=== PATIENT | female | born 1955 | race Two or more races ===

== ENCOUNTER 2025-01-01 18:56 | Inpatient (IN) | payer MEDICARE ==
[~2025-01-01] VITALS: Ht 160 cm; Wt 63.8 kg
[~2025-01-01 18:56] MED LIST: LEVO50TA7 PO
--- NOTE | 2025-01-01 19:07 | ED.PDOC ---
SOB-HPI HPI Comments 69 year old female presents to the ED via EMS with a chief complaint of shortness of breath onset 1 day. Patient states she has been experiencing shortness of breath for the past day, today began experiencing generalized weakness, fatigue, cough. Upon EMS arrival, O2 sat was in the 60s, placed on 10L O2 improved to 97%. Per EMS, family on scene stated patient has been intubated before due to respiratory issues, unknown specific diagnosis. Patient used breathing treatment at home with no improvement of symptoms. Denies chest pain, fever, chills, abdominal pain, nausea, vomiting, hematemesis, headache, dizziness. No other associated symptoms, modifiers, recent injuries or sick contacts present at this time. Time Seen by MD: 19:00 Primary Care Provider: UNKNOWN Reviewed notes: Medications, Allergies Information Source: Patient, Emergency Med Personnel Mode of Arrival: EMS Severity: Moderate Timing: Days Duration: Since onset Context: At Rest PE Risk Factors: None History of: None Prehospital treatment: Breathing Tx, Oxygen Modifying Factors: Nothing Associated Signs and Symptoms: Cough If cough with SOB: Non-Productive Past Medical History PAST MEDICAL HISTORY: COPD, HTN Surgical History: Denies all surgeries RX SPECIALIST History: No Pertinent RX SPECIALIST History Family History Family History: Unobtainable Social History Smoker: Non-Smoker Alcohol: Denies ETOH Use Drugs: Denies Drug Use Lives In: Home Constitutional: reports: fatigue, weakness; denies: chills, diaphoresis, fever, malaise, sweats, others EENTM: denies: blurred vision, double vision, ear bleeding, ear discharge, ear drainage, ear pain, ear ringing, eye pain, eye redness, hearing loss, mouth pain, mouth swelling, nasal discharge, nose bleeding, nose congestion, nose pain, photophobia, tearing, throat pain, throat swelling, voice changes, others Respiratory: reports: cough, shortness of breath; denies: hemoptysis, orthopnea, SOB at rest, SOB with excertion, stridor, wheezing, others Cardiovascular: denies: chest pain, dizzy spells, diaphoresis, Dyspnea on exertion, edema, irregular heart beat, left arm pain, lightheadedness, palpitations, PND, syncope, others Gastrointestinal: denies: abdomen distended, abdominal pain, blood streaked bowels, constipated, diarrhea, dysphagia, difficulty swallowing, hematemesis, melena, nausea, poor appetite, poor fluid intake, rectal bleeding, rectal pain, vomiting, others Genitourinary: denies: abnormal vagina bleeding, burning, dyspareunia, dysuria, flank pain, frequency, hematuria, incontinence, pain, , vagina discharge, urgency, others Neurological: denies: dizziness, fainting, headache, left sided numbness, left sided weakness, numbness, paresthesia, pre-existing deficit, right sided numbness, right sided weakness, seizure, speech problems, tingling, tremors, weakness, others Musculoskeletal: denies: back pain, gout, joint pain, joint swelling, muscle pain, muscle stiffness, neck pain, others Integumetry: denies: bruises, change in color, change in hair/nails, dryness, laceration, lesions, lumps, rash, wounds, others Allergic/Immunocompromised: denies: Difficulty Healing, Frequent Infections, Hives, Itching, others Hematologic/Lymphatic: denies: anemia, blood clots, easy bleeding, easy bruising, swollen glands, others Endocrine: denies: excessive hunger, excessive sweating, excessive thirst, excessive urination, flushing, intolerance to cold, intolerance to heat, unexplained weight gain, unexplained weight loss, others Psychiatric: denies: anxiety, bipolar disorder, depression, hopeless, panic disorder, schizophrenia, sleepless, suicidal, others All Other Systems: Reviewed and Negative Physical Exam General Appearance: Normal HEENT: Normal ENT Inspection, Pharynx Normal, TMs Normal Neck: Full Range of Motion, Non-Tender, Normal, Normal Inspection Respiratory: Chest Non-Tender Cardiovascular: No Edema, No JVD, No Murmur, No Gallop, Normal Peripheral Pulses, Regular Rate/Rhythm Breast Exam: Deferred Gastrointestinal: No Organomegaly, Non Tender, No Pulsatile Mass, Normal Bowel Sounds, Soft Genitalia: Deferred Pelvic: Deferred Rectal: Deferred Extremities: No calf tenderness, Normal capillary refill, Normal inspection, Normal range of motion, Non-tender, No pedal edema Musculoskeletal : Apperance: Normal Neurologic: Alert, beauty director II-XII nml as Tested, No Motor Deficits, Normal Affect, Normal Mood, No Sensory Deficits Cerebellar Function: Normal Reflexes: Normal Skin: Dry, Normal Color, Warm Lymphatic: No Adenopathy Was a procedure done? Was a procedure done?: No Differential Dx Differential Diagnosis: Asthma, Bronchitis, CHF, COPD, Hyponatremia, Pneumonia, Pneumothorax, Pulmonary Embolism, Respiratory Distress, URI, Other X-Ray, Labs, Meds, VS Vital Signs Date Time Temp Pulse Resp B/P (MAP) Pulse Ox O2 Delivery O2 Flow Rate FiO2 01/01/25 20:00 102 01/01/25 19:05 98.3 112 22 110/48 97 98.3 Lab Test 01/01/25 20:20 01/01/25 19:23 01/01/25 19:20 Range/Units Troponin I High Sensitivity 13 15 </=34 ng/L White Blood Count 15.4 H 4.4-10.8 10^3/uL Red Blood Count 4.09 4.0-5.20 10^6/uL Hemoglobin 13.8 12.2-16.2 g/dL Hematocrit 41.2 36.0-46.0 % Mean Corpuscular Volume 100.7 H 80.0-100.0 fL Mean Corpuscular Hemoglobin 33.6 H 28.0-32.0 pg Mean Corpuscular Hemoglobin Concent 33.4 32.0-36.0 g/dL Red Cell Distribution Width 14.0 11.8-14.3 % Platelet Count 268 140-450 10^3/uL Mean Platelet Volume 9.2 6.9-10.8 fL Neutrophils (%) (Auto) 75.4 37.0-80.0 % Lymphocytes (%) (Auto) 19.3 10.0-50.0 % Monocytes (%) (Auto) 4.2 0.0-12.0 % Eosinophils (%) (Auto) 0.8 0.0-7.0 % Basophils (%) (Auto) 0.3 0.0-2.0 % Neutrophils # (Auto) 11.6 H 1.6-8.6 10 ^3/uL Lymphocytes # (Auto) 3.0 0.4-5.4 10 ^3/uL Monocytes # (Auto) 0.6 0-1.3 10 ^3/uL Eosinophils # (Auto) 0.1 0-0.8 10 ^3/uL Basophils # (Auto) 0 0-0.2 10 ^3/uL Nucleated Red Blood Cells 0.1 % Sodium Level 136 136-145 mmol/L Potassium Level 4.3 3.5-5.1 mmol/L Chloride Level 105 98-107 mmol/L Carbon Dioxide Level 22 20-31 mmol/L Anion Gap 9 5-15 Blood Urea Nitrogen 14 9-23 mg/dL Creatinine 0.80 0.550-1.02 mg/dL Glomerular Filtration Rate Calc 80 >90 mL/min BUN/Creatinine Ratio 17.5 10.0-20.0 Serum Glucose 129 H 74-106 mg/dL Lactic Acid Level 1.8 0.4-2.0 mmol/L Calcium Level 9.7 8.7-10.4 mg/dL Magnesium Level 2.0 1.6-2.6 mg/dL Total Bilirubin 1.5 H 0.2-1.0 mg/dL Aspartate Amino Transferase (AST) 42 H 13-40 U/L Alanine Aminotransferase (ALT) 45 H 7-40 U/L Alkaline Phosphatase 97 46-116 U/L B-Type Natriuretic Peptide 30.14 0-100 pg/mL Total Protein 7.2 5.7-8.2 g/dL Albumin 4.2 3.2-4.8 g/dL Blood Gas Specimen Type Venous Blood Gas Sample Site Vbg - n/a Blood Gas Patient Temperature 37.0 Arterial Blood Date Drawn [id number] Temo Test N/a Venous Blood pH 7.371 7.320-7.430 Venous Blood pCO2 at Patient Temp 38.0 38.0-54.0 mmHg Venous Blood pO2 at Patient Temp < 36.5 23.0-48.0 mmHg Venous Blood HCO3 21.5 L 22.0-29.0 mmol/L Venous Blood Base Excess -3.3 L -2.0-3.0 mmol/L Blood Gas Liter Flow 15.00 Blood Gas Modality Mask - nrb FiO2 % 100.0 Current Medications Medications (Trade) Dose Ordered Sig/Serenity Route Start Time Stop Time Status Last Admin Albuterol (Ventolin Medneb) 5 mg ONCE ONCE N 01/01/25 19:15 01/01/25 19:16 DC 01/01/25 19:54 Ipratropium Hiram (Atrovent Medneb) 0.5 mg ONCE ONCE HHN 01/01/25 19:15 01/01/25 19:16 DC 01/01/25 19:54 Prednisone 40 mg ONCE ONCE PO 01/01/25 19:15 01/01/25 19:16 DC 01/01/25 20:01 Ceftriaxone Sodium 50 ml @ 100 mls/hr ONCE ONCE IV 01/01/25 20:15 01/01/25 20:44 DC 01/01/25 20:31 Time of 1ST Reevaluation: 19:30 Reevaluation 1ST: Unchanged Patient Education/Counseling: Diagnosis, Treatment, Prognosis Family Education/Counseling: No Family Present Additional Information The following tests were ordered, and results were reviewed by me: TROP-x3, CBC, CMP, BNP, XY CHEST, MAGNESIUM, EKG, BLOOD CULTURE, LA W/ REFLEX, VBG Additional Information was gathered from interviewing the following independent historians: EMS I reviewed and agreed with the following test results read by other providers:XY CHEST I discussed treatment and results with medical personnel and: patient Comprehensive systems review obtained and negative except for what is stated in the HPI. SEPSIS Sepsis Screen Physician Orders Chest Portable (01/01/25 19:03) Pulse Oximetry (01/01/25 19:03) Oxygen (01/01/25 19:03) Blood Culture (01/01/25 19:03) Troponin-I Hs (01/01/25 22:03) Venous Blood Gas (01/01/25 19:03) Oxygen By High-Flow (01/01/25 19:54) Azithromycin 500mg/ 250ml (Zithromax 50 (01/01/25 20:15) Vital Signs Date Time Temp Pulse Resp B/P (MAP) Pulse Ox O2 Delivery O2 Flow Rate FiO2 01/01/25 20:00 102 01/01/25 19:05 98.3 112 22 110/48 97 98.3 Laboratory Tests Test 01/01/25 19:23 Lactic Acid Level 1.8 mmol/L (0.4-2.0) White Blood Count 15.4 10^3/uL (4.4-10.8) H Medications Medications Dose Ordered Sig/Serenity Route Start Time Stop Time Status Last Admin Dose Admin Albuterol 5 mg ONCE ONCE N 01/01/25 19:15 01/01/25 19:16 DC 01/01/25 19:54 Ceftriaxone Sodium 50 ml @ 100 mls/hr ONCE ONCE IV 01/01/25 20:15 01/01/25 20:44 DC 01/01/25 20:31 Ipratropium Hiram 0.5 mg ONCE ONCE HHN 01/01/25 19:15 01/01/25 19:16 DC 01/01/25 19:54 Prednisone 40 mg ONCE ONCE PO 01/01/25 19:15 01/01/25 19:16 DC 01/01/25 20:01 Departure 1 Departure Time of Disposition: 21:06 Impression: Primary Impression: Acute hypoxic respiratory failure Additional Impressions: Pneumonia COPD exacerbation Disposition: ADMITTED INPATIENT Admit to: Med Surg Condition: Guarded Comments Acute Respiratory Distress with Pneumonia and COPD Exacerbation Chief Complaint: Shortness of breath for 1 day History of Present Illness: Patient is a 69-year-old female with a history of COPD who presents to the ED with complaints of shortness of breath for the last one day. She also reports generalized weakness, fatigue, and malaise. Her condition has progressively wor sened, requiring her to seek emergency care. On arrival, patient was found to be hypoxic with oxygen saturation in the sixties on room air, requiring supplemental oxygen. Review of Systems: Respiratory: Positive for shortness of breath and increased work of breathing. Constitutional: Positive for generalized weakness, fatigue, and malaise. All other systems: Deferred due to patient's acute respiratory distress. Past Medical History: Chronic Obstructive Pulmonary Disease (COPD) Vital Signs: Respiratory Rate: Increased Oxygen Saturation: 60s% on room air, 80s% on nasal cannula, >90% on high flow oxygen Physical Exam: General: Patient in moderate respiratory distress. Respiratory: Increased respiratory rate. Diminished breath sounds in bilateral bases. No accessory muscle use noted. Remainder of exam deferred due to patient's acute respiratory condition. Lab Results: CBC: WBC elevated at 15.4 Chemistry Panel: - Total bilirubin: Slightly elevated at 1.5 - AST: Slightly elevated at 42 - ALT: Slightly elevated at 45 - Remainder of chemistry panel unremarkable Cardiac Enzymes: - Troponin: Normal at 15 - BNP: Normal at 30 Imaging and Other Relevant Results: Chest X-ray: Extensive bilateral airspace disease that is grayish, perihilar, and in bilateral lower lobe regions, consistent with ARDS or diffuse pneumonia. Medical Decision Making: Summary Statement: 69-year-old female with history of COPD presenting with acute respiratory distress, hypoxia, and radiographic evidence of bilateral pneumonia. Problem List: 1. Acute hypoxic respiratory failure 2. Pneumonia, bilateral 3. COPD exacerbation 4. Mild transaminitis Differential Diagnosis: Pneumonia (bacterial vs. viral), COPD exacerbation, pulmonary edema, ARDS, pulmonary embolism, heart failure. ED Course: Patient received breathing treatment and prednisone for COPD exacerbation. IV Rocephin and azithromycin were administered for presumed bacterial pneumonia. Patient required escalation to high-flow oxygen therapy to maintain oxygen saturation above 90%. Decision made to admit for management of respiratory failure with hypoxia. Assessment and Plan: 1. Acute Hypoxic Respiratory Failure: - Due to pneumonia and COPD exacerbation - Continue high-flow oxygen therapy to maintain O2 saturation >90% - Admit to inpatient service, consider ICU if respiratory status deteriorates - Monitor ABGs and oxygen requirements 2. Bilateral Pneumonia: - Continue IV antibiotics: Ceftriaxone and Azithromycin - Obtain sputum cultures if possible - Consider respiratory viral panel 3. COPD Exacerbation: - Continue bronchodilator therapy - Systemic corticosteroids (Prednisone) - Reassess need for BiPAP if condition worsens 4. Mild Transaminitis: - Monitor liver function tests - Consider hepatic ultrasound if elevation persists Disposition: Admit to hospital for management of respiratory failure, pneumonia, and COPD exacerbation. Additional Notes: Note created based on ED encounter for patient with acute respiratory distress requiring admission. Billing Information: ICD-10: J96.01 - Acute respiratory failure with hypoxia ICD-10: J18.9 - Pneumonia, unspecified organism ICD-10: J44.1 - Chronic obstructive pulmonary disease with acute exacerbation ICD-10: R74.0 - Nonspecific elevation of levels of transaminase and lactic acid dehydrogenase [LDH] Critical Care Note Critical Care Time?: Yes (45 min-critical care time only) Critical care comment: Total critical care time: Approximately 36 minutes Due to a high probability of clinically significant, life threatening deterioration, the patient required my highest level of preparedness to intervene emergently and I personally spent this critical care time directly and personally managing the patient. This critical care time included obtaining a hi story; examining the patient; pulse oximetry; ordering and review of studies; arranging urgent treatment with development of a management plan; evaluation of patient's response to treatment; frequent reassessment; and, discussions with other providers. This critical care time was performed to assess and manage the high probability of imminent, life-threatening deterioration that could result in multi-organ failure. It was exclusive of separately billable procedures and treating other patients. Stability Stability form required: No Heart Score Heart Score: Heart Score Response (Comments) Value History Moderate Suspicious 1 EKG Repolarization Disturb 1 Age >65 2 Risk Factors 1 or 2 risk factors 1 Troponin Normal limit 0 Total 5 I personally scribed for SEDRICK COFFMAN MD ([email or web address]) on 01/01/25 at 19:07. Electronically submitted by Debbie Gonzalez ([email or web address]). I personally scribed for SEDRICK COFFMAN MD ([email or web address]) on 01/01/25 at 19:08. Electronically submitted by Debbie Gonzalez ([email or web address]). SEDRICK COFFMAN MD Jan 01, 2025 19:07
--- NOTE | 2025-01-01 19:08 | ECG ---
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
[2025-01-01 19:35] VITALS: PULSE 102; RESP 34; O2SAT 97
--- NOTE | 2025-01-01 19:45 | DVH ---
CHEST RADIOGRAPH REASON FOR EXAM: Shortness of breath COMPARISON: None TECHNIQUE: One view of the chest is provided FINDINGS: The cardiomediastinal silhouette is within normal limits for size. There is extensive airsp lianne disease bilaterally, greatest in the perihilar regions. There are low inspiratory volumes. There is no large pleural effusion. There is no pneumothorax. No acute osseous abnormality is identified. IMPRESSION: Extensive bilateral airspace disease, greatest in the perihilar regions. This may be secondary to sev ere pulmonary edema. ARDS and diffuse pneumonia are also considerations.
[2025-01-01 19:52] LABS: Hematocrit 41.2 % (36.0-46.0); Hemoglobin 13.8 g/dL (12.2-16.2); Mean Corpuscular Hemoglobin 33.6 pg (28.0-32.0); Mean Corpuscular Volume 100.7 fL (80.0-100.0); Nucleated Red Blood Cells % 0.1 %
[2025-01-01] MEDS: ALBUTEROL SULF 2.5 MG/0.5ML(0.5%) NEB SOLN HHN ONE (19:54)
[2025-01-01] MEDS: IPRATROPIUM BROM 0.5 MG/2.5ML INH SOL HHN ONE (19:54)
[2025-01-01] MEDS: predniSONE 20 MG TAB PO ONE (20:01)
[2025-01-01 20:08] LABS: Albumin 4.2 g/dL (3.2-4.8); Alkaline Phosphatase 97 U/L (46-116); Anion Gap 9 (5-15); BUN/Creatinine Ratio 17.5 (10.0-20.0); Blood Urea Nitrogen 14 mg/dL (9-23); Calcium 9.7 mg/dL (8.7-10.4); Carbon Dioxide 22 mmol/L (20-31); Chloride 105 mmol/L (98-107); Magnesium 2.0 mg/dL (1.6-2.6); Potassium 4.3 mmol/L (3.5-5.1); Sodium 136 mmol/L (136-145); Total Protein 7.2 g/dL (5.7-8.2)
[2025-01-01] MEDS: cefTRIAXone 1GM/50ML D5W 50 ML IV ONE (20:31)
[2025-01-01 20:50] LABS: Alanine Aminotransferase 45 U/L (7-40); Bilirubin, Total 1.5 mg/dL (0.2-1.0); Glucose 129 mg/dL (74-106)
[2025-01-01] MEDS: AZITHROMYCIN 500MG/ 250ML 250 ML IV ONE (21:20)
[2025-01-01] MEDS: ACETAMINOPHEN 325 MG TAB PO ONE ×2 (21:51→21:52)
[2025-01-01] MEDS ORDERED: IPRATROPIUM BROM 0.5 MG/2.5ML INH SOL NEB SCH (23:15)
[2025-01-01] MEDS ORDERED: ALBUTEROL SULF 2.5 MG/0.5ML(0.5%) NEB SOLN NEB SCH (23:15)
[2025-01-01 23:29] LABS: Urine Protein, UAD TRACE (Negative)
[2025-01-01] MEDS: SODIUM CHLORIDE 0.9% 1,550 ML IV ONE (23:30)
[2025-01-01 23:53] LABS: Amphetamine Screen, Urine Neg (NEGATIVE); Barbiturate Scree,Urine Neg (NEGATIVE); Benzodiazephine Screen, Urine Neg (NEGATIVE); Cannabinoid Screen, Urine Neg (NEGATIVE); Cocaine Screen, Urine Neg (NEGATIVE); Opiate Scree,Urine Neg (NEGATIVE); Phencyclidine Screen, Urine Neg (NEGATIVE)
--- NOTE | 2025-01-01 23:58 | DVHHPRES ---
History of Present Illness Resident Creating Document: CHANDU MARRERO RESIDENT History of Present Illness Theresa Singh is a 69 year old female with past medical history of Hypothyroidism, COPD, RA and CVA (2019). The patient presented to the ED via EMS with a chief complaint of 1 day of fever, chills, fatigue, shortness of breath, and dry cough. Patient uses albuterol at home without any improvement. Today, the shortness of breath exacerbates making her feeling lightheaded that prompted her to call the EMS. Upon EMS arrival, O2 sat was in the 60s, placed on 10L O2 improved to 97%. Per EMS, family on scene stated patient has been intubated before due to respiratory issues, unknown specific diagnosis. Denies chest pain, abdominal pain, nausea, vomiting, hematemesis, headache, dizziness or other associated symptoms. Patient denies recent travels or sick contacts. Pulmonary: COPD, Other (COVID and Several episodes of pneumonia and respiratory failure, she was admitted for respiratory failure last year. ) Rheumatologic: Rheumatoid arthritis Endocrine: Hypothyroidism Past Surgical History: Appendectomy, Hysterectomy, Hernia Repair Family History: Other (Heart diseases ) Smoke: Quit (Patient smoke less than 1 pack during teens years.) ALCOHOL: none Drugs: None Review of Systems Constitutional: Yes: Fever, Chills, Malaise; No: Sweats, Weakness, Other Eyes: No: Pain, Vision change, Conjunctivae inflammation, Eyelid inflammation, Other, Redness ENT: No: Ear pain, Ear discharge, Nose pain, Nose discharge, Nose congestion, Mouth pain, Mouth swelling, Throat pain, Throat swelling, Other Respiratory: Cough, Dry, Shortness of breath, SOB with excertion; No: Wheezing, Hemoptysis, Pleuritic Pain, Sputum, Wheezing, Other Cardiovascular: Lt Headedness; No: Chest Pain, Palpitations, Orthopnea, Par oxysmal Noc. Dyspnea, Edema, Other Gastrointestinal: No: Nausea, Vomiting, Abdominal Pain, Diarrhea, Constipation, Melena, Hematochezia, Other Genitourinary: No Dysuria, No Frequency, No Incontinence, No Hematuria, No Retention, No Other Musculoskeletal: No: other, neck pain, shoulder pain, arm pain, back pain, hand pain, leg pain, foot pain Skin: No: Rash, Lesions, Jaundice, Bruising, Other Neurological: No: Weakness, Numbness, Incoordination, Change in speech, Confusion, Seizures, Other Allergies: Coded Allergies: NO KNOWN ALLERGIES (Unverified , 08/20/18) Medications Current Medications Medications Dose Ordered Sig/Serenity Route Start Time Stop Time Status Last Admin Dose Admin Albuterol 5 mg Q4HR NEB 01/01/25 23:15 UNV Ipratropium [place] 0.5 mg Q4HR NEB 01/01/25 23:15 UNV Exam Vital Signs Vital Signs Date Time Temp Pulse Resp B/P (MAP) Pulse Ox O2 Delivery O2 Flow Rate FiO2 01/01/25 22:30 99.9 100 25 110/45 (66) 95 99.9 01/01/25 19:35 Non-Rebreather 15 N/A General Appearance: Alert, Oriented X3, Cooperative, mild distress HEENT: Atraumatic, PERRLA, Mucous membr. moist/pink Respiratory: Other (Increased respiratory rate, Diminished breath sounds in bi lateral bases, bilateral crackles in mid and lower lung lobes) Cardiovascular: Regular rate, Normal S1, Normal S2, No murmurs Abdominal: Normal bowel sounds, Soft, No tenderness, No hepatospenomegaly, No masses Extremities: No clubbing, No cyanosis, No edema, Normal pulses, No tenderness/swelling Skin: No rashes, No breakdown, No significant lesion Neuro: Normal gait, Normal speech, Strength at 5/5 X4 ext, Normal tone, Sensation intact, Cranial nerves 3-12 NL Psych/Mental Status: Mental status NL, Mood NL Labs/Xrays Labs Test 01/01/25 20:20 01/01/25 19:23 01/01/25 19:20 Range/Units Troponin I High Sensitivity 13 </=34 ng/L White Blood Count 15.4 H 4.4-10.8 10^3/uL Red Blood Count 4.09 4.0-5.20 10^6/uL Hemoglobin 13.8 12.2-16.2 g/dL Hematocrit 41.2 36.0-46.0 % Mean Corpuscular Volume 100.7 H 80.0-100.0 fL Mean Corpuscular Hemoglobin 33.6 H 28.0-32.0 pg Mean Corpuscular Hemoglobin Concent 33.4 32.0-36.0 g/dL Red Cell Distribution Width 14.0 11.8-14.3 % Platelet Count 268 140-450 10^3/uL Mean Platelet Volume 9.2 6.9-10.8 fL Neutrophils (%) (Auto) 75.4 37.0-80.0 % Lymphocytes (%) (Auto) 19.3 10.0-50.0 % Monocytes (%) (Auto) 4.2 0.0-12.0 % Eosinophils (%) (Auto) 0.8 0.0-7.0 % Basophils (%) (Auto) 0.3 0.0-2.0 % Neutrophils # (Auto) 11.6 H 1.6-8.6 10 ^3/uL Lymphocytes # (Auto) 3.0 0.4-5.4 10 ^3/uL Monocytes # (Auto) 0.6 0-1.3 10 ^3/uL Eosinophils # (Auto) 0.1 0-0.8 10 ^3/uL Basophils # (Auto) 0 0-0.2 10 ^3/uL Nucleated Red Blood Cells 0.1 % Sodium Level 136 136-145 mmol/L Potassium Level 4.3 3.5-5.1 mmol/L Chloride Level 105 98-107 mmol/L Carbon Dioxide Level 22 20-31 mmol/L Anion Gap 9 5-15 Blood Urea Nitrogen 14 9-23 mg/dL Creatinine 0.80 0.550-1.02 mg/dL Glomerular Filtration Rate Calc 80 >90 mL/min BUN/Creatinine Ratio 17.5 10.0-20.0 Serum Glucose 129 H 74-106 mg/dL Lactic Acid Level 1.8 0.4-2.0 mmol/L Calcium Level 9.7 8.7-10.4 mg/dL Magnesium Level 2.0 1.6-2.6 mg/dL Total Bilirubin 1.5 H 0.2-1.0 mg/dL Aspartate Amino Transferase (AST) 42 H 13-40 U/L Alanine Aminotransferase (ALT) 45 H 7-40 U/L Alkaline Phosphatase 97 46-116 U/L B-Type Natriuretic Peptide 30.14 0-100 pg/mL Total Protein 7.2 5.7-8.2 g/dL Albumin 4.2 3.2-4.8 g/dL Blood Gas Specimen Type Venous Blood Gas Sample Site Vbg - n/a Blood Gas Patient Temperature 37.0 Arterial Blood Date Drawn [id number] Temo Test N/a Venous Blood pH 7.371 7.320-7.430 Venous Blood pCO2 at Patient Temp 38.0 38.0-54.0 mmHg Venous Blood pO2 at Patient Temp < 36.5 23.0-48.0 mmHg Venous Blood HCO3 21.5 L 22.0-29.0 mmol/L Venous Blood Base Excess -3.3 L -2.0-3.0 mmol/L Blood Gas Liter Flow 15.00 Blood Gas Modality Mask - nrb FiO2 % 100.0 SEPSIS Sepsis Screen Date sepsis recognized/suspect: Jan 01, 2025 Time Sepsis recognized/suspect: 1944 Recent Procedure: No On Antibiotic Therapy: No Respiratory Rate >20: Yes Heart Rate >90: Yes Temp<36 C (96.8 F) or >38.3 C: No SBP <90 or MAP <65 mmHG: No New Acute Mental Status Change: No Is the patient on CPAP, BIPAP,: No Physician Orders Chest Portable (01/01/25 19:03) Pulse Oximetry (01/01/25 19:03) Oxygen (01/01/25 19:03) Blood Culture (01/01/25 19:03) Venous Blood Gas (01/01/25 19:03) Oxygen By High-Flow (01/01/25 19:54) Admit (01/01/25 22:33) Code Status (01/01/25 22:33) Vital Signs .PER UNIT PROTOCOL (01/01/25 22:33) Review Orders With Adm.Md (01/01/25 22:33) Maintain Bed Rest (01/01/25 22:33) Regular Diet (01/02/25 Breakfast) Notify Md Of Changes From Base (01/01/25 22:33) Advance Directive (01/01/25 22:33) Allergies (01/01/25 22:33) Drug Screen (01/01/25 22:33) Urinalysis (01/01/25 22:33) Respiratory Culture W/ Gs (01/01/25 22:33) Complete Blood Count (01/02/25 04:00) Comprehensive Metabolic Panel (01/02/25 04:00) Covid19 Antigen Joanna (01/01/25 ) Rapid Influenza A&B (01/01/25 22:59) Albuterol Medneb (Ventolin Medneb) (01/01/25 23:15) Ipratropium Medneb (Atrovent Medneb) (01/01/25 23:15) Sodium Chloride 0.9% (01/01/25 23:15) Traffic Agent (01/01/25 23:09) Vital Signs Date Time Temp Pulse Resp B/P (MAP) Pulse Ox O2 Delivery O2 Flow Rate FiO2 01/01/25 22:30 99.9 100 25 110/45 (66) 95 99.9 01/01/25 21:51 102.2 01/01/25 21:00 102.2 102.2 01/01/25 20:00 102 01/01/25 19:35 102 34 97 Non-Rebreather 15 N/A 01/01/25 19:30 102 34 109/56 (73) 97 01/01/25 19:05 98.3 112 22 110/48 97 98.3 Laboratory Tests Test 01/01/25 19:23 Lactic Acid Level 1.8 mmol/L (0.4-2.0) White Blood Count 15.4 10^3/uL (4.4-10.8) H Medications Medications Dose Ordered Sig/Serenity Route Start Time Stop Time Status Last Admin Dose Admin Acetaminophen 1,000 mg ONCE ONCE PO 01/01/25 21:45 01/01/25 21:46 DC 01/01/25 21:51 1,000 MG Albuterol 5 mg ONCE ONCE N 01/01/25 19:15 01/01/25 19:16 DC 01/01/25 19:54 5 MG Azithromycin 250 ml @ 125 mls/hr ONCE ONCE IV 01/01/25 20:15 01/01/25 22:14 DC 01/01/25 21:20 125 MLS/HR Ceftriaxone Sodium 50 ml @ 100 mls/hr ONCE ONCE IV 01/01/25 20:15 01/01/25 20:44 DC 01/01/25 20:31 100 MLS/HR Ipratropium [place] 0.5 mg ONCE ONCE HHN 01/01/25 19:15 01/01/25 19:16 DC 01/01/25 19:54 0.5 MG Prednisone 40 mg ONCE ONCE PO 01/01/25 19:15 01/01/25 19:16 DC 01/01/25 20:01 40 MG Assessment/Plan Assessment/Plan #Acute Hypoxic Respiratory Failure Likely due to COPD exacerbation #ARDS Continue high-flow oxygen therapy to maintain O2 saturation >90% Consider ICU if respiratory status deteriorates Reassess need for BiPAP if condition worsens. ABG #Acute on Chronic COPD exacerbation likely due to pneumonia gram +/- #Sepsis likely due to Pneumonia gram +/- Leukocytosis, Fever, Tachycardic, tachypneic. IV antibiotics: Ceftriaxone and Azithromycin Sputum cultures Blood cultures Albuterol NB Ipatropium NB Systemic corticosteroids #Mild Transaminitis Monitor liver function tests. Abdomen US #Hypothyroidism Levotiroxine #Rheumatoid Arthritis Tylenol Regular diet DVT prophylaxis PUD prophylaxis Protonic Goals of care discussed with the patient > 35 min. Discussed plan of care with Dr. Mendez Code status: Full code PCP: in [facility], patient does not recall the name. Plan discussed with: Patient and son patients agrees with the plan. Plan discussed with: Patient, Son My Orders Orders - CHANDU MARRERO RESIDENT Procedure Category Date Status Time Admit ADMIT 01/01/25 Transmitted 22:33 Code Status CODE 01/01/25 Verified 22:33 Vital Signs LAKHWINDER 01/01/25 In Process 22:[address] [facility] 01/01/25 In Process Adm. 22:33 Maintain Bed Rest LAKHWINDER 01/01/25 In Process 22:33 Regular Diet DIET 01/02/25 Transmitted Breakfast Notify Md Of Changes LAKHWINDER 01/01/25 In Process From Base 22:33 Advance Directive LAKHWINDER 01/01/25 In Process 22:33 Allergies LAKHWINDER 01/01/25 In Process 22:33 Drug Screen LAB 01/01/25 Logged 22:33 Urinalysis LAB 01/01/25 Logged 22:33 Respiratory Culture SASKIA 01/01/25 Logged W/ Gs 22:33 Complete Blood Count LAB 01/02/25 Verified 04:00 Comprehensive LAB 01/02/25 Verified Metabolic Panel 04:00 Covid19 Antigen Joanna LAB 01/01/25 Logged Rapid Influenza A&B LAB 01/01/25 Logged 22:59 Albuterol Medneb PHA 01/01/25 Logged (Ventolin Medneb) 23:15 Ipratropium Medneb PHA 01/01/25 Logged (Atrovent Medneb) 23:15 Sodium Chloride 0.9% PHA 01/01/25 Logged 23:15 Traffic Agent ORDERS 01/01/25 Verified 23:09 Common Visit Codes: 09291-[id number] INP/OBS CARE (HIGH) Secondary Visit Codes: 79330-[id number] CARE PLAN 30 MINUTES CHANDU MARRERO RESIDENT Jan 01, 2025 23:58
[2025-01-02] VITALS (7 sets, daily range): BP systolic 108; BP diastolic 56; PULSE 82–104; RESP 18–28; TEMP 99.9; O2SAT 94–98
[2025-01-02 00:23] LABS: Base Excess -6.7 mmol/L (-2.0-3.0)
[2025-01-02 00:35] LABS: COVID19 ANTIGEN SOFIA FIA NEGATIVE (NEGATIVE)
[2025-01-02] MEDS: IOHEXOL 350 MG/ML 100ML IJ ONE (00:37)
--- NOTE | 2025-01-02 04:19 | DVH ---
CTA Chest with intravenous contrast INDICATION: R/O PE, PNA COMPARISON: XY CHEST PORTABLE on DOS: 01/01/25 TECHNIQUE: Multidetector spiral CTA of the chest was performed of the chest with intravenous contrast . PULMONARY ANGIOGRAPHY PROTOCOL was utilized using a bolus-tracking technique centered on the main p ulmonary artery. Axial, coronal and sagittal multiplanar and MIP reformats were performed. Radiation Dose : 1. Chest: CTDI volume is 17.76 mGy. Dose-length product is 348.24 mGy*cm The dose indicators for CT are the volume Computed Tomography (CT) Dose Index (CTDIvol) and the Dose Length Product (DLP), and are measured in units of mGy and mGy-cm, respectively. These indicators are not patient dose, but values generated from the CT scanner acquisition factors. The report includes radiation exposure data for exposures received during this examination. Findings: Pulmonary artery: No pulmonary embolism. The main pulmonary artery measures 2.5 cm and the ascending thoracic aorta measures 3.1 cm. Lower neck: Normal thyroid. Lungs: Extensive multifocal consolidative parenchymal infiltrate within all lung zones bilaterally, w orse within the posterior lower lobes. No evidence of pleural effusion or pneumothorax. Heart/Vascular Structures: Normal heart size. No pericardial effusion. Lymph Nodes: No adenopathy Musculoskeletal: No acute osseous abnormality. Soft tissues: Normal. Upper abdomen: Limited portions of the upper abdomen are unremarkable. IMPRESSION: 1. No pulmonary embolism. 2. Extensive multifocal consolidative bilateral pulmonary infiltrate, most notably within the bilater al posterior lower lobes.
[2025-01-02 07:32] LABS: Hematocrit 38.7 % (36.0-46.0); Hemoglobin 13.2 g/dL (12.2-16.2); Mean Corpuscular Hemoglobin 34.0 pg (28.0-32.0); Mean Corpuscular Volume 100.0 fL (80.0-100.0); Nucleated Red Blood Cells % 0.1 %
[2025-01-02 07:38] LABS: Alanine Aminotransferase 35 U/L (7-40); Albumin 3.8 g/dL (3.2-4.8); Alkaline Phosphatase 87 U/L (46-116); Anion Gap 9 (5-15); BUN/Creatinine Ratio 16.7 (10.0-20.0); Blood Urea Nitrogen 11 mg/dL (9-23); Calcium 9.4 mg/dL (8.7-10.4); Carbon Dioxide 21 mmol/L (20-31); Potassium 4.1 mmol/L (3.5-5.1); Sodium 141 mmol/L (136-145); Total Protein 6.6 g/dL (5.7-8.2)
[2025-01-02 07:39] LABS: Bilirubin, Total 1.0 mg/dL (0.2-1.0); Chloride 111 mmol/L (98-107); Glucose 190 mg/dL (74-106)
[2025-01-02] MEDS: ENOXAPARIN SOD 40 MG/0.4 ML SYRINGE SC ONE (08:00)
[2025-01-02] MEDS ORDERED: cefTRIAXone 1GM/50ML D5W 50 ML IV SCH (09:00)
[2025-01-02] MEDS: CEFEPIME 2GM/50ML NS 50 ML IV SCH (10:00)
[2025-01-02] MEDS: PANTOPRAZOLE 40 MG/10 ML VIAL INJ IV SCH (10:04)
[2025-01-02] MEDS: AZITHROMYCIN 500MG/ 250ML 250 ML IV SCH (10:05)
[2025-01-02] MEDS: HYDROCORTISONE SOD SUCC 100 MG/2ML INJ VIAL IV SCH (10:50)
[2025-01-02] MEDS ORDERED: VANCOMYCIN PER PHARMACY 0 MG IV SCH (11:45)
[2025-01-02 12:38] LABS: INR 0.97 (0.9-1.15); Partial Thromboplastin Time 28.2 SEC (24.5-34.5); Prothrombin Time 10.3 sec (9.3-11.8)
[2025-01-02] MEDS: SODIUM CHLORIDE 0.9% 250 ML IV ONE (13:05)
[2025-01-02] MEDS: SODIUM CHLORIDE 0.9% 1,000 ML IV SCH (15:25)
[2025-01-02] MEDS: VANCOMYCIN 1.25GM/250ML 250 ML IV ONE (17:36)
--- NOTE | 2025-01-02 19:36 | DVHPNRES ---
Progress Note Date Seen: Jan 02, 2025 Resident Creating Document: MEME ANG RESIDENT Medical Necessity Reason Pt with a Central, PICC or Fol: No Subjective Review of Systems Patient is a 69-year-old female with prior medical history of COPD, intracranial aneurysm, hypothyroidism, rheumatoid arthritis, and recurrent pneumonias requiring intubation, who presented to the ED with chief complaint of fatigue and shortness of breath. Patient states symptoms initiated 1 week prior to presentation. She refers fatigue associated with progressively worsened shortness of breath, dry cough, and febrile sensation. She states she used her oxygen at home with little, which prompted her family to call EMS. On evaluation in the field, she was saturating 60% and was placed on 10 L O2. On evaluation in the ED, she was found to be tachycardic, tachypneic, and requiring 15 L O2 via face mask. Initial labs significant for 15.4, with chemical panel within normal range, lactic acid 1.8, troponins negative, BNP 30.14, ABG showing 7.405, pCO2 27.1, pO2 103.3, and HCO3 16.6. Chest Xray shows extensive bilateral airspace disease, greatest in perihilar regions. Sepsis protocol was initiated, cultures were taken, and patient was admitted and started on IV antibiotics. Surgical: Aneurysm repair, Hernia repair, appendectomy Social: Denies drug and alcohol use, refers she smoked 1-2 cigarettes daily for 30 years with cessation in 2019 Patient seen at bedside. She is alert and oriented in person, place, and time. She states that feels well, and shortness of breath has improved with use of simple face mask, at the time 10 L O2. She currently denies chest pain, cough, nausea, vomiting and other symptoms. Over night, patient febrile spike of 102.2 F, she has remained tachypneic, and blood pressure remain on the lower limit of normality. CT angio was ordered, ruling out PE, and showed extensive multifocal consolidative bilateral pulmonary infiltrate. Cefepime was added for broader coverage. Patient is currently JACLYN status. Review of Systems: Constitutional: Refers febrile sensation and chills, denies weight loss . HEENT: Denies changes in vision and hearing. Respiratory: Denies shortness of breath and cough Cardiovascular: Denies chest discomfort or palpitations GI: Denies abdominal distention, abdominal pain, diarrhea : Denies dysuria and urinary frequency. Musculoskeletal: Denies any symptom Skin: Refers bruising on arms, denies rash and pruritus. Neurological: denies dizziness headache vision or hearing problems Objective vital signs Vital Sign Date Time Temp Pulse Resp B/P (MAP) Pulse Ox O2 Delivery O2 Flow Rate FiO2 01/02/25 17:00 98.2 77 25 104/47 (66) 94 98.2 01/02/25 07:56 Simple Mask* 10 99 Total Intake and Output 01/01/25 01/01/25 01/02/25 15:00 23:00 07:00 Intake Total 50 ml 1800 ml Balance 50 ml 1800 ml medications Current Medications Medications Dose Ordered Sig/Serenity Route Start Time Stop Time Status Last Admin Dose Admin Azithromycin 250 ml @ 125 mls/hr DAILY IV 01/02/25 10:00 01/02/25 10:05 125 MLS/HR Albuterol 5 mg Q4HPRN PRN NEB 01/02/25 00:15 Ipratropium [place] 0.5 mg Q4HPRN PRN NEB 01/02/25 00:15 Pantoprazole Sodium 40 mg DAILY IV 01/02/25 10:00 01/02/25 10:04 40 MG Enoxaparin Sodium 40 mg DAILY SC 01/03/25 10:00 Cefepime HCl 50 ml @ 12.5 mls/hr Q12HR IV 01/02/25 10:00 01/02/25 10:00 12.5 MLS/HR Vancomycin HCl 0 ml @ 0 mls/hr UD IV 01/02/25 11:45 Sodium Chloride 1,000 ml @ 75 mls/hr [id number] IV 01/02/25 11:45 01/02/25 15:25 75 MLS/HR Examination General: The patient alert and oriented in person place and time. Patient following commands HEENT: Normocephalic, atraumatic, left pupil is larger than the right however she states this is since her aneurysm, EOM intact, pink moist mucous membrane Respiratory/pulmonary: Bilateral chest expansion, no pain on palpation, vesicular murmurs present in almost all lung jackson, associated crackles in bilateral lower lung jackson. Cardiovascular: Normal RRR, normal S1 and S2 Abdomen: Abdomen nondistended, normal bowel sounds, soft, no pain to palpation in any of the abdominal quadrants, no palpable masses. Extremities: No deformities, no peripheral edema present at the lower extremities, normal pulses Skin: One circular non-blanching flat lesion on left arm Neurological: Intact cranial nerves with no focal neurologic deficits, left pupil larger than the right this is sequelae from previous aneurysm laboratory and microbiology Laboratory Tests 01/02/25 07:01 Test 01/02/25 07:01 Range/Units Serum Glucose 190 H 74-106 mg/dL Problem List/Assessment/Plan Problem List/Assessment/Plan Assessment and Plan: Sepsis secondary to Pneumonia (gram positive/gram negative) -Cefepime 2 g IV BID -Azithromycin 500 mg IV daily -Vancomycin IV per pharmacy protocol -Ceftriaxone discontinued -IV fluids -Chest Xray: Extensive bilateral airspace disease, greatest in the perihilar regions. This may be secondary to severe pulmonary edema. ARDS and diffuse pneumonia are also considerations. -CT angio: No pulmonary embolism. Extensive multifocal consolidative bilateral pulmonary infiltrate, most notably within the bilateral posterior lower lobes. -Pending cultures Acute on chronic hypoxic respiratory failure secondary to above -10 L O2 high flow NC -Ipratropium 0.5 mg NEB q 4 PRN -Albuterol 5 mg NEB q4 hr PRN Acute on Chronic COPD exacerbation, secondary to above Possible chronic HFrEF -Previous echo in 2019 EF 40-45% -Pending echo PE ruled out History of Hypothyroidism History of Rheumatoid arthritis DVT prophylaxis: Lovenox 40 mg SC daily Case discussed with Dr. Ulloa. Goals of care discussed with the patient for over 30 minutes. Agrees to intubation should it be required. FULL CODE. Plan discussed with: Patient, Son Date of Service: Jan 02, 2025 Billing Provider: MEL ULLOA MD Common Visit Codes: [id number] CARE 30-74 MIN Secondary Visit Codes: [id number] CARE PLAN 30 MINUTES MEME ANG RESIDENT Jan 02, 2025 19:36 MEL ULLOA MD Jan 04, 2025 20:55
[2025-01-03] VITALS (26 sets, daily range): BP systolic 66–188; BP diastolic 25–97; PULSE 76–129; RESP 16–30; TEMP 99.5–100.6; O2SAT 92–100
[2025-01-03 04:27] LABS: Hematocrit 41.9 % (36.0-46.0); Hemoglobin 14.1 g/dL (12.2-16.2); Mean Corpuscular Hemoglobin 33.9 pg (28.0-32.0); Mean Corpuscular Volume 100.6 fL (80.0-100.0); Nucleated Red Blood Cells % 0.1 %
[2025-01-03 04:37] LABS: Potassium 3.6 mmol/L (3.5-5.1); Sodium 140 mmol/L (136-145)
[2025-01-03 04:38] LABS: Anion Gap 11 (5-15); Calcium 9.8 mg/dL (8.7-10.4)
[2025-01-03 04:39] LABS: Carbon Dioxide 20 mmol/L (20-31); Chloride 109 mmol/L (98-107)
[2025-01-03 04:43] LABS: BUN/Creatinine Ratio 23.1 (10.0-20.0); Blood Urea Nitrogen 15 mg/dL (9-23)
[2025-01-03 04:51] LABS: Glucose 122 mg/dL (74-106)
[2025-01-03] MEDS: VANCOMYCIN 1GM/200ML PM 200 ML IV SCH (09:49)
[2025-01-03] MEDS: ENOXAPARIN SOD 40 MG/0.4 ML SYRINGE SC SCH (10:10)
[2025-01-03] MEDS: IPRATROPIUM BROM 0.5 MG/2.5ML INH SOL NEB PRN (12:29)
[2025-01-03] MEDS: ALBUTEROL SULF 2.5 MG/0.5ML(0.5%) NEB SOLN NEB PRN (12:30)
[2025-01-03] MEDS: MIDAZOLAM DRIP 50 mg/50mL 50 ML IV ONE (13:02)
[2025-01-03] MEDS: ETOMIDATE (2MG/ML) 20ML VIAL IV ONE (13:03)
[2025-01-03] MEDS: ROCURONIUM 10MG/ML 10ML VIAL IV ONE ×3 (13:04→16:11)
[2025-01-03] MEDS: MIDAZOLAM DRIP 50 mg/50mL 50 ML IV SCH (13:30)
[2025-01-03] MEDS: fentaNYL Drip 2500mCg/250mlNS 250 ML IV SCH (14:25)
[2025-01-03] MEDS: NOREPINEPHRINE 8 MG/250ML KIT 250 ML IV SCH (14:32)
--- NOTE | 2025-01-03 14:37 | DVHPNRES ---
Progress Note Date Seen: Jan 03, 2025 Resident Creating Document: BHAVESH JON RESIDENT Medical Necessity Reason Pt with a Central, PICC or Fol: No Subjective Review of Systems Patient is a 69-year-old female who is a poor historian, with prior medical history of asthma, COPD?, intracranial aneurysm s/p repair(coiling?), hypothyroidism, rheumatoid arthritis, lupus? and recurrent pneumonias requiring intubation x 3 in the past, who presented to the ED with chief complaint of fatigue and shortness of breath. Patient states symptoms initiated 1 week prior to presentation. She refers fatigue associated with progressively worsened shortness of breath, dry cough, and febrile sensation. She states she used her oxygen at home with little relief however pt is unclear about whether it is home oxygen or a nebulizer, inability to achieve relief despite that prompted her family to call EMS. On evaluation in the field, she was saturating 60% and was placed on 10 L O2. Per pt she is on no medication neither sees a primary care doctor as she prefers holistic alternatives routinely. Per pt, she attends a clinic in [facility] where she receives infusions? On evaluation in the ED, she was found to be tachycardic, tachypneic, and requiring 15 L O2 via face mask. Initial labs significant for 15.4, with chemical panel within normal range, lactic acid 1.8, troponins negative, BNP 30.14, ABG showing 7.405, pCO2 27.1, pO2 103.3, and HCO3 16.6. Chest Xray shows extensive bilateral airspace disease, greatest in perihilar regions. Sepsis protocol was initiated, cultures were taken, and patient was admitted and started on IV antibiotics. Surgical: Aneurysm repair, Hernia repair, appendectomy Social: Denies drug and alcohol use, refers she smoked 1-2 cigarettes daily for 30 years with cessation in 2019 Patient seen at bedside. She is alert and oriented in person, place, and time. She states that feels well, and shortness of breath has improved with use of simple face mask, at the time 10 L O2. She currently denies chest pain, cough, nausea, vomiting and other symptoms. Over night, patient febrile spike of 102.2 F, she has remained tachypneic, and blood pressure remain on the lower limit of normality. CT angio was ordered, ruling out PE, and showed extensive multifocal consolidative bilateral pulmonary infiltrate. Cefepime was added for broader coverage. Patient is currently JACLYN status. 01/03/2025: Overnight pt was able to be brought down to 6L O2 however, in the morning after minimal exertion, patient continued to have respiratory distress with desaturation on minimal movement. On re-evaluation an hour later, patient was noted to have continued tachypnea and use of accessory muscles, patient was AAO x4 and agreed to intubation verbally as well as a full code status aware of risks and benefits. Patient's son was informed, he wanted to wait on intubation until he arrived from [place] in order for the patient to sign on some financial documents, however, ultimately intubation became medically necessary and waiting further would have proven detrimental to patient's health and well- being. Patient was subsequently intubated, a central line was placed, patient was upgraded to ICU status, patient's son was called and informed, detailed meeting was held with patient's son Mr. Alonso lasting 45 minutes where details of patient's with the plan of care was explained in great detail, all questions were answered concerns were addressed, imaging details outlined showing widespread multifocal pneumonia was also shared with patient's son, he demonstrated understanding and was agreeable with the plan of care. plan of care was also discussed with patients daughter in law, Ms. Carvajal for >40mins. Pt underwent bronchoscopy with bloody drainage. IV steroids were started and antibiotic coverage was broadened to include meropenem. vasopressors were initiated to support hemodynamics. Objective vital signs Vital Sign Date Time Temp Pulse Resp B/P (MAP) Pulse Ox O2 Delivery O2 Flow Rate FiO2 01/03/25 14:32 88/45 01/03/25 13:31 129 16 96 100 01/03/25 12:31 Oxymizer 8 01/03/25 08:23 98.5 98.5 Total Intake and Output 01/02/25 01/02/25 01/03/25 15:00 23:00 07:00 Intake Total 1337.5 ml 475 ml 175.0 ml Balance 1337.5 ml 475 ml 175.0 ml medications Current Medications Medications Dose Ordered Sig/Serenity Route Start Time Stop Time Status Last Admin Dose Admin Azithromycin 250 ml @ 125 mls/hr DAILY IV 01/02/25 10:00 01/03/25 10:51 125 MLS/HR Albuterol 5 mg Q4HPRN PRN NEB 01/02/25 00:15 01/03/25 12:30 5 MG Ipratropium [place] 0.5 mg Q4HPRN PRN NEB 01/02/25 00:15 01/03/25 12:29 0.5 MG Pantoprazole Sodium 40 mg DAILY IV 01/02/25 10:00 01/03/25 10:09 40 MG Enoxaparin Sodium 40 mg DAILY SC 01/03/25 10:00 01/03/25 10:10 40 MG Cefepime HCl 50 ml @ 12.5 mls/hr Q12HR IV 01/02/25 10:00 01/02/25 22:23 12.5 MLS/HR Vancomycin HCl 0 ml @ 0 mls/hr UD IV 01/02/25 11:45 Sodium Chloride 1,000 ml @ 75 mls/hr [id number] IV 01/02/25 11:45 01/02/25 15:25 75 MLS/HR Vancomycin HCl 200 ml @ 200 mls/hr Q18H IV 01/03/25 09:00 01/03/25 09:49 200 MLS/HR Norepinephrine Bitartrate 250 ml @ 3.75 mls/hr Q24H IV 01/03/25 13:00 01/03/25 14:32 3.75 MLS/HR Midazolam HCl 50 ml @ 1 mls/hr Q24H IV 01/03/25 13:00 01/03/25 13:30 1 MLS/HR Fentanyl Citrate 250 ml @ 2.5 mls/hr Q24H IV 01/03/25 13:00 Examination General Appearance: Intubated, sedated and mechanically ventilated Head Exam: Normal inspection Neck Exam: left pupil is larger than the right however she states this is since her aneurysm repair? Pulmonary/Respiratory: Coarse bilateral breath sounds, decreased on left more than right Cardiovascular/Chest: Regular rate and rhythm. No murmurs. No JVD. Peripheral Pulses: 2+ Radial (R). 2+ Radial (L). 2+ Pedal (R). 2+ Pedal (L) Abdominal Exam: Normal bowel sounds. Soft. normal abdomen, no visible veins, Nontender. No hepatospenomegaly. No masses Ankle Exam: Negative ankle edema Lower extremities: Negative lower extremity edema Skin Exam: Normal inspection. Normal color. Warm. Dry laboratory and microbiology Laboratory Tests 01/03/25 04:03 Test 01/03/25 04:03 Range/Units Serum Glucose 122 H 74-106 mg/dL Microbiology Date/Time Source Procedure Growth Status 01/01/25 19:23 Blood Blood Culture - Preliminary NO GROWTH AFTER 24 HOURS OF INCUBATION. Resulted Labs and/or images reviewed: Labs reviewed by me, Image(s) reviewed by me Problem List/Assessment/Plan Problem List/Assessment/Plan Neurology # Sedated - Versed - fentanyl Cardiovascular # septic shock # possible heart failure with mildly reduced ejection fraction 40-45% on echo in 2019 - on norepinephrine - on vasopressin - IV hydrocortisone 100 mg q.8hrs - pending echocardiogram Respiratory # Ventilator -intubated 01/03/2025 - bronchoscopy 01/03/2025 # Acute hypoxic respiratory failure # possible alveolar hemorrhage # COPD exacerbation # ruled out pulmonary embolism # multifocal community-acquired pneumonia, Gram-positive versus Gram-negative # possible pulmonary edema, severe - IV vancomycin, IV meropenem - pulmonology on board - IV methylprednisolone 125 mg once - IV hydrocortisone 50 mg q.6 hours - ipratropium albuterol med nebs - CT angiography: No pulmonary embolism. Extensive multifocal consolidative bilateral pulmonary infiltrate, most notably within the bilateral posterior lower lobes. - CXR from 01/03/2025: Interstitial and alveolar type opacities of bilateral lungs, relatively unchanged from prior imaging which may represent multifocal pneumonia/ARDS/severe pulmonary edema GI # transaminitis, now improving - monitor # Peptic ulcer prophylaxis -Pantoprazole 40 mg IV daily # Ruth catheter placed on 01/02/2025 Infectious disease # community-acquired pneumonia, Gram-positive versus Gram-negative # sepsis due to above # septic shock due to above - IV vancomycin per pharmacy - IV meropenem - norepinephrine drip - vasopressin drip - IV methylprednisolone 125 mg once - IV hydrocortisone 50 mg q.6 hours Hem/onc # macrocytosis without anemia -monitor Endocrine # history of type 2 diabetes # history of rheumatoid arthritis, not on any treatment # ?Lupus - ordered A1c - monitor DVT prophylaxis - holding due to possible alveolar hemorrhage evident on bronchoscopy Lines - right CVC placed on 01/03/2025 - L 22g placed on 01/03/25 - ruth 01/03/[facility] Versed Fentanyl Critical care time 83 minutes excluding procedure. Code status discussed greater than 20 minutes: Full CODE STATUS. Plan discussed with Dr. Ulloa Plan discussed with: Patient, Son, Other (RN) My Orders My Orders Orders - BHAVESH JON RESIDENT Procedure Category Date Status Time Vancomycin 1gm/200ml PHA 01/03/25 In Process Pm 09:00 Vancomycin,Trough LAB 01/04/25 Verified 20:00 Vancomycin Per LAKHWINDER 01/04/25 In Process Pharmacy Protoc 21:00 Creatinine LAB 01/04/25 Verified 05:00 Creatinine LAB 01/05/25 Verified 05:00 Norepinephrine 8 PHA 01/03/25 In Process Mg/250ml Kit 13:00 Midazolam Drip 50 PHA 01/03/25 In Process Mg/50ml (Versed Drip 5 13:00 Fentanyl Drip PHA 01/03/25 In Process 2500mcg/250mlns 13:00 Rass Sedation Scale LAKHWINDER 01/03/25 In Process 12:48 Abg W/ Co-Ox RT 01/03/25 Logged 14:30 Ventilator Orders RT 01/03/25 Transmitted 13:10 Respiratory Culture SASKIA 01/03/25 Logged W/ Gs 13:10 Ngt/Ogt ED NURSING 01/03/25 Transmitted Insert/Manage Urinary LAKHWINDER 01/03/25 In Process Catheter 13:12 Central Line Insertion BD 01/03/25 Transmitted 13:12 Transfer Orders XFER 01/03/25 Transmitted 13:12 Electrocardigram EKG 01/03/25 Logged 13:42 *Consult CONS 01/03/25 Transmitted / 14:35 Date of Service: Jan 03, 2025 Billing Provider: MEL ULLOA MD Common Visit Codes: 41445-[id number] CARE 30-74 MIN BHAVESH JON RESIDENT Jan 03, 2025 14:37 MEL ULLOA MD Jan 04, 2025 20:55
[2025-01-03 14:46] LABS: Base Excess -6.3 mmol/L (-2.0-3.0)
[2025-01-03] MEDS: PHENYLEPHRINE IV 250 ML IV SCH ×2 (15:30→19:30)
[2025-01-03] MEDS: FUROSEMIDE 20 MG/2 ML VIAL IV ONE (15:30)
--- NOTE | 2025-01-03 15:31 | DVH ---
CHEST RADIOGRAPH Indication: CENTRAL LINE PLACEMENT Technique: Single frontal view of the chest was obtained Comparison: XY CHEST PORTABLE on DOS: 01/01/25 FINDINGS: Lines and Tubes: Endotracheal tube and right IJ approach central venous catheter in satisfactory posi tion. Lungs: Interstitial and alveolar type opacities of bilateral lungs ; relatively unchanged from prior imaging. Pleura: No effusion. No pneumothorax. Cardiomediastinal contours: Unremarkable Bones: No acute osseous abnormality. IMPRESSION: Endotracheal tube and right IJ approach central venous catheters are in satisfactory position Interstitial and alveolar type opacities of bilateral lungs, relatively unchanged from prior imaging which may represent multifocal pneumonia/ ARDS /severe pulmonary edema.
[2025-01-03] MEDS: methylPREDNISolone SOD SUCC 125 MG/2 ML VL IV ONE (15:45)
[2025-01-03] MEDS: VASOPRESSIN 20 UNITS in SODIUM CHL 0.9% 99 ML IV SCH (15:54)
--- NOTE | 2025-01-03 15:54 | DVH ---
CHEST RADIOGRAPH Indication: s/p central line Technique: Single frontal view of the chest was obtained COMPARISON: CT CT ANGIO CHEST CONTRAST on DOS: 01/02/25, XY CHEST PORTABLE on DOS: 01/01/25 FINDINGS: Lines and Tubes: Endotracheal tube and right central venous catheter in satisfactory position. Lungs: Severe multifocal airspace disease. Pleura: No effusion. No pneumothorax. Cardiomediastinal contours: Unremarkable Bones: Unremarkable IMPRESSION: Lines and tubes in satisfactory position. No significant interval change.
--- NOTE | 2025-01-03 15:57 | DVHNC2 ---
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) Indication: Hypotension, CVP monitoring, Volume resuscitation Room prepared for procedure: Yes Inside Sales Coordinator performed hand hygien: Yes Maximal sterile barrier precau: Mask/Eye shield, Sterile gown, Cap, Sterlie gloves, Large sterlie drape Skin Preparation: Chlorhexidine gluconate, Providine iodine Skin preparation completely dr: Yes Insertion site: Right, Internal jugular Central line catheter type: [id number] dialysis Number of lumens: 3 Central line exchanged over a: No Antiseptic ointment applied to: Yes Post Assessment: Chest X-Ray, No Pneumothorax Notes A time out was performed. My hands were washed immediately prior to the procedure. I wore a surgical cap, mask with protective eyewear, full gown and sterile gloves throughout the procedure. The patient was placed in Trendelenburg position. RIGHT chest region was prepped using chlorhexidine scrub and draped in sterile fashion using a full drape and sterile probe cover and s terile gel employed. The medial and lateral heads of the sternocleidomastoid muscle were identified as was the carotid pulse. The Internal Jugular vein was identified using the ultrasound. Anesthesia was achieved over the vein using 1% lidocaine. Using real-time out of plane guidance, the introducer needle was inserted into the Internal Jugular vein under direct ultrasound visualization. Venous blood was withdrawn. The syringe was removed and a guidewire was advanced into the introducer needle. The guidewire was visualized in the Internal Jugular Vein by ultrasound. A small incision was made at the skin surface with a scalpel and the introducer needle was exchanged for a dilator over the guidewire. After appropriate dilation was obtained, the dilator was exchanged over the wire for a _ central venous catheter. The wire was removed and the catheter was sutured in place at 2 places. A sterile sorbaview shield was placed over the catheter at the insertion site. The patient tolerated the procedure without any hemodynamic compromise. At time of procedure completion, all ports aspirated and flushed properly. Post-procedure chest x-ray excluded pneumothorax. Estimated blood loss is less than 5 ml. Date of Service: Jan 03, 2025 Billing Provider: MACHELLE BORREGO MD Common Visit Codes: PROCEDURE ONLY NIURKA REY RESIDENT Jan 03, 2025 15:57
[2025-01-03] MEDS ORDERED: MEROPENEM 1GM IVPB 50 ML IV ONE (16:30)
[2025-01-03 16:55] LABS: Base Excess -10.3 mmol/L (-2.0-3.0)
[2025-01-03] MEDS: HYDROCORTISONE SOD SUCC 100 MG/2ML INJ VIAL IV SCH ×2 (16:58→22:15)
[2025-01-03] MEDS: EPINEPHrine HCL 250 ML IV SCH (17:03)
[2025-01-03] MEDS: MEROPENEM 1GM IVPB 50 ML IV ONE (17:29)
--- NOTE | 2025-01-03 17:51 | DVHNC2 ---
Procedure - Endotracheal intubation procedure note INDICATION: Acute hypoxic respiratory failure PROCEDURE OVERCASTER: Dr. Tellez, pgy2 ATTENDING PHYSICIAN: Dr. Cha CONSENT: The procedure was emergent, the patient was unable to provide consent, and a designee was not immediately available. PROCEDURE SUMMARY: A time out was performed. My hands were washed immediately prior to the procedure. I wore a surgical cap, mask with protective eyewear, gown and gloves throughout the procedure. The patient was placed on a director of cardiac cath lab including continuous pulse oximetry. Rapid Sequence Intubation was conducted. The patient received 20mg of etomidate for induction and 50mg of rocuronium for adequate paralysis. Cricoid pressure was maintained from time induction agent was given to time of cuff balloon inflation. Using laryngoscope and an endotracheal tube with stylet, the patient was intubated on the first attempt. The stylet was removed and cuff balloon was inflated. Appropriate endotracheal tube position was confirmed by direct visualization of vocal cord passage, fogging of the tube, CO2 colormetric indicator and symmetric breath sounds. The tube was secured at at the lips. Post intubation chest x-ray showed lines and tubes in satisfactory position, no significant interval change. BHAVESH TELLEZ RESIDENT Jan 03, 2025 17:51
--- NOTE | 2025-01-03 17:59 | DVH ---
CHEST RADIOGRAPH Indication: s/p bronchoscopy Technique: Single frontal view of the chest was obtained Comparison: XY CHEST XRAY 1 VIEW on DOS: 01/03/25, XY CHEST PORTABLE on DOS: 01/03/25, CT CT ANGIO CHEST CONTRAST on DOS: 01/02/25 FINDINGS: Lines and Tubes: Interval placement of an enteric tube in satisfactory position.. Endotracheal tube and right IJ approach central venous catheters are in satisfactory position. Lungs: Redemonstration of interstitial and alveolar type opacities of bilateral lungs; slightly impro kenneth from prior imaging. Pleura: No effusion. No pneumothorax. Cardiomediastinal contours: Unremarkable Bones: No acute osseous abnormality. IMPRESSION: Lines and tubes are in satisfactory position. Interstitial and alveolar type opacities of bilateral lungs; slightly improved from prior imaging.
[2025-01-03] MEDS: ACETAMINOPHEN 650 MG RECT SUPP PR ONE (18:00)
[2025-01-03 18:46] LABS: Base Excess -9.1 mmol/L (-2.0-3.0)
--- NOTE | 2025-01-03 19:13 | DVHNC2 ---
Procedure - Bronchoscopy procedure note: Bronchoscopy with bronchoalveolar lavage Indications: Possible mucous plugging. Medicines: See BULK CLERK notes. Complications: None Procedure: Patient medications and allergies reviewed. The risks and benefits of the procedure and the sedation options and risk were discussed with the patient's son via phone. All questions were answered and informed consent was obtained. Patient identification and proposed procedure were verified prior to the procedure by the physician, and a nurse, and the respiratory therapist in ICU room. The heart rate, respiratory rate, oxygen saturations, blood pressure, adequacy of pulmonary ventilation, and response to care were monitored throughout the procedure. The physical status of the patient was reassessed after the procedure. After obtaining informed consent, the bronchoscope was introduced through the endotracheal tube and advanced into the trachea bronchial tree of both lungs. The procedure was accomplished without difficulty. The patient tolerated the procedure well. Findings: The trachea is in normal caliber. The charito is sharp. The tracheobronchial tree of the right lung was examined to at least the first subsegmental level. The bronchial mucosa and anatomy in the right lung are normal. There are no endobronchial lesions. There was copious blood tinged secretions from right main stem bronchus onward throughout R4-R10. Right middle lobe (RML) and right lower lobe (RLL) Bronchoalveolar lavage (BAL) obtained. BAL revealed hemorrhagic fluid - suspect alveolar hemorrhage. RML and RLL BAL sent for gram stain and culture, viral culture, and fungal culture. The left upper lobe, lingula, and left lower lobe were examined to at least the first subsegmental level. Bronchial mucosa and anatomy in the left upper lobe a nd lingula are normal. There were no endobronchial lesions. There was copious blood tinged secretions from left main stem bronchus onward throughout L5-L10. There was no active bleeding at the completion of the procedure. Estimated blood loss: Less than 5 mL. Impression: RML/RLL BAL performed Alveolar hemorrhage 2/2 interstitial pneumonia Recommendation: Follow-up RML/RLL BAL results. Procedure codes: 81954, bronchoscopy, rigid and flexible, including fluoroscopic guidance, one performed; with bronchial endobronchial broncho-alveolar lavage, single or multiple sites ABE CURRY MD Jan 03, 2025 19:13
[2025-01-03] MEDS: SODIUM BICARB 8.4% 50Meq/50ml SYR Vial IV ONE (19:15)
--- NOTE | 2025-01-03 19:15 | DVHINCON2 ---
Date of service: Jan 03, [address] James Reason for Consultation Acute hypoxic respiratory failure 2/2 pneumonia and ARDS requiring mechanical ventilator. History of Present Illness A 69-year-old woman with past medical history including COPD, hypothyroidism, CVA and rheumatoid arthritis who presented to the ED on 01/01/25 via EMS with a chief complaint of 1 day of fever, chills, fatigue, shortness of breath, and dry cough. Patient used albuterol at home without any improvement. Shortness of breath exacerbated on day of presentation, making her lightheaded and that prompted her to call EMS. Upon EMS arrival, O2 sat was in the 60s, placed on 10L O2 and improved to 97%. Per EMS, family on scene stated patient has been intubated prior due to respiratory issues, unknown specific diagnosis. Pt denied chest pain, abdominal pain, nausea, vomiting, or other associated symptoms. She was admitted for further care, and pulmonary consultation is requested for evaluation and management of acute hypoxic respiratory failure 2/2 pneumonia and ARDS, requiring mechanical ventilator. Review of Systems: 14-point review of systems negative unless otherwise noted above. Past Medical History: COPD, COVID and Several episodes of pneumonia and respiratory failure (she was admitted for respiratory failure in 2023). Rheumatoid arthritis, Hypothyroidism Past Surgical History: Appendectomy, Hysterectomy, Hernia Repair Medications: Reviewed. Allergies: No known drug allergies. Family History: Mother and father w/ cardiovascular disease. Social History: Former smoker. Quit (Patient smoked less than 1 pack during teens years.) No alcohol or illicit drug use. Family History: Cardiovascular disease G8 MOTHER G8 FATHER Allergies: Coded Allergies: NO KNOWN ALLERGIES (Unverified , 08/20/18) Home Meds Reported Medications Levothyroxine Sodium (Levothyroxine Sodium) 50 Mcg Tab, 50 MCG PO QAM for 30 Days, MCG 08/26/18 Current Medications Current Medications Medications (Trade) Dose Ordered Sig/Serenity Route PRN Reason Start Time Stop Time Status Last Admin Enoxaparin Sodium (Lovenox) 40 mg DAILY SC 01/03/25 10:00 01/03/25 10:10 Vancomycin HCl 200 ml @ 200 mls/hr Q18H IV 01/03/25 09:00 01/03/25 09:49 Norepinephrine Bitartrate 250 ml @ 3.75 mls/hr Q24H IV 01/03/25 13:00 8/1/25 19:01 Midazolam HCl 50 ml @ 1 mls/hr Q24H IV 01/03/25 13:00 01/03/25 18:59 Fentanyl Citrate 250 ml @ 2.5 mls/hr Q24H IV 01/03/25 13:00 01/03/25 14:25 Phenylephrine HCl 250 ml @ 30 mls/hr Q8H20M IV 01/03/25 15:30 Vasopressin 20 units/Sodium Chloride 100 ml @ 9 mls/hr Q11H7M IV 01/03/25 15:45 01/03/25 15:54 Meropenem 50 ml @ 17 mls/hr Q8H IV 01/04/25 01:00 Hydrocortisone Sodium Succinate (Solu-CORTEF INJECTION) 50 mg Q6HR IV 01/03/25 18:00 01/03/25 19:09 DC 01/03/25 16:58 Epinephrine HCl 250 ml @ 7.5 mls/hr Q24H IV 01/03/25 16:30 01/03/25 17:51 Hydrocortisone Sodium Succinate (Solu-CORTEF INJECTION) 100 mg Q8HR IV 01/03/25 22:00 UNV Vital Signs Vital Signs Date Time Temp Pulse Resp B/P (MAP) Pulse Ox O2 Delivery O2 Flow Rate FiO2 01/03/25 19:01 94/50 01/03/25 18:16 106 26 100 80 01/03/25 18:00 100.8 01/03/25 12:31 Oxymizer 8 Physical Exam Gen.: Patient lying in bed in medical ICU. Sedated, intubated on mechanical ventilator. Head: Normocephalic, atraumatic. Eyes: PERRLA. Ears: Normal external anatomy. Throat: Endotracheal tube and orogastric tube in place. Neck: Supple, trachea midline. Chest: Transmitted breath sounds bilaterally. Decreased air entry bilaterally. No wheezing. Bibasilar crackles. Cardiovascular: Positive S1, positive S2. Regular rate and rhythm. Abdomen: Positive bowel sounds in all 4 quadrants. Soft, nontender, nondistended. : Monzon in place. Normal external genitalia. Rectal: Deferred. Skin: Warm, dry. Intact. Extremities: 2+ radial pulses bilaterally. No lower extremity edema. Neuro: Sedated. Labs/Diagnostic Data Labs Test 01/03/25 18:13 01/03/25 14:34 01/03/25 04:03 01/02/25 12:02 Range/Units Blood Gas Specimen Type Arterial Blood Gas Sample Site Right radial Blood Gas Patient Temperature 37.0 Arterial Blood Date Drawn [id number] Arterial Blood pH 7.212 *L 7.350-7.450 Arterial Blood Partial Pressure CO2 47.4 H 32.0-45.0 mmHg Arterial Blood Partial Pressure O2 174.9 H 83.0-108.0 mmHg Arterial Blood HCO3 18.6 L 21.0-28.0 mmol/L Arterial Blood Oxygen Saturation 98.8 H 94.0-98.0 % Arterial Blood Base Excess -9.1 L -2.0-3.0 mmol/L Arterial Blood Oxyhemoglobin 97.7 94.0-98.0 % Arterial Blood Carboxyhemoglobin 0.6 0.5-1.5 % Arterial Blood Methemoglobin 0.5 0.0-1.5 % Temo Test Modified Blood Gas Total Hemoglobin 13.50 12.0-16.0 g/dL Blood Gas Set Respiration Rate 26.0 Blood Gas Modality Vent - ac FiO2 % 100.0 Blood Gas Tidal Volume 350.0 Blood Gas PEEP or CPAP 14.0 Blood Gas Critical Value Read Back Yes Blood Gas Notified Whom Dr. irina james Blood Gas Notified Time [id number] Blood Gas Notified By Riki castillo [facility] Blood Gas Spontaneous Rate 30 White Blood Count 13.3 H 4.4-10.8 10^3/uL Red Blood Count 4.16 4.0-5.20 10^6/uL Hemoglobin 14.1 12.2-16.2 g/dL Hematocrit 41.9 36.0-46.0 % Mean Corpuscular Volume 100.6 H 80.0-100.0 fL Mean Corpuscular Hemoglobin 33.9 H 28.0-32.0 pg Mean Corpuscular Hemoglobin Concent 33.7 32.0-36.0 g/dL Red Cell Distribution Width 14.1 11.8-14.3 % Platelet Count 302 140-450 10^3/uL Mean Platelet Volume 9.0 6.9-10.8 fL Neutrophils (%) (Auto) 78.7 37.0-80.0 % Lymphocytes (%) (Auto) 17.0 10.0-50.0 % Monocytes (%) (Auto) 2.7 0.0-12.0 % Eosinophils (%) (Auto) 1.3 0.0-7.0 % Basophils (%) (Auto) 0.3 0.0-2.0 % Neutrophils # (Auto) 10.5 H 1.6-8.6 10 ^3/uL Lymphocytes # (Auto) 2.3 0.4-5.4 10 ^3/uL Monocytes # (Auto) 0.4 0-1.3 10 ^3/uL Eosinophils # (Auto) 0.2 0-0.8 10 ^3/uL Basophils # (Auto) 0 0-0.2 10 ^3/uL Nucleated Red Blood Cells 0.1 % Sodium Level 140 136-145 mmol/L Potassium Level 3.6 3.5-5.1 mmol/L Chloride Level 109 H 98-107 mmol/L Carbon Dioxide Level 20 20-31 mmol/L Anion Gap 11 5-15 Blood Urea Nitrogen 15 9-23 mg/dL Creatinine 0.65 0.550-1.02 mg/dL Glomerular Filtration Rate Calc 95 >90 mL/min BUN/Creatinine Ratio 23.1 H 10.0-20.0 Serum Glucose 122 H 74-106 mg/dL Hemoglobin A1c 6.0 H <5.7 % A1C Calcium Level 9.8 8.7-10.4 mg/dL Prothrombin Time 10.3 9.3-11.8 sec Prothrombin Time INR 0.97 0.9-1.15 Activated Partial Thromboplast Time 28.2 24.5-34.5 SEC Test 01/02/25 07:01 01/02/25 00:17 01/01/25 23:50 01/01/25 23:07 Range/Units Total Bilirubin 1.0 0.2-1.0 mg/dL Aspartate Amino Transferase (AST) 33 13-40 U/L Alanine Aminotransferase (ALT) 35 7-40 U/L Alkaline Phosphatase 87 46-116 U/L Total Protein 6.6 5.7-8.2 g/dL Albumin 3.8 3.2-4.8 g/dL Thyroid Stimulating Hormone (TSH) 1.85 0.55-4.78 uIU/mL Blood Gas Liter Flow 15.00 Influenza Type A Antigen Negative Negative Influenza Type B Antigen Negative Negative SARS-CoV-2 Antigen (Rapid) Negative NEGATIVE Urine Color Light-orange Yellow Urine Clarity Clear Clear Urine pH 5.5 5.0-9.0 Urine Specific [place] 1.020 1.001-1.035 Urine Protein Trace H Negative Urine Ketones 1+ H Negative Urine Blood 1+ H Negative /uL Urine Nitrite Negative Negative Urine Bilirubin Negative Negative Urine Urobilinogen Normal Negative mg/dL Urine Leukocyte Esterase Negative Negative /uL Urine RBC 4 0 - 4 /hpf Urine Microscopic WBC 1 0-5 /HPF Urine Squamous Epithelial Cells Few <5 /hpf Urine Bacteria None seen None Seen /hpf Urine Glucose Normal Normal mg/dL Urine Opiates Screen Neg NEGATIVE Urine Fentanyl Screen Neg NEGATIVE Urine Barbiturates Screen Neg NEGATIVE Urine Phencyclidine Screen Neg NEGATIVE Urine Amphetamines Screen Neg NEGATIVE Urine Benzodiazepines Screen Neg NEGATIVE Urine Cocaine Screen Neg NEGATIVE Urine Cannabinoids Screen Neg NEGATIVE Test 01/01/25 20:20 01/01/25 19:23 01/01/25 19:20 Range/Units Troponin I High Sensitivity 13 </=34 ng/L Lactic Acid Level 1.8 0.4-2.0 mmol/L Magnesium Level 2.0 1.6-2.6 mg/dL B-Type Natriuretic Peptide 30.14 0-100 pg/mL Venous Blood pH 7.371 7.320-7.430 Venous Blood pCO2 at Patient Temp 38.0 38.0-54.0 mmHg Venous Blood pO2 at Patient Temp < 36.5 23.0-48.0 mmHg Venous Blood HCO3 21.5 L 22.0-29.0 mmol/L Venous Blood Base Excess -3.3 L -2.0-3.0 mmol/L Microbiology Date/Time Source Procedure Growth Status 01/01/25 19:23 Blood Blood Culture - Preliminary NO GROWTH AFTER 24 HOURS OF INCUBATION. Resulted Assessment Impression: Acute hypoxic respiratory failure 2/2 pneumonia and ARDS On mechanical ventilator Pneumonia, likely gram negative and/or gram positive Atelectasis Alveolar hemorrhage Rheumatoid arthritis Acute respiratory distress syndrome Hx of nicotine dependence Plan: s/p intubation on mechanical ventilator. CXR done today (1757 hours) image and report reviewed. Devices in place. In terstitial and alveolar type opacities of bilateral lungs; slightly improved from prior imaging. Patient underwent STAT bronchoscopy with bronchoalveolar lavage today. Informed consent was obtained from patient's son via phone; risks and benefits explained in detail and he agreed for the procedure. BAL revealed hemorrhagic fluid, suspect alveolar hemorrhage - both RML and RLL similar See separate procedure note for full details. Patient was placed on lung protective strategy. On AC mode; RR 20, VT 350, PEEP 14, FiO2 of 100% Titrate FIO2 to keep O2 saturation above 90%. VAP bundle. Daily ABG and CXR while intubated Sedate for ventilator synchrony Allow permissive hypercarbia Goal pH of 7.15 to 7.25 Goal PaO2 greater than or equal to 55 mmHg and/or O2 sat greater than or equal to 88% Once FiO2 reaches 45% or lower, taper PEEP in increments of 2 cmH2O. ABG reviewed, shows acidemia d/t respiratory acidosis. AG of 11. Increased respiratory rate to 26 BPM. Repeat ABG revealed pH of 7.20 and PaO2 of >55 mmHg. Taper FiO2 in increments of 10% Continue antibiotics. Follow up BAL sent for respiratory gram stain and cultures, fungal and viral cultures. On pressors for hemodynamic support Levophed at 30 mcg/min Titrate to keep mean arterial pressure greater than 65 mmHg. CVP at 14 cmH2O Start Tariq-Synephrine and vasopressin 0.03 units/min. Stress dose steroids with hydrocortisone 100 mg q.8 hours. Start IV Solu-Medrol 125 mg q.6 hours Monitor renal function Monitor electrolytes. Supplement as necessary. Monitor ins and outs. Goal K greater than or equal to 4.0 Goal mag greater than or equal to 2.0 GI prophylaxis. DVT prophylaxis. Prognosis: Poor given patient's multiple co-morbidities. Condition: Critical Rest of plan per hospitalist and other consultants. A total of 35 minutes of critical care time was spent reviewing the patient record, examining the patient, making a diagnostic and therapeutic plan, discussing this plan with the medical personnel, following up on diagnostic studies and following the patient for clinical stability excluding any and all procedures. At least 50% of this time was spent in direct, [id number] co ntact. Thank you, Dr. James, for allowing me to participate in this patient's care. Further recommendations will depend on the patient's clinical course. Please do not hesitate to contact me if you have any questions or concerns. This medical document was created using an electronic medical record system with [employer] dictation system. Although these documentations are being carefully reviewed, there may still be some phonetic and typographical changes. The errors are purely typographical, due to imperfection on the software program, and do not reflect any compromise in the patient's medical care. Plan discussed with: Other (RN/Dr. James) ABE CURRY MD Jan 03, 2025 19:15
[2025-01-03 19:48] LABS: Base Excess -11.0 mmol/L (-2.0-3.0)
[2025-01-03 20:17] LABS: Nucleated Red Blood Cells % 0.3 %
[2025-01-03 20:20] LABS: Hematocrit 39.7 % (36.0-46.0); Hemoglobin 13.0 g/dL (12.2-16.2); Mean Corpuscular Hemoglobin 34.0 pg (28.0-32.0); Mean Corpuscular Volume 103.6 fL (80.0-100.0)
[2025-01-03 20:35] LABS: Albumin 3.6 g/dL (3.2-4.8); Alkaline Phosphatase 93 U/L (46-116); Anion Gap 11 (5-15); BUN/Creatinine Ratio 13.2 (10.0-20.0); Bilirubin, Total 0.9 mg/dL (0.2-1.0); Blood Urea Nitrogen 15 mg/dL (9-23); Chloride 107 mmol/L (98-107); Potassium 4.4 mmol/L (3.5-5.1); Sodium 137 mmol/L (136-145); Total Protein 6.4 g/dL (5.7-8.2)
[2025-01-03 20:51] LABS: Alanine Aminotransferase 55 U/L (7-40); Calcium 8.4 mg/dL (8.7-10.4); Carbon Dioxide 19 mmol/L (20-31); Glucose 272 mg/dL (74-106)
--- NOTE | 2025-01-03 21:32 | DVH ---
Procedure: CT HEAD WITHOUT CONTRAST Study Date and Requested Time: 01/03/2025 08:52 PM History: Stroke Comparison: None Dose: CTDI: 53.73 mGy DLP: 1059.02 mGycm Technique: Multiplanar images obtained through the brain without intravenous contrast. Findings: Mild frontal lobe predominant brain atrophy. Mild chronic small vessel ischemic changes. Streak artifact from coil material over the left cavernous region limits evaluation of the adjacent s tructures.otherwise, no hemorrhages, masses, mass effect, midline shift, herniation or cytotoxic tayler ma following a large vascular territory. No intra-axial or extra-axial fluid collections. No evidence of hydrocephalus. The basal cisterns are patent. Limited evaluation of the pituitary gland due to streak artifact from left cavernous sinus region coi l material. The cerebellar tonsils are in normal position. The cerebellum is unremarkable. The orbits and globes are unremarkable. The paranasal sinuses and mastoids are clear. There are no wo rrisome calvarial lesions. Heterogeneous appearance of the bilateral lateral parotid glands. Impression: Streak artifact from left cavernous sinus region coil material limits evaluation of the adjacent stru ctures. Otherwise, No evidence of acute intracranial abnormality.
[2025-01-03 21:43] LABS: Base Excess -11.4 mmol/L (-2.0-3.0)
[2025-01-03] MEDS: SODIUM CHLORIDE 0.9% 1,000 ML IV SCH (21:55)
[2025-01-03 23:48] LABS: Base Excess -13.7 mmol/L (-2.0-3.0)
[2025-01-04] VITALS (109 sets, daily range): BP systolic 104–145; BP diastolic 40–80; PULSE 80–103; RESP 26–28; TEMP 98.2–99.9; O2SAT 30–100
[2025-01-04] MEDS: SODIUM BICARB 8.4% 50Meq/50ml SYR Vial IV ONE ×3 (00:23→06:31)
[2025-01-04] MEDS: MEROPENEM 1GM IVPB 50 ML IV SCH (00:52)
[2025-01-04 04:26] LABS: Base Excess -8.0 mmol/L (-2.0-3.0)
[2025-01-04 04:41] LABS: Hematocrit 36.6 % (36.0-46.0); Hemoglobin 12.0 g/dL (12.2-16.2); Mean Corpuscular Hemoglobin 33.6 pg (28.0-32.0); Mean Corpuscular Volume 102.4 fL (80.0-100.0); Nucleated Red Blood Cells % 0.4 %
[2025-01-04 04:56] LABS: Alkaline Phosphatase 80 U/L (46-116); Anion Gap 17 (5-15); BUN/Creatinine Ratio 12.6 (10.0-20.0); Blood Urea Nitrogen 18 mg/dL (9-23); Chloride 103 mmol/L (98-107); Magnesium 2.1 mg/dL (1.6-2.6); Potassium 4.3 mmol/L (3.5-5.1); Sodium 140 mmol/L (136-145)
[2025-01-04 04:57] LABS: Bilirubin, Total 1.6 mg/dL (0.2-1.0)
[2025-01-04 05:00] LABS: Alanine Aminotransferase 73 U/L (7-40); Calcium 7.8 mg/dL (8.7-10.4); Carbon Dioxide 20 mmol/L (20-31); Total Protein 5.5 g/dL (5.7-8.2)
[2025-01-04 05:01] LABS: Albumin 3.1 g/dL (3.2-4.8); Glucose 491 mg/dL (74-106)
[2025-01-04] MEDS ORDERED: DEXTROSE (50%) 50ML SYRG IV PRN ×2 (05:15→08:30)
--- NOTE | 2025-01-04 05:47 | DVH ---
CHEST RADIOGRAPH Indication: INTUBATED Technique: Single frontal view of the chest was obtained Comparison: XY CHEST PORTABLE on DOS: 01/03/25, XY CHEST XRAY 1 VIEW on DOS: 01/03/25, XY CHEST PORTABLE on DOS: 01/03/25, CT CT ANGIO CHEST CONTRAST on DOS: 01/02/25, XY CHEST PORTABLE on DOS: 01/01/25 FINDINGS: Lines and Tubes: Unchanged endotracheal tube, enteric tube, and right IJ catheter. Lungs: Persistent diffuse interstitial opacities. Superimposed left apical airspace disease has incre ased, and right apical airspace disease has increased. Pleura: No effusion or pneumothorax. Cardiomediastinal contours: Unchanged. Bones: Unchanged. IMPRESSION: 1. Shifting airspace disease on a background of interstitial opacities from the previous day. Stable support devices.
[2025-01-04] MEDS: ACCU-CHEK COMFORT CURVE STRIP VI SCH ×2 (05:50→12:00)
[2025-01-04] MEDS: InsuLIN REG 1unit/0.01ml Soln (100units/ml) SC SCH ×2 (05:53→13:49)
[2025-01-04 07:46] LABS: Base Excess -1.3 mmol/L (-2.0-3.0)
--- NOTE | 2025-01-04 13:11 | DVHSR ---
APPROVED REPORT EXAM: Two-dimensional and M-mode echocardiogram with Doppler and color Doppler. Blood Pressure: 91/48 mmHg INDICATION r/o chf RISK FACTORS Height: 5'3, Weight: 141 DIMENSIONS LVDd3.7 (3.8-5.7cm)LA (2D)4.0 (1.9-4.0cm)Aortic Root2.8 (2.0-3.7cm) LVDs2.3 (2.5-4.0cm)LA (MM) (1.9-4.0cm)Aortic Cusp Exc1.7 (1.5-2.0cm) EF (%) 60.0 (55-70%)Rt. Atrium3.5 (1.9-4.0cm)Asc. Aorta3.1 cm IVSd0.8 (0.7-1.1cm)RV (D)2.8 (1.8-2.4cm) PWd0.8 (0.7-1.1cm) Mitral Valve MitralMitral Stenosis E wave0.83m/sMV Mean GR.2mmHg A wave1.00m/sMV Peak GR.4mmHg E/A ratio0.82D MVAcm2 DECEL [id number] 1/2 Tim[place] Aortic Valve Aortic ValveAortic Stenosis V10.97m/Oksana Mean GR.3mmHg V21.29m/Oksana Peak GR.7mmHg LVOT Diameter2.0 (1.8-2.4cm)Doppler AVA2.36cm2 Pulmonic Valve V20.73m/s Tricuspid Valve TR Velocity2.23m/s [id number] Other Information Technically limited study due to body habitus. Conclusion LV EF IS 65% AND IS NORMAL MILD LVH AND MILD LV DIASTOLIC DYSFUNCTION NORMAL VALVES NORMAL RV FUNCTION AND SIZE NORMAL RVSP AND IS 20 MM OF HG NO EFFUSION
[2025-01-04] MEDS: FUROSEMIDE 20 MG/2 ML VIAL IV ONE (15:25)
--- NOTE | 2025-01-04 16:42 | DVHPNRES ---
Progress Note Date Seen: Jan 04, 2025 Resident Creating Document: BHAVESH JON RESIDENT Medical Necessity Reason Pt with a Central, PICC or Fol: No Subjective Review of Systems Patient is a 69-year-old female who is a poor historian, with prior medical history of asthma, COPD?, intracranial aneurysm s/p repair(coiling?), hypothyroidism, rheumatoid arthritis, lupus? and recurrent pneumonias requiring intubation x 3 in the past, who presented to the ED with chief complaint of fatigue and shortness of breath. Patient states symptoms initiated 1 week prior to presentation. She refers fatigue associated with progressively worsened shortness of breath, dry cough, and febrile sensation. She states she used her oxygen at home with little relief however pt is unclear about whether it is home oxygen or a nebulizer, inability to achieve relief despite that prompted her family to call EMS. On evaluation in the field, she was saturating 60% and was placed on 10 L O2. Per pt she is on no medication neither sees a primary care doctor as she prefers holistic alternatives routinely. Per pt, she attends a clinic in [facility] where she receives infusions? On evaluation in the ED, she was found to be tachycardic, tachypneic, and requiring 15 L O2 via face mask. Initial labs significant for 15.4, with chemical panel within normal range, lactic acid 1.8, troponins negative, BNP 30.14, ABG showing 7.405, pCO2 27.1, pO2 103.3, and HCO3 16.6. Chest Xray shows extensive bilateral airspace disease, greatest in perihilar regions. Sepsis protocol was initiated, cultures were taken, and patient was admitted and started on IV antibiotics. Surgical: Aneurysm repair, Hernia repair, appendectomy Social: Denies drug and alcohol use, refers she smoked 1-2 cigarettes daily for 30 years with cessation in 2019 Patient seen at bedside. She is alert and oriented in person, place, and time. She states that feels well, and shortness of breath has improved with use of simple face mask, at the time 10 L O2. She currently denies chest pain, cough, nausea, vomiting and other symptoms. Over night, patient febrile spike of 102.2 F, she has remained tachypneic, and blood pressure remain on the lower limit of normality. CT angio was ordered, ruling out PE, and showed extensive multifocal consolidative bilateral pulmonary infiltrate. Cefepime was added for broader coverage. Patient is currently JACLYN status. 01/03/2025: Overnight pt was able to be brought down to 6L O2 however, in the morning after minimal exertion, patient continued to have respiratory distress with desaturation on minimal movement. On re-evaluation an hour later, patient was noted to have continued tachypnea and use of accessory muscles, patient was AAO x4 and agreed to intubation verbally as well as a full code status aware of risks and benefits. Patient's son was informed, he wanted to wait on intubation until he arrived from [place] in order for the patient to sign on some financial documents, however, ultimately intubation became medically necessary and waiting further would have proven detrimental to patient's health and well- being. Patient was subsequently intubated, a central line was placed, patient was upgraded to ICU status, patient's son was called and informed, detailed meeting was held with patient's son Mr. Alonso lasting 45 minutes where details of patient's with the plan of care was explained in great detail, all questions were answered concerns were addressed, imaging details outlined showing widespread multifocal pneumonia was also shared with patient's son, he demonstrated understanding and was agreeable with the plan of care. plan of care was also discussed with patients daughter in law, Ms. Carvajal for >40mins. Pt underwent bronchoscopy with bloody drainage. IV steroids were started and antibiotic coverage was broadened to include meropenem. vasopressors were initiated to support hemodynamics. 01/04/2025: Patient seen and examined at bedside, overnight patient required 4 pressors and increasing ventilator settings, however, this morning blood pressure is stable, patient currently only on Levophed 26 mcg, decrease respiratory rate to 26 and PEEP to 10 with a tidal volume of 400 and FiO2 30%. Added IV Lasix 20 mg 1 time only. Echocardiogram shows possible heart failure with diastolic dysfunction. Detailed discussion held with patient and patient's at bedside were all questions were answered and concerns were addressed. Objective vital signs Vital Sign Date Time Temp Pulse Resp B/P (MAP) Pulse Ox O2 Delivery O2 Flow Rate FiO2 01/04/25 15:25 125/57 01/04/25 15:21 94 26 97 30 01/04/25 14:00 Mechanical Ventilator+ 01/04/25 11:30 99.9 211.8 01/04/25 08:00 30 Total Intake and Output 01/03/25 01/03/25 01/04/25 15:00 23:00 07:00 Intake Total 975 ml 800.75 ml 944.00 ml Output Total 950 ml Balance 975 ml 800.75 ml -6.00 ml medications Current Medications Medications Dose Ordered Sig/Serenity Route Start Time Stop Time Status Last Admin Dose Admin Ipratropium [place] 0.5 mg Q4HPRN PRN NEB 01/02/25 00:15 01/03/25 12:29 0.5 MG Pantoprazole Sodium 40 mg DAILY IV 01/02/25 10:00 01/04/25 09:45 40 MG Vancomycin HCl 0 ml @ 0 mls/hr UD IV 01/02/25 11:45 Vancomycin HCl 200 ml @ 200 mls/hr Q18H IV 01/03/25 09:00 01/04/25 03:18 200 MLS/HR Norepinephrine Bitartrate 250 ml @ 3.75 mls/hr Q24H IV 01/03/25 13:00 01/04/25 13:39 37.5 MLS/HR Midazolam HCl 50 ml @ 1 mls/hr Q24H IV 01/03/25 13:00 01/04/25 08:02 4 MLS/HR Fentanyl Citrate 250 ml @ 2.5 mls/hr Q24H IV 01/03/25 13:00 01/04/25 02:30 12.5 MLS/HR Vasopressin 20 units/Sodium Chloride 100 ml @ 9 mls/hr Q11H7M IV 01/03/25 15:45 01/03/25 23:19 9 MLS/HR Meropenem 50 ml @ 17 mls/hr Q8H IV 01/04/25 01:00 01/04/25 09:44 17 MLS/HR Epinephrine HCl 250 ml @ 7.5 mls/hr Q24H IV 01/03/25 16:30 01/03/25 17:51 7.5 MLS/HR Phenylephrine HCl 250 ml @ 30 mls/hr Q8H20M IV 01/03/25 19:30 Diagnostic Test (Pha) 1 strip IQ4HR 01/04/25 12:00 01/04/25 12:00 1 STRIP Insulin Human Regular IQ4HR SC 01/04/25 12:00 01/04/25 13:49 15 UNITS Dextrose 50 ml UD PRN IV 01/04/25 08:30 Hydrocortisone Sodium Succinate 50 mg Q8HR IV 01/04/25 22:00 Docusate Sodium 100 mg BID GT 01/04/25 22:00 UNV Polyethylene Glycol 17 gm DAILY PO 01/05/25 10:00 UNV Examination General Appearance: Intubated, sedated and mechanically ventilated Head Exam: Normal inspection Neck Exam: left pupil is larger than the right however she states this is since her aneurysm repair? Pulmonary/Respiratory: Coarse bilateral breath sounds, decreased on left more than right Cardiovascular/Chest: Regular rate and rhythm. No murmurs. No JVD. Peripheral Pulses: 2+ Radial (R). 2+ Radial (L). 2+ Pedal (R). 2+ Pedal (L) Abdominal Exam: Normal bowel sounds. Soft. normal abdomen, no visible veins, Nontender. No hepatospenomegaly. No masses Ankle Exam: Negative ankle edema Lower extremities: Negative lower extremity edema Skin Exam: Normal inspection. Normal color. Warm. Dry laboratory and microbiology Laboratory Tests 01/04/25 03:47 Test 01/04/25 03:47 Range/Units Serum Glucose 491 *H 74-106 mg/dL Microbiology Date/Time Source Procedure Growth Status 01/03/25 21:50 Nose MRSA Screen - Final Complete 01/03/25 16:32 Bronchial Washings Gram Stain - Final Resulted 01/03/25 16:32 Bronchial Washings Respiratory Culture - Preliminary Resulted 01/01/25 19:23 Blood Blood Culture - Preliminary NO GROWTH AFTER 48 HOURS OF INCUBATION. Resulted Labs and/or images reviewed: Labs reviewed by me, Image(s) reviewed by me Problem List/Assessment/Plan Problem List/Assessment/Plan Neurology # Sedated - Versed - fentanyl Cardiovascular # septic shock # possible heart failure with mildly reduced ejection fraction 40-45% on echo in 2019 - on norepinephrine - on vasopressin - IV hydrocortisone 100 mg q.8hrs - pending echocardiogram Respiratory # Ventilator -intubated 01/03/2025 - bronchoscopy 01/03/2025 # Acute hypoxic respiratory failure # possible alveolar hemorrhage # COPD exacerbation # ruled out pulmonary embolism # multifocal community-acquired pneumonia, Gram-positive versus Gram-negative # possible pulmonary edema, severe - IV vancomycin, IV meropenem - pulmonology on board - IV methylprednisolone 125 mg once - IV hydrocortisone 50 mg q.6 hours - ipratropium albuterol med nebs - CT angiography: No pulmonary embolism. Extensive multifocal consolidative bilateral pulmonary infiltrate, most notably within the bilateral posterior lower lobes. - CXR from 01/03/2025: Interstitial and alveolar type opacities of bilateral lungs, relatively unchanged from prior imaging which may represent multifocal pneumonia/ARDS/severe pulmonary edema - IV Lasix 20 mg once GI # transaminitis, now improving # constipation likely slow transit - Colace 100 mg b.i.d., MiraLax daily - monitor # Peptic ulcer prophylaxis -Pantoprazole 40 mg IV daily # Ruth catheter placed on 01/02/2025 Infectious disease # community-acquired pneumonia, Gram-positive versus Gram-negative # sepsis due to above # septic shock due to above - IV vancomycin per pharmacy - IV meropenem - norepinephrine drip - vasopressin drip - IV methylprednisolone 125 mg once - IV hydrocortisone 50 mg q.6 hours Hem/onc # macrocytosis without anemia -monitor Endocrine # history of type 2 diabetes # history of rheumatoid arthritis, not on any treatment # ?Lupus - ordered A1c - monitor DVT prophylaxis - holding due to possible alveolar hemorrhage evident on bronchoscopy Lines - right CVC placed on 01/03/2025 - L 22g placed on 01/03/25 - ruth 01/03/25 Drips during [facility] ventilation Versed Fentanyl Critical care time 83 minutes excluding procedure. Code status discussed greater than 20 minutes: Full CODE STATUS. Plan discussed with Dr. Ulloa Plan discussed with: Son, Other (RN) My Orders My Orders Orders - BHAVESH JON RESIDENT Procedure Category Date Status Time Chest Portable XY 01/03/25 Resulted 17:28 Abg W/ Co-Ox RT 01/03/25 Logged 19:20 Phenylephrine Iv PHA 01/03/25 In Process (Phenylephrine/Ns) 19:30 Ventilator Orders RT 01/03/25 Transmitted 19:48 Ventilator Orders RT 01/03/25 Transmitted 19:40 Abg W/ Co-Ox RT 01/03/25 Logged 20:45 Abg W/ Co-Ox RT 01/03/25 Logged 21:00 Glucose Blood PHA 01/04/25 In Process (Accu-Chek Comfort 12:00 Insulin R (Human) PHA 01/04/25 In Process (Insulin R) 12:00 Dextrose 50% Syringe PHA 01/04/25 In Process 08:30 Complete Blood Count LAB 01/05/25 Verified 04:00 Docusate Sodium PHA 01/04/25 Logged Liquid (Colace Liquid) 22:00 Polyethylene Glycol PHA 01/05/25 Logged 17g Powder (Miralax 10:00 Dietary Evaluation Review Comments: 1) Initiate MVI @ 1 tb qd 2) Initiate Pro-Stat @ 30 mL qd. Flush 30 mL free H2O AC/PC 3) If patient remains NPO > 7 days, consider EN/TPN to meet at least 75% of estimated daily needs 4) If GI is preferred, consider Glucerna 1.2 @ 50 mL/hr goal rate as tolerated. Flush 150 mL free H2O Q6. TF regimen (including Pro-Stat) will provide 1540 kcals, 87g Pro, and 1626 mL free H2O (including TF flushes) per 24 hrs. Goal rate will meet ~ 91% estimated energy needs and ~ 80% estimated protein needs. 5) Advance to 60g CCHO diet when medically feasible, pending ST approval 6) Follow-up with pulmonology 7) Continue to monitor I&O, labs, and skin integrity Expected Outcomes/Goals: 1) patient to receive nutrition support within 7 days of NPO status 2) labs and wound to improve 3) diet to advance 4) f/u in 2-3 days Date of Service: Jan 04, 2025 Billing Provider: MEL ULLOA MD Common Visit Codes: 87800-[id number] CARE 30-74 MIN BHAVESH JON RESIDENT Jan 04, 2025 16:42 MEL ULLOA MD Jan 04, 2025 20:56
[2025-01-04 20:34] LABS: Base Excess 7.3 mmol/L (-2.0-3.0)
[2025-01-04] MEDS: DOCUSATE ORAL LIQUID 100 MG/10 ML UD GT SCH (21:36)
[2025-01-04] MEDS: HYDROCORTISONE SOD SUCC 100 MG/2ML INJ VIAL IV SCH (21:36)
--- NOTE | 2025-01-04 23:16 | DVHPN2 ---
Progress Note - Dictate Date Seen: Jan 04, 2025 Medical Necessity Reason Pt with a Central, PICC or Fol: No Subjective Patient seen and examined at bedside. Sedated, intubated on mechanical ventilator. Overnight events reviewed. vital signs Vital Sign Date Time Temp Pulse Resp B/P (MAP) Pulse Ox O2 Delivery O2 Flow Rate FiO2 01/04/25 22:00 30 01/04/25 22:00 87 01/04/25 22:00 26 95 Mechanical Ventilator+ 01/04/25 22:00 118/66 (83) 01/04/25 16:30 98.6 98.6 01/04/25 08:00 30 Total Intake and Output 01/03/25 01/03/25 01/04/25 15:00 23:00 07:00 Intake Total 975 ml 800.75 ml 944.00 ml Output Total 950 ml Balance 975 ml 800.75 ml -6.00 ml medications Current Medications Medications Dose Ordered Sig/Serenity Route Start Time Stop Time Status Last Admin Dose Admin Ipratropium [place] 0.5 mg Q4HPRN PRN NEB 01/02/25 00:15 01/03/25 12:29 0.5 MG Pantoprazole Sodium 40 mg DAILY IV 01/02/25 10:00 01/04/25 09:45 40 MG Vancomycin HCl 0 ml @ 0 mls/hr UD IV 01/02/25 11:45 Norepinephrine Bitartrate 250 ml @ 3.75 mls/hr Q24H IV 01/03/25 13:00 01/04/25 21:44 33.75 MLS/HR Midazolam HCl 50 ml @ 1 mls/hr Q24H IV 01/03/25 13:00 01/04/25 18:48 4 MLS/HR Fentanyl Citrate 250 ml @ 2.5 mls/hr Q24H IV 01/03/25 13:00 01/04/25 02:30 12.5 MLS/HR Vasopressin 20 units/Sodium Chloride 100 ml @ 9 mls/hr Q11H7M IV 01/03/25 15:45 01/03/25 23:19 9 MLS/HR Meropenem 50 ml @ 17 mls/hr Q8H IV 01/04/25 01:00 01/04/25 17:00 17 MLS/HR Epinephrine HCl 250 ml @ 7.5 mls/hr Q24H IV 01/03/25 16:30 01/03/25 17:51 7.5 MLS/HR Phenylephrine HCl 250 ml @ 30 mls/hr Q8H20M IV 01/03/25 19:30 Diagnostic Test (Pha) 1 strip IQ4HR 01/04/25 12:00 01/04/25 20:34 1 STRIP Insulin Human Regular IQ4HR SC 01/04/25 12:00 01/04/25 20:39 6 UNITS Dextrose 50 ml UD PRN IV 01/04/25 08:30 Hydrocortisone Sodium Succinate 50 mg Q8HR IV 01/04/25 22:00 01/04/25 21:36 50 MG Docusate Sodium 100 mg BID GT 01/04/25 22:00 01/04/25 21:36 100 MG Polyethylene Glycol 17 gm DAILY PO 01/05/25 10:00 Enteral Nutritional Formula 1,000 ml 30ML/HR GT 01/04/25 19:15 objective Gen.: Patient lying in bed in medical ICU. Sedated, intubated on mechanical ventilator. Head: Normocephalic, atraumatic. Eyes: PERRLA. Ears: Normal external anatomy. Throat: Endotracheal tube and orogastric tube in place. Neck: Supple, trachea midline. Chest: Transmitted breath sounds bilaterally. Decreased air entry bilaterally. No wheezing. Bibasilar crackles. Cardiovascular: Positive S1, positive S2. Regular rate and rhythm. Abdomen: Positive bowel sounds in all 4 quadrants. Soft, nontender, nondistended. : [place] in place. Normal external genitalia. Rectal: Deferred. Skin: Warm, dry. Intact. Extremities: 2+ radial pulses bilaterally. No lower extremity edema. Neuro: Sedated. laboratory and microbiology Laboratory Tests 01/04/25 03:47 Test 01/04/25 03:47 Range/Units Serum Glucose 491 *H 74-106 mg/dL Assessment/Plan Impression: Acute hypoxic respiratory failure 2/2 pneumonia and ARDS On mechanical ventilator Pneumonia, likely gram negative and/or gram positive Atelectasis Alveolar hemorrhage Rheumatoid arthritis Acute respiratory distress syndrome Hx of nicotine dependence Events: Remains on vent support Sedated on Versed, Fentanyl ABG reviewed, compensated. PEEP was reduced to 10 cmH2O and FiO2 30% Continue to taper down PEEP to goal of 8 cm H2O. Decrease RR to 26 Vent settings; On AC mode; RR 28-->26, VT 350-->400, PEEP 14-->10, FiO2 of 100-->30% Pt with hyperglycemia 2/2 steroids. Taper hydrocortisone to 50 mg q.8 hours. On pressors for hemodynamic support Levophed at 20 mcg/min Titrate to keep mean arterial pressure greater than 65 mmHg. Continue antibiotics Labs and imaging reviewed. Rest of plan as noted below. Plan: s/p intubation on mechanical ventilator. Patient underwent STAT bronchoscopy with bronchoalveolar lavage on 01/03/25. Informed consent was obtained from patient's son via phone; risks and benefits explained in detail and he agreed for the procedure. BAL revealed hemorrhagic fluid, suspect alveolar hemorrhage - both RML and RLL similar See separate procedure note for full details. Patient was placed on lung protective strategy. On AC mode; RR 26, VT 400, PEEP 10, FiO2 of 30% Titrate FIO2 to keep O2 saturation above 90%. VAP bundle. Daily ABG and CXR while intubated Sedate for ventilator synchrony Allow permissive hypercarbia Goal pH of 7.15 to 7.25 Goal PaO2 greater than or equal to 55 mmHg and/or O2 sat greater than or equal to 88% Once FiO2 reaches 45% or lower, taper PEEP in increments of 2 cmH2O. ABG (01/03/25) shows acidemia d/t respiratory acidosis. AG of 11. Increased respiratory rate to 26 BPM. Repeat ABG revealed pH of 7.20 and PaO2 of >55 mmHg. Taper FiO2 in increments of 10% Continue antibiotics. Stress dose steroids with hydrocortisone 50 mg q.8 hours Follow up BAL sent for respiratory gram stain and cultures, fungal and viral cultures. On pressors for hemodynamic support Titrate to keep mean arterial pressure greater than 65 mmHg. Monitor renal function Monitor electrolytes. Supplement as necessary. Monitor ins and outs. Goal K greater than or equal to 4.0 Goal mag greater than or equal to 2.0 GI prophylaxis. DVT prophylaxis. Prognosis: Poor given patient's multiple co-morbidities. Condition: Critical Rest of plan per hospitalist and other consultants. A total of 35 minutes of critical care time was spent reviewing the patient record, examining the patient, making a diagnostic and therapeutic plan, discussing this plan with the medical personnel, following up on diagnostic studies and following the patient for clinical stability excluding any and all procedures. At least 50% of this time was spent in direct, [id number] contact. Thank you, Dr. Tellez, for allowing me to participate in this patient's care. Further recommendations will depend on the patient's clinical course. Please do not hesitate to contact me if you have any questions or concerns. This medical document was created using an electronic medical record system with [employer] dictation system. Although these documentations are being carefully reviewed, there may still be some phonetic and typographical changes. The errors are purely typographical, due to imperfection on the software program, and do not reflect any compromise in the patient's medical care. Dietary Evaluation Review Comments: 1) Initiate MVI @ 1 tb qd 2) Initiate Pro-Stat @ 30 mL qd. Flush 30 mL free H2O AC/PC 3) If patient remains NPO > 7 days, consider EN/TPN to meet at least 75% of estimated daily needs 4) If GI is preferred, consider Glucerna 1.2 @ 50 mL/hr goal rate as tolerated. Flush 150 mL free H2O Q6. TF regimen (including Pro-Stat) will provide 1540 kcals, 87g Pro, and 1626 mL free H2O (including TF flushes) per 24 hrs. Goal rate will meet ~ 91% estimated energy needs and ~ 80% estimated protein needs. 5) Advance to 60g CCHO diet when medically feasible, pending ST approval 6) Follow-up with pulmonology 7) Continue to monitor I&O, labs, and skin integrity Expected Outcomes/Goals: 1) patient to receive nutrition support within 7 days of NPO status 2) labs and wound to improve 3) diet to advance 4) f/u in 2-3 days Plan discussed with: Other (TANG Connelly) Critical Care Time(min): 35 ABE CURRY MD Jan 04, 2025 23:16
[2025-01-05] VITALS (103 sets, daily range): BP systolic 94–134; BP diastolic 47–86; PULSE 57–125; RESP 16–27; TEMP 97.7–100.4; O2SAT 92–100
[2025-01-05 04:13] LABS: Hematocrit 33.9 % (36.0-46.0); Hemoglobin 11.8 g/dL (12.2-16.2); Mean Corpuscular Hemoglobin 33.8 pg (28.0-32.0); Mean Corpuscular Volume 97.3 fL (80.0-100.0); Nucleated Red Blood Cells % 0.2 %
[2025-01-05 04:28] LABS: Albumin 3.3 g/dL (3.2-4.8); Alkaline Phosphatase 83 U/L (46-116); Anion Gap 9 (5-15); BUN/Creatinine Ratio 23.9 (10.0-20.0); Blood Urea Nitrogen 21 mg/dL (9-23); Total Protein 5.9 g/dL (5.7-8.2)
[2025-01-05 04:54] LABS: Alanine Aminotransferase 89 U/L (7-40); Bilirubin, Total 1.3 mg/dL (0.2-1.0); Calcium 8.5 mg/dL (8.7-10.4); Carbon Dioxide 32 mmol/L (20-31); Chloride 108 mmol/L (98-107); Glucose 140 mg/dL (74-106); Potassium 3.4 mmol/L (3.5-5.1); Sodium 149 mmol/L (136-145)
--- NOTE | 2025-01-05 05:52 | DVH ---
CHEST RADIOGRAPH Indication: Multifocal consolidative pneumonia Technique: 1 view Comparison: XY CHEST PORTABLE on DOS: 01/04/25, XY CHEST PORTABLE on DOS: 01/03/25, XY CHEST XRAY 1 VIEW on DOS: 01/03/25, XY CHEST PORTABLE on DOS: 01/03/25, CT CT ANGIO CHEST CONTRAST on DOS: 01/02/25 FINDINGS: Lines and Tubes: Unchanged endotracheal tube, enteric tube, and right IJ catheter. Lungs: Persistent diffuse bilateral interstitial opacities. Less conspicuous right apical and left-si ded airspace disease. Pleura: Unremarkable. Cardiomediastinal contours: Unchanged. Bones: Unchanged. IMPRESSION: 1. Less conspicuous airspace opacities. Persistent diffuse interstitial opacities. Stable support d rita.
[2025-01-05 06:26] LABS: Base Excess 3.5 mmol/L (-2.0-3.0)
[2025-01-05] MEDS: POTASSIUM CHL 20MEQ/100ML 100 ML IV ONE ×2 (06:58→18:43)
[2025-01-05] MEDS: POLYETHYLENE GLYCOL 17 GM PWDR PO SCH (10:01)
[2025-01-05] MEDS: VANCOMYCIN 750MG KIT 100 ML IV SCH (10:03)
[2025-01-05] MEDS: MEROPENEM 1GM IVPB 50 ML IV SCH (11:26)
[2025-01-05 12:06] LABS: Base Excess 6.1 mmol/L (-2.0-3.0)
[2025-01-05] MEDS: FUROSEMIDE 40 MG/4 ML VIAL IV ONE (15:07)
--- NOTE | 2025-01-05 16:15 | DVHPNRES ---
Progress Note Date Seen: Jan 05, 2025 Resident Creating Document: DONA MAYORGA RESIDENT Medical Necessity Reason Pt with a Central, PICC or Fol: No Subjective Review of Systems Patient was seen and examined at bedside in ICU. Family was present at bedside Patient is on ventilator: Vent setting respiratory rate 20, tidal volume 400, FiO2 30%, peep of eight, on continuous feeding via NG tube No new night event reported Urine output of 831 mL a shift Vasopressor trending down, Levophed around eight to 12 ABG improved after respiratory rate change from 26 to 20 Objective vital signs Vital Sign Date Time Temp Pulse Resp B/P (MAP) Pulse Ox O2 Delivery O2 Flow Rate FiO2 01/05/25 15:15 98.8 61 20 122/67 (85) 95 209.8 01/05/25 14:32 30 01/05/25 14:00 Mechanical Ventilator+ 01/04/25 08:00 30 Total Intake and Output 01/04/25 01/04/25 01/05/25 15:00 23:00 07:00 Intake Total 688.00 ml 458.50 ml 322.50 ml Output Total 600 ml Balance 688.00 ml 458.50 ml -277.50 ml medications Current Medications Medications Dose Ordered Sig/Serenity Route Start Time Stop Time Status Last Admin Dose Admin Ipratropium [place] 0.5 mg Q4HPRN PRN NEB 01/02/25 00:15 01/03/25 12:29 0.5 MG Pantoprazole Sodium 40 mg DAILY IV 01/02/25 10:00 01/05/25 10:01 40 MG Vancomycin HCl 0 ml @ 0 mls/hr UD IV 01/02/25 11:45 Norepinephrine Bitartrate 250 ml @ 3.75 mls/hr Q24H IV 01/03/25 13:00 01/05/25 12:32 15 MLS/HR Midazolam HCl 50 ml @ 1 mls/hr Q24H IV 01/03/25 13:00 01/05/25 15:02 5 MLS/HR Fentanyl Citrate 250 ml @ 2.5 mls/hr Q24H IV 01/03/25 13:00 01/05/25 05:28 10 MLS/HR Vasopressin 20 units/Sodium Chloride 100 ml @ 9 mls/hr Q11H7M IV 01/03/25 15:45 01/03/25 23:19 9 MLS/HR Epinephrine HCl 250 ml @ 7.5 mls/hr Q24H IV 01/03/25 16:30 01/03/25 17:51 7.5 MLS/HR Phenylephrine HCl 250 ml @ 30 mls/hr Q8H20M IV 01/03/25 19:30 Diagnostic Test (Pha) 1 strip IQ4HR 01/04/25 12:00 01/05/25 12:24 1 STRIP Insulin Human Regular IQ4HR SC 01/04/25 12:00 01/05/25 12:28 3 UNITS Dextrose 50 ml UD PRN IV 01/04/25 08:30 Hydrocortisone Sodium Succinate 50 mg Q8HR IV 01/04/25 22:00 01/05/25 15:07 50 MG Docusate Sodium 100 mg BID GT 01/04/25 22:00 01/05/25 10:01 100 MG Polyethylene Glycol 17 gm DAILY PO 01/05/25 10:00 01/05/25 10:01 17 GM Enteral Nutritional Formula 1,000 ml 30ML/HR GT 01/04/25 19:15 Vancomycin HCl 100 ml @ 100 mls/hr Q16H IV 01/05/25 10:00 01/05/25 10:03 100 MLS/HR Meropenem 50 ml @ 17 mls/hr Q8H IV 01/05/25 11:00 01/05/25 11:26 17 MLS/HR Acetaminophen 650 mg Q6HP PRN PO 01/05/25 10:15 Examination General Appearance: Intubated and sedated Head Exam: Normal inspection, unequal bilateral pupil Neck Exam: Normal inspection. Non-tender. Normal alignment Pulmonary/Respiratory: Chest non-tender. Mild crackles over bilateral lung zones. Cardiovascular/Chest: Regular rate and rhythm. No murmurs. No JVD. Peripheral Pulses: 2+ Radial (R). 2+ Radial (L). 2+ Pedal (R). 2+ Pedal (L) Abdominal Exam: Normal bowel sounds. Soft. Nontender. No hepatospenomegaly. No masses Ankle Exam: Negative ankle edema Lower extremities: 1+ bilateral upper extremity and lower extremity edema Neuro/Mental Status: Sedated laboratory and microbiology Laboratory Tests 01/05/25 03:00 Test 01/05/25 03:00 Range/Units Serum Glucose 140 H 74-106 mg/dL Microbiology Date/Time Source Procedure Growth Status 01/03/25 21:50 Nose MRSA Screen - Final Complete 01/03/25 16:32 Bronchial Washings Gram Stain - Final Resulted 01/03/25 16:32 Bronchial Washings Respiratory Culture - Preliminary Resulted 01/01/25 19:23 Blood Blood Culture - Preliminary NO GROWTH AFTER 72 HOURS OF INCUBATION. Resulted Problem List/Assessment/Plan Problem List/Assessment/Plan Neurology # Sedated - Versed - fentanyl Cardiovascular # septic shock due to pneumonia Gram-positive versus negative # possible heart failure with mildly reduced ejection fraction 40-45% on echo in 2019 - on norepinephrine - IV hydrocortisone 50 mg q.8hrs - pending echocardiogram Respiratory # Ventilator -intubated 01/03/2025 - bronchoscopy 01/03/2025 # Acute hypoxic respiratory failure # possible alveolar hemorrhage # COPD exacerbation # ruled out pulmonary embolism # multifocal community-acquired pneumonia, Gram-positive versus Gram-negative # possible pulmonary edema, severe - IV vancomycin, IV meropenem - pulmonology on board - IV methylprednisolone 125 mg once - IV hydrocortisone 50 mg q.6 hours - ipratropium albuterol med nebs - CT angiography: No pulmonary embolism. Extensive multifocal consolidative bilateral pulmonary infiltrate, most notably within the bilateral posterior lower lobes. - CXR from 01/03/2025: Interstitial and alveolar type opacities of bilateral lungs, relatively unchanged from prior imaging which may represent multifocal pneumonia/ARDS/severe pulmonary edema - IV Lasix 40 mg once on 01/05/2025 GI # transaminitis, now improving # constipation likely slow transit - Colace 100 mg b.i.d., MiraLax daily -repeat BMP # Peptic ulcer prophylaxis -Pantoprazole 40 mg IV daily # Ruth catheter placed on 01/02/2025 Infectious disease # community-acquired pneumonia, Gram-positive versus Gram-negative # sepsis due to above # septic shock due to above - IV vancomycin per pharmacy - IV meropenem - norepinephrine drip - vasopressin drip - IV methylprednisolone 125 mg once - IV hydrocortisone 50 mg q.6 hours -bronchoscopy on 01/03/2025 Hem/onc # macrocytosis without anemia -monitor Endocrine # history of type 2 diabetes # history of rheumatoid arthritis, not on any treatment # ?Lupus -A1c 6% on 01/03/2025 - monitor DVT prophylaxis - holding due to possible alveolar hemorrhage evident on bronchoscopy Lines - right CVC placed on 01/03/2025 - L 22g placed on 01/03/25 - ruth 01/03/25 Drips during mech ventilation Versed Fentanyl Critical care time 76 minutes excluding procedure. Code status discussed greater than 20 minutes: Full CODE STATUS. Plan discussed with Dr. Ulloa Plan discussed with: Other (RN and family) My Orders My Orders Orders - DONA MAYORGA Procedure Category Date Status Time Acetaminophen Tablet PHA 01/05/25 In Process (Tylenol Tablet) 10:15 Ventilator Orders RT 01/05/25 Transmitted 10:14 Abg W/ Co-Ox RT 01/05/25 Logged 12:15 Basic Metabolic Panel LAB 01/06/25 Verified 04:00 Complete Blood Count LAB 01/06/25 Verified 04:00 Chest Xray 1 View XY 01/06/25 Logged 04:00 Abg W/ Co-Ox RT 01/06/25 Logged 04:00 Dietary Evaluation Review Comments: 1) Initiate MVI @ 1 tb qd 2) Initiate Pro-Stat @ 30 mL qd. Flush 30 mL free H2O AC/PC 3) If patient remains NPO > 7 days, consider EN/TPN to meet at least 75% of estimated daily needs 4) If GI is preferred, consider Glucerna 1.2 @ 50 mL/hr goal rate as tolerated. Flush 150 mL free H2O Q6. TF regimen (including Pro-Stat) will provide 1540 kcals, 87g Pro, and 1626 mL free H2O (including TF flushes) per 24 hrs. Goal rate will meet ~ 91% estimated energy needs and ~ 80% estimated protein needs. 5) Advance to 60g CCHO diet when medically feasible, pending ST approval 6) Follow-up with pulmonology 7) Continue to monitor I&O, labs, and skin integrity Expected Outcomes/Goals: 1) patient to receive nutrition support within 7 days of NPO status 2) labs and wound to improve 3) diet to advance 4) f/u in 2-3 days Date of Service: Jan 05, 2025 Billing Provider: MEL ULLOA MD Common Visit Codes: 81532-[id number] CARE 30-74 MIN DONA MAYORGA Jan 05, 2025 16:15 MEL ULLOA MD Jan 05, 2025 21:34
[2025-01-05 16:59] LABS: Anion Gap 9 (5-15)
[2025-01-05 17:04] LABS: BUN/Creatinine Ratio 27.6 (10.0-20.0); Blood Urea Nitrogen 24 mg/dL (9-23); Calcium 8.7 mg/dL (8.7-10.4); Carbon Dioxide 33 mmol/L (20-31); Chloride 108 mmol/L (98-107); Glucose 155 mg/dL (74-106); Potassium 3.4 mmol/L (3.5-5.1); Sodium 150 mmol/L (136-145)
[2025-01-05] MEDS: POTASSIUM CHL 20MEQ/100ML 100 ML IV SCH (18:50)
[2025-01-05] MEDS: ALBUTEROL SULF 2.5 MG/0.5ML(0.5%) NEB SOLN NEB ONE (20:25)
--- NOTE | 2025-01-05 23:38 | DVHPN2 ---
Progress Note - Dictate Date Seen: Jan 05, 2025 Medical Necessity Reason Pt with a Central, PICC or Fol: No Subjective Patient seen and examined at bedside. Sedated, intubated on mechanical ventilator. Overnight events reviewed. vital signs Vital Sign Date Time Temp Pulse Resp B/P (MAP) Pulse Ox O2 Delivery O2 Flow Rate FiO2 01/05/25 22:15 97.7 99 21 123/55 (77) 96 207.9 01/05/25 22:01 50 01/05/25 22:00 Mechanical Ventilator+ 01/04/25 08:00 30 Total Intake and Output 01/04/25 01/04/25 01/05/25 15:00 23:00 07:00 Intake Total 688.00 ml 458.50 ml 322.50 ml Output Total 600 ml Balance 688.00 ml 458.50 ml -277.50 ml medications Current Medications Medications Dose Ordered Sig/Serenity Route Start Time Stop Time Status Last Admin Dose Admin Ipratropium [place] 0.5 mg Q4HPRN PRN NEB 01/02/25 00:15 01/05/25 18:18 0.5 MG Pantoprazole Sodium 40 mg DAILY IV 01/02/25 10:00 01/05/25 10:01 40 MG Vancomycin HCl 0 ml @ 0 mls/hr UD IV 01/02/25 11:45 Norepinephrine Bitartrate 250 ml @ 3.75 mls/hr Q24H IV 01/03/25 13:00 01/05/25 12:32 15 MLS/HR Midazolam HCl 50 ml @ 1 mls/hr Q24H IV 01/03/25 13:00 01/05/25 21:18 3 MLS/HR Fentanyl Citrate 250 ml @ 2.5 mls/hr Q24H IV 01/03/25 13:00 01/05/25 05:28 10 MLS/HR Vasopressin 20 units/Sodium Chloride 100 ml @ 9 mls/hr Q11H7M IV 01/03/25 15:45 01/03/25 23:19 9 MLS/HR Epinephrine HCl 250 ml @ 7.5 mls/hr Q24H IV 01/03/25 16:30 01/03/25 17:51 7.5 MLS/HR Phenylephrine HCl 250 ml @ 30 mls/hr Q8H20M IV 01/03/25 19:30 Diagnostic Test (Pha) 1 strip IQ4HR 01/04/25 12:00 01/05/25 20:06 1 STRIP Insulin Human Regular IQ4HR SC 01/04/25 12:00 01/05/25 20:09 2 UNITS Dextrose 50 ml UD PRN IV 01/04/25 08:30 Hydrocortisone Sodium Succinate 50 mg Q8HR IV 01/04/25 22:00 01/05/25 21:19 50 MG Docusate Sodium 100 mg BID GT 01/04/25 22:00 01/05/25 21:19 100 MG Polyethylene Glycol 17 gm DAILY PO 01/05/25 10:00 01/05/25 10:01 17 GM Enteral Nutritional Formula 1,000 ml 30ML/HR GT 01/04/25 19:15 Vancomycin HCl 100 ml @ 100 mls/hr Q16H IV 01/05/25 10:00 01/05/25 10:03 100 MLS/HR Meropenem 50 ml @ 17 mls/hr Q8H IV 01/05/25 11:00 01/05/25 18:31 17 MLS/HR Acetaminophen 650 mg Q6HP PRN PO 01/05/25 10:15 objective Gen.: Patient lying in bed in medical ICU. Sedated, intubated on mechanical ventilator. Head: Normocephalic, atraumatic. Eyes: PERRLA. Ears: Normal external anatomy. Throat: Endotracheal tube and orogastric tube in place. Neck: Supple, trachea midline. Chest: Transmitted breath sounds bilaterally. Decreased air entry bilaterally. No wheezing. Bibasilar crackles. Cardiovascular: Positive S1, positive S2. Regular rate and rhythm. Abdomen: Positive bowel sounds in all 4 quadrants. Soft, nontender, nondistended. : Monzon in place. Normal external genitalia. Rectal: Deferred. Skin: Warm, dry. Intact. Extremities: 2+ radial pulses bilaterally. No lower extremity edema. Neuro: Sedated. laboratory and microbiology Laboratory Tests 01/05/25 16:29 01/05/25 03:00 Test 01/05/25 16:29 Range/Units Serum Glucose 155 H 74-106 mg/dL Assessment/Plan Impression: Acute hypoxic respiratory failure 2/2 pneumonia and ARDS On mechanical ventilator Pneumonia, likely gram negative and/or gram positive Atelectasis Alveolar hemorrhage Rheumatoid arthritis Acute respiratory distress syndrome Hx of nicotine dependence Events: Remains on vent support Sedated on Versed ABG reviewed, notable for alkalemia Vent settings adjusted; On AC mode; RR 26-->20, VT 400, PEEP 10-->8, FiO2 of 30% Continue to taper down PEEP to goal of 5 cm H2O and RR to 18. Pt with hyperglycemia 2/2 steroids. Continue hydrocortisone at 50 mg q.8 hours. On pressors for hemodynamic support Levophed at 20 --> 6 mcg/min Titrate to keep mean arterial pressure greater than 65 mmHg. Improved pressor requirements Continue antibiotics Taper stress dose steroids as tolerated Continue tube feeds for nutrition Monitor renal function Monitor electrolytes. Supplement as necessary. Recheck K, mag. Lasix 40 mg IVP given. Labs and imaging reviewed. Rest of plan as noted below. Plan: s/p intubation on mechanical ventilator. Patient underwent STAT bronchoscopy with bronchoalveolar lavage on 01/03/25. Informed consent was obtained from patient's son via phone; risks and benefits explained in detail and he agreed for the procedure. BAL revealed hemorrhagic fluid, suspect alveolar hemorrhage - both RML and RLL similar See separate procedure note for full details. Patient was placed on lung protective strategy. On AC mode; RR 20, VT 400, PEEP 8, FiO2 of 30% Continue to taper down PEEP to goal of 5 cm H2O and RR to 18. Titrate FIO2 to keep O2 saturation above 90%. VAP bundle. Daily ABG and CXR while intubated Sedate for ventilator synchrony Allow permissive hypercarbia Goal pH of 7.15 to 7.25 Goal PaO2 greater than or equal to 55 mmHg and/or O2 sat greater than or equal to 88% Once FiO2 reaches 45% or lower, taper PEEP in increments of 2 cmH2O. ABG (01/03/25) shows acidemia d/t respiratory acidosis. AG of 11. Increased respiratory rate to 26 BPM. Repeat ABG revealed pH of 7.20 and PaO2 of >55 mmHg. Taper FiO2 in increments of 10% Continue antibiotics. Stress dose steroids with hydrocortisone 50 mg q.8 hours BAL sent for respiratory gram stain and cultures, fungal and viral cultures; no growth. On pressors for hemodynamic support Titrate to keep mean arterial pressure greater than 65 mmHg. Monitor renal function Monitor electrolytes. Supplement as necessary. Monitor ins and outs. Goal K greater than or equal to 4.0 Goal mag greater than or equal to 2.0 GI prophylaxis. DVT prophylaxis. Prognosis: Poor given patient's multiple co-morbidities. Condition: Critical Rest of plan per hospitalist and other consultants. A total of 35 minutes of critical care time was spent reviewing the patient record, examining the patient, making a diagnostic and therapeutic plan, discussing this plan with the medical personnel, following up on diagnostic studies and following the patient for clinical stability excluding any and all procedures. At least 50% of this time was spent in direct, [id number] contact. Thank you, Dr. Tellez, for allowing me to participate in this patient's care. Further recommendations will depend on the patient's clinical course. Please do not hesitate to contact me if you have any questions or concerns. This medical document was created using an electronic medical record system with imoji dictation system. Although these documentations are being carefully reviewed, there may still be some phonetic and typographical changes. The errors are purely typographical, due to imperfection on the software program, and do not reflect any compromise in the patient's medical care. Dietary Evaluation Review Comments: 1) Initiate MVI @ 1 tb qd 2) Initiate Pro-Stat @ 30 mL qd. Flush 30 mL free H2O AC/PC 3) If patient remains NPO > 7 days, consider EN/TPN to meet at least 75% of estimated daily needs 4) If GI is preferred, consider Glucerna 1.2 @ 50 mL/hr goal rate as tolerated. Flush 150 mL free H2O Q6. TF regimen (including Pro-Stat) will provide 1540 kcals, 87g Pro, and 1626 mL free H2O (including TF flushes) per 24 hrs. Goal rate will meet ~ 91% estimated energy needs and ~ 80% estimated protein needs. 5) Advance to 60g CCHO diet when medically feasible, pending ST approval 6) Follow-up with pulmonology 7) Continue to monitor I&O, labs, and skin integrity Expected Outcomes/Goals: 1) patient to receive nutrition support within 7 days of NPO status 2) labs and wound to improve 3) diet to advance 4) f/u in 2-3 days Plan discussed with: Other (TANG Tristan) Critical Care Time(min): 35 ABE CURRY MD Jan 05, 2025 23:38
[2025-01-06] VITALS (105 sets, daily range): BP systolic 82–143; BP diastolic 39–90; PULSE 76–108; RESP 14–23; TEMP 97.7–99; O2SAT 91–100
[2025-01-06 04:08] LABS: Hematocrit 32.9 % (36.0-46.0); Hemoglobin 11.0 g/dL (12.2-16.2); Mean Corpuscular Hemoglobin 33.0 pg (28.0-32.0); Mean Corpuscular Volume 98.9 fL (80.0-100.0); Nucleated Red Blood Cells % 0.1 %
[2025-01-06 04:19] LABS: Anion Gap 10 (5-15); Carbon Dioxide 30 mmol/L (20-31); Potassium 3.6 mmol/L (3.5-5.1)
[2025-01-06 04:20] LABS: Calcium 8.8 mg/dL (8.7-10.4)
[2025-01-06 04:22] LABS: Chloride 109 mmol/L (98-107); Sodium 149 mmol/L (136-145)
[2025-01-06 04:25] LABS: BUN/Creatinine Ratio 34.5 (10.0-20.0)
[2025-01-06 04:30] LABS: Blood Urea Nitrogen 29 mg/dL (9-23); Glucose 211 mg/dL (74-106)
--- NOTE | 2025-01-06 04:50 | DVH ---
CHEST RADIOGRAPH Indication: on vent Technique: 1 view Comparison: XY CHEST PORTABLE on DOS: 01/05/25, XY CHEST PORTABLE on DOS: 01/04/25, XY CHEST PORTABLE on DOS: 01/03/25, XY CHEST XRAY 1 VIEW on DOS: 01/03/25, XY CHEST PORTABLE on DOS: 01/03/25 FINDINGS: Lines and Tubes: Unchanged endotracheal tube, enteric tube, and right IJ catheter. Lungs: Interval worsening of perihilar interstitial opacities. Development of left basilar consolidat ion. Pleura: Suspected small left pleural effusion. Cardiomediastinal contours: Unchanged. Bones: Unchanged. IMPRESSION: 1. Worsening of bilateral interstitial opacities. Suspected development of small left pleural effusio n and basilar atelectasis. Stable support devices.
[2025-01-06] MEDS: LEVALBUTEROL HCL 1.25 MG/3 ML NEB NEB SCH (05:30)
[2025-01-06] MEDS: IPRATROPIUM BROM 0.5 MG/2.5ML INH SOL NEB SCH (05:30)
[2025-01-06 06:22] LABS: Base Excess 5.7 mmol/L (-2.0-3.0)
--- NOTE | 2025-01-06 08:33 | ECG ---
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
[2025-01-06] MEDS: FUROSEMIDE 40 MG/4 ML VIAL IV ONE (11:45)
[2025-01-06] MEDS: ACCU-CHEK COMFORT CURVE STRIP VI SCH (12:08)
[2025-01-06] MEDS: InsuLIN REG 1unit/0.01ml Soln (100units/ml) SC SCH (12:09)
--- NOTE | 2025-01-06 13:22 | DVH ---
Date: 01/06/2025 12:15 PM Examination: XY KUB ABDOMEN SINGLE VIEW History: ABDOMINAL DISTENTION Comparison: None TECHNIQUE: Frontal views of the abdomen was obtained. FINDINGS: Bowel gas pattern is unremarkable. The lung bases are unremarkable. No acute osseous abnormality identified. IMPRESSION: Nonobstructive bowel gas pattern. Large stool burden. Monzon catheter overlying the bladder.
[2025-01-06] MEDS: LACTULOSE 20Gm/30ML SOLN PO SCH (14:23)
--- NOTE | 2025-01-06 14:29 | DVHPNRES ---
Progress Note Date Seen: Jan 06, 2025 Resident Creating Document: BHAVESH JON RESIDENT Medical Necessity Reason Pt with a Central, PICC or Fol: No Subjective Review of Systems Patient is a 69-year-old female who is a poor historian, with prior medical history of asthma, COPD?, intracranial aneurysm s/p repair(coiling?), hypothyroidism, rheumatoid arthritis, lupus? and recurrent pneumonias requiring intubation x 3 in the past, who presented to the ED with chief complaint of fatigue and shortness of breath. Patient states symptoms initiated 1 week prior to presentation. She refers fatigue associated with progressively worsened shortness of breath, dry cough, and febrile sensation. She states she used her oxygen at home with little relief however pt is unclear about whether it is home oxygen or a nebulizer, inability to achieve relief despite that prompted her family to call EMS. On evaluation in the field, she was saturating 60% and was placed on 10 L O2. Per pt she is on no medication neither sees a primary care doctor as she prefers holistic alternatives routinely. Per pt, she attends a [facility] where she receives infusions? On evaluation in the ED, she was found to be tachycardic, tachypneic, and requiring 15 L O2 via face mask. Initial labs significant for 15.4, with chemical panel within normal range, lactic acid 1.8, troponins negative, BNP 30.14, ABG showing 7.405, pCO2 27.1, pO2 103.3, and HCO3 16.6. Chest Xray shows extensive bilateral airspace disease, greatest in perihilar regions. Sepsis protocol was initiated, cultures were taken, and patient was admitted and started on IV antibiotics. Surgical: Aneurysm repair, Hernia repair, appendectomy Social: Denies drug and alcohol use, refers she smoked 1-2 cigarettes daily for 30 years with cessation in 2019 Patient seen at bedside. She is alert and oriented in person, place, and time. She states that feels well, and shortness of breath has improved with use of simple face mask, at the time 10 L O2. She currently denies chest pain, cough, nausea, vomiting and other symptoms. Over night, patient febrile spike of 102.2 F, she has remained tachypneic, and blood pressure remain on the lower limit of normality. CT angio was ordered, ruling out PE, and showed extensive multifocal consolidative bilateral pulmonary infiltrate. Cefepime was added for broader coverage. Patient is currently JACLYN status. 01/03/2025: Overnight pt was able to be brought down to 6L O2 however, in the morning after minimal exertion, patient continued to have respiratory distress with desaturation on minimal movement. On re-evaluation an hour later, patient was noted to have continued tachypnea and use of accessory muscles, patient was AAO x4 and agreed to intubation verbally as well as a full code status aware of risks and benefits. Patient's son was informed, he wanted to wait on intubation until he arrived from [place] in order for the patient to sign on some financial documents, however, ultimately intubation became medically necessary and waiting further would have proven detrimental to patient's health and well- being. Patient was subsequently intubated, a central line was placed, patient was upgraded to ICU status, patient's son was called and informed, detailed meeting was held with patient's son Mr. Alonso lasting 45 minutes where details of patient's with the plan of care was explained in great detail, all questions were answered concerns were addressed, imaging details outlined showing widespread multifocal pneumonia was also shared with patient's son, he demonstrated understanding and was agreeable with the plan of care. plan of care was also discussed with patients daughter in law, Ms. Carvajal for >40mins. Pt underwent bronchoscopy with bloody drainage. IV steroids were started and antibiotic coverage was broadened to include meropenem. vasopressors were initiated to support hemodynamics. 01/04/2025: Patient seen and examined at bedside, overnight patient required 4 pressors and increasing ventilator settings, however, this morning blood pressure is stable, patient currently only on Levophed 26 mcg, decrease respiratory rate to 26 and PEEP to 10 with a tidal volume of 400 and FiO2 30%. Added IV Lasix 20 mg 1 time only. Echocardiogram shows possible heart failure with diastolic dysfunction. Detailed discussion held with patient and patient's at bedside were all questions were answered and concerns were addressed. 01/06/2025: Patient seen and examined at bedside, off of pressors as of 2:00 p.m.. Continues to be on FiO2 40% with a PEEP of 8. IV Lasix 40 mg once. KUB shows nonspecific bowel gas pattern with moderate stool, started lactulose 30 mL b.i.d.. Objective vital signs Vital Sign Date Time Temp Pulse Resp B/P (MAP) Pulse Ox O2 Delivery O2 Flow Rate FiO2 01/06/25 14:00 18 94 Mechanical Ventilator+ 50 50 01/06/25 14:00 98.8 105 94/39 (57) 209.8 01/04/25 08:00 30 Total Intake and Output 01/05/25 01/05/25 01/06/25 15:00 23:00 07:00 Intake Total 601.00 ml 350.75 ml 407.50 ml Output Total 1275 ml 500 ml Balance 601.00 ml -924.25 ml -92.50 ml medications Current Medications Medications Dose Ordered Sig/Serenity Route Start Time Stop Time Status Last Admin Dose Admin Ipratropium [place] 0.5 mg Q4HPRN PRN NEB 01/02/25 00:15 01/05/25 18:18 0.5 MG Pantoprazole Sodium 40 mg DAILY IV 01/02/25 10:00 01/06/25 10:10 40 MG Vancomycin HCl 0 ml @ 0 mls/hr UD IV 01/02/25 11:45 Norepinephrine Bitartrate 250 ml @ 3.75 mls/hr Q24H IV 01/03/25 13:00 01/06/25 05:24 3.75 MLS/HR Midazolam HCl 50 ml @ 1 mls/hr Q24H IV 01/03/25 13:00 01/06/25 06:37 3 MLS/HR Fentanyl Citrate 250 ml @ 2.5 mls/hr Q24H IV 01/03/25 13:00 01/05/25 23:49 10 MLS/HR Vasopressin 20 units/Sodium Chloride 100 ml @ 9 mls/hr Q11H7M IV 01/03/25 15:45 01/03/25 23:19 9 MLS/HR Epinephrine HCl 250 ml @ 7.5 mls/hr Q24H IV 01/03/25 16:30 01/03/25 17:51 7.5 MLS/HR Phenylephrine HCl 250 ml @ 30 mls/hr Q8H20M IV 01/03/25 19:30 Dextrose 50 ml UD PRN IV 01/04/25 08:30 Hydrocortisone Sodium Succinate 50 mg Q8HR IV 01/04/25 22:00 01/06/25 14:24 50 MG Enteral Nutritional Formula 1,000 ml 30ML/HR GT 8/2/25 19:15 Vancomycin HCl 100 ml @ 100 mls/hr Q16H IV 01/05/25 10:00 01/06/25 01:34 100 MLS/HR Meropenem 50 ml @ 17 mls/hr Q8H IV 01/05/25 11:00 01/06/25 11:45 17 MLS/HR Acetaminophen 650 mg Q6HP PRN PO 01/05/25 10:15 Levalbuterol HCl 0.625 mg Q4HR NEB 01/06/25 06:00 01/06/25 12:46 0.625 MG Ipratropium [place] 0.5 mg Q4HR NEB 01/06/25 06:00 01/06/25 12:46 0.5 MG Diagnostic Test (Pha) 1 strip Q6HR 01/06/25 12:00 01/06/25 12:08 1 STRIP Insulin Human Regular Q6HR SC 01/06/25 12:00 01/06/25 12:09 2 UNITS Lactulose 30 ml BID PO 01/06/25 14:00 01/06/25 14:23 30 ML Examination General Appearance: Intubated, sedated and mechanically ventilated Head Exam: Normal inspection Neck Exam: left pupil is larger than the right however prior to being intubated pt had stated this is since her basline since aneurysm repair? Pulmonary/Respiratory: Coarse bilateral breath sounds, decreased on left more than right Cardiovascular/Chest: Tachycardic. Regular rhythm. No murmurs. No JVD. Peripheral Pulses: 2+ Radial (R). 2+ Radial (L). 2+ Pedal (R). 2+ Pedal (L) Abdominal Exam: Normal bowel sounds. Soft. normal abdomen, no visible veins, Nontender. No hepatospenomegaly. No masses Ankle Exam: Negative ankle edema Lower extremities: Negative lower extremity edema Skin Exam: Normal inspection. Normal color. Warm. Dry laboratory and microbiology Laboratory Tests 01/06/25 03:15 Test 01/06/25 03:15 Range/Units Serum Glucose 211 H 74-106 mg/dL Microbiology Date/Time Source Procedure Growth Status 01/03/25 21:50 Nose MRSA Screen - Final Complete 01/03/25 16:32 Bronchial Washings Gram Stain - Final Resulted 01/03/25 16:32 Bronchial Washings Respiratory Culture - Preliminary Resulted 7/30/25 19:23 Blood Blood Culture - Preliminary NO GROWTH AFTER 72 HOURS OF INCUBATION. 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 - Versed - fentanyl - head CT: Streak artifact from left cavernous sinus region call material limits evaluation of the adjacent structures. Otherwise no evidence of acute intracranial abnormality. - neurology on board Cardiovascular # septic shock # possible heart failure with mildly reduced ejection fraction 40-45% on echo in 2019 - on norepinephrine - on vasopressin - decreased IV hydrocortisone 100 mg q.8hrs - echocardiogram: LV EF IS 65% AND IS NORMAL. MILD LVH AND MILD LV DIASTOLIC DYSFUNCTION. NORMAL VALVES. NORMAL RV FUNCTION AND SIZE. NORMAL RVSP AND IS 20 MM OF HG. NO EFFUSION Respiratory # Ventilator -intubated 01/03/2025 - bronchoscopy 01/03/2025 # Acute hypoxic respiratory failure # possible alveolar hemorrhage # COPD exacerbation # ruled out pulmonary embolism # multifocal community-acquired pneumonia, Gram-positive versus Gram-negative # possible pulmonary edema, severe - IV vancomycin, IV meropenem - pulmonology on board - IV methylprednisolone 125 mg once - IV hydrocortisone 50 mg q.6 hours - ipratropium albuterol med nebs - CT angiography: No pulmonary embolism. Extensive multifocal consolidative bilateral pulmonary infiltrate, most notably within the bilateral posterior lower lobes. - CXR from 01/03/2025: Interstitial and alveolar type opacities of bilateral lungs, relatively unchanged from prior imaging which may represent multifocal pneumonia/ARDS/severe pulmonary edema - CXR from 01/06/2025: Worsening of bilateral interstitial opacities. Suspected development of small left pleural effusion and basilar atelectasis. - IV Lasix 40mg daily - added budesonide med nebs 0.5 mg b.i.d. GI # transaminitis, now improving # constipation likely slow transit - Colace 100 mg b.i.d., MiraLax daily - KUB: Nonobstructive bowel gas pattern. Large stool burden. Ruth catheter overlying the bladder. - started lactulose 30 mg p.o. b.i.d. # Peptic ulcer prophylaxis -Pantoprazole 40 mg IV daily # Ruth catheter placed on 01/02/2025 Infectious disease # community-acquired pneumonia, Gram-positive versus Gram-negative # sepsis due to above # septic shock due to above - IV vancomycin per pharmacy - IV meropenem - norepinephrine drip - vasopressin drip - IV methylprednisolone 125 mg once - IV hydrocortisone 50 mg q.8 hours - awaiting respiratory cultures from bronchoscopy Hem/onc # macrocytosis without anemia -monitor Endocrine # history of type 2 diabetes # history of rheumatoid arthritis, not on any treatment # ?Lupus - ordered A1c 6% - monitor DVT prophylaxis - holding due to possible alveolar hemorrhage evident on bronchoscopy Lines - right CVC placed on 01/03/2025 - L 22g placed on 01/03/25 - ruth 01/03/[facility] Fent[facility] Critical care time 83 minutes excluding procedure. Plan discussed with patient's son, at bedside in great detail, all questions were answered and concerns were addressed. Code status discussed greater than 20 minutes: Full CODE STATUS. Plan discussed with Dr. Ulloa Plan discussed with: Son My Orders My Orders Orders - BHAVESH JON RESIDENT Procedure Category Date Status Time Kub Abdomen Single XY 01/06/25 Resulted View 07:15 Electrocardigram EKG 01/06/25 Logged 09:20 Creatinine LAB 01/07/25 Verified 04:00 Dietary Evaluation Review Comments: 1) Initiate MVI @ 1 tb qd 2) Initiate Pro-Stat @ 30 mL qd. Flush 30 mL free H2O AC/PC 3) If patient remains NPO > 7 days, consider EN/TPN to meet at least 75% of estimated daily needs 4) If GI is preferred, consider Glucerna 1.2 @ 50 mL/hr goal rate as tolerated. Flush 150 mL free H2O Q6. TF regimen (including Pro-Stat) will provide 1540 kcals, 87g Pro, and 1626 mL free H2O (including TF flushes) per 24 hrs. Goal rate will meet ~ 91% estimated energy needs and ~ 80% estimated protein needs. 5) Advance to 60g CCHO diet when medically feasible, pending ST approval 6) Follow-up with pulmonology 7) Continue to monitor I&O, labs, and skin integrity Expected Outcomes/Goals: 1) patient to receive nutrition support within 7 days of NPO status 2) labs and wound to improve 3) diet to advance 4) f/u in 2-3 days Date of Service: Jan 06, 2025 Billing Provider: MEL ULLOA MD Common Visit Codes: [id number] INP/OBS CARE(MOD) JONBHAVESH RESIDENT Jan 06, 2025 14:28 MEL ULLOA MD Jan 12, 2025 11:50
[2025-01-06] MEDS ORDERED: BUDESONIDE (INHALATION) 0.5 MG/2 ML NEB NEB SCH (14:45)
--- NOTE | 2025-01-06 20:08 | DVHINCON2 ---
Date of service: Jan 06, [address] Antoine Reason for Consultation Unequal pupils History of Present Illness Ms. Carmona is 69 years old right-handed female with a history of gastric ulcer, versus brain aneurysm status post coiling, the patient came to the hospital on 01/01/2025 with acute shortness of breath x 1 day. At that time, the patient is intubated, but is responsive to light touch,. The history is obtained from her son, chart review and her nurse I saw on 08/28/18 for history of cerebral aneurysm In 2017, the patient had a burst of the brain aneurysm, she was treated in the [facility], where she got coiling, and afterwards, according to her son, the patient has unequal pupil with the left-sided bigger, and associated left eyelid droop, and the patient received Botox injection to the left She has home oxygen, one day prior to the hospitalization, she has progressive shortness breath, and her pulse ox dropped to 50s at home. In the home, respiratory failure, hypoxia, severe pneumoniae confirmed, the patient was intubated [phone] Urinalysis, 01/01/2025: Hormone UDS, 01/01/2025: Negative WBC/HB/PLT/activity, 01/06/2025: 1743/11/331/98.9 Na, 01/03/2025: 137, 01/05/2025: 149, 150, 01/06/2025: 149 TBI/AST/ALT/AP, 01/05/2025: 1.3/51/8 9/83 Chest x-ray, 01/01/2025: Extensive bilateral airspace disease, greatest in the perihilar regions. This may be secondary to severe pulmonary edema. ARDS and diffuse pneumonia are also considerations Chest three, 01/03/2025: Endotracheal tube and right central venous catheter in satisfactory position. Chest x-ray, 01/06/2025: Worsening of bilateral interstitial opacities. Suspected development of small left pleural effusion and basilar atelectasis. Stable support devices (Unchanged endotracheal tube, enteric tube, and right IJ catheter) CT head, 08/19/18: Slightly limited examination due to patient motion. Status post aneurysm embolization along the left side of the sella turcica. Artifact from the embolization material limits evaluation of the in-plane brain parenchyma. No acute intracranial pathology is identified, however if there is concern for a subtle intracranial abnormality, a repeat CT scan should be obtained when the patient can lie still. CTA chest, 01/01/2025: 1. No pulmonary embolism. 2. Extensive multifocal consolidative bilateral pulmonary infiltrate, most notably within the bilateral posterior lower lobes Past Medical History Brain aneurysm, gastric ulcer, COPD, asthma Past Surgical History Hernia repair, and vasectomy and other surgeries Family History: Cardiovascular disease G8 MOTHER G8 FATHER Family History Cardiovascular disease Social History She was a tobacco smoker, but no history of alcohol or recreational substance abuse Allergies: Coded Allergies: NO KNOWN ALLERGIES (Unverified , 08/20/18) Home Meds Reported Medications Levothyroxine Sodium (Levothyroxine Sodium) 50 Mcg Tab, 50 MCG PO QAM for 30 Days, MCG 08/26/18 Current Medications Current Medications Medications (Trade) Dose Ordered Sig/Serenity Route PRN Reason Start Time Stop Time Status Last Admin Levalbuterol HCl (Xopenex Medneb) 0.625 mg Q4HR NEB 01/06/25 06:00 01/06/25 18:46 Ipratropium [place] (Atrovent Medneb) 0.5 mg Q4HR NEB 01/06/25 06:00 01/06/25 18:46 Diagnostic Test (Pha) (Accu-Chek Comfort Curve T) 1 strip Q6HR 01/06/25 12:00 01/06/25 18:48 Insulin Human Regular (InsuLIN R) Q6HR SC 01/06/25 12:00 01/06/25 17:45 Lactulose 30 ml BID PO 01/06/25 14:00 01/06/25 14:23 Budesonide (Pulmicort) 0.5 mg BID NEB 01/06/25 14:45 01/06/25 14:58 DC Budesonide (Pulmicort) 0.5 mg BID NEB 01/06/25 22:00 Methylprednisolone Sodium Succinate (Solu Medrol) 40 mg BID IV 01/06/25 22:00 UNV Review of Systems As above, the other systems are negative Vital Signs Vital Signs Date Time Temp Pulse Resp B/P (MAP) Pulse Ox O2 Delivery O2 Flow Rate FiO2 01/06/25 19:45 99.0 94 19 96/51 (66) 93 210.2 01/06/25 18:00 50 01/06/25 18:00 Mechanical Ventilator+ 01/04/25 08:00 30 Physical Exam The patient is well-nourished and well-developed with no distress. The patient is intubated HEENT: Normocephalic, neck supple, no carotid bruits Lungs: Clear to auscultation Cardiovascular: Regular rate and region, S1, S2, no murmurs Abdomen: Soft, nontender, normal bowel sounds MENTAL STATUS: HPI CRANIAL NERVES: Pupils are round and sluggishly reactive, right: 2 mm, left: 4 mm.There are conjugated eye movement. No signs of facial weakness. There are gagging or coughing reflexes. No obese ptosis, abnormal vascular dilatation or skin secretion SENSATION: Responds to touch stimuli MOTOR: Normal tone in the upper and lower extremity. Normal muscle bulk. No fasciculations. No spontaneous movement. REFLEXES: Deep tendon reflexes are symmetrical. No pathological reflexes. CEREBELLAR/COORDINATION: Deferred GAIT/STATION: deferred. Labs/Diagnostic Data Labs Test 01/06/25 17:41 01/06/25 06:12 01/06/25 03:15 01/05/25 16:29 Range/Units POC Glucose 160 H 70-106 mg/dl Blood Gas Specimen Type Arterial Blood Gas Sample Site Right radial Blood Gas Patient Temperature 37.0 Arterial Blood Date Drawn [id number] Arterial Blood pH 7.490 H 7.350-7.450 Arterial Blood Partial Pressure CO2 39.5 32.0-45.0 mmHg Arterial Blood Partial Pressure O2 66.7 L 83.0-108.0 mmHg Arterial Blood HCO3 29.4 H 21.0-28.0 mmol/L Arterial Blood Oxygen Saturation 92.0 L 94.0-98.0 % Arterial Blood Base Excess 5.7 H -2.0-3.0 mmol/L Arterial Blood Oxyhemoglobin 91.4 L 94.0-98.0 % Arterial Blood Carboxyhemoglobin 0.6 0.5-1.5 % Arterial Blood Methemoglobin 0.1 0.0-1.5 % Temo Test Modified Blood Gas Total Hemoglobin 13.10 12.0-16.0 g/dL Blood Gas Set Respiration Rate 18.0 Blood Gas Modality Vent - ac FiO2 % 30.0 Blood Gas Tidal Volume 400.0 Blood Gas PEEP or CPAP 8.0 White Blood Count 17.3 H 4.4-10.8 10^3/uL Red Blood Count 3.33 L 4.0-5.20 10^6/uL Hemoglobin 11.0 L 12.2-16.2 g/dL Hematocrit 32.9 L 36.0-46.0 % Mean Corpuscular Volume 98.9 80.0-100.0 fL Mean Corpuscular Hemoglobin 33.0 H 28.0-32.0 pg Mean Corpuscular Hemoglobin Concent 33.4 32.0-36.0 g/dL Red Cell Distribution Width 14.0 11.8-14.3 % Platelet Count 331 140-450 10^3/uL Mean Platelet Volume 9.1 6.9-10.8 fL Neutrophils (%) (Auto) 87.2 H 37.0-80.0 % Lymphocytes (%) (Auto) 7.3 L 10.0-50.0 % Monocytes (%) (Auto) 5.4 0.0-12.0 % Eosinophils (%) (Auto) 0.0 0.0-7.0 % Basophils (%) (Auto) 0.1 0.0-2.0 % Neutrophils # (Auto) 15.1 H 1.6-8.6 10 ^3/uL Lymphocytes # (Auto) 1.3 0.4-5.4 10 ^3/uL Monocytes # (Auto) 0.9 0-1.3 10 ^3/uL Eosinophils # (Auto) 0 0-0.8 10 ^3/uL Basophils # (Auto) 0 0-0.2 10 ^3/uL Nucleated Red Blood Cells 0.1 % Sodium Level 149 H 136-145 mmol/L Potassium Level 3.6 3.5-5.1 mmol/L Chloride Level 109 H 98-107 mmol/L Carbon Dioxide Level 30 20-31 mmol/L Anion Gap 10 5-15 Blood Urea Nitrogen 29 H 9-23 mg/dL Creatinine 0.84 0.550-1.02 mg/dL Glomerular Filtration Rate Calc 75 >90 mL/min BUN/Creatinine Ratio 34.5 H 10.0-20.0 Serum Glucose 211 H 74-106 mg/dL Calcium Level 8.8 8.7-10.4 mg/dL Magnesium Level 2.2 1.6-2.6 mg/dL Test 01/05/25 03:00 01/04/25 20:17 01/04/25 19:58 01/04/25 03:47 Range/Units Total Bilirubin 1.3 H 0.2-1.0 mg/dL Aspartate Amino Transferase (AST) 51 H 13-40 U/L Alanine Aminotransferase (ALT) 89 H 7-40 U/L Alkaline Phosphatase 83 46-116 U/L Total Protein 5.9 5.7-8.2 g/dL Albumin 3.3 3.2-4.8 g/dL Blood Gas Spontaneous Rate 26 Vancomycin Level Trough 13.6 H 5-10 ug/mL Phosphorus Level 5.4 H 2.4-5.1 mg/dL Test 01/03/25 23:24 01/03/25 21:15 01/03/25 04:03 01/02/25 12:02 Range/Units Blood Gas Critical Value Read Back Yes Blood Gas Notified Whom Dr. jaida masters Blood Gas Notified Time [id number] Blood Gas Notified By Riki castillo rcp Specimen Drawn By Riki castillo rcp Hemoglobin A1c 6.0 H <5.7 % A1C Prothrombin Time 10.3 9.3-11.8 sec Prothrombin Time INR 0.97 0.9-1.15 Activated Partial Thromboplast Time 28.2 24.5-34.5 SEC Test 01/02/25 07:01 01/02/25 00:17 01/01/25 23:50 01/01/25 23:07 Range/Units Thyroid Stimulating Hormone (TSH) 1.85 0.55-4.78 uIU/mL Blood Gas Liter Flow 15.00 Influenza Type A Antigen Negative Negative Influenza Type B Antigen Negative Negative SARS-CoV-2 Antigen (Rapid) Negative NEGATIVE Urine Color Light-orange Yellow Urine Clarity Clear Clear Urine pH 5.5 5.0-9.0 Urine Specific [place] 1.020 1.001-1.035 Urine Protein Trace H Negative Urine Ketones 1+ H Negative Urine Blood 1+ H Negative /uL Urine Nitrite Negative Negative Urine Bilirubin Negative Negative Urine Urobilinogen Normal Negative mg/dL Urine Leukocyte Esterase Negative Negative /uL Urine RBC 4 0 - 4 /hpf Urine Microscopic WBC 1 0-5 /HPF Urine Squamous Epithelial Cells Few <5 /hpf Urine Bacteria None seen None Seen /hpf Urine Glucose Normal Normal mg/dL Urine Opiates Screen Neg NEGATIVE Urine Fentanyl Screen Neg NEGATIVE Urine Barbiturates Screen Neg NEGATIVE Urine Phencyclidine Screen Neg NEGATIVE Urine Amphetamines Screen Neg NEGATIVE Urine Benzodiazepines Screen Neg NEGATIVE Urine Cocaine Screen Neg NEGATIVE Urine Cannabinoids Screen Neg NEGATIVE Test 01/01/25 20:20 01/01/25 19:23 01/01/25 19:20 Range/Units Troponin I High Sensitivity 13 </=34 ng/L Lactic Acid Level 1.8 0.4-2.0 mmol/L B-Type Natriuretic Peptide 30.14 0-100 pg/mL Venous Blood pH 7.371 7.320-7.430 Venous Blood pCO2 at Patient Temp 38.0 38.0-54.0 mmHg Venous Blood pO2 at Patient Temp < 36.5 23.0-48.0 mmHg Venous Blood HCO3 21.5 L 22.0-29.0 mmol/L Venous Blood Base Excess -3.3 L -2.0-3.0 mmol/L Microbiology Date/Time Source Procedure Growth Status 01/03/25 21:50 Nose MRSA Screen - Final Complete 01/03/25 16:32 Bronchial Washings Gram Stain - Final Resulted 01/03/25 16:32 Bronchial Washings Respiratory Culture - Preliminary Resulted 01/01/25 19:23 Blood Blood Culture - Final NO GROWTH AFTER 5 DAYS OF INCUBATION. Complete Assessment Anisocoria, with left-sided bigger, likely related to the left ICA aneurysm and coiling Coma/altered mental status Metabolic encephalopathy Hypoxic encephalopathy Toxic encephalopathy Acute on chronic respiratory failure Pneumonia Sepsis Hyponatremia Left ICA Brain aneurysm/SAH status post correlating Plan/Recommendation Monitoring Supportive treatment ICU care Follow-up lab test Stabilize vitals Respiratory support/vent management Oxygen Antibiotics More recommendation per clinical course Prognosis: Guarded Critical care time spent is 45 minutes This medical document was created using an electronic medical record system with [employer] dictation system. Although this document has been carefully reviewed, there may still be some phonetic and typographical errors. These areas are purely typographical due to imperfections of the software programs, and do not reflect any compromise in the patient's medical care. Plan discussed with: Leno Jimmy RYAN HINKLE MD Jan 06, 2025 20:08
[2025-01-06] MEDS: BUDESONIDE (INHALATION) 0.5 MG/2 ML NEB NEB SCH (22:00)
[2025-01-06] MEDS: methylPREDNISolone SOD SUCC 40 MG/ML VL IV SCH (22:32)
--- NOTE | 2025-01-06 23:18 | DVHPN2 ---
Progress Note - Dictate Date Seen: Jan 06, 2025 Medical Necessity Reason Pt with a Central, PICC or Fol: Yes The following are medically ne: Ruth Catheter Reason for ruth catheter: Strict I&O Subjective Patient seen and examined at bedside. Sedated, intubated on mechanical ventilator. Overnight events reviewed. vital signs Vital Sign Date Time Temp Pulse Resp B/P (MAP) Pulse Ox O2 Delivery O2 Flow Rate FiO2 01/06/25 22:44 80 20 105/53 (70) 93 50 01/06/25 22:00 98.8 209.8 01/06/25 22:00 Mechanical Ventilator+ 01/04/25 08:00 30 Total Intake and Output 01/05/25 01/05/25 01/06/25 15:00 23:00 07:00 Intake Total 601.00 ml 350.75 ml 407.50 ml Output Total 1275 ml 500 ml Balance 601.00 ml -924.25 ml -92.50 ml medications Current Medications Medications Dose Ordered Sig/Serenity Route Start Time Stop Time Status Last Admin Dose Admin Pantoprazole Sodium 40 mg DAILY IV 01/02/25 10:00 01/06/25 10:10 40 MG Vancomycin HCl 0 ml @ 0 mls/hr UD IV 01/02/25 11:45 Norepinephrine Bitartrate 250 ml @ 3.75 mls/hr Q24H IV 01/03/25 13:00 01/06/25 05:24 3.75 MLS/HR Midazolam HCl 50 ml @ 1 mls/hr Q24H IV 01/03/25 13:00 01/06/25 21:41 3 MLS/HR Fentanyl Citrate 250 ml @ 2.5 mls/hr Q24H IV 01/03/25 13:00 01/05/25 23:49 10 MLS/HR Vasopressin 20 units/Sodium Chloride 100 ml @ 9 mls/hr Q11H7M IV 01/03/25 15:45 01/03/25 23:19 9 MLS/HR Epinephrine HCl 250 ml @ 7.5 mls/hr Q24H IV 01/03/25 16:30 01/03/25 17:51 7.5 MLS/HR Phenylephrine HCl 250 ml @ 30 mls/hr Q8H20M IV 01/03/25 19:30 Dextrose 50 ml UD PRN IV 01/04/25 08:30 Enteral Nutritional Formula 1,000 ml 30ML/HR GT 01/04/25 19:15 Vancomycin HCl 100 ml @ 100 mls/hr Q16H IV 01/05/25 10:00 01/06/25 17:27 100 MLS/HR Meropenem 50 ml @ 17 mls/hr Q8H IV 01/05/25 11:00 01/06/25 18:48 17 MLS/HR Acetaminophen 650 mg Q6HP PRN PO 01/05/25 10:15 Levalbuterol HCl 0.625 mg Q4HR NEB 01/06/25 06:00 01/06/25 23:05 0.625 MG Ipratropium [place] 0.5 mg Q4HR NEB 01/06/25 06:00 01/06/25 23:06 0.5 MG Diagnostic Test (Pha) 1 strip Q6HR 01/06/25 12:00 01/06/25 18:48 1 STRIP Insulin Human Regular Q6HR SC 01/06/25 12:00 01/06/25 17:45 2 UNITS Lactulose 30 ml BID PO 01/06/25 14:00 01/06/25 21:41 30 ML Budesonide 0.5 mg BID NEB 01/06/25 22:00 01/06/25 22:00 0.5 MG Methylprednisolone Sodium Succinate 40 mg BID IV 01/06/25 22:00 01/06/25 22:32 40 MG objective Gen.: Patient lying in bed in medical ICU. Sedated, intubated on mechanical ventilator. Head: Normocephalic, atraumatic. Eyes: PERRLA. Ears: Normal external anatomy. Throat: Endotracheal tube and orogastric tube in place. Neck: Supple, trachea midline. Chest: Transmitted breath sounds bilaterally. Decreased air entry bilaterally. No wheezing. Bibasilar crackles. Cardiovascular: Positive S1, positive S2. Regular rate and rhythm. Abdomen: Positive bowel sounds in all 4 quadrants. Soft, nontender, nondistended. : Ruth in place. Normal external genitalia. Rectal: Deferred. Skin: Warm, dry. Intact. Extremities: 2+ radial pulses bilaterally. No lower extremity edema. Neuro: Sedated. Withdraws to tactile and verbal stimuli. laboratory and microbiology Laboratory Tests 01/06/25 03:15 Test 01/06/25 03:15 Range/Units Serum Glucose 211 H 74-106 mg/dL Assessment/Plan Impression: Acute hypoxic respiratory failure 2/2 pneumonia and ARDS On mechanical ventilator Pneumonia, likely gram negative and/or gram positive Atelectasis Alveolar hemorrhage Rheumatoid arthritis Acute respiratory distress syndrome Hx of nicotine dependence Events: Remains on vent support Sedated on Versed/Fentanyl - patient withdraws to tactile and verbal stimuli. ABG reviewed, notable for alkalemia On AC mode; RR 18, VT 400, PEEP 8, FiO2 of 50% Recommend to taper down FiO2 to 45% Patient was noted to have bronchospasm last night - started Pulmicort neb q.12 hours Continue bronchodilators Pt with hyperglycemia 2/2 steroids. Continue hydrocortisone at 50 mg q.8 hours - transition to Solu-Medrol. Currently off Levophed, hemodynamically stable. Continue antibiotics Taper stress dose steroids as tolerated Continue tube feeds for nutrition Labs and imaging reviewed. Rest of plan as noted below. Plan: s/p intubation on mechanical ventilator. Patient underwent STAT bronchoscopy with bronchoalveolar lavage on 01/03/25. Informed consent was obtained from patient's son via phone; risks and benefits explained in detail and he agreed for the procedure. BAL revealed hemorrhagic fluid, suspect alveolar hemorrhage - both RML and RLL similar See separate procedure note for full details. Patient was placed on lung protective strategy. On AC mode; RR 18, VT 400, PEEP 8, FiO2 of 50% Recommend to taper down FiO2 to 45% Titrate FIO2 to keep O2 saturation above 90%. VAP bundle. Daily ABG and CXR while intubated Sedate for ventilator synchrony Allow permissive hypercarbia Goal pH of 7.15 to 7.25 Goal PaO2 greater than or equal to 55 mmHg and/or O2 sat greater than or equal to 88% Once FiO2 reaches 45% or lower, taper PEEP in increments of 2 cmH2O. ABG (01/03/25) shows acidemia d/t respiratory acidosis. AG of 11. Increased respiratory rate to 26 BPM. Repeat ABG revealed pH of 7.20 and PaO2 of >55 mmHg. Taper FiO2 in increments of 10% Continue antibiotics. Stress dose steroids with hydrocortisone 50 mg q.8 hours BAL sent for respiratory gram stain and cultures, fungal and viral cultures; no growth. On pressors for hemodynamic support Titrate to keep mean arterial pressure greater than 65 mmHg. Monitor renal function Monitor electrolytes. Supplement as necessary. Monitor ins and outs. Goal K greater than or equal to 4.0 Goal mag greater than or equal to 2.0 GI prophylaxis. DVT prophylaxis. Prognosis: Poor given patient's multiple co-morbidities. Condition: Critical Rest of plan per hospitalist and other consultants. A total of 35 minutes of critical care time was spent reviewing the patient record, examining the patient, making a diagnostic and therapeutic plan, discussing this plan with the medical personnel, following up on diagnostic studies and following the patient for clinical stability excluding any and all procedures. At least 50% of this time was spent in direct, [id number] contact. Thank you, Dr. Tellez, for allowing me to participate in this patient's care. Further recommendations will depend on the patient's clinical course. Please do not hesitate to contact me if you have any questions or concerns. This medical document was created using an electronic medical record system with [employer] dictation system. Although these documentations are being carefully reviewed, there may still be some phonetic and typographical changes. The errors are purely typographical, due to imperfection on the software program, and do not reflect any compromise in the patient's medical care. Dietary Evaluation Review Comments: 1) Initiate MVI @ 1 tb qd 2) Initiate Pro-Stat @ 30 mL qd. Flush 30 mL free H2O AC/PC 3) If patient remains NPO > 7 days, consider EN/TPN to meet at least 75% of estimated daily needs 4) If GI is preferred, consider Glucerna 1.2 @ 50 mL/hr goal rate as tolerated. Flush 150 mL free H2O Q6. TF regimen (including Pro-Stat) will provide 1540 kcals, 87g Pro, and 1626 mL free H2O (including TF flushes) per 24 hrs. Goal rate will meet ~ 91% estimated energy needs and ~ 80% estimated protein needs. 5) Advance to 60g CCHO diet when medically feasible, pending ST approval 6) Follow-up with pulmonology 7) Continue to monitor I&O, labs, and skin integrity Expected Outcomes/Goals: 1) patient to receive nutrition support within 7 days of NPO status 2) labs and wound to improve 3) diet to advance 4) f/u in 2-3 days Plan discussed with: Other (RN) Critical Care Time(min): 35 ABE CURRY MD Jan 06, 2025 23:18
[2025-01-07] VITALS (106 sets, daily range): BP systolic 87–148; BP diastolic 39–77; PULSE 63–120; RESP 8–38; TEMP 97.5–98.8; O2SAT 90–97
[2025-01-07] MEDS: Glucerna 1.2 Cal 1Liter BOTTLE GT SCH (00:09)
[2025-01-07 03:55] LABS: Hematocrit 31.2 % (36.0-46.0); Hemoglobin 10.6 g/dL (12.2-16.2); Mean Corpuscular Hemoglobin 33.8 pg (28.0-32.0); Mean Corpuscular Volume 99.3 fL (80.0-100.0); Nucleated Red Blood Cells % 0.1 %
--- NOTE | 2025-01-07 05:16 | DVH ---
INDICATION: pna TECHNIQUE: 1 view COMPARISON: XY CHEST XRAY 1 VIEW on DOS: 01/06/25, XY CHEST PORTABLE on DOS: 01/05/25, XY CHEST PORTABLE on DOS: 01/04/25, XY CHEST PORTABLE on DOS: 01/03/25, XY CHEST XRAY 1 VIEW on DOS: 01/03/25, XY CHEST XRAY 1 VIEW on DOS: 01/06/25 FINDINGS: Lines and Tubes: Unchanged endotracheal tube, enteric tube, and right IJ catheter. Lungs: Interval worsening of perihilar interstitial opacities. Development of left basilar consolidat ion. Pleura: Suspected small left pleural effusion. Cardiomediastinal contours: Unchanged. Bones: Unchanged. IMPRESSION: Worsening of bilateral interstitial opacities. Suspected development of small left pleural effusion a nd basilar atelectasis. Stable support devices.
[2025-01-07 05:53] LABS: Albumin 3.3 g/dL (3.2-4.8); Alkaline Phosphatase 82 U/L (46-116); Anion Gap 10 (5-15); Calcium 8.8 mg/dL (8.7-10.4); Total Protein 5.9 g/dL (5.7-8.2)
[2025-01-07 05:54] LABS: BUN/Creatinine Ratio 36.8 (10.0-20.0); Bilirubin, Total 0.6 mg/dL (0.2-1.0)
[2025-01-07 05:57] LABS: Alanine Aminotransferase 61 U/L (7-40); Blood Urea Nitrogen 32 mg/dL (9-23); Carbon Dioxide 32 mmol/L (20-31); Chloride 109 mmol/L (98-107); Glucose 173 mg/dL (74-106); Potassium 3.4 mmol/L (3.5-5.1); Sodium 151 mmol/L (136-145)
[2025-01-07] MEDS: POTASSIUM CHL 20MEQ/100ML 100 ML IV SCH (06:21)
[2025-01-07 07:25] LABS: Base Excess 5.3 mmol/L (-2.0-3.0)
--- NOTE | 2025-01-07 08:11 | ECG ---
[facility] Test Date: 2025-01-06 Test Time: 16:38:27 Pat Name: OSMAR NÚÑEZ Department: ICU Room: 0245T Gender: F Bulb Sorter: af : 1955 Requested By: BHAVESH JON Order Number: [id number] Reading MD: Swapnil Shukla Measurements Intervals [place] Rate: 88 P: 30 NC: 129 QRS: -13 QRSD: 89 T: 177 QT: 404 QTc: 489 Interpretive Statements Sinus rhythm Repol abnrm suggests ischemia, anterolateral Baseline wander in lead(s) V3 Electronically Signed On 01-13-2025 18:31:11 PDT by Swapnil Shukla Please click the below link to view image of tracing.
--- NOTE | 2025-01-07 09:10 | DVHPN2 ---
Progress Note - Dictate Date Seen: Jan 07, 2025 Medical Necessity Reason Pt with a Central, PICC or Fol: Yes The following are medically ne: Ruth Catheter Reason for ruth catheter: Strict I&O Subjective Ms. Anton Engel is 69 years old right-handed female with a history of gastric ulcer, versus brain aneurysm status post coiling, the patient came to the hospital on 01/01/2025 with acute shortness of breath x 1 day. I saw on 08/28/18 for history of cerebral aneurysm I have seen and examined the patient, I have talked to her nurse, she is intubated, but is responsive to light touch, questionably to verbal stimuli. She moves the arms No change in the pupils Fentanyl 150 cg/hour, Versed 5 mg/hour, FiO2: 45% Urinalysis, 01/01/2025: Hormone UDS, 01/01/2025: Negative WBC/HB/PLT/activity, 01/06/2025: 1743/11/331/98.9 Na, 01/03/2025: 137, 01/05/2025: 149, 150, 01/06/2025: 149 TBI/AST/ALT/AP, 01/05/2025: 1.3/51/8 9/83 Chest x-ray, 01/01/2025: Extensive bilateral airspace disease, greatest in the perihilar regions. This may be secondary to severe pulmonary edema. ARDS and diffuse pneumonia are also considerations Chest three, 01/03/2025: Endotracheal tube and right central venous catheter in satisfactory position. Chest x-ray, 01/06/2025: Worsening of bilateral interstitial opacities. Suspected development of small left pleural effusion and basilar atelectasis. Stable support devices (Unchanged endotracheal tube, enteric tube, and right IJ catheter) CT head, 08/19/18: Slightly limited examination due to patient motion. Status post aneurysm embolization along the left side of the sella turcica. Artifact from the embolization material limits evaluation of the in-plane brain parenchyma. No acute intracranial pathology is identified, however if there is concern for a subtle intracranial abnormality, a repeat CT scan should be obtained when the patient can lie still. CTA chest, 01/01/2025: 1. No pulmonary embolism. 2. Extensive multifocal consolidative bilateral pulmonary infiltrate, most notably within the bilateral posterior lower lobes vital signs Vital Sign Date Time Temp Pulse Resp B/P (MAP) Pulse Ox O2 Delivery O2 Flow Rate FiO2 01/07/25 09:02 79 20 107/48 (67) 91 45 01/07/25 06:45 98.1 208.6 01/07/25 06:00 Mechanical Ventilator+ Total Intake and Output 01/06/25 01/06/25 01/07/25 15:00 23:00 07:00 Intake Total 171.25 ml 394.50 ml 522.5 ml Output Total 1300 ml 400 ml Balance 171.25 ml -905.50 ml 122.5 ml medications Current Medications Medications Dose Ordered Sig/Serenity Route Start Time Stop Time Status Last Admin Dose Admin Pantoprazole Sodium 40 mg DAILY IV 01/02/25 10:00 01/06/25 10:10 40 MG Vancomycin HCl 0 ml @ 0 mls/hr UD IV 01/02/25 11:45 Norepinephrine Bitartrate 250 ml @ 3.75 mls/hr Q24H IV 01/03/25 13:00 01/06/25 05:24 3.75 MLS/HR Midazolam HCl 50 ml @ 1 mls/hr Q24H IV 01/03/25 13:00 01/07/25 08:20 5 MLS/HR Fentanyl Citrate 250 ml @ 2.5 mls/hr Q24H IV 01/03/25 13:00 01/05/25 23:49 10 MLS/HR Dextrose 50 ml UD PRN IV 01/04/25 08:30 Enteral Nutritional Formula 1,000 ml 30ML/HR GT 01/04/25 19:15 01/07/25 00:09 1,000 ML Vancomycin HCl 100 ml @ 100 mls/hr Q16H IV 01/05/25 10:00 01/06/25 17:27 100 MLS/HR Meropenem 50 ml @ 17 mls/hr Q8H IV 01/05/25 11:00 01/07/25 03:03 17 MLS/HR Acetaminophen 650 mg Q6HP PRN PO 01/05/25 10:15 Levalbuterol HCl 0.625 mg Q4HR NEB 01/06/25 06:00 01/07/25 09:02 0.625 MG Ipratropium [place] 0.5 mg Q4HR NEB 01/06/25 06:00 01/07/25 09:02 0.5 MG Diagnostic Test (Pha) 1 strip Q6HR 01/06/25 12:00 01/07/25 05:29 1 STRIP Insulin Human Regular Q6HR SC 01/06/25 12:00 01/07/25 05:33 3 UNITS Lactulose 30 ml BID PO 01/06/25 14:00 01/06/25 21:41 30 ML Budesonide 0.5 mg BID NEB 01/06/25 22:00 01/07/25 06:18 0.5 MG Methylprednisolone Sodium Succinate 40 mg BID IV 01/06/25 22:00 01/06/25 22:32 40 MG Potassium Chloride 100 ml @ 50 mls/hr Q2H IV 01/07/25 06:15 01/07/25 10:14 01/07/25 08:19 50 MLS/HR Purified Water 250 ml Q8HR GT 01/07/25 10:00 objective The patient is well-nourished and well-developed with no distress. The patient is intubated MENTAL STATUS: Subjective CRANIAL NERVES: Pupils are round and sluggishly reactive, right: 2 mm, left: 4 mm.There are conjugated eye movement. No signs of facial weakness. There are gagging or coughing reflexes. No obese ptosis, abnormal vascular dilatation or skin secretion SENSATION: Responds to touch stimuli MOTOR: Normal tone in the upper and lower extremity. Normal muscle bulk. No fasciculations. No spontaneous movement. REFLEXES: Deep tendon reflexes are symmetrical. No pathological reflexes. CEREBELLAR/COORDINATION: Deferred GAIT/STATION: deferred. laboratory and microbiology Laboratory Tests 01/07/25 03:06 Test 01/07/25 03:06 Range/Units Serum Glucose 173 H 74-106 mg/dL Problem List Anisocoria, with left-sided bigger, ? 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 Although this document has been carefully reviewed, there may still be some phonetic and typographical errors. These areas are purely typographical due to imperfections of the software programs, and do not reflect any compromise in the patient's medical care Prognosis Guarded Dietary Evaluation Review Comments: 1) Initiate MVI @ 1 tb qd 2) Initiate Pro-Stat @ 30 mL qd. Flush 30 mL free H2O AC/PC 3) If patient remains NPO > 7 days, consider EN/TPN to meet at least 75% of estimated daily needs 4) If GI is preferred, consider Glucerna 1.2 @ 50 mL/hr goal rate as tolerated. Flush 150 mL free H2O Q6. TF regimen (including Pro-Stat) will provide 1540 kcals, 87g Pro, and 1626 mL free H2O (including TF flushes) per 24 hrs. Goal rate will meet ~ 91% estimated energy needs and ~ 80% estimated protein needs. 5) Advance to 60g CCHO diet when medically feasible, pending ST approval 6) Follow-up with pulmonology 7) Continue to monitor I&O, labs, and skin integrity Expected Outcomes/Goals: 1) patient to receive nutrition support within 7 days of NPO status 2) labs and wound to improve 3) diet to advance 4) f/u in 2-3 days Plan discussed with: Other Critical Care Time(min): 30 RYAN HINKLE MD Jan 07, 2025 09:10
[2025-01-07] MEDS: FREE WATER GT SCH (09:50)
--- NOTE | 2025-01-07 13:32 | DVHPNRES ---
Progress Note Date Seen: Jan 07, 2025 Resident Creating Document: BHAVESH JON RESIDENT Medical Necessity Reason Pt with a Central, PICC or Fol: Yes The following are medically ne: Ruth Catheter Reason for ruth catheter: Strict I&O Subjective Review of Systems Patient is a 69-year-old female who is a poor historian, with prior medical history of asthma, COPD?, intracranial aneurysm s/p repair(coiling?), hypothyroidism, rheumatoid arthritis, lupus? and recurrent pneumonias requiring intubation x 3 in the past, who presented to the ED with chief complaint of fatigue and shortness of breath. Patient states symptoms initiated 1 week prior to presentation. She refers fatigue associated with progressively worsened shortness of breath, dry cough, and febrile sensation. She states she used her oxygen at home with little relief however pt is unclear about whether it is home oxygen or a nebulizer, inability to achieve relief despite that prompted her family to call EMS. On evaluation in the field, she was saturating 60% and was placed on 10 L O2. Per pt she is on no medication neither sees a primary care doctor as she prefers holistic alternatives routinely. Per pt, she attends a clinic in [facility] where she receives infusions? On evaluation in the ED, she was found to be tachycardic, tachypneic, and requiring 15 L O2 via face mask. Initial labs significant for 15.4, with chemical panel within normal range, lactic acid 1.8, troponins negative, BNP 30.14, ABG showing 7.405, pCO2 27.1, pO2 103.3, and HCO3 16.6. Chest Xray shows extensive bilateral airspace disease, greatest in perihilar regions. Sepsis protocol was initiated, cultures were taken, and patient was admitted and started on IV antibiotics. Surgical: Aneurysm repair, Hernia repair, appendectomy Social: Denies drug and alcohol use, refers she smoked 1-2 cigarettes daily for 30 years with cessation in 2019 Patient seen at bedside. She is alert and oriented in person, place, and time. She states that feels well, and shortness of breath has improved with use of simple face mask, at the time 10 L O2. She currently denies chest pain, cough, nausea, vomiting and other symptoms. Over night, patient febrile spike of 102.2 F, she has remained tachypneic, and blood pressure remain on the lower limit of normality. CT angio was ordered, ruling out PE, and showed extensive multifocal consolidative bilateral pulmonary infiltrate. Cefepime was added for broader coverage. Patient is currently JACLYN status. 01/03/2025: Overnight pt was able to be brought down to 6L O2 however, in the morning after minimal exertion, patient continued to have respiratory distress with desaturation on minimal movement. On re-evaluation an hour later, patient was noted to have continued tachypnea and use of accessory muscles, patient was AAO x4 and agreed to intubation verbally as well as a full code status aware of risks and benefits. Patient's son was informed, he wanted to wait on intubation until he arrived from [place] in order for the patient to sign on some financial documents, however, ultimately intubation became medically necessary and waiting further would have proven detrimental to patient's health and well- being. Patient was subsequently intubated, a central line was placed, patient was upgraded to ICU status, patient's son was called and informed, detailed meeting was held with patient's son Mr. Alonso lasting 45 minutes where details of patient's with the plan of care was explained in great detail, all questions were answered concerns were addressed, imaging details outlined showing widespread multifocal pneumonia was also shared with patient's son, he demonstrated understanding and was agreeable with the plan of care. plan of care was also discussed with patients daughter in law, Ms. Carvajal for >40mins. Pt underwent bronchoscopy with bloody drainage. IV steroids were started and antibiotic coverage was broadened to include meropenem. vasopressors were initiated to support hemodynamics. 01/04/2025: Patient seen and examined at bedside, overnight patient required 4 pressors and increasing ventilator settings, however, this morning blood pressure is stable, patient currently only on Levophed 26 mcg, decrease respiratory rate to 26 and PEEP to 10 with a tidal volume of 400 and FiO2 30%. Added IV Lasix 20 mg 1 time only. Echocardiogram shows possible heart failure with diastolic dysfunction. Detailed discussion held with patient and patient's at bedside were all questions were answered and concerns were addressed. 01/06/2025: Patient seen and examined at bedside, off of pressors as of 2:00 p.m.. Continues to be on FiO2 40% with a PEEP of 8. IV Lasix 40 mg once. KUB shows nonspecific bowel gas pattern with moderate stool, started lactulose 30 mL b.i.d.. 01/07/2025: Patient seen and examined at bedside, decreased respiratory rate to 16, decreased FiO2 40%. Started patient on free water 250 mL Q 8 hours due to up trending hypernatremia. Added IV Lasix 40 mg b.i.d.. Nonspecific T-wave changes in the EKG noted. Chest x-ray with worsening bilateral infiltrates. Objective vital signs Vital Sign Date Time Temp Pulse Resp B/P (MAP) Pulse Ox O2 Delivery O2 Flow Rate FiO2 01/07/25 13:00 86 19 112/53 (72) 93 45 01/07/25 11:54 Mechanical Ventilator+ 01/07/25 11:00 97.7 207.9 Total Intake and Output 01/06/25 01/06/25 01/07/25 15:00 23:00 07:00 Intake Total 171.25 ml 394.50 ml 542.5 ml Output Total 1300 ml 400 ml Balance 171.25 ml -905.50 ml 142.5 ml medications Current Medications Medications Dose Ordered Sig/Serenity Route Start Time Stop Time Status Last Admin Dose Admin Pantoprazole Sodium 40 mg DAILY IV 01/02/25 10:00 01/07/25 09:49 40 MG Vancomycin HCl 0 ml @ 0 mls/hr UD IV 01/02/25 11:45 Norepinephrine Bitartrate 250 ml @ 3.75 mls/hr Q24H IV 01/03/25 13:00 01/06/25 05:24 3.75 MLS/HR Midazolam HCl 50 ml @ 1 mls/hr Q24H IV 01/03/25 13:00 01/07/25 08:20 5 MLS/HR Fentanyl Citrate 250 ml @ 2.5 mls/hr Q24H IV 01/03/25 13:00 01/05/25 23:49 10 MLS/HR Dextrose 50 ml UD PRN IV 01/04/25 08:30 Enteral Nutritional Formula 1,000 ml 30ML/HR GT 01/04/25 19:15 01/07/25 00:09 1,000 ML Vancomycin HCl 100 ml @ 100 mls/hr Q16H IV 01/05/25 10:00 01/07/25 11:17 100 MLS/HR Meropenem 50 ml @ 17 mls/hr Q8H IV 01/05/25 11:00 01/07/25 11:15 17 MLS/HR Acetaminophen 650 mg Q6HP PRN PO 01/05/25 10:15 Levalbuterol HCl 0.625 mg Q4HR NEB 01/06/25 06:00 01/07/25 13:00 0.625 MG Ipratropium [place] 0.5 mg Q4HR NEB 01/06/25 06:00 01/07/25 13:00 0.5 MG Diagnostic Test (Pha) 1 strip Q6HR 01/06/25 12:00 01/07/25 11:30 1 STRIP Insulin Human Regular Q6HR SC 01/06/25 12:00 01/07/25 11:27 2 UNITS Lactulose 30 ml BID PO 01/06/25 14:00 01/07/25 09:49 30 ML Budesonide 0.5 mg BID NEB 01/06/25 22:00 01/07/25 06:18 0.5 MG Methylprednisolone Sodium Succinate 40 mg BID IV 01/06/25 22:00 01/07/25 09:49 40 MG Purified Water 250 ml Q8HR GT 01/07/25 10:00 01/07/25 09:50 250 ML Furosemide 40 mg BIDD IV 01/07/25 18:00 UNV Examination General Appearance: Intubated, sedated and mechanically ventilated Head Exam: Normal inspection Neck Exam: left pupil is larger than the right however prior to being intubated pt had stated this is since her basline since aneurysm repair? Pulmonary/Respiratory: Coarse bilateral breath sounds, decreased on left more than right Cardiovascular/Chest: Tachycardic. Regular rhythm. No murmurs. No JVD. Peripheral Pulses: 2+ Radial (R). 2+ Radial (L). 2+ Pedal (R). 2+ Pedal (L) Abdominal Exam: Distended but soft abdomen with decreased bowel sounds., no visible veins, Nontender. No hepatospenomegaly. No masses Ankle Exam: Negative ankle edema Lower extremities: Negative lower extremity edema Skin Exam: Normal inspection. Normal color. Warm. Dry laboratory and microbiology Laboratory Tests 01/07/25 03:06 Test 01/07/25 03:06 Range/Units Serum Glucose 173 H 74-106 mg/dL Microbiology Date/Time Source Procedure Growth Status 01/03/25 21:50 Nose MRSA Screen - Final Complete 01/03/25 16:32 Bronchial Washings Gram Stain - Final Complete 01/03/25 16:32 Bronchial Washings Respiratory Culture - Final Complete 01/01/25 19:23 Blood Blood Culture - Final NO GROWTH AFTER 5 DAYS OF INCUBATION. 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 # history of ICA aneurysm/SAH? # acute metabolic versus toxic versus hypoxic encephalopathy - Versed - fentanyl - head CT: Streak artifact from left cavernous sinus region call material limits evaluation of the adjacent structures. Otherwise no evidence of acute intracranial abnormality. - neurology on board Cardiovascular # septic shock # heart failure with preserved ejection fraction - on norepinephrine - on vasopressin - decreased IV hydrocortisone 100 mg q.8hrs - echocardiogram: LV EF IS 65% AND IS NORMAL. MILD LVH AND MILD LV DIASTOLIC DYSFUNCTION. NORMAL VALVES. NORMAL RV FUNCTION AND SIZE. NORMAL RVSP AND IS 20 MM OF HG. NO EFFUSION Respiratory # Ventilator; respiratory rate 16, FiO2 40%, peep 8, tidal volume 400 -intubated 01/03/2025 - bronchoscopy 01/03/2025 # Acute hypoxic respiratory failure # possible alveolar hemorrhage # COPD exacerbation # ruled out pulmonary embolism # multifocal community-acquired pneumonia, Gram-positive versus Gram-negative # possible pulmonary edema, severe - IV vancomycin, IV meropenem - pulmonology on board - IV methylprednisolone 125 mg once - IV hydrocortisone 50 mg q.6 hours - ipratropium albuterol med nebs - CT angiography: No pulmonary embolism. Extensive multifocal consolidative bilateral pulmonary infiltrate, most notably within the bilateral posterior lower lobes. - CXR from 01/03/2025: Interstitial and alveolar type opacities of bilateral lungs, relatively unchanged from prior imaging which may represent multifocal pneumonia/ARDS/severe pulmonary edema - CXR from 01/06/2025: Worsening of bilateral interstitial opacities. Suspected development of small left pleural effusion and basilar atelectasis. - increased IV Lasix to 40mg bid - added budesonide med nebs 0.5 mg b.i.d. GI # transaminitis, now improving # constipation likely slow transit - Colace 100 mg b.i.d., MiraLax daily - KUB: Nonobstructive bowel gas pattern. Large stool burden. Ruth catheter overlying the bladder. - started lactulose 30 mg p.o. b.i.d. # Peptic ulcer prophylaxis -Pantoprazole 40 mg IV daily # Ruth catheter placed on 01/02/2025 Infectious disease # community-acquired pneumonia, Gram-positive versus Gram-negative # sepsis due to above # septic shock due to above - IV vancomycin per pharmacy - IV meropenem - norepinephrine drip - vasopressin drip - IV methylprednisolone 125 mg once - IV hydrocortisone 50 mg q.8 hours - awaiting respiratory cultures from bronchoscopy Hem/onc # macrocytosis without anemia -monitor Endocrine # history of type 2 diabetes # history of rheumatoid arthritis, not on any treatment # ?Lupus - ordered A1c 6% - monitor DVT prophylaxis - holding due to possible alveolar hemorrhage evident on bronchoscopy Lines - right CVC placed on 01/03/2025 - L 22g placed on 01/03/25 - ruth [facility]03[facility] Fent[facility] Critical care time 83 minutes excluding procedure. Plan discussed with patient's son, at bedside in great detail, all questions were answered and concerns were addressed. Code status discussed greater than 20 minutes: Full CODE STATUS. Plan discussed with Dr. Ulloa Plan discussed with: Son, Other (RN) My Orders My Orders Orders - BHAVESH JON RESIDENT Procedure Category Date Status Time Budesonide PHA 01/06/25 In Process (Inhalation) 22:00 Chest Portable XY 01/07/25 Resulted 04:00 Methylprednisolone PHA 01/06/25 In Process Sod Succ (Solu Medrol 22:00 Abg W/ Co-Ox RT 01/07/25 Logged 05:33 Vancomycin,Trough LAB 01/09/25 Verified 09:00 Vancomycin Per LAKHWINDER 01/07/25 In Process Pharmacy Protoc 10:00 Creatinine LAB 01/08/25 Verified 04:00 Furosemide Injection PHA 01/07/25 Logged (Lasix Injection) 18:00 Ventilator Orders RT 01/07/25 Transmitted 13:26 Abg W/ Co-Ox RT 01/07/25 Logged 14:30 Dietary Evaluation Review Comments: 1) Initiate MVI @ 1 tb qd 2) Initiate Pro-Stat @ 30 mL qd. Flush 30 mL free H2O AC/PC 3) If patient remains NPO > 7 days, consider EN/TPN to meet at least 75% of estimated daily needs 4) If GI is preferred, consider Glucerna 1.2 @ 50 mL/hr goal rate as tolerated. Flush 150 mL free H2O Q6. TF regimen (including Pro-Stat) will provide 1540 kcals, 87g Pro, and 1626 mL free H2O (including TF flushes) per 24 hrs. Goal rate will meet ~ 91% estimated energy needs and ~ 80% estimated protein needs. 5) Advance to 60g CCHO diet when medically feasible, pending ST approval 6) Follow-up with pulmonology 7) Continue to monitor I&O, labs, and skin integrity Expected Outcomes/Goals: 1) patient to receive nutrition support within 7 days of NPO status 2) labs and wound to improve 3) diet to advance 4) f/u in 2-3 days Date of Service: Jan 07, 2025 Billing Provider: MEL ULLOA MD Common Visit Codes: [id number] INP/OBS CARE(MOD) BHAVESH JON RESIDENT Jan 07, 2025 13:32 MEL ULLOA MD Jan 12, 2025 11:51
[2025-01-07 16:52] LABS: Base Excess 4.3 mmol/L (-2.0-3.0)
[2025-01-07] MEDS: POTASSIUM CHL 20MEQ/100ML 100 ML IV ONE (17:38)
[2025-01-07] MEDS: FUROSEMIDE 40 MG/4 ML VIAL IV SCH (17:39)
[2025-01-07] MEDS ORDERED: FUROSEMIDE 40 MG/4 ML VIAL IV SCH (18:00)
--- NOTE | 2025-01-07 23:53 | DVHPN2 ---
Progress Note - Dictate Date Seen: Jan 07, 2025 Medical Necessity Reason Pt with a Central, PICC or Fol: Yes The following are medically ne: Ruth Catheter Reason for ruth catheter: Strict I&O Subjective Patient seen and examined at bedside. Intubated on mechanical ventilator. Overnight events reviewed. vital signs Vital Sign Date Time Temp Pulse Resp B/P (MAP) Pulse Ox O2 Delivery O2 Flow Rate FiO2 01/07/25 22:45 97.5 71 14 126/66 (86) 94 207.5 01/07/25 22:26 40 01/07/25 22:00 Mechanical Ventilator+ Total Intake and Output 01/06/25 01/06/25 01/07/25 15:00 23:00 07:00 Intake Total 171.25 ml 394.50 ml 542.5 ml Output Total 1300 ml 400 ml Balance 171.25 ml -905.50 ml 142.5 ml medications Current Medications Medications Dose Ordered Sig/Serenity Route Start Time Stop Time Status Last Admin Dose Admin Pantoprazole Sodium 40 mg DAILY IV 01/02/25 10:00 01/07/25 09:49 40 MG Vancomycin HCl 0 ml @ 0 mls/hr UD IV 01/02/25 11:45 Norepinephrine Bitartrate 250 ml @ 3.75 mls/hr Q24H IV 01/03/25 13:00 01/06/25 05:24 3.75 MLS/HR Midazolam HCl 50 ml @ 1 mls/hr Q24H IV 01/03/25 13:00 01/07/25 17:44 5 MLS/HR Fentanyl Citrate 250 ml @ 2.5 mls/hr Q24H IV 01/03/25 13:00 01/07/25 14:08 15 MLS/HR Dextrose 50 ml UD PRN IV 01/04/25 08:30 Enteral Nutritional Formula 1,000 ml 30ML/HR GT 01/04/25 19:15 01/07/25 00:09 1,000 ML Vancomycin HCl 100 ml @ 100 mls/hr Q16H IV 01/05/25 10:00 01/07/25 11:17 100 MLS/HR Meropenem 50 ml @ 17 mls/hr Q8H IV 01/05/25 11:00 01/07/25 18:36 17 MLS/HR Acetaminophen 650 mg Q6HP PRN PO 01/05/25 10:15 Levalbuterol HCl 0.625 mg Q4HR NEB 01/06/25 06:00 01/07/25 22:25 0.625 MG Ipratropium [place] 0.5 mg Q4HR NEB 01/06/25 06:00 01/07/25 22:25 0.5 MG Diagnostic Test (Pha) 1 strip Q6HR 01/06/25 12:00 01/07/25 23:20 1 STRIP Insulin Human Regular Q6HR SC 01/06/25 12:00 01/07/25 23:21 2 UNITS Lactulose 30 ml BID PO 01/06/25 14:00 01/07/25 21:48 30 ML Budesonide 0.5 mg BID NEB 01/06/25 22:00 01/07/25 18:59 0.5 MG Methylprednisolone Sodium Succinate 40 mg BID IV 01/06/25 22:00 01/07/25 21:48 40 MG Purified Water 250 ml Q8HR GT 01/07/25 10:00 01/07/25 21:48 250 ML Furosemide 40 mg BIDD IV 01/07/25 18:00 01/07/25 17:39 40 MG objective Gen.: Patient lying in bed in medical ICU. Intubated on mechanical ventilator. Head: Normocephalic, atraumatic. Eyes: PERRLA. Ears: Normal external anatomy. Throat: Endotracheal tube and orogastric tube in place. Neck: Supple, trachea midline. Chest: Transmitted breath sounds bilaterally. Decreased air entry bilaterally. No wheezing. Bibasilar crackles. Cardiovascular: Positive S1, positive S2. Regular rate and rhythm. Abdomen: Positive bowel sounds in all 4 quadrants. Soft, nontender, nondistended. : Ruth in place. Normal external genitalia. Rectal: Deferred. Skin: Warm, dry. Intact. Extremities: 2+ radial pulses bilaterally. No lower extremity edema. Neuro: Off sedation. Withdraws to tactile and verbal stimuli. laboratory and microbiology Laboratory Tests 01/07/25 03:06 Test 01/07/25 03:06 Range/Units Serum Glucose 173 H 74-106 mg/dL Assessment/Plan Impression: Acute hypoxic respiratory failure 2/2 pneumonia and ARDS On mechanical ventilator Pneumonia, likely gram negative and/or gram positive Atelectasis Alveolar hemorrhage Rheumatoid arthritis Acute respiratory distress syndrome Hx of nicotine dependence Events: Remains on vent support Currently off sedation - patient withdraws to tactile and verbal stimuli. ABG reviewed, compensated. CXR with interval worsening pulmonary vascular congestion. Lasix given for diuresis On AC mode; RR 16, VT 400, PEEP 8, FiO2 of 40% RR was reduced to 16; FiO2 tapered to 40% Improved FiO2 requirements Remains off Levophed, hemodynamically stable. Continue Pulmicort neb q.12 hours Continue bronchodilators Pt with hyperglycemia 2/2 steroids. Currently on IV steroids with Solu-Medrol. Monitor sugars Continue antibiotics Follow up cultures Taper stress dose steroids as tolerated Continue tube feeds for nutrition Constipation - on lactulose Monitor renal function Monitor electrolytes. Supplement as necessary. Free water d/t hypernatremia at 151 Potassium supplementation Labs and imaging reviewed. Rest of plan as noted below. Plan: s/p intubation on mechanical ventilator. Patient underwent STAT bronchoscopy with bronchoalveolar lavage on 01/03/25. Informed consent was obtained from patient's son via phone; risks and benefits explained in detail and he agreed for the procedure. BAL revealed hemorrhagic fluid, suspect alveolar hemorrhage - both RML and RLL similar See separate procedure note for full details. Patient was placed on lung protective strategy. On AC mode; RR 16, VT 400, PEEP 8, FiO2 of 40% Titrate FIO2 to keep O2 saturation above 90%. VAP bundle. Daily ABG and CXR while intubated Sedate for ventilator synchrony Allow permissive hypercarbia Goal pH of 7.15 to 7.25 Goal PaO2 greater than or equal to 55 mmHg and/or O2 sat greater than or equal to 88% Once FiO2 reaches 45% or lower, taper PEEP in increments of 2 cmH2O. ABG (01/03/25) shows acidemia d/t respiratory acidosis. AG of 11. Increased respiratory rate to 26 BPM. Repeat ABG revealed pH of 7.20 and PaO2 of >55 mmHg. Taper FiO2 in increments of 10% Continue antibiotics. Continue steroids BAL sent for respiratory gram stain and cultures, fungal and viral cultures; no growth. On pressors for hemodynamic support Titrate to keep mean arterial pressure greater than 65 mmHg. Monitor renal function Monitor electrolytes. Supplement as necessary. Monitor ins and outs. Goal K greater than or equal to 4.0 Goal mag greater than or equal to 2.0 GI prophylaxis. DVT prophylaxis. Prognosis: Poor given patient's multiple co-morbidities. Condition: Critical Rest of plan per hospitalist and other consultants. A total of 35 minutes of critical care time was spent reviewing the patient record, examining the patient, making a diagnostic and therapeutic plan, discussing this plan with the medical personnel, following up on diagnostic studies and following the patient for clinical stability excluding any and all procedures. At least 50% of this time was spent in direct, [id number] contact. Thank you, Dr. Tellez, for allowing me to participate in this patient's care. Further recommendations will depend on the patient's clinical course. Please do not hesitate to contact me if you have any questions or concerns. This medical document was created using an electronic medical record system with [employer] dictation system. Although these documentations are being carefully reviewed, there may still be some phonetic and typographical changes. The errors are purely typographical, due to imperfection on the software program, and do not reflect any compromise in the patient's medical care. Dietary Evaluation Review Comments: 1) Initiate MVI @ 1 tb qd 2) Initiate Pro-Stat @ 30 mL qd. Flush 30 mL free H2O AC/PC 3) If patient remains NPO > 7 days, consider EN/TPN to meet at least 75% of estimated daily needs 4) If GI is preferred, consider Glucerna 1.2 @ 50 mL/hr goal rate as tolerated. Flush 150 mL free H2O Q6. TF regimen (including Pro-Stat) will provide 1540 kcals, 87g Pro, and 1626 mL free H2O (including TF flushes) per 24 hrs. Goal rate will meet ~ 91% estimated energy needs and ~ 80% estimated protein needs. 5) Advance to 60g CCHO diet when medically feasible, pending ST approval 6) Follow-up with pulmonology 7) Continue to monitor I&O, labs, and skin integrity Expected Outcomes/Goals: 1) patient to receive nutrition support within 7 days of NPO status 2) labs and wound to improve 3) diet to advance 4) f/u in 2-3 days Plan discussed with: Other (TANG Lima) Critical Care Time(min): 35 ABE CURRY MD Jan 07, 2025 23:53
[2025-01-08] VITALS (109 sets, daily range): BP systolic 87–150; BP diastolic 33–75; PULSE 71–109; RESP 13–26; TEMP 97.7–98.8; O2SAT 91–99
--- NOTE | 2025-01-08 03:26 | DVH ---
CHEST RADIOGRAPH Indication: worsening pna Technique: 1 view Comparison: XY CHEST PORTABLE on DOS: 01/07/25, XY CHEST XRAY 1 VIEW on DOS: 01/06/25, XY CHEST PORTABLE on DOS: 01/05/25, XY CHEST PORTABLE on DOS: 01/04/25, XY CHEST PORTABLE on DOS: 01/03/25 FINDINGS: Lines and Tubes: Unchanged. Lungs: Persistent dense bilateral interstitial opacities and retrocardiac consolidation. Pleura: Probable small left pleural effusion. Cardiomediastinal contours: Unchanged. Other: Unchanged. IMPRESSION: 1. No significant change from the previous study. Stable support devices.
[2025-01-08 03:38] LABS: Hematocrit 33.8 % (36.0-46.0); Hemoglobin 11.1 g/dL (12.2-16.2); Mean Corpuscular Hemoglobin 32.8 pg (28.0-32.0); Mean Corpuscular Volume 100.0 fL (80.0-100.0); Nucleated Red Blood Cells % 0.0 %
[2025-01-08 04:05] LABS: Chloride 107 mmol/L (98-107); Potassium 4.3 mmol/L (3.5-5.1)
[2025-01-08 04:06] LABS: Anion Gap 7 (5-15); Calcium 9.1 mg/dL (8.7-10.4); Carbon Dioxide 34 mmol/L (20-31); Sodium 148 mmol/L (136-145)
[2025-01-08 04:11] LABS: BUN/Creatinine Ratio 42.2 (10.0-20.0); Glucose 199 mg/dL (74-106)
[2025-01-08 04:13] LABS: Blood Urea Nitrogen 35 mg/dL (9-23); Magnesium 2.7 mg/dL (1.6-2.6)
[2025-01-08 08:59] LABS: Base Excess 10.7 mmol/L (-2.0-3.0)
--- NOTE | 2025-01-08 11:23 | DVHPN2 ---
Progress Note - Dictate Date Seen: Jan 08, 2025 Medical Necessity Reason Pt with a Central, PICC or Fol: Yes The following are medically ne: Ruth Catheter Reason for ruth catheter: Strict I&O Subjective Ms. Anton Engel is 69 years old right-handed female with a history of gastric ulcer, versus brain aneurysm status post coiling, the patient came to the hospital on 01/01/2025 with acute shortness of breath x 1 day. I saw on 08/28/18 for history of cerebral aneurysm I have seen and examined the patient, I have talked to her nurse, she is intubated, responsive to light touch, nonresponsive to verbal stimuli. She moves the arms No change in the pupils Fentanyl 150 cg/hour, Versed 5 mg/hour, FiO2: 40% Urinalysis, 01/01/2025: Hormone UDS, 01/01/2025: Negative WBC/HB/PLT/activity, 01/06/2025: 1743/11/331/98.9 Na, 01/03/2025: 137, 01/05/2025: 149, 150, 01/06/2025: 149, 01/07/25: 151, 01/08/2025: 148 TBI/AST/ALT/AP, 01/05/2025: 1.3/51/8 9/83 Chest x-ray, 01/01/2025: Extensive bilateral airspace disease, greatest in the perihilar regions. This may be secondary to severe pulmonary edema. ARDS and diffuse pneumonia are also considerations Chest three, 01/03/2025: Endotracheal tube and right central venous catheter in satisfactory position. Chest x-ray, 01/06/2025: Worsening of bilateral interstitial opacities. Suspected development of small left pleural effusion and basilar atelectasis. Stable support devices (Unchanged endotracheal tube, enteric tube, and right IJ catheter) CT head, 08/19/18: Slightly limited examination due to patient motion. Status post aneurysm embolization along the left side of the sella turcica. Artifact from the embolization material limits evaluation of the in-plane brain parenchyma. No acute intracranial pathology is identified, however if there is concern for a subtle intracranial abnormality, a repeat CT scan should be obtained when the patient can lie still. CTA chest, 01/01/2025: 1. No pulmonary embolism. 2. Extensive multifocal consolidative bilateral pulmonary infiltrate, most notably within the bilateral posterior lower lobes vital signs Vital Sign Date Time Temp Pulse Resp B/P (MAP) Pulse Ox O2 Delivery O2 Flow Rate FiO2 01/08/25 10:30 97.9 82 17 118/53 (74) 95 208.2 01/08/25 10:00 Mechanical Ventilator+ 40 40 Total Intake and Output 01/07/25 01/07/25 01/08/25 15:00 23:00 07:00 Intake Total 356.0 ml 820 ml 1232 ml Output Total 600 ml 1300 ml Balance 356.0 ml 220 ml -68 ml medications Current Medications Medications Dose Ordered Sig/Serenity Route Start Time Stop Time Status Last Admin Dose Admin Pantoprazole Sodium 40 mg DAILY IV 01/02/25 10:00 01/08/25 10:19 40 MG Vancomycin HCl 0 ml @ 0 mls/hr UD IV 01/02/25 11:45 Norepinephrine Bitartrate 250 ml @ 3.75 mls/hr Q24H IV 01/03/25 13:00 01/06/25 05:24 3.75 MLS/HR Midazolam HCl 50 ml @ 1 mls/hr Q24H IV 01/03/25 13:00 01/08/25 03:28 5 MLS/HR Fentanyl Citrate 250 ml @ 2.5 mls/hr Q24H IV 01/03/25 13:00 01/08/25 03:29 15 MLS/HR Dextrose 50 ml UD PRN IV 01/04/25 08:30 Enteral Nutritional Formula 1,000 ml 30ML/HR GT 01/04/25 19:15 01/08/25 04:35 1,000 ML Vancomycin HCl 100 ml @ 100 mls/hr Q16H IV 01/05/25 10:00 01/08/25 01:17 100 MLS/HR Meropenem 50 ml @ 17 mls/hr Q8H IV 01/05/25 11:00 01/08/25 10:19 17 MLS/HR Acetaminophen 650 mg Q6HP PRN PO 01/05/25 10:15 Levalbuterol HCl 0.625 mg Q4HR NEB 01/06/25 06:00 01/08/25 09:38 0.625 MG Ipratropium [place] 0.5 mg Q4HR NEB 01/06/25 06:00 01/08/25 09:38 0.5 MG Diagnostic Test (Pha) 1 strip Q6HR 01/06/25 12:00 01/08/25 05:22 1 STRIP Insulin Human Regular Q6HR SC 01/06/25 12:00 01/08/25 05:25 3 UNITS Lactulose 30 ml BID PO 01/06/25 14:00 01/08/25 10:19 30 ML Budesonide 0.5 mg BID NEB 01/06/25 22:00 01/08/25 06:54 0.5 MG Methylprednisolone Sodium Succinate 40 mg BID IV 01/06/25 22:00 01/08/25 10:19 40 MG Purified Water 250 ml Q8HR GT 01/07/25 10:00 01/08/25 05:22 250 ML Furosemide 40 mg BIDD IV 01/07/25 18:00 01/08/25 05:22 40 MG objective The patient is well-nourished and well-developed with no distress. The patient is intubated MENTAL STATUS: Subjective CRANIAL NERVES: Pupils are round and sluggishly reactive, right: 2 mm, left: 4 mm.There are conjugated eye movement. No signs of facial weakness. There are gagging or coughing reflexes. No obese ptosis, abnormal vascular dilatation or skin secretion SENSATION: Responds to touch stimuli MOTOR: Normal tone in the upper and lower extremity. Normal muscle bulk. No fasciculations. No spontaneous movement. REFLEXES: Deep tendon reflexes are symmetrical. No pathological reflexes. CEREBELLAR/COORDINATION: Deferred GAIT/STATION: deferred. laboratory and microbiology Laboratory Tests 01/08/25 02:25 Test 01/08/25 02:25 Range/Units Serum Glucose 199 H 74-106 mg/dL Problem List Anisocoria, with left-sided bigger, ? 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 Although this document has been carefully reviewed, there may still be some phonetic and typographical errors. These areas are purely typographical due to imperfections of the software programs, and do not reflect any compromise in the patient's medical care Prognosis guarded Dietary Evaluation Review Comments: 1) Initiate MVI @ 1 tb qd 2) Initiate Pro-Stat @ 30 mL qd. Flush 30 mL free H2O AC/PC 3) If patient remains NPO > 7 days, consider EN/TPN to meet at least 75% of estimated daily needs 4) If GI is preferred, consider Glucerna 1.2 @ 50 mL/hr goal rate as tolerated. Flush 150 mL free H2O Q6. TF regimen (including Pro-Stat) will provide 1540 kcals, 87g Pro, and 1626 mL free H2O (including TF flushes) per 24 hrs. Goal rate will meet ~ 91% estimated energy needs and ~ 80% estimated protein needs. 5) Advance to 60g CCHO diet when medically feasible, pending ST approval 6) Follow-up with pulmonology 7) Continue to monitor I&O, labs, and skin integrity Expected Outcomes/Goals: 1) patient to receive nutrition support within 7 days of NPO status 2) labs and wound to improve 3) diet to advance 4) f/u in 2-3 days Plan discussed with: Other Critical Care Time(min): 30 RYAN HINKLE MD Jan 08, 2025 11:23
--- NOTE | 2025-01-08 14:17 | DVHPNRES ---
Progress Note Date Seen: Jan 08, 2025 Resident Creating Document: BHAVESH JON RESIDENT Medical Necessity Reason Pt with a Central, PICC or Fol: Yes The following are medically ne: Ruth Catheter Reason for ruth catheter: Strict I&O Subjective Review of Systems Patient is a 69-year-old female who is a poor historian, with prior medical history of asthma, COPD?, intracranial aneurysm s/p repair(coiling?), hypothyroidism, rheumatoid arthritis, lupus? and recurrent pneumonias requiring intubation x 3 in the past, who presented to the ED with chief complaint of fatigue and shortness of breath. Patient states symptoms initiated 1 week prior to presentation. She refers fatigue associated with progressively worsened shortness of breath, dry cough, and febrile sensation. She states she used her oxygen at home with little relief however pt is unclear about whether it is home oxygen or a nebulizer, inability to achieve relief despite that prompted her family to call EMS. On evaluation in the field, she was saturating 60% and was placed on 10 L O2. Per pt she is on no medication neither sees a primary care doctor as she prefers holistic alternatives routinely. Per pt, she attends a clinic in [facility] where she receives infusions? On evaluation in the ED, she was found to be tachycardic, tachypneic, and requiring 15 L O2 via face mask. Initial labs significant for 15.4, with chemical panel within normal range, lactic acid 1.8, troponins negative, BNP 30.14, ABG showing 7.405, pCO2 27.1, pO2 103.3, and HCO3 16.6. Chest Xray shows extensive bilateral airspace disease, greatest in perihilar regions. Sepsis protocol was initiated, cultures were taken, and patient was admitted and started on IV antibiotics. Surgical: Aneurysm repair, Hernia repair, appendectomy Social: Denies drug and alcohol use, refers she smoked 1-2 cigarettes daily for 30 years with cessation in 2019 Patient seen at bedside. She is alert and oriented in person, place, and time. She states that feels well, and shortness of breath has improved with use of simple face mask, at the time 10 L O2. She currently denies chest pain, cough, nausea, vomiting and other symptoms. Over night, patient febrile spike of 102.2 F, she has remained tachypneic, and blood pressure remain on the lower limit of normality. CT angio was ordered, ruling out PE, and showed extensive multifocal consolidative bilateral pulmonary infiltrate. Cefepime was added for broader coverage. Patient is currently JACLYN status. 01/03/2025: Overnight pt was able to be brought down to 6L O2 however, in the morning after minimal exertion, patient continued to have respiratory distress with desaturation on minimal movement. On re-evaluation an hour later, patient was noted to have continued tachypnea and use of accessory muscles, patient was AAO x4 and agreed to intubation verbally as well as a full code status aware of risks and benefits. Patient's son was informed, he wanted to wait on intubation until he arrived from [place] in order for the patient to sign on some financial documents, however, ultimately intubation became medically necessary and waiting further would have proven detrimental to patient's health and well- being. Patient was subsequently intubated, a central line was placed, patient was upgraded to ICU status, patient's son was called and informed, detailed meeting was held with patient's son Mr. Alonso lasting 45 minutes where details of patient's with the plan of care was explained in great detail, all questions were answered concerns were addressed, imaging details outlined showing widespread multifocal pneumonia was also shared with patient's son, he demonstrated understanding and was agreeable with the plan of care. plan of care was also discussed with patients daughter in law, Ms. Carvajal for >40mins. Pt underwent bronchoscopy with bloody drainage. IV steroids were started and antibiotic coverage was broadened to include meropenem. vasopressors were initiated to support hemodynamics. 01/04/2025: Patient seen and examined at bedside, overnight patient required 4 pressors and increasing ventilator settings, however, this morning blood pressure is stable, patient currently only on Levophed 26 mcg, decrease respiratory rate to 26 and PEEP to 10 with a tidal volume of 400 and FiO2 30%. Added IV Lasix 20 mg 1 time only. Echocardiogram shows possible heart failure with diastolic dysfunction. Detailed discussion held with patient and patient's at bedside were all questions were answered and concerns were addressed. 01/06/2025: Patient seen and examined at bedside, off of pressors as of 2:00 p.m.. Continues to be on FiO2 40% with a PEEP of 8. IV Lasix 40 mg once. KUB shows nonspecific bowel gas pattern with moderate stool, started lactulose 30 mL b.i.d.. 01/07/2025: Patient seen and examined at bedside, decreased respiratory rate to 16, decreased FiO2 40%. Started patient on free water 250 mL Q 8 hours due to up trending hypernatremia. Added IV Lasix 40 mg b.i.d.. Nonspecific T-wave changes in the EKG noted. Chest x-ray with worsening bilateral infiltrates. 01/08/25: Patient had 2 bowel movements today. Decreased tidal volume to 360. Detailed discussion held with [id number] at bedside for more than 30 minutes, all questions answered concerns addressed. Family now agreeable to dvt ppx however still had some slight blood tinged respiratory secretions yesterday, will start dvt ppx tomorrow if no further blood tinged secretions noted. Objective vital signs Vital Sign Date Time Temp Pulse Resp B/P (MAP) Pulse Ox O2 Delivery O2 Flow Rate FiO2 01/08/25 13:44 106/44 01/08/25 12:00 15 95 Mechanical Ventilator+ 40 40 01/08/25 12:00 86 01/08/25 10:30 97.9 208.2 Total Intake and Output 01/07/25 01/07/25 01/08/25 15:00 23:00 07:00 Intake Total 356.0 ml 820 ml 1232 ml Output Total 600 ml 1300 ml Balance 356.0 ml 220 ml -68 ml medications Current Medications Medications Dose Ordered Sig/Serenity Route Start Time Stop Time Status Last Admin Dose Admin Pantoprazole Sodium 40 mg DAILY IV 01/02/25 10:00 01/08/25 10:19 40 MG Vancomycin HCl 0 ml @ 0 mls/hr UD IV 01/02/25 11:45 Norepinephrine Bitartrate 250 ml @ 3.75 mls/hr Q24H IV 01/03/25 13:00 01/06/25 05:24 3.75 MLS/HR Midazolam HCl 50 ml @ 1 mls/hr Q24H IV 01/03/25 13:00 01/08/25 13:44 5 MLS/HR Fentanyl Citrate 250 ml @ 2.5 mls/hr Q24H IV 01/03/25 13:00 01/08/25 03:29 15 MLS/HR Dextrose 50 ml UD PRN IV 01/04/25 08:30 Enteral Nutritional Formula 1,000 ml 30ML/HR GT 01/04/25 19:15 01/08/25 04:35 1,000 ML Vancomycin HCl 100 ml @ 100 mls/hr Q16H IV 01/05/25 10:00 01/08/25 01:17 100 MLS/HR Meropenem 50 ml @ 17 mls/hr Q8H IV 01/05/25 11:00 01/08/25 10:19 17 MLS/HR Acetaminophen 650 mg Q6HP PRN PO 01/05/25 10:15 Levalbuterol HCl 0.625 mg Q4HR NEB 01/06/25 06:00 01/08/25 14:16 0.625 MG Ipratropium [place] 0.5 mg Q4HR NEB 01/06/25 06:00 01/08/25 14:16 0.5 MG Diagnostic Test (Pha) 1 strip Q6HR 01/06/25 12:00 01/08/25 11:37 1 STRIP Insulin Human Regular Q6HR SC 01/06/25 12:00 01/08/25 05:25 3 UNITS Lactulose 30 ml BID PO 01/06/25 14:00 01/08/25 10:19 30 ML Budesonide 0.5 mg BID NEB 01/06/25 22:00 01/08/25 06:54 0.5 MG Methylprednisolone Sodium Succinate 40 mg BID IV 01/06/25 22:00 01/08/25 10:19 40 MG Purified Water 250 ml Q8HR GT 01/07/25 10:00 01/08/25 05:22 250 ML Furosemide 40 mg BIDD IV 01/07/25 18:00 01/08/25 05:22 40 MG Examination General Appearance: Intubated, sedated and mechanically ventilated Head Exam: Normal inspection Neck Exam: left pupil is larger than the right however prior to being intubated pt had stated this is since her basline since aneurysm repair? Pulmonary/Respiratory: Coarse bilateral breath sounds, decreased on left more than right Cardiovascular/Chest: Tachycardic. Regular rhythm. No murmurs. No JVD. Peripheral Pulses: 2+ Radial (R). 2+ Radial (L). 2+ Pedal (R). 2+ Pedal (L) Abdominal Exam: Distended but soft abdomen with decreased bowel sounds., no visible veins, Nontender. No hepatospenomegaly. No masses Ankle Exam: Negative ankle edema Lower extremities: Negative lower extremity edema Skin Exam: Normal inspection. Normal color. Warm. Dry laboratory and microbiology Laboratory Tests 01/08/25 02:25 Test 01/08/25 02:25 Range/Units Serum Glucose 199 H 74-106 mg/dL Microbiology Date/Time Source Procedure Growth Status 01/03/25 21:50 Nose MRSA Screen - Final Complete 01/03/25 16:32 Bronchial Washings Gram Stain - Final Complete 01/03/25 16:32 Bronchial Washings Respiratory Culture - Final Complete 01/01/25 19:23 Blood Blood Culture - Final NO GROWTH AFTER 5 DAYS OF INCUBATION. 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 # history of ICA aneurysm/SAH? # acute metabolic versus toxic versus hypoxic encephalopathy - Versed - fentanyl - head CT: Streak artifact from left cavernous sinus region call material limits evaluation of the adjacent structures. Otherwise no evidence of acute intracranial abnormality. - neurology on board Cardiovascular # septic shock # heart failure with preserved ejection fraction - on norepinephrine - on vasopressin - decreased IV hydrocortisone 100 mg q.8hrs - echocardiogram: LV EF IS 65% AND IS NORMAL. MILD LVH AND MILD LV DIASTOLIC DYSFUNCTION. NORMAL VALVES. NORMAL RV FUNCTION AND SIZE. NORMAL RVSP AND IS 20 MM OF HG. NO EFFUSION Respiratory # Ventilator; respiratory rate 16, FiO2 40%, peep 8, tidal volume 360 -intubated 01/03/2025 - bronchoscopy 01/03/2025 # Acute hypoxic respiratory failure # possible alveolar hemorrhage # COPD exacerbation # ruled out pulmonary embolism # multifocal community-acquired pneumonia, Gram-positive versus Gram-negative # possible pulmonary edema, severe - IV vancomycin, IV meropenem - pulmonology on board - IV methylprednisolone 125 mg once - IV hydrocortisone 50 mg q.6 hours - ipratropium albuterol med nebs - CT angiography: No pulmonary embolism. Extensive multifocal consolidative bilateral pulmonary infiltrate, most notably within the bilateral posterior lower lobes. - CXR from 01/03/2025: Interstitial and alveolar type opacities of bilateral lungs, relatively unchanged from prior imaging which may represent multifocal pneumonia/ARDS/severe pulmonary edema - CXR from 01/06/2025: Worsening of bilateral interstitial opacities. Suspected development of small left pleural effusion and basilar atelectasis. - increased IV Lasix to 40mg bid - added budesonide med nebs 0.5 mg b.i.d. GI # transaminitis, now improving # constipation likely slow transit - Colace 100 mg b.i.d., MiraLax daily - KUB: Nonobstructive bowel gas pattern. Large stool burden. Ruth catheter overlying the bladder. - started lactulose 30 mg p.o. b.i.d. # Peptic ulcer prophylaxis -Pantoprazole 40 mg IV daily # Ruth catheter placed on 01/02/2025 Infectious disease # community-acquired pneumonia, Gram-positive versus Gram-negative # sepsis due to above # septic shock due to above - IV vancomycin per pharmacy - IV meropenem - norepinephrine drip - vasopressin drip - IV methylprednisolone 125 mg once - IV hydrocortisone 50 mg q.8 hours - awaiting respiratory cultures from bronchoscopy Hem/onc # macrocytosis without anemia -monitor Endocrine # history of type 2 diabetes # history of rheumatoid arthritis, not on any treatment # ?Lupus - ordered A1c 6% - monitor DVT prophylaxis - holding due to possible alveolar hemorrhage evident on bronchoscopy Lines - right CVC placed on 01/03/2025 - L 22g placed on 01/03/25 - ruth 01/03/25 Drips during mech ventilation Versed Fentanyl Critical care time 83 minutes excluding procedure. Plan discussed with patient's son, at bedside in great detail, all questions were answered and concerns were addressed. Code status discussed greater than 20 minutes: Full CODE STATUS. Plan discussed with Dr. Ulloa Plan discussed with: Son, Other ([id number]) My Orders My Orders Orders - BHAVESH JON RESIDENT Procedure Category Date Status Time Furosemide Injection PHA 01/07/25 In Process (Lasix Injection) 18:00 Respiratory Misc. RT 01/08/25 Transmitted Order 11:56 Dietary Evaluation Review Comments: 1) Initiate MVI @ 1 tb qd 2) Initiate Pro-Stat @ 30 mL qd. Flush 30 mL free H2O AC/PC 3) If patient remains NPO > 7 days, consider EN/TPN to meet at least 75% of estimated daily needs 4) If GI is preferred, consider Glucerna 1.2 @ 50 mL/hr goal rate as tolerated. Flush 150 mL free H2O Q6. TF regimen (including Pro-Stat) will provide 1540 kcals, 87g Pro, and 1626 mL free H2O (including TF flushes) per 24 hrs. Goal rate will meet ~ 91% estimated energy needs and ~ 80% estimated protein needs. 5) Advance to 60g CCHO diet when medically feasible, pending ST approval 6) Follow-up with pulmonology 7) Continue to monitor I&O, labs, and skin integrity Expected Outcomes/Goals: 1) patient to receive nutrition support within 7 days of NPO status 2) labs and wound to improve 3) diet to advance 4) f/u in 2-3 days Date of Service: Jan 08, 2025 Billing Provider: MEL ULLOA MD Common Visit Codes: 26390-[id number] INP/OBS CARE(MOD) BHAVESH JON RESIDENT Jan 08, 2025 14:17 MEL ULLOA MD Jan 12, 2025 11:51
[2025-01-08 19:04] LABS: Base Excess 5.2 mmol/L (-2.0-3.0)
--- NOTE | 2025-01-08 23:19 | DVHPN2 ---
Progress Note - Dictate Date Seen: Jan 08, 2025 Medical Necessity Reason Pt with a Central, PICC or Fol: Yes The following are medically ne: Ruth Catheter Reason for ruth catheter: Strict I&O Subjective Patient seen and examined at bedside. Sedated, intubated on mechanical ventilator. Overnight events reviewed. vital signs Vital Sign Date Time Temp Pulse Resp B/P (MAP) Pulse Ox O2 Delivery O2 Flow Rate FiO2 01/08/25 22:09 80 19 101/44 (63) 96 40 01/08/25 20:00 Mechanical Ventilator+ 01/08/25 19:45 98.2 208.8 Total Intake and Output 01/07/25 01/07/25 01/08/25 15:00 23:00 07:00 Intake Total 356.0 ml 820 ml 1252 ml Output Total 600 ml 1300 ml Balance 356.0 ml 220 ml -48 ml medications Current Medications Medications Dose Ordered Sig/Serenity Route Start Time Stop Time Status Last Admin Dose Admin Pantoprazole Sodium 40 mg DAILY IV 01/02/25 10:00 01/08/25 10:19 40 MG Vancomycin HCl 0 ml @ 0 mls/hr UD IV 01/02/25 11:45 Norepinephrine Bitartrate 250 ml @ 3.75 mls/hr Q24H IV 01/03/25 13:00 01/06/25 05:24 3.75 MLS/HR Midazolam HCl 50 ml @ 1 mls/hr Q24H IV 01/03/25 13:00 01/08/25 13:44 5 MLS/HR Fentanyl Citrate 250 ml @ 2.5 mls/hr Q24H IV 01/03/25 13:00 01/08/25 21:49 15 MLS/HR Dextrose 50 ml UD PRN IV 01/04/25 08:30 Enteral Nutritional Formula 1,000 ml 30ML/HR GT 01/04/25 19:15 01/08/25 04:35 1,000 ML Vancomycin HCl 100 ml @ 100 mls/hr Q16H IV 01/05/25 10:00 01/08/25 17:11 100 MLS/HR Meropenem 50 ml @ 17 mls/hr Q8H IV 01/05/25 11:00 01/08/25 18:44 17 MLS/HR Acetaminophen 650 mg Q6HP PRN PO 01/05/25 10:15 Levalbuterol HCl 0.625 mg Q4HR NEB 01/06/25 06:00 01/08/25 22:09 0.625 MG Ipratropium [place] 0.5 mg Q4HR NEB 01/06/25 06:00 01/08/25 22:09 0.5 MG Diagnostic Test (Pha) 1 strip Q6HR 01/06/25 12:00 01/08/25 22:29 1 STRIP Insulin Human Regular Q6HR SC 01/06/25 12:00 01/08/25 17:26 6 UNITS Lactulose 30 ml BID PO 01/06/25 14:00 01/08/25 22:29 30 ML Budesonide 0.5 mg BID NEB 01/06/25 22:00 01/08/25 22:09 0.5 MG Methylprednisolone Sodium Succinate 40 mg BID IV 01/06/25 22:00 01/08/25 22:28 40 MG Purified Water 250 ml Q8HR GT 01/07/25 10:00 01/08/25 22:30 250 ML Furosemide 40 mg BIDD IV 01/07/25 18:00 01/08/25 17:12 40 MG objective Gen.: Patient lying in bed in medical ICU. Sedated, intubated on mechanical ventilator. Head: Normocephalic, atraumatic. Eyes: PERRLA. Ears: Normal external anatomy. Throat: Endotracheal tube and orogastric tube in place. Neck: Supple, trachea midline. Chest: Transmitted breath sounds bilaterally. Decreased air entry bilaterally. No wheezing. Bibasilar crackles. Cardiovascular: Positive S1, positive S2. Regular rate and rhythm. Abdomen: Positive bowel sounds in all 4 quadrants. Soft, nontender, nondistended. : Ruth in place. Normal external genitalia. Rectal: Deferred. Skin: Warm, dry. Intact. Extremities: 2+ radial pulses bilaterally. No lower extremity edema. Neuro: Sedated. Withdraws to tactile and verbal stimuli. laboratory and microbiology Laboratory Tests 01/08/25 02:25 Test 01/08/25 02:25 Range/Units Serum Glucose 199 H 74-106 mg/dL Assessment/Plan Impression: Acute hypoxic respiratory failure 2/2 pneumonia and ARDS On mechanical ventilator Pneumonia, likely gram negative and/or gram positive Atelectasis Alveolar hemorrhage Rheumatoid arthritis Acute respiratory distress syndrome Hx of nicotine dependence Events: Remains on vent support Currently off sedation - patient withdraws to tactile and verbal stimuli. CXR with no significant change; Persistent dense bilateral interstitial opacities and retrocardiac consolidation. Probable small left pleural effusion.. ABG reviewed, notable for alkalemia. Tidal volume was reduced from 400 to 380 On AC mode; RR 16, VT 400-->380, PEEP 8, FiO2 of 40% Sedated on Versed, Fentanyl. Remains off pressors, hemodynamically stable. Continue Pulmicort neb q.12 hours Continue bronchodilators Taper sedation as tolerated CPAP in the AM. Pt with hyperglycemia 2/2 steroids. Currently on IV steroids with Solu-Medrol. Monitor sugars Continue antibiotics Follow up cultures Taper stress dose steroids as tolerated Continue tube feeds for nutrition Constipation - on lactulose Diurese with Lasix as tolerated Monitor renal function Monitor electrolytes. Supplement as necessary. Free water d/t hypernatremia at 151 Labs and imaging reviewed. Rest of plan as noted below. Plan: s/p intubation on mechanical ventilator. Patient underwent STAT bronchoscopy with bronchoalveolar lavage on 01/03/25. Informed consent was obtained from patient's son via phone; risks and benefits explained in detail and he agreed for the procedure. BAL revealed hemorrhagic fluid, suspect alveolar hemorrhage - both RML and RLL similar See separate procedure note for full details. Patient was placed on lung protective strategy. On AC mode; RR 16, VT 380, PEEP 8, FiO2 of 40% Titrate FIO2 to keep O2 saturation above 90%. VAP bundle. Daily ABG and CXR while intubated Sedate for ventilator synchrony Allow permissive hypercarbia Goal pH of 7.15 to 7.25 Goal PaO2 greater than or equal to 55 mmHg and/or O2 sat greater than or equal to 88% Once FiO2 reaches 45% or lower, taper PEEP in increments of 2 cmH2O. ABG (01/03/25) shows acidemia d/t respiratory acidosis. AG of 11. Increased respiratory rate to 26 BPM. Repeat ABG revealed pH of 7.20 and PaO2 of >55 mmHg. Taper FiO2 in increments of 10% Continue antibiotics. Continue steroids BAL sent for respiratory gram stain and cultures, fungal and viral cultures; no growth. Pressors as necessary for hemodynamic support Titrate to keep mean arterial pressure greater than 65 mmHg. Monitor renal function Monitor electrolytes. Supplement as necessary. Monitor ins and outs. Goal K greater than or equal to 4.0 Goal mag greater than or equal to 2.0 GI prophylaxis. DVT prophylaxis. Prognosis: Poor given patient's multiple co-morbidities. Condition: Critical Rest of plan per hospitalist and other consultants. A total of 35 minutes of critical care time was spent reviewing the patient record, examining the patient, making a diagnostic and therapeutic plan, discussing this plan with the medical personnel, following up on diagnostic studies and following the patient for clinical stability excluding any and all procedures. At least 50% of this time was spent in direct, vydl-th-saws contact. Thank you, Dr. Tellez, for allowing me to participate in this patient's care. Further recommendations will depend on the patient's clinical course. Please do not hesitate to contact me if you have any questions or concerns. This medical document was created using an electronic medical record system with [employer] system. Although these documentations are being carefully reviewed, there may still be some phonetic and typographical changes. The errors are purely typographical, due to imperfection on the software program, and do not reflect any compromise in the patient's medical care. Dietary Evaluation Review Comments: 1) Initiate MVI @ 1 tb qd 2) Initiate Pro-Stat @ 30 mL qd. Flush 30 mL free H2O AC/PC 3) If patient remains NPO > 7 days, consider EN/TPN to meet at least 75% of estimated daily needs 4) If GI is preferred, consider Glucerna 1.2 @ 50 mL/hr goal rate as tolerated. Flush 150 mL free H2O Q6. TF regimen (including Pro-Stat) will provide 1540 kcals, 87g Pro, and 1626 mL free H2O (including TF flushes) per 24 hrs. Goal rate will meet ~ 91% estimated energy needs and ~ 80% estimated protein needs. 5) Advance to 60g CCHO diet when medically feasible, pending ST approval 6) Follow-up with pulmonology 7) Continue to monitor I&O, labs, and skin integrity Expected Outcomes/Goals: 1) patient to receive nutrition support within 7 days of NPO status 2) labs and wound to improve 3) diet to advance 4) f/u in 2-3 days Plan discussed with: Other (TANG Lima/Dr. Tellez) Critical Care Time(min): 35 ABE CURRY MD Jan 08, 2025 23:19
[2025-01-09] VITALS (108 sets, daily range): BP systolic 76–154; BP diastolic 37–86; PULSE 65–96; RESP 14–23; TEMP 97.7–98.8; O2SAT 88–100
[2025-01-09 03:04] LABS: Hematocrit 33.4 % (36.0-46.0); Hemoglobin 11.1 g/dL (12.2-16.2); Mean Corpuscular Hemoglobin 33.3 pg (28.0-32.0); Mean Corpuscular Volume 100.0 fL (80.0-100.0); Nucleated Red Blood Cells % 0.0 %
[2025-01-09 03:18] LABS: Albumin 3.7 g/dL (3.2-4.8); Alkaline Phosphatase 92 U/L (46-116); Anion Gap 7 (5-15); BUN/Creatinine Ratio 42.7 (10.0-20.0); Calcium 9.2 mg/dL (8.7-10.4); Chloride 102 mmol/L (98-107); Potassium 4.2 mmol/L (3.5-5.1); Total Protein 6.3 g/dL (5.7-8.2)
[2025-01-09 03:19] LABS: Bilirubin, Total 0.5 mg/dL (0.2-1.0)
[2025-01-09 03:27] LABS: Alanine Aminotransferase 90 U/L (7-40); Blood Urea Nitrogen 35 mg/dL (9-23); Carbon Dioxide 36 mmol/L (20-31); Glucose 194 mg/dL (74-106); Sodium 145 mmol/L (136-145)
--- NOTE | 2025-01-09 05:48 | DVH ---
CHEST RADIOGRAPH Indication: pna Technique: Single frontal view of the chest was obtained COMPARISON: XY CHEST PORTABLE on DOS: 01/08/25, XY CHEST PORTABLE on DOS: 01/07/25, XY CHEST XRAY 1 VIEW on DOS: 01/06/25, XY CHEST PORTABLE on DOS: 01/05/25, XY CHEST PORTABLE on DOS: 01/04/25 FINDINGS: Lines and Tubes: Endotracheal tube, enteric catheter and right central venous catheter in satisfactor y position Lungs: Congestion Pleura: No effusion. No pneumothorax. Cardiomediastinal contours: Unremarkable Bones: Unremarkable IMPRESSION: Lines and tubes in satisfactory position. No significant interval change.
[2025-01-09 07:51] LABS: Base Excess 8.8 mmol/L (-2.0-3.0)
--- NOTE | 2025-01-09 11:06 | DVHPN2 ---
Progress Note - Dictate Date Seen: Jan 09, 2025 Medical Necessity Reason Pt with a Central, PICC or Fol: Yes The following are medically ne: Ruth Catheter Reason for ruth catheter: Strict I&O Subjective Ms. Anton Engel is 69 years old right-handed female with a history of gastric ulcer, versus brain aneurysm status post coiling, the patient came to the hospital on 01/01/2025 with acute shortness of breath x 1 day. I saw on 08/28/18 for history of cerebral aneurysm I have seen and examined the patient, I have talked to her nurse, she is intubated, responsive to light touch, nonresponsive to verbal stimuli. She moves the arms RN: She was responsive to verbal stimuli No change in the pupils Fentanyl 150 cg/hour, Versed 5 mg/hour Urinalysis, 01/01/2025: Hormone UDS, 01/01/2025: Negative WBC/HB/PLT/activity, 01/06/2025: 1743/11/331/98.9 Na, 01/03/2025: 137, 01/05/2025: 149, 150, 01/06/2025: 149, 01/07/25: 151, 01/08/2025: 148 TBI/AST/ALT/AP, 01/05/2025: 1.3/51/8 9/83 Chest x-ray, 01/01/2025: Extensive bilateral airspace disease, greatest in the perihilar regions. This may be secondary to severe pulmonary edema. ARDS and diffuse pneumonia are also considerations Chest three, 01/03/2025: Endotracheal tube and right central venous catheter in satisfactory position. Chest x-ray, 01/06/2025: Worsening of bilateral interstitial opacities. Suspected development of small left pleural effusion and basilar atelectasis. Stable support devices (Unchanged endotracheal tube, enteric tube, and right IJ catheter) CT head, 08/19/18: Slightly limited examination due to patient motion. Status post aneurysm embolization along the left side of the sella turcica. Artifact from the embolization material limits evaluation of the in-plane brain parenchyma. No acute intracranial pathology is identified, however if there is concern for a subtle intracranial abnormality, a repeat CT scan should be obtained when the patient can lie still. CTA chest, 01/01/2025: 1. No pulmonary embolism. 2. Extensive multifocal consolidative bilateral pulmonary infiltrate, most notably within the bilateral posterior lower lobes vital signs Vital Sign Date Time Temp Pulse Resp B/P (MAP) Pulse Ox O2 Delivery O2 Flow Rate FiO2 01/09/25 10:20 85 16 102/48 (66) 96 40 01/09/25 08:00 Mechanical Ventilator+ 01/09/25 06:45 98.4 209.1 Total Intake and Output 01/08/25 01/08/25 01/09/25 15:00 23:00 07:00 Intake Total 211 ml 2030.75 ml 1182.00 ml Output Total 2900 ml 1300 ml Balance 211 ml -869.25 ml -118.00 ml medications Current Medications Medications Dose Ordered Sig/Serenity Route Start Time Stop Time Status Last Admin Dose Admin Pantoprazole Sodium 40 mg DAILY IV 01/02/25 10:00 01/09/25 09:00 40 MG Vancomycin HCl 0 ml @ 0 mls/hr UD IV 01/02/25 11:45 Norepinephrine Bitartrate 250 ml @ 3.75 mls/hr Q24H IV 01/03/25 13:00 01/06/25 05:24 3.75 MLS/HR Midazolam HCl 50 ml @ 1 mls/hr Q24H IV 01/03/25 13:00 01/09/25 09:01 5 MLS/HR Fentanyl Citrate 250 ml @ 2.5 mls/hr Q24H IV 01/03/25 13:00 01/08/25 21:49 15 MLS/HR Dextrose 50 ml UD PRN IV 01/04/25 08:30 Enteral Nutritional Formula 1,000 ml 30ML/HR GT 01/04/25 19:15 01/08/25 04:35 1,000 ML Vancomycin HCl 100 ml @ 100 mls/hr Q16H IV 01/05/25 10:00 01/09/25 09:02 100 MLS/HR Meropenem 50 ml @ 17 mls/hr Q8H IV 01/05/25 11:00 01/09/25 03:10 17 MLS/HR Acetaminophen 650 mg Q6HP PRN PO 01/05/25 10:15 Levalbuterol HCl 0.625 mg Q4HR NEB 01/06/25 06:00 01/09/25 10:22 0.625 MG Ipratropium [place] 0.5 mg Q4HR NEB 01/06/25 06:00 01/09/25 10:22 0.5 MG Diagnostic Test (Pha) 1 strip Q6HR 01/06/25 12:00 01/09/25 04:59 1 STRIP Insulin Human Regular Q6HR SC 01/06/25 12:00 01/09/25 05:01 6 UNITS Lactulose 30 ml BID PO 01/06/25 14:00 01/09/25 09:01 30 ML Budesonide 0.5 mg BID NEB 01/06/25 22:00 01/09/25 06:46 0.5 MG Methylprednisolone Sodium Succinate 40 mg BID IV 01/06/25 22:00 01/09/25 09:00 40 MG Purified Water 250 ml Q8HR GT 01/07/25 10:00 01/09/25 04:58 250 ML Furosemide 40 mg BIDD IV 01/07/25 18:00 01/09/25 04:59 40 MG objective The patient is well-nourished and well-developed with no distress. The patient is intubated MENTAL STATUS: Subjective CRANIAL NERVES: Pupils are round and sluggishly reactive, right: 2 mm, left: 4 mm.There are conjugated eye movement. No signs of facial weakness. There are gagging or coughing reflexes. No obese ptosis, abnormal vascular dilatation or skin secretion SENSATION: Responds to touch stimuli MOTOR: Normal tone in the upper and lower extremity. Normal muscle bulk. No fasciculations. No spontaneous movement. REFLEXES: Deep tendon reflexes are symmetrical. No pathological reflexes. CEREBELLAR/COORDINATION: Deferred GAIT/STATION: deferred. laboratory and microbiology Laboratory Tests 01/09/25 02:24 Test 01/09/25 02:24 Range/Units Serum Glucose 194 H 74-106 mg/dL Problem List Anisocoria, with left-sided bigger, ? 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 Although this document has been carefully reviewed, there may still be some phonetic and typographical errors. These areas are purely typographical due to imperfections of the software programs, and do not reflect any compromise in the patient's medical care Prognosis guarded Dietary Evaluation Review Comments: 1) Initiate MVI @ 1 tb qd 2) Initiate Pro-Stat @ 30 mL qd. Flush 30 mL free H2O AC/PC 3) If patient remains NPO > 7 days, consider EN/TPN to meet at least 75% of estimated daily needs 4) If GI is preferred, consider Glucerna 1.2 @ 50 mL/hr goal rate as tolerated. Flush 150 mL free H2O Q6. TF regimen (including Pro-Stat) will provide 1540 kcals, 87g Pro, and 1626 mL free H2O (including TF flushes) per 24 hrs. Goal rate will meet ~ 91% estimated energy needs and ~ 80% estimated protein needs. 5) Advance to 60g CCHO diet when medically feasible, pending ST approval 6) Follow-up with pulmonology 7) Continue to monitor I&O, labs, and skin integrity Expected Outcomes/Goals: 1) patient to receive nutrition support within 7 days of NPO status 2) labs and wound to improve 3) diet to advance 4) f/u in 2-3 days Plan discussed with: Other RYAN HINKLE MD Jan 09, 2025 11:06
--- NOTE | 2025-01-09 17:01 | DVHPNRES ---
Progress Note Date Seen: Jan 09, 2025 Resident Creating Document: BHAVESH JON RESIDENT Medical Necessity Reason Pt with a Central, PICC or Fol: Yes The following are medically ne: Ruth Catheter Reason for ruth catheter: Strict I&O Subjective Review of Systems Patient is a 69-year-old female who is a poor historian, with prior medical history of asthma, COPD?, intracranial aneurysm s/p repair(coiling?), hypothyroidism, rheumatoid arthritis, lupus? and recurrent pneumonias requiring intubation x 3 in the past, who presented to the ED with chief complaint of fatigue and shortness of breath. Patient states symptoms initiated 1 week prior to presentation. She refers fatigue associated with progressively worsened shortness of breath, dry cough, and febrile sensation. She states she used her oxygen at home with little relief however pt is unclear about whether it is home oxygen or a nebulizer, inability to achieve relief despite that prompted her family to call EMS. On evaluation in the field, she was saturating 60% and was placed on 10 L O2. Per pt she is on no medication neither sees a primary care doctor as she prefers holistic alternatives routinely. Per pt, she attends a [facility] where she receives infusions? On evaluation in the ED, she was found to be tachycardic, tachypneic, and requiring 15 L O2 via face mask. Initial labs significant for 15.4, with chemical panel within normal range, lactic acid 1.8, troponins negative, BNP 30.14, ABG showing 7.405, pCO2 27.1, pO2 103.3, and HCO3 16.6. Chest Xray shows extensive bilateral airspace disease, greatest in perihilar regions. Sepsis protocol was initiated, cultures were taken, and patient was admitted and started on IV antibiotics. Surgical: Aneurysm repair, Hernia repair, appendectomy Social: Denies drug and alcohol use, refers she smoked 1-2 cigarettes daily for 30 years with cessation in 2019 Patient seen at bedside. She is alert and oriented in person, place, and time. She states that feels well, and shortness of breath has improved with use of simple face mask, at the time 10 L O2. She currently denies chest pain, cough, nausea, vomiting and other symptoms. Over night, patient febrile spike of 102.2 F, she has remained tachypneic, and blood pressure remain on the lower limit of normality. CT angio was ordered, ruling out PE, and showed extensive multifocal consolidative bilateral pulmonary infiltrate. Cefepime was added for broader coverage. Patient is currently JACLYN status. 01/03/2025: Overnight pt was able to be brought down to 6L O2 however, in the morning after minimal exertion, patient continued to have respiratory distress with desaturation on minimal movement. On re-evaluation an hour later, patient was noted to have continued tachypnea and use of accessory muscles, patient was AAO x4 and agreed to intubation verbally as well as a full code status aware of risks and benefits. Patient's son was informed, he wanted to wait on intubation until he arrived from [place] in order for the patient to sign on some financial documents, however, ultimately intubation became medically necessary and waiting further would have proven detrimental to patient's health and well- being. Patient was subsequently intubated, a central line was placed, patient was upgraded to ICU status, patient's son was called and informed, detailed meeting was held with patient's son Mr. Alonso lasting 45 minutes where details of patient's with the plan of care was explained in great detail, all questions were answered concerns were addressed, imaging details outlined showing widespread multifocal pneumonia was also shared with patient's son, he demonstrated understanding and was agreeable with the plan of care. plan of care was also discussed with patients daughter in law, Ms. Carvajal for >40mins. Pt underwent bronchoscopy with bloody drainage. IV steroids were started and antibiotic coverage was broadened to include meropenem. vasopressors were initiated to support hemodynamics. 01/04/2025: Patient seen and examined at bedside, overnight patient required 4 pressors and increasing ventilator settings, however, this morning blood pressure is stable, patient currently only on Levophed 26 mcg, decrease respiratory rate to 26 and PEEP to 10 with a tidal volume of 400 and FiO2 30%. Added IV Lasix 20 mg 1 time only. Echocardiogram shows possible heart failure with diastolic dysfunction. Detailed discussion held with patient and patient's at bedside were all questions were answered and concerns were addressed. 01/06/2025: Patient seen and examined at bedside, off of pressors as of 2:00 p.m.. Continues to be on FiO2 40% with a PEEP of 8. IV Lasix 40 mg once. KUB shows nonspecific bowel gas pattern with moderate stool, started lactulose 30 mL b.i.d.. 01/07/2025: Patient seen and examined at bedside, decreased respiratory rate to 16, decreased FiO2 40%. Started patient on free water 250 mL Q 8 hours due to up trending hypernatremia. Added IV Lasix 40 mg b.i.d.. Nonspecific T-wave changes in the EKG noted. Chest x-ray with worsening bilateral infiltrates. 01/08/25: Patient had 2 bowel movements today. Decreased tidal volume to 360. Detailed discussion held with [id number] at bedside for more than 30 minutes, all questions answered concerns addressed. Family now agreeable to dvt ppx however still had some slight blood tinged respiratory secretions yesterday, will start dvt ppx tomorrow if no further blood tinged secretions noted. 01/09/25: Pt seen and examined at bedside, FiO2 at 30%, another BM today. cxr no interval change. Objective vital signs Vital Sign Date Time Temp Pulse Resp B/P (MAP) Pulse Ox O2 Delivery O2 Flow Rate FiO2 01/09/25 16:15 98.4 83 16 98/47 (64) 95 209.1 01/09/25 16:00 Mechanical Ventilator+ 30 30 Total Intake and Output 01/08/25 01/08/25 01/09/25 15:00 23:00 07:00 Intake Total 211 ml 2030.75 ml 1202.00 ml Output Total 2900 ml 1300 ml Balance 211 ml -869.25 ml -98.00 ml medications Current Medications Medications Dose Ordered Sig/Serenity Route Start Time Stop Time Status Last Admin Dose Admin Pantoprazole Sodium 40 mg DAILY IV 01/02/25 10:00 01/09/25 09:00 40 MG Vancomycin HCl 0 ml @ 0 mls/hr UD IV 01/02/25 11:45 Norepinephrine Bitartrate 250 ml @ 3.75 mls/hr Q24H IV 01/03/25 13:00 01/06/25 05:24 3.75 MLS/HR Midazolam HCl 50 ml @ 1 mls/hr Q24H IV 01/03/25 13:00 01/09/25 09:01 5 MLS/HR Fentanyl Citrate 250 ml @ 2.5 mls/hr Q24H IV 01/03/25 13:00 01/09/25 14:41 15 MLS/HR Dextrose 50 ml UD PRN IV 01/04/25 08:30 Enteral Nutritional Formula 1,000 ml 30ML/HR GT 01/04/25 19:15 01/08/25 04:35 1,000 ML Vancomycin HCl 100 ml @ 100 mls/hr Q16H IV 01/05/25 10:00 01/09/25 09:02 100 MLS/HR Meropenem 50 ml @ 17 mls/hr Q8H IV 01/05/25 11:00 01/09/25 12:34 17 MLS/HR Acetaminophen 650 mg Q6HP PRN PO 01/05/25 10:15 Levalbuterol HCl 0.625 mg Q4HR NEB 01/06/25 06:00 01/09/25 15:04 0.625 MG Ipratropium [place] 0.5 mg Q4HR NEB 01/06/25 06:00 01/09/25 15:04 0.5 MG Diagnostic Test (Pha) 1 strip Q6HR 01/06/25 12:00 01/09/25 12:23 1 STRIP Insulin Human Regular Q6HR SC 01/06/25 12:00 01/09/25 12:24 3 UNITS Lactulose 30 ml BID PO 01/06/25 14:00 01/09/25 09:01 30 ML Budesonide 0.5 mg BID NEB 01/06/25 22:00 01/09/25 06:46 0.5 MG Methylprednisolone Sodium Succinate 40 mg BID IV 01/06/25 22:00 01/09/25 09:00 40 MG Furosemide 40 mg BIDD IV 01/07/25 18:00 01/09/25 04:59 40 MG Examination General Appearance: Intubated, sedated and mechanically ventilated Head Exam: Normal inspection Neck Exam: left pupil is larger than the right however prior to being intubated pt had stated this is since her basline since aneurysm repair? Pulmonary/Respiratory: Coarse bilateral breath sounds, decreased on left more than right Cardiovascular/Chest: Tachycardic. Regular rhythm. No murmurs. No JVD. Peripheral Pulses: 2+ Radial (R). 2+ Radial (L). 2+ Pedal (R). 2+ Pedal (L) Abdominal Exam: Distended but soft abdomen with decreased bowel sounds., no visible veins, Nontender. No hepatospenomegaly. No masses Ankle Exam: Negative ankle edema Lower extremities: Negative lower extremity edema Skin Exam: Normal inspection. Normal color. Warm. Dry laboratory and microbiology Laboratory Tests 01/09/25 02:24 Test 01/09/25 02:24 Range/Units Serum Glucose 194 H 74-106 mg/dL Microbiology Date/Time Source Procedure Growth Status 01/03/25 21:50 Nose MRSA Screen - Final Complete 01/03/25 16:32 Bronchial Washings Gram Stain - Final Complete 01/03/25 16:32 Bronchial Washings Respiratory Culture - Final Complete 01/01/25 19:23 Blood Blood Culture - Final NO GROWTH AFTER 5 DAYS OF INCUBATION. 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 # history of ICA aneurysm/SAH? # acute metabolic versus toxic versus hypoxic encephalopathy - Versed - fentanyl - head CT: Streak artifact from left cavernous sinus region call material limits evaluation of the adjacent structures. Otherwise no evidence of acute intracranial abnormality. - neurology on board Cardiovascular # septic shock # heart failure with preserved ejection fraction - on norepinephrine - on vasopressin - decreased IV hydrocortisone 100 mg q.8hrs - echocardiogram: LV EF IS 65% AND IS NORMAL. MILD LVH AND MILD LV DIASTOLIC DYSFUNCTION. NORMAL VALVES. NORMAL RV FUNCTION AND SIZE. NORMAL RVSP AND IS 20 MM OF HG. NO EFFUSION Respiratory # Ventilator; respiratory rate 16, FiO2 40%, peep 8, tidal volume 360 -intubated 01/03/2025 - bronchoscopy 01/03/2025 # Acute hypoxic respiratory failure # possible alveolar hemorrhage # COPD exacerbation # ruled out pulmonary embolism # multifocal community-acquired pneumonia, Gram-positive versus Gram-negative # possible pulmonary edema, severe - IV vancomycin, IV meropenem - pulmonology on board - IV methylprednisolone 125 mg once - IV hydrocortisone 50 mg q.6 hours - ipratropium albuterol med nebs - CT angiography: No pulmonary embolism. Extensive multifocal consolidative bilateral pulmonary infiltrate, most notably within the bilateral posterior lower lobes. - CXR from 01/03/2025: Interstitial and alveolar type opacities of bilateral lungs, relatively unchanged from prior imaging which may represent multifocal pneumonia/ARDS/severe pulmonary edema - CXR from 01/06/2025: Worsening of bilateral interstitial opacities. Suspected development of small left pleural effusion and basilar atelectasis. - increased IV Lasix to 40mg bid - added budesonide med nebs 0.5 mg b.i.d. GI # transaminitis, now improving # constipation likely slow transit - Colace 100 mg b.i.d., MiraLax daily - KUB: Nonobstructive bowel gas pattern. Large stool burden. Ruth catheter overlying the bladder. - started lactulose 30 mg p.o. b.i.d. # Peptic ulcer prophylaxis -Pantoprazole 40 mg IV daily # Ruth catheter placed on 01/02/2025 Infectious disease # community-acquired pneumonia, Gram-positive versus Gram-negative # sepsis due to above # septic shock due to above - IV vancomycin per pharmacy - IV meropenem - norepinephrine drip - vasopressin drip - IV methylprednisolone 125 mg once - IV hydrocortisone 50 mg q.8 hours - awaiting respiratory cultures from bronchoscopy Hem/onc # macrocytosis without anemia -monitor Endocrine # history of type 2 diabetes # history of rheumatoid arthritis, not on any treatment # ?Lupus - ordered A1c 6% - monitor DVT prophylaxis - holding due to possible alveolar hemorrhage evident on bronchoscopy Lines - right CVC placed on 01/03/2025 - L 22g placed on 01/03/25 - ruth [facility]03/[facility]ed Fentanyl Critical care time 83 minutes excluding procedure. Plan discussed with patient's son, at bedside in great detail, all questions were answered and concerns were addressed. Code status discussed greater than 20 minutes: Full CODE STATUS. Plan discussed with Dr. Ulloa Plan discussed with: Son, Other (RN) My Orders My Orders Orders - BHAVESH JON RESIDENT Procedure Category Date Status Time Abg W/ Co-Ox RT 01/08/25 Logged 17:45 Ventilator Orders RT 01/08/25 Transmitted 16:55 Chest Portable XY 01/09/25 Resulted 04:00 Abg W/ Co-Ox RT 01/09/25 Logged 07:00 Complete Blood Count LAB 01/10/25 Verified 04:00 Creatinine LAB 01/10/25 Verified 04:00 Vancomycin,Trough LAB 01/10/25 Verified 01:00 Dietary Evaluation Review Comments: 1) Initiate MVI @ 1 tb qd 2) Initiate Pro-Stat @ 30 mL qd. Flush 30 mL free H2O AC/PC 3) If patient remains NPO > 7 days, consider EN/TPN to meet at least 75% of estimated daily needs 4) If GI is preferred, consider Glucerna 1.2 @ 50 mL/hr goal rate as tolerated. Flush 150 mL free H2O Q6. TF regimen (including Pro-Stat) will provide 1540 kcals, 87g Pro, and 1626 mL free H2O (including TF flushes) per 24 hrs. Goal rate will meet ~ 91% estimated energy needs and ~ 80% estimated protein needs. 5) Advance to 60g CCHO diet when medically feasible, pending ST approval 6) Follow-up with pulmonology 7) Continue to monitor I&O, labs, and skin integrity Expected Outcomes/Goals: 1) patient to receive nutrition support within 7 days of NPO status 2) labs and wound to improve 3) diet to advance 4) f/u in 2-3 days Date of Service: Jan 09, 2025 Billing Provider: MEL ULLOA MD Common Visit Codes: [id number] INP/OBS CARE(MOD) BHAVESH JON RESIDENT Jan 09, 2025 17:01 MEL ULLOA MD Jan 12, 2025 11:52
[2025-01-09] MEDS: DEXMEDETOMIDINE HCL IN D5W 100 ML IV SCH (20:45)
--- NOTE | 2025-01-09 22:52 | DVHPN2 ---
Progress Note - Dictate Date Seen: Jan 09, 2025 Medical Necessity Reason Pt with a Central, PICC or Fol: Yes The following are medically ne: Ruth Catheter Reason for ruth catheter: Strict I&O Subjective Patient seen and examined at bedside. Sedated, intubated on mechanical ventilator. Overnight events reviewed. vital signs Vital Sign Date Time Temp Pulse Resp B/P (MAP) Pulse Ox O2 Delivery O2 Flow Rate FiO2 01/09/25 22:30 98.1 72 16 127/57 (80) 98 208.6 01/09/25 22:03 40 01/09/25 21:37 Mechanical Ventilator+ Total Intake and Output 01/08/25 01/08/25 01/09/25 15:00 23:00 07:00 Intake Total 211 ml 2030.75 ml 1202.00 ml Output Total 2900 ml 1300 ml Balance 211 ml -869.25 ml -98.00 ml medications Current Medications Medications Dose Ordered Sig/Serenity Route Start Time Stop Time Status Last Admin Dose Admin Pantoprazole Sodium 40 mg DAILY IV 01/02/25 10:00 01/09/25 09:00 40 MG Vancomycin HCl 0 ml @ 0 mls/hr UD IV 01/02/25 11:45 Norepinephrine Bitartrate 250 ml @ 3.75 mls/hr Q24H IV 01/03/25 13:00 01/06/25 05:24 3.75 MLS/HR Midazolam HCl 50 ml @ 1 mls/hr Q24H IV 01/03/25 13:00 01/09/25 17:18 6 MLS/HR Fentanyl Citrate 250 ml @ 2.5 mls/hr Q24H IV 01/03/25 13:00 01/09/25 14:41 15 MLS/HR Dextrose 50 ml UD PRN IV 01/04/25 08:30 Enteral Nutritional Formula 1,000 ml 30ML/HR GT 01/04/25 19:15 01/08/25 04:35 1,000 ML Vancomycin HCl 100 ml @ 100 mls/hr Q16H IV 01/05/25 10:00 01/09/25 09:02 100 MLS/HR Meropenem 50 ml @ 17 mls/hr Q8H IV 01/05/25 11:00 01/09/25 17:27 17 MLS/HR Acetaminophen 650 mg Q6HP PRN PO 01/05/25 10:15 Levalbuterol HCl 0.625 mg Q4HR NEB 01/06/25 06:00 01/09/25 22:06 0.625 MG Ipratropium [place] 0.5 mg Q4HR NEB 01/06/25 06:00 01/09/25 22:06 0.5 MG Diagnostic Test (Pha) 1 strip Q6HR 01/06/25 12:00 01/09/25 17:41 1 STRIP Insulin Human Regular Q6HR SC 01/06/25 12:00 01/09/25 17:31 3 UNITS Lactulose 30 ml BID PO 01/06/25 14:00 01/09/25 21:05 30 ML Budesonide 0.5 mg BID NEB 01/06/25 22:00 01/09/25 22:06 0.5 MG Methylprednisolone Sodium Succinate 40 mg BID IV 01/06/25 22:00 01/09/25 21:05 40 MG Furosemide 40 mg BIDD IV 01/07/25 18:00 01/09/25 17:21 40 MG Enoxaparin Sodium 40 mg DAILY SC 01/10/25 10:00 objective Gen.: Patient lying in bed in medical ICU. Sedated, intubated on mechanical ventilator. Head: Normocephalic, atraumatic. Eyes: PERRLA. Ears: Normal external anatomy. Throat: Endotracheal tube and orogastric tube in place. Neck: Supple, trachea midline. Chest: Transmitted breath sounds bilaterally. Decreased air entry bilaterally. No wheezing. Bibasilar crackles. Cardiovascular: Positive S1, positive S2. Regular rate and rhythm. Abdomen: Positive bowel sounds in all 4 quadrants. Soft, nontender, nondistended. : Ruth in place. Normal external genitalia. Rectal: Deferred. Skin: Warm, dry. Intact. Extremities: 2+ radial pulses bilaterally. No lower extremity edema. Neuro: Sedated. Withdraws to tactile and verbal stimuli. laboratory and microbiology Laboratory Tests 01/09/25 02:24 Test 01/09/25 02:24 Range/Units Serum Glucose 194 H 74-106 mg/dL Assessment/Plan Impression: Acute hypoxic respiratory failure 2/2 pneumonia and ARDS On mechanical ventilator Pneumonia, likely gram negative and/or gram positive Atelectasis Alveolar hemorrhage Rheumatoid arthritis Acute respiratory distress syndrome Hx of nicotine dependence Events: Remains on vent support CXR reveals pulmonary congestion. ABG reviewed, notable for alkalemia. On AC mode; RR 16, VT 380, PEEP 8, FiO2 of 30-->40% Sedated on Versed, Fentanyl. Patient withdraws to tactile and verbal stimuli. Remains off pressors, hemodynamically stable. Taper sedation as tolerated CPAP in the AM. OK to increase PS to max 20 cmH2O to achieve tidal volume 400-450 mL Continue Pulmicort neb q.12 hours Continue bronchodilators Pt with hyperglycemia 2/2 steroids. On IV steroids with Solu-Medrol. Accu-Cheks, ISS. Continue antibiotics Follow up cultures Continue tube feeds for nutrition Constipation - on lactulose Diurese with Lasix as tolerated Monitor renal function Monitor electrolytes. Supplement as necessary. Free water d/t hypernatremia Start Lovenox for DVT ppx Updated son, Gavin, via phone. Labs and imaging reviewed. Rest of plan as noted below. Plan: s/p intubation on mechanical ventilator. Patient underwent STAT bronchoscopy with bronchoalveolar lavage on 01/03/25. Informed consent was obtained from patient's son via phone; risks and benefits explained in detail and he agreed for the procedure. BAL revealed hemorrhagic fluid, suspect alveolar hemorrhage - both RML and RLL similar See separate procedure note for full details. Patient was placed on lung protective strategy. On AC mode; RR 16, VT 380, PEEP 8, FiO2 of 40% Titrate FIO2 to keep O2 saturation above 90%. VAP bundle. Daily ABG and CXR while intubated Sedate for ventilator synchrony Allow permissive hypercarbia Goal pH of 7.15 to 7.25 Goal PaO2 greater than or equal to 55 mmHg and/or O2 sat greater than or equal to 88% Once FiO2 reaches 45% or lower, taper PEEP in increments of 2 cmH2O. ABG (01/03/25) shows acidemia d/t respiratory acidosis. AG of 11. Increased respiratory rate to 26 BPM. Repeat ABG revealed pH of 7.20 and PaO2 of >55 mmHg. Taper FiO2 in increments of 10% Continue antibiotics. Continue steroids BAL sent for respiratory gram stain and cultures, fungal and viral cultures; no growth. Pressors as necessary for hemodynamic support Titrate to keep mean arterial pressure greater than 65 mmHg. Monitor renal function Monitor electrolytes. Supplement as necessary. Monitor ins and outs. Goal K greater than or equal to 4.0 Goal mag greater than or equal to 2.0 GI prophylaxis. DVT prophylaxis. Prognosis: Poor given patient's multiple co-morbidities. Condition: Critical Rest of plan per hospitalist and other consultants. A total of 35 minutes of critical care time was spent reviewing the patient record, examining the patient, making a diagnostic and therapeutic plan, discussing this plan with the medical personnel, following up on diagnostic studies and following the patient for clinical stability excluding any and all procedures. At least 50% of this time was spent in direct, [id number] contact. Thank you, Dr. Tellez, for allowing me to participate in this patient's care. Further recommendations will depend on the patient's clinical course. Please do not hesitate to contact me if you have any questions or concerns. This medical document was created using an electronic medical record system with [employer] dictation system. Although these documentations are being carefully reviewed, there may still be some phonetic and typographical changes. The errors are purely typographical, due to imperfection on the software program, and do not reflect any compromise in the patient's medical care. Dietary Evaluation Review Comments: 1) Initiate MVI @ 1 tb qd 2) Initiate Pro-Stat @ 30 mL qd. Flush 30 mL free H2O AC/PC 3) If patient remains NPO > 7 days, consider EN/TPN to meet at least 75% of estimated daily needs 4) If GI is preferred, consider Glucerna 1.2 @ 50 mL/hr goal rate as tolerated. Flush 150 mL free H2O Q6. TF regimen (including Pro-Stat) will provide 1540 kcals, 87g Pro, and 1626 mL free H2O (including TF flushes) per 24 hrs. Goal rate will meet ~ 91% estimated energy needs and ~ 80% estimated protein needs. 5) Advance to 60g CCHO diet when medically feasible, pending ST approval 6) Follow-up with pulmonology 7) Continue to monitor I&O, labs, and skin integrity Expected Outcomes/Goals: 1) patient to receive nutrition support within 7 days of NPO status 2) labs and wound to improve 3) diet to advance 4) f/u in 2-3 days Plan discussed with: Son, Other (TANG Jarquin) Critical Care Time(min): 35 ABE CURRY MD Jan 09, 2025 22:52
[2025-01-09] MEDS: ENOXAPARIN SOD 40 MG/0.4 ML SYRINGE SC ONE (23:18)
[2025-01-10] VITALS (104 sets, daily range): BP systolic 100–151; BP diastolic 41–87; PULSE 66–127; RESP 10–36; TEMP 98.2–100.4; O2SAT 85–100
[2025-01-10 04:26] LABS: Hematocrit 34.3 % (36.0-46.0); Hemoglobin 11.3 g/dL (12.2-16.2); Mean Corpuscular Hemoglobin 32.8 pg (28.0-32.0); Mean Corpuscular Volume 99.9 fL (80.0-100.0); Nucleated Red Blood Cells % 0.1 %
[2025-01-10 04:45] LABS: Albumin 3.7 g/dL (3.2-4.8); Alkaline Phosphatase 93 U/L (46-116); Anion Gap 8 (5-15); BUN/Creatinine Ratio 40.2 (10.0-20.0); Calcium 8.9 mg/dL (8.7-10.4); Chloride 100 mmol/L (98-107); Potassium 4.4 mmol/L (3.5-5.1); Sodium 143 mmol/L (136-145); Total Protein 6.5 g/dL (5.7-8.2)
[2025-01-10 04:46] LABS: Bilirubin, Total 0.4 mg/dL (0.2-1.0)
[2025-01-10 04:58] LABS: Alanine Aminotransferase 70 U/L (7-40); Blood Urea Nitrogen 33 mg/dL (9-23); Carbon Dioxide 35 mmol/L (20-31); Glucose 222 mg/dL (74-106)
--- NOTE | 2025-01-10 05:52 | DVH ---
CHEST RADIOGRAPH Indication: pna Technique: Single frontal view of the chest was obtained COMPARISON: XY CHEST PORTABLE on DOS: 01/09/25, XY CHEST PORTABLE on DOS: 01/08/25, XY CHEST PORTABLE on DOS: 01/07/25, XY CHEST XRAY 1 VIEW on DOS: 01/06/25, XY CHEST PORTABLE on DOS: 01/05/25, XY CHEST PORTABLE on DOS: 01/09/25 FINDINGS: Lines and Tubes: Endotracheal tube, enteric catheter and right central venous catheter in satisfactor y position Lungs: Congestion Pleura: No effusion. No pneumothorax. Cardiomediastinal contours: Unremarkable Bones: Unremarkable IMPRESSION: Lines and tubes in satisfactory position. No significant interval change.
[2025-01-10 07:04] LABS: Base Excess 13.6 mmol/L (-2.0-3.0)
[2025-01-10] MEDS: ENOXAPARIN SOD 40 MG/0.4 ML SYRINGE SC SCH (10:14)
--- NOTE | 2025-01-10 12:20 | DVHPN2 ---
Progress Note - Dictate Date Seen: Jan 10, 2025 Medical Necessity Reason Pt with a Central, PICC or Fol: Yes The following are medically ne: Ruth Catheter Reason for ruth catheter: Strict I&O vital signs Vital Sign Date Time Temp Pulse Resp B/P (MAP) Pulse Ox O2 Delivery O2 Flow Rate FiO2 01/10/25 12:00 30 01/10/25 12:00 79 01/10/25 12:00 12 96 Mechanical Ventilator+ 01/10/25 11:30 98.8 102/51 (68) 209.8 Total Intake and Output 01/09/25 01/09/25 01/10/25 15:00 23:00 07:00 Intake Total 266 ml 727.0 ml 448.25 ml Output Total 1275 ml 1600 ml Balance 266 ml -548.0 ml -1151.75 ml medications Current Medications Medications Dose Ordered Sig/Serenity Route Start Time Stop Time Status Last Admin Dose Admin Pantoprazole Sodium 40 mg DAILY IV 01/02/25 10:00 01/10/25 10:13 40 MG Vancomycin HCl 0 ml @ 0 mls/hr UD IV 01/02/25 11:45 Norepinephrine Bitartrate 250 ml @ 3.75 mls/hr Q24H IV 01/03/25 13:00 01/09/25 23:33 3.75 MLS/HR Midazolam HCl 50 ml @ 1 mls/hr Q24H IV 01/03/25 13:00 01/10/25 03:27 3 MLS/HR Fentanyl Citrate 250 ml @ 2.5 mls/hr Q24H IV 01/03/25 13:00 01/10/25 03:58 7.5 MLS/HR Dextrose 50 ml UD PRN IV 01/04/25 08:30 Enteral Nutritional Formula 1,000 ml 30ML/HR GT 01/04/25 19:15 01/08/25 04:35 1,000 ML Vancomycin HCl 100 ml @ 100 mls/hr Q16H IV 01/05/25 10:00 01/10/25 02:14 100 MLS/HR Meropenem 50 ml @ 17 mls/hr Q8H IV 01/05/25 11:00 01/10/25 10:14 17 MLS/HR Acetaminophen 650 mg Q6HP PRN PO 01/05/25 10:15 Levalbuterol HCl 0.625 mg Q4HR NEB 01/06/25 06:00 01/10/25 09:45 0.625 MG Ipratropium [place] 0.5 mg Q4HR NEB 01/06/25 06:00 01/10/25 09:45 0.5 MG Diagnostic Test (Pha) 1 strip Q6HR 01/06/25 12:00 01/09/25 23:19 1 STRIP Insulin Human Regular Q6HR SC 01/06/25 12:00 01/10/25 05:53 6 UNITS Lactulose 30 ml BID PO 01/06/25 14:00 01/10/25 10:13 30 ML Budesonide 0.5 mg BID NEB 01/06/25 22:00 01/10/25 06:30 0.5 MG Methylprednisolone Sodium Succinate 40 mg BID IV 01/06/25 22:00 01/10/25 10:13 40 MG Furosemide 40 mg BIDD IV 01/07/25 18:00 01/10/25 05:51 40 MG Enoxaparin Sodium 40 mg DAILY SC 01/10/25 10:00 01/10/25 10:14 40 MG laboratory and microbiology Laboratory Tests 01/10/25 03:53 Test 01/10/25 03:53 Range/Units Serum Glucose 222 H 74-106 mg/dL Assessment/Plan Acute hypoxic respiratory failure 2/2 pneumonia and ARDS On mechanical ventilator Pneumonia, likely gram negative and/or gram positive Atelectasis Alveolar hemorrhage Rheumatoid arthritis Acute respiratory distress syndrome Hx of nicotine dependence Events: Remains on vent support CXR reveals pulmonary congestion. ABG reviewed, notable for alkalemia. On AC mode; RR 16, VT 380, PEEP 8, FiO2 of 30-->40% Remains off pressors, hemodynamically stable. Plan: s/p intubation on mechanical ventilator. cpap daily abg abd weaning parameters extubate when more awake Continue antibiotics. Continue steroids BAL sent for respiratory gram stain and cultures, fungal and viral cultures; no growth. Pressors as necessary for hemodynamic support Titrate to keep mean arterial pressure greater than 65 mmHg. Monitor renal function Monitor electrolytes. Supplement as necessary. Monitor ins and outs. Goal K greater than or equal to 4.0 Goal mag greater than or equal to 2.0 GI prophylaxis. DVT prophylaxis. Prognosis: Poor given patient's multiple co-morbidities. Condition: Critical crit care time 35 min Dietary Evaluation Review Comments: 1) Initiate MVI @ 1 tb qd 2) Initiate Pro-Stat @ 30 mL qd. Flush 30 mL free H2O AC/PC 3) If patient remains NPO > 7 days, consider EN/TPN to meet at least 75% of estimated daily needs 4) If GI is preferred, consider Glucerna 1.2 @ 50 mL/hr goal rate as tolerated. Flush 150 mL free H2O Q6. TF regimen (including Pro-Stat) will provide 1540 kcals, 87g Pro, and 1626 mL free H2O (including TF flushes) per 24 hrs. Goal rate will meet ~ 91% estimated energy needs and ~ 80% estimated protein needs. 5) Advance to 60g CCHO diet when medically feasible, pending ST approval 6) Follow-up with pulmonology 7) Continue to monitor I&O, labs, and skin integrity Expected Outcomes/Goals: 1) patient to receive nutrition support within 7 days of NPO status 2) labs and wound to improve 3) diet to advance 4) f/u in 2-3 days Plan discussed with: Other (rn) DALIA GOTTI MD Jan 10, 2025 12:20
--- NOTE | 2025-01-10 14:53 | DVHPNRES ---
Progress Note Date Seen: Jan 10, 2025 Resident Creating Document: BHAVESH JON RESIDENT Medical Necessity Reason Pt with a Central, PICC or Fol: Yes The following are medically ne: Ruth Catheter Reason for ruth catheter: Strict I&O Subjective Review of Systems Patient is a 69-year-old female who is a poor historian, with prior medical history of asthma, COPD?, intracranial aneurysm s/p repair(coiling?), hypothyroidism, rheumatoid arthritis, lupus? and recurrent pneumonias requiring intubation x 3 in the past, who presented to the ED with chief complaint of fatigue and shortness of breath. Patient states symptoms initiated 1 week prior to presentation. She refers fatigue associated with progressively worsened shortness of breath, dry cough, and febrile sensation. She states she used her oxygen at home with little relief however pt is unclear about whether it is home oxygen or a nebulizer, inability to achieve relief despite that prompted her family to call EMS. On evaluation in the field, she was saturating 60% and was placed on 10 L O2. Per pt she is on no medication neither sees a primary care doctor as she prefers holistic alternatives routinely. Per pt, she attends a clinic in [facility] where she receives infusions? On evaluation in the ED, she was found to be tachycardic, tachypneic, and requiring 15 L O2 via face mask. Initial labs significant for 15.4, with chemical panel within normal range, lactic acid 1.8, troponins negative, BNP 30.14, ABG showing 7.405, pCO2 27.1, pO2 103.3, and HCO3 16.6. Chest Xray shows extensive bilateral airspace disease, greatest in perihilar regions. Sepsis protocol was initiated, cultures were taken, and patient was admitted and started on IV antibiotics. Surgical: Aneurysm repair, Hernia repair, appendectomy Social: Denies drug and alcohol use, refers she smoked 1-2 cigarettes daily for 30 years with cessation in 2019 Patient seen at bedside. She is alert and oriented in person, place, and time. She states that feels well, and shortness of breath has improved with use of simple face mask, at the time 10 L O2. She currently denies chest pain, cough, nausea, vomiting and other symptoms. Over night, patient febrile spike of 102.2 F, she has remained tachypneic, and blood pressure remain on the lower limit of normality. CT angio was ordered, ruling out PE, and showed extensive multifocal consolidative bilateral pulmonary infiltrate. Cefepime was added for broader coverage. Patient is currently JACLYN status. 01/03/2025: Overnight pt was able to be brought down to 6L O2 however, in the morning after minimal exertion, patient continued to have respiratory distress with desaturation on minimal movement. On re-evaluation an hour later, patient was noted to have continued tachypnea and use of accessory muscles, patient was AAO x4 and agreed to intubation verbally as well as a full code status aware of risks and benefits. Patient's son was informed, he wanted to wait on intubation until he arrived from [place] in order for the patient to sign on some financial documents, however, ultimately intubation became medically necessary and waiting further would have proven detrimental to patient's health and well- being. Patient was subsequently intubated, a central line was placed, patient was upgraded to ICU status, patient's son was called and informed, detailed meeting was held with patient's son Mr. Alonso lasting 45 minutes where details of patient's with the plan of care was explained in great detail, all questions were answered concerns were addressed, imaging details outlined showing widespread multifocal pneumonia was also shared with patient's son, he demonstrated understanding and was agreeable with the plan of care. plan of care was also discussed with patients daughter in law, Ms. Carvajal for >40mins. Pt underwent bronchoscopy with bloody drainage. IV steroids were started and antibiotic coverage was broadened to include meropenem. vasopressors were initiated to support hemodynamics. 01/04/2025: Patient seen and examined at bedside, overnight patient required 4 pressors and increasing ventilator settings, however, this morning blood pressure is stable, patient currently only on Levophed 26 mcg, decrease respiratory rate to 26 and PEEP to 10 with a tidal volume of 400 and FiO2 30%. Added IV Lasix 20 mg 1 time only. Echocardiogram shows possible heart failure with diastolic dysfunction. Detailed discussion held with patient and patient's at bedside were all questions were answered and concerns were addressed. 01/06/2025: Patient seen and examined at bedside, off of pressors as of 2:00 p.m.. Continues to be on FiO2 40% with a PEEP of 8. IV Lasix 40 mg once. KUB shows nonspecific bowel gas pattern with moderate stool, started lactulose 30 mL b.i.d.. 01/07/2025: Patient seen and examined at bedside, decreased respiratory rate to 16, decreased FiO2 40%. Started patient on free water 250 mL Q 8 hours due to up trending hypernatremia. Added IV Lasix 40 mg b.i.d.. Nonspecific T-wave changes in the EKG noted. Chest x-ray with worsening bilateral infiltrates. 01/08/25: Patient had 2 bowel movements today. Decreased tidal volume to 360. Detailed discussion held with [id number] at bedside for more than 30 minutes, all questions answered concerns addressed. Family now agreeable to dvt ppx however still had some slight blood tinged respiratory secretions yesterday, will start dvt ppx tomorrow if no further blood tinged secretions noted. 01/09/25: Pt seen and examined at bedside, FiO2 at 30%, another BM today. cxr no interval change. 01/10/2025: Patient underwent CPAP trial today with RSBI 46. S/p extubation, tolerated well. Continues to have pulmonary edema, IV Lasix 40 mg b.i.d.. Objective vital signs Vital Sign Date Time Temp Pulse Resp B/P (MAP) Pulse Ox O2 Delivery O2 Flow Rate FiO2 01/10/25 14:42 92 26 99 01/10/25 14:35 Mask 8.0 01/10/25 14:35 35 35 01/10/25 12:16 114/54 (74) 01/10/25 11:30 98.8 209.8 Total Intake and Output 01/09/25 01/09/25 01/10/25 15:00 23:00 07:00 Intake Total 266 ml 727.0 ml 448.25 ml Output Total 1275 ml 1600 ml Balance 266 ml -548.0 ml -1151.75 ml medications Current Medications Medications Dose Ordered Sig/Serenity Route Start Time Stop Time Status Last Admin Dose Admin Pantoprazole Sodium 40 mg DAILY IV 01/02/25 10:00 01/10/25 10:13 40 MG Vancomycin HCl 0 ml @ 0 mls/hr UD IV 01/02/25 11:45 Norepinephrine Bitartrate 250 ml @ 3.75 mls/hr Q24H IV 01/03/25 13:00 01/09/25 23:33 3.75 MLS/HR Midazolam HCl 50 ml @ 1 mls/hr Q24H IV 01/03/25 13:00 01/10/25 03:27 3 MLS/HR Fentanyl Citrate 250 ml @ 2.5 mls/hr Q24H IV 01/03/25 13:00 01/10/25 03:58 7.5 MLS/HR Dextrose 50 ml UD PRN IV 01/04/25 08:30 Enteral Nutritional Formula 1,000 ml 30ML/HR GT 01/04/25 19:15 01/08/25 04:35 1,000 ML Vancomycin HCl 100 ml @ 100 mls/hr Q16H IV 01/05/25 10:00 01/10/25 02:14 100 MLS/HR Meropenem 50 ml @ 17 mls/hr Q8H IV 01/05/25 11:00 01/10/25 10:14 17 MLS/HR Acetaminophen 650 mg Q6HP PRN PO 01/05/25 10:15 Levalbuterol HCl 0.625 mg Q4HR NEB 01/06/25 06:00 01/10/25 14:37 0.625 MG Ipratropium [place] 0.5 mg Q4HR NEB 01/06/25 06:00 01/10/25 14:37 0.5 MG Diagnostic Test (Pha) 1 strip Q6HR 01/06/25 12:00 01/09/25 23:19 1 STRIP Insulin Human Regular Q6HR SC 01/06/25 12:00 01/10/25 05:53 6 UNITS Lactulose 30 ml BID PO 01/06/25 14:00 01/10/25 10:13 30 ML Budesonide 0.5 mg BID NEB 01/06/25 22:00 01/10/25 06:30 0.5 MG Methylprednisolone Sodium Succinate 40 mg BID IV 01/06/25 22:00 01/10/25 10:13 40 MG Furosemide 40 mg BIDD IV 01/07/25 18:00 01/10/25 05:51 40 MG Enoxaparin Sodium 40 mg DAILY SC 01/10/25 10:00 01/10/25 10:14 40 MG Examination General Appearance: Intubated, sedated and mechanically ventilated Head Exam: Normal inspection Neck Exam: left pupil is larger than the right however prior to being intubated pt had stated this is since her basline since aneurysm repair? Pulmonary/Respiratory: Coarse bilateral breath sounds, decreased on left more than right Cardiovascular/Chest: Tachycardic. Regular rhythm. No murmurs. No JVD. Peripheral Pulses: 2+ Radial (R). 2+ Radial (L). 2+ Pedal (R). 2+ Pedal (L) Abdominal Exam: Distended but soft abdomen with decreased bowel sounds., no visible veins, Nontender. No hepatospenomegaly. No masses Ankle Exam: Negative ankle edema Lower extremities: Negative lower extremity edema Skin Exam: Normal inspection. Normal color. Warm. Dry laboratory and microbiology Laboratory Tests 01/10/25 03:53 Test 01/10/25 03:53 Range/Units Serum Glucose 222 H 74-106 mg/dL Microbiology Date/Time Source Procedure Growth Status 01/03/25 21:50 Nose MRSA Screen - Final Complete 01/03/25 16:32 Bronchial Washings Gram Stain - Final Complete 01/03/25 16:32 Bronchial Washings Respiratory Culture - Final Complete 01/01/25 19:23 Blood Blood Culture - Final NO GROWTH AFTER 5 DAYS OF INCUBATION. 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 # history of ICA aneurysm/SAH? # acute metabolic versus toxic versus hypoxic encephalopathy - Versed - fentanyl - head CT: Streak artifact from left cavernous sinus region call material limits evaluation of the adjacent structures. Otherwise no evidence of acute intracranial abnormality. - neurology on board Cardiovascular # septic shock # heart failure with preserved ejection fraction - on norepinephrine - on vasopressin - decreased IV hydrocortisone 100 mg q.8hrs - echocardiogram: LV EF IS 65% AND IS NORMAL. MILD LVH AND MILD LV DIASTOLIC DYSFUNCTION. NORMAL VALVES. NORMAL RV FUNCTION AND SIZE. NORMAL RVSP AND IS 20 MM OF HG. NO EFFUSION Respiratory # Ventilator; respiratory rate 16, FiO2 40%, peep 8, tidal volume 360 -intubated 01/03/2025 - bronchoscopy 01/03/2025 - extubated 01/10/25 # Acute hypoxic respiratory failure # possible alveolar hemorrhage # COPD exacerbation # ruled out pulmonary embolism # multifocal community-acquired pneumonia, Gram-positive versus Gram-negative # possible pulmonary edema, severe - IV vancomycin, IV meropenem - pulmonology on board - IV methylprednisolone 125 mg once - IV hydrocortisone 50 mg q.6 hours - ipratropium albuterol med nebs - CT angiography: No pulmonary embolism. Extensive multifocal consolidative bilateral pulmonary infiltrate, most notably within the bilateral posterior lower lobes. - CXR from 01/03/2025: Interstitial and alveolar type opacities of bilateral lungs, relatively unchanged from prior imaging which may represent multifocal pneumonia/ARDS/severe pulmonary edema - CXR from 01/06/2025: Worsening of bilateral interstitial opacities. Suspected development of small left pleural effusion and basilar atelectasis. - increased IV Lasix to 40mg bid - added budesonide med nebs 0.5 mg b.i.d. GI # transaminitis, now improving # constipation likely slow transit - Colace 100 mg b.i.d., MiraLax daily - KUB: Nonobstructive bowel gas pattern. Large stool burden. Ruth catheter overlying the bladder. - started lactulose 30 mg p.o. b.i.d. # Peptic ulcer prophylaxis -Pantoprazole 40 mg IV daily # Ruth catheter placed on 01/02/2025 Infectious disease # community-acquired pneumonia, Gram-positive versus Gram-negative # sepsis due to above # septic shock due to above - IV vancomycin per pharmacy - IV meropenem - norepinephrine drip - vasopressin drip - IV methylprednisolone 125 mg once - IV hydrocortisone 50 mg q.8 hours - awaiting respiratory cultures from bronchoscopy Hem/onc # macrocytosis without anemia -monitor Endocrine # history of type 2 diabetes # history of rheumatoid arthritis, not on any treatment # ?Lupus - ordered A1c 6% - monitor DVT prophylaxis Lovenox Lines - right CVC placed on 01/03/2025 - L 22g placed on 01/03/25 - ruth 01/03/25 Critical care time 83 minutes excluding procedure. Plan discussed with patient's son, at bedside in great detail, all questions were answered and concerns were addressed. Code status discussed greater than 20 minutes: Full CODE STATUS. Plan discussed with Dr. Ulloa Plan discussed with: Son, Other (RN) My Orders My Orders Orders - BHAVESH JON Procedure Category Date Status Time Abg W/ Co-Ox RT 01/10/25 Logged 04:00 Chest Portable XY 01/10/25 Resulted 04:00 * Swallow Request ST 01/10/25 Transmitted 14:28 Chest Portable XY 01/10/25 Logged 14:32 Dietary Evaluation Review Comments: 1) Initiate MVI @ 1 tb qd 2) Initiate Pro-Stat @ 30 mL qd. Flush 30 mL free H2O AC/PC 3) If patient remains NPO > 7 days, consider EN/TPN to meet at least 75% of estimated daily needs 4) If GI is preferred, consider Glucerna 1.2 @ 50 mL/hr goal rate as tolerated. Flush 150 mL free H2O Q6. TF regimen (including Pro-Stat) will provide 1540 kcals, 87g Pro, and 1626 mL free H2O (including TF flushes) per 24 hrs. Goal rate will meet ~ 91% estimated energy needs and ~ 80% estimated protein needs. 5) Advance to 60g CCHO diet when medically feasible, pending ST approval 6) Follow-up with pulmonology 7) Continue to monitor I&O, labs, and skin integrity Expected Outcomes/Goals: 1) patient to receive nutrition support within 7 days of NPO status 2) labs and wound to improve 3) diet to advance 4) f/u in 2-3 days Date of Service: Jan 10, 2025 Billing Provider: MEL ULLOA MD Common Visit Codes: [id number] INP/OBS CARE(MOD) BHAVESH JON RESIDENT Jan 10, 2025 14:53 MEL ULLOA MD Jan 12, 2025 11:52
[2025-01-10 15:03] LABS: Base Excess 5.6 mmol/L (-2.0-3.0)
--- NOTE | 2025-01-10 15:21 | DVH ---
XY CHEST PORTABLE, HISTORY: S/P EXTUBATION COMPARISON: XY CHEST PORTABLE on DOS: 01/10/25, XY CHEST PORTABLE on DOS: 01/09/25, XY CHEST PORTABLE on DOS: 01/08/25 XY CHEST PORTABLE on DOS: 01/10/25, XY CHEST PORTABLE on DOS: 01/09/25, XY CHEST PORTABLE on DOS: 01/08/25 TECHNICAL DATA: 1 view of the chest was obtained. FINDINGS: Lines and tubes: Interval removal of ET, stable NG and CVC. Cardiomediastinal silhouette: normal Pulmonary vasculature: normal Lung expansion: low Lung airspace: Patchy perihilar and basilar airspace opacities. Lung interstitium: normal Pleura: normal Pneumothorax: no Bones: Unremarkable Other: no IMPRESSION: Patchy perihilar and basilar airspace opacities. Interval removal of ET, stable NG and CVC.
[2025-01-10] MEDS: ACETAMINOPHEN 325 MG TAB PO ONE ×2 (16:35→21:49)
[2025-01-10] MEDS: ONDANSETRON HCL 4 MG/2 ML VIAL IV ONE (19:56)
--- NOTE | 2025-01-10 23:16 | DVHPN2 ---
Progress Note - Dictate Date Seen: Jan 10, 2025 Medical Necessity Reason Pt with a Central, PICC or Fol: Yes The following are medically ne: Ruth Catheter Reason for ruth catheter: Strict I&O Subjective Ms. Anton Engel is 69 years old right-handed female with a history of gastric ulcer, versus brain aneurysm status post coiling, the patient came to the hospital on 01/01/2025 with acute shortness of breath x 1 day. I saw on 08/28/18 for history of cerebral aneurysm I have seen and examined the patient, I have talked to her nurse, she is extubated, he is oriented to person, place, he knows the year and the month, he had follows verbal commands, he moves the arms and legs Urinalysis, 01/01/2025: Hormone UDS, 01/01/2025: Negative WBC/HB/PLT/activity, 01/06/2025: 1743/11/331/98.9 Na, 01/03/2025: 137, 01/05/2025: 149, 150, 01/06/2025: 149, 01/07/25: 151, 01/08/2025: 148 TBI/AST/ALT/AP, 01/05/2025: 1.3/51/8 Chest x-ray, 01/01/2025: Extensive bilateral airspace disease, greatest in the perihilar regions. This may be secondary to severe pulmonary edema. ARDS and diffuse pneumonia are also considerations Chest three, 01/03/2025: Endotracheal tube and right central venous catheter in satisfactory position. Chest x-ray, 01/06/2025: Worsening of bilateral interstitial opacities. Suspected development of small left pleural effusion and basilar atelectasis. Stable support devices (Unchanged endotracheal tube, enteric tube, and right IJ catheter) CT head, 08/19/18: Slightly limited examination due to patient motion. Status post aneurysm embolization along the left side of the sella turcica. Artifact from the embolization material limits evaluation of the in-plane brain parenchyma. No acute intracranial pathology is identified, however if there is concern for a subtle intracranial abnormality, a repeat CT scan should be obtained when the patient can lie still. CTA chest, 01/01/2025: 1. No pulmonary embolism. 2. Extensive multifocal consolidative bilateral pulmonary infiltrate, most notably within the bilateral posterior lower lobes vital signs Vital Sign Date Time Temp Pulse Resp B/P (MAP) Pulse Ox O2 Delivery O2 Flow Rate FiO2 01/10/25 22:12 75 20 100 01/10/25 22:06 Cool Aerosol 10 40 40 01/10/25 22:00 100.4 118/62 (80) 212.7 Total Intake and Output 01/09/25 01/09/25 01/10/25 15:00 23:00 07:00 Intake Total 266 ml 727.0 ml 448.25 ml Output Total 1275 ml 1600 ml Balance 266 ml -548.0 ml -1151.75 ml medications Current Medications Medications Dose Ordered Sig/Serenity Route Start Time Stop Time Status Last Admin Dose Admin Pantoprazole Sodium 40 mg DAILY IV 01/02/25 10:00 01/10/25 10:13 40 MG Vancomycin HCl 0 ml @ 0 mls/hr UD IV 01/02/25 11:45 Fentanyl Citrate 250 ml @ 2.5 mls/hr Q24H IV 01/03/25 13:00 01/10/25 03:58 7.5 MLS/HR Dextrose 50 ml UD PRN IV 01/04/25 08:30 Enteral Nutritional Formula 1,000 ml 30ML/HR GT 01/04/25 19:15 01/08/25 04:35 1,000 ML Vancomycin HCl 100 ml @ 100 mls/hr Q16H IV 01/05/25 10:00 01/10/25 18:11 100 MLS/HR Meropenem 50 ml @ 17 mls/hr Q8H IV 01/05/25 11:00 01/10/25 18:35 17 MLS/HR Acetaminophen 650 mg Q6HP PRN PO 01/05/25 10:15 Levalbuterol HCl 0.625 mg Q4HR NEB 01/06/25 06:00 01/10/25 22:06 0.625 MG Ipratropium Veteran 0.5 mg Q4HR NEB 01/06/25 06:00 01/10/25 22:06 0.5 MG Diagnostic Test (Pha) 1 strip Q6HR 01/06/25 12:00 01/10/25 23:11 1 STRIP Insulin Human Regular Q6HR SC 01/06/25 12:00 01/10/25 05:53 6 UNITS Budesonide 0.5 mg BID NEB 01/06/25 22:00 01/10/25 18:46 0.5 MG Methylprednisolone Sodium Succinate 40 mg BID IV 01/06/25 22:00 01/10/25 21:49 40 MG Furosemide 40 mg BIDD IV 01/07/25 18:00 01/10/25 18:11 40 MG Enoxaparin Sodium 40 mg DAILY SC 01/10/25 10:00 01/10/25 10:14 40 MG Lactulose 30 ml DAILY PO 01/11/25 10:00 objective The patient is well-nourished and well-developed with no distress. MENTAL STATUS: Subjective CRANIAL NERVES: Pupils are round and sluggishly reactive, right: 2 mm, left: 4 mm.There are conjugated eye movement. No signs of facial weakness. There are gagging or coughing reflexes. No obese ptosis, abnormal vascular dilatation or skin secretion SENSATION: Okay to pinprick and light touch MOTOR: Normal tone in the upper and lower extremity. Normal muscle bulk. No fasciculations. He moves the arms and legs REFLEXES: Deep tendon reflexes are symmetrical. No pathological reflexes. CEREBELLAR/COORDINATION: Deferred GAIT/STATION: deferred. laboratory and microbiology Laboratory Tests 01/10/25 03:53 Test 01/10/25 03:53 Range/Units Serum Glucose 222 H 74-106 mg/dL Problem List Anisocoria, with left-sided bigger, ? 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 Although this document has been carefully reviewed, there may still be some phonetic and typographical errors. These areas are purely typographical due to imperfections of the software programs, and do not reflect any compromise in the patient's medical care Prognosis poor Dietary Evaluation Review Comments: 1) Initiate MVI @ 1 tb qd 2) Initiate Pro-Stat @ 30 mL qd. Flush 30 mL free H2O AC/PC 3) If patient remains NPO > 7 days, consider EN/TPN to meet at least 75% of estimated daily needs 4) If GI is preferred, consider Glucerna 1.2 @ 50 mL/hr goal rate as tolerated. Flush 150 mL free H2O Q6. TF regimen (including Pro-Stat) will provide 1540 kcals, 87g Pro, and 1626 mL free H2O (including TF flushes) per 24 hrs. Goal rate will meet ~ 91% estimated energy needs and ~ 80% estimated protein needs. 5) Advance to 60g CCHO diet when medically feasible, pending ST approval 6) Follow-up with pulmonology 7) Continue to monitor I&O, labs, and skin integrity Expected Outcomes/Goals: 1) patient to receive nutrition support within 7 days of NPO status 2) labs and wound to improve 3) diet to advance 4) f/u in 2-3 days Plan discussed with: Other RYAN HINKLE MD Jan 10, 2025 23:16
[2025-01-11] VITALS (42 sets, daily range): BP systolic 100–125; BP diastolic 42–66; PULSE 66–93; RESP 11–21; TEMP 98.6–100; O2SAT 90–100
[2025-01-11] MEDS: ONDANSETRON HCL 4 MG/2 ML VIAL IV PRN (00:06)
[2025-01-11] MEDS: ONDANSETRON HCL 4 MG/2 ML VIAL ONE (00:08)
[2025-01-11 03:57] LABS: Hematocrit 37.1 % (36.0-46.0); Hemoglobin 12.3 g/dL (12.2-16.2); Mean Corpuscular Hemoglobin 33.2 pg (28.0-32.0); Mean Corpuscular Volume 100.1 fL (80.0-100.0); Nucleated Red Blood Cells % 0.0 %
[2025-01-11 04:15] LABS: Anion Gap 10 (5-15); Calcium 9.0 mg/dL (8.7-10.4); Chloride 99 mmol/L (98-107); Sodium 144 mmol/L (136-145)
[2025-01-11 04:18] LABS: Carbon Dioxide 35 mmol/L (20-31); Potassium 3.4 mmol/L (3.5-5.1)
[2025-01-11 04:22] LABS: BUN/Creatinine Ratio 34.7 (10.0-20.0); Blood Urea Nitrogen 26 mg/dL (9-23); Glucose 162 mg/dL (74-106); Magnesium 2.7 mg/dL (1.6-2.6)
[2025-01-11] MEDS: POTASSIUM CHL 20MEQ/100ML 100 ML IV SCH (06:13)
[2025-01-11] MEDS: ACETAMINOPHEN 325 MG TAB PO PRN (08:38)
[2025-01-11] MEDS: LACTULOSE 20Gm/30ML SOLN PO SCH (08:38)
--- NOTE | 2025-01-11 16:06 | DVHPN2 ---
Progress Note - Dictate Date Seen: Jan 11, 2025 Medical Necessity Reason Pt with a Central, PICC or Fol: Yes The following are medically ne: Ruth Catheter Reason for ruth catheter: Strict I&O vital signs Vital Sign Date Time Temp Pulse Resp B/P (MAP) Pulse Ox O2 Delivery O2 Flow Rate FiO2 01/11/25 16:01 15 96 Nasal Cannula* 2 28 01/11/25 16:00 99.3 84 103/47 (65) 99.3 Total Intake and Output 01/10/25 01/10/25 01/11/25 15:00 23:00 07:00 Intake Total 0 ml 151 ml 51 ml Output Total 800 ml 1300 ml Balance 0 ml -649 ml -1249 ml medications Current Medications Medications Dose Ordered Sig/Serenity Route Start Time Stop Time Status Last Admin Dose Admin Pantoprazole Sodium 40 mg DAILY IV 01/02/25 10:00 01/11/25 08:18 40 MG Vancomycin HCl 0 ml @ 0 mls/hr UD IV 01/02/25 11:45 Fentanyl Citrate 250 ml @ 2.5 mls/hr Q24H IV 01/03/25 13:00 01/10/25 03:58 7.5 MLS/HR Dextrose 50 ml UD PRN IV 01/04/25 08:30 Enteral Nutritional Formula 1,000 ml 30ML/HR GT 01/04/25 19:15 01/08/25 04:35 1,000 ML Vancomycin HCl 100 ml @ 100 mls/hr Q16H IV 01/05/25 10:00 01/11/25 08:18 100 MLS/HR Meropenem 50 ml @ 17 mls/hr Q8H IV 01/05/25 11:00 01/11/25 10:39 17 MLS/HR Acetaminophen 650 mg Q6HP PRN PO 01/05/25 10:15 01/11/25 08:38 650 MG Levalbuterol HCl 0.625 mg Q4HR NEB 01/06/25 06:00 01/11/25 14:15 0.625 MG Ipratropium [place] 0.5 mg Q4HR NEB 01/06/25 06:00 01/11/25 14:15 0.5 MG Diagnostic Test (Pha) 1 strip Q6HR 01/06/25 12:00 01/11/25 10:39 1 STRIP Insulin Human Regular Q6HR SC 01/06/25 12:00 01/10/25 05:53 6 UNITS Budesonide 0.5 mg BID NEB 01/06/25 22:00 01/11/25 10:09 0.5 MG Methylprednisolone Sodium Succinate 40 mg BID IV 01/06/25 22:00 01/11/25 08:17 40 MG Furosemide 40 mg BIDD IV 01/07/25 18:00 01/11/25 06:13 40 MG Enoxaparin Sodium 40 mg DAILY SC 01/10/25 10:00 01/11/25 08:18 40 MG Lactulose 30 ml DAILY PO 01/11/25 10:00 01/11/25 08:38 30 ML Ondansetron HCl 4 mg Q4HPRN PRN IV 01/11/25 00:00 01/11/25 08:15 4 MG laboratory and microbiology Laboratory Tests 01/11/25 03:00 Test 01/11/25 03:00 Range/Units Serum Glucose 162 H 74-106 mg/dL Assessment/Plan Impression Acute hypoxic respiratory failure Pneumonia Atelectasis Alveolar hemorrhage Rheumatoid arthritis Hx of nicotine dependence COPD Events: Patient was successfully weaned from mechanical ventilations S/p extubation, transitioned to 3 liters nasal cannula Appears weak and deconditioned NG tube in place Labs and imaging reviewed ABG reviewed Plan: Supplemental oxygen Titrate to maintain sats 90% ora lorenzo Incentive spirometry Aspiration precautions Swallow evaluation Continue antibiotics. Continue steroids Monitor renal function Monitor electrolytes. Supplement as necessary. Monitor ins and outs. GI prophylaxis. DVT prophylaxis. crit care time 35 min Dietary Evaluation Review Comments: 1) Initiate MVI @ 1 tb qd 2) Initiate Pro-Stat @ 30 mL qd. Flush 30 mL free H2O AC/PC 3) If patient remains NPO > 7 days, consider EN/TPN to meet at least 75% of estimated daily needs 4) If GI is preferred, consider Glucerna 1.2 @ 50 mL/hr goal rate as tolerated. Flush 150 mL free H2O Q6. TF regimen (including Pro-Stat) will provide 1540 kcals, 87g Pro, and 1626 mL free H2O (including TF flushes) per 24 hrs. Goal rate will meet ~ 91% estimated energy needs and ~ 80% estimated protein needs. 5) Advance to 60g CCHO diet when medically feasible, pending ST approval 6) Follow-up with pulmonology 7) Continue to monitor I&O, labs, and skin integrity Expected Outcomes/Goals: 1) patient to receive nutrition support within 7 days of NPO status 2) labs and wound to improve 3) diet to advance 4) f/u in 2-3 days Plan discussed with: Patient DALIA GOTTI MD Jan 11, 2025 16:06
--- NOTE | 2025-01-11 18:31 | DVHPN2 ---
Subjective 69-year-old female with a known history of chronic respiratory failure, COPD, hypothyroidism who initially presented to the hospital with increasing shortness of breaths eventually was admitted for acute hypoxic respiratory failure secondary to pneumonia and COPD exacerbation. Patient's hospital course was eventful for developing respiratory distress requiring intubation status post mechanical ventilation, status post extubation on01/10. Changes from previous H/P or p: No Changes Eyes: No Pain, No Vision change, No Conjunctivae inflammation, No Eyelid inflammation, No Other, No Redness ENT: No Ear pain, No Ear discharge, No Nose pain, No Nose discharge, No Nose congestion, No Mouth pain, No Mouth swelling, No Throat pain, No Throat swelling, No Other Cardiovascular: No Chest Pain, No Palpitations, No Orthopnea, No Paroxysmal Noc. Dyspnea, No Edema; Lt Headedness; No Other Respiratory: Cough, Dry, Shortness of breath, SOB with excertion; No Wheezing, No Hemoptysis, No Pleuritic Pain, No Sputum, No Other Gastrointestinal: No Nausea, No Vomiting, No Abdominal Pain, No Diarrhea, No Constipation, No Melena, No Hematochezia, No Other Genitourinary: No Dysuria, No Frequency, No Incontinence, No Hematuria, No Retention, No Other Musculoskeletal: No other, No neck pain, No shoulder pain, No arm pain, No back pain, No hand pain, No leg pain, No foot pain Skin: No Rash, No Lesions, No Jaundice, No Bruising, No Other Objective Vitals Vital Signs Date Time Temp Pulse Resp B/P (MAP) Pulse Ox O2 Delivery O2 Flow Rate FiO2 01/11/25 18:29 71 01/11/25 18:29 16 100 01/11/25 18:28 Nasal Cannula* 2 28 01/11/25 16:00 99.3 103/47 (65) 99.3 Intake/Output Intake and Output 01/11/25 07:00 Intake Total 202 ml Output Total 2100 ml Balance -1898 ml IV Total 202 ml Output Urine Total 2100 ml # Bowel Movements 1 Exam HEENT pupils are reactive Neck is supple CV is S1-S2 regular rate and rhythm Respiratory diminished breath sounds bilateral bases with a expiratory wheezes GI positive bowel sound Extremity no pedal edema 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 Medications Current Medications Medications Dose Ordered Sig/Serenity Route Start Time Stop Time Status Last Admin Dose Admin Pantoprazole Sodium 40 mg DAILY IV 01/02/25 10:00 01/11/25 08:18 40 MG Vancomycin HCl 0 ml @ 0 mls/hr UD IV 01/02/25 11:45 Dextrose 50 ml UD PRN IV 01/04/25 08:30 Vancomycin HCl 100 ml @ 100 mls/hr Q16H IV 01/05/25 10:00 01/11/25 08:18 100 MLS/HR Meropenem 50 ml @ 17 mls/hr Q8H IV 01/05/25 11:00 01/11/25 10:39 17 MLS/HR Acetaminophen 650 mg Q6HP PRN PO 01/05/25 10:15 01/11/25 08:38 650 MG Levalbuterol HCl 0.625 mg Q4HR NEB 01/06/25 06:00 01/11/25 18:21 0.625 MG Ipratropium [place] 0.5 mg Q4HR NEB 01/06/25 06:00 01/11/25 18:21 0.5 MG Diagnostic Test (Pha) 1 strip Q6HR 01/06/25 12:00 01/11/25 10:39 1 STRIP Insulin Human Regular Q6HR SC 01/06/25 12:00 01/10/25 05:53 6 UNITS Budesonide 0.5 mg BID NEB 01/06/25 22:00 01/11/25 18:21 0.5 MG Methylprednisolone Sodium Succinate 40 mg BID IV 01/06/25 22:00 01/11/25 08:17 40 MG Furosemide 40 mg BIDD IV 01/07/25 18:00 01/11/25 06:13 40 MG Enoxaparin Sodium 40 mg DAILY SC 01/10/25 10:00 01/11/25 08:18 40 MG Lactulose 30 ml DAILY PO 01/11/25 10:00 01/11/25 08:38 30 ML Ondansetron HCl 4 mg Q4HPRN PRN IV 01/11/25 00:00 01/11/25 08:15 4 MG Laboratory Results Laboratory Tests 01/11/25 03:00 Chemistry Test 01/11/25 03:00 Calcium Level 9.0 mg/dL (8.7-10.4) Magnesium Level 2.7 mg/dL (1.6-2.6) H Urinalysis Test 01/01/25 23:07 Urine Color Light-orange (Yellow) Urine Clarity Clear (Clear) Urine pH 5.5 (5.0-9.0) Urine Specific [place] 1.020 (1.001-1.035) Urine Protein Trace (Negative) H Urine Ketones 1+ (Negative) H Urine Blood 1+ /uL (Negative) H Urine Nitrite Negative (Negative) Urine Bilirubin Negative (Negative) Urine Urobilinogen Normal mg/dL (Negative) Urine Leukocyte Esterase Negative /uL (Negative) Urine RBC 4 /hpf (0 - 4) Urine Microscopic WBC 1 /HPF (0-5) Urine Squamous Epithelial Cells Few /hpf (<5) Urine Bacteria None seen /hpf (None Seen) Urine Glucose Normal mg/dL (Normal) Microbiology Microbiology Date/Time Source Procedure Growth Status 01/03/25 21:50 Nose MRSA Screen - Final Complete 01/03/25 16:32 Bronchial Washings Gram Stain - Final Complete 01/03/25 16:32 Bronchial Washings Respiratory Culture - Final Complete 01/01/25 19:23 Blood Blood Culture - Final NO GROWTH AFTER 5 DAYS OF INCUBATION. Complete Assessment/Plan Assessment/Plan 69-year-old female with a known history of chronic respiratory failure, COPD, hypothyroidism who initially presented to the hospital with increasing shortness of breaths eventually was admitted for acute hypoxic respiratory failure secondary to pneumonia has been as COPD exacerbation. Patient hospitalist post called eventful for going into respiratory distress requiring intubation status post mechanical ventilation, status post extubation. 1. Acute hypoxic respiratory failure secondary to acute COPD exacerbation and pneumonia, status post intubation, status post extubation on 01/11/2025. 2. Acute COPD exacerbation 3. Gram-positive/Gram-negative pneumonia 4. Hypothyroidism -continue med nebs, IV Solu-Medrol, PT evaluation and treatment, -swallow evaluation , start diet as tolerated -physical therapy evaluation and treatment, may downgrade to /telemetry. Plan discussed with: Patient, Other My Orders Orders - MARION BALL MD Procedure Category Date Status Time Transfer Orders XFER 01/11/25 Transmitted 16:56 Consistent DIET 01/11/25 Transmitted Carb(Ccho)Diabetes Dinner Discontinue Ng ORDERS 01/11/25 Transmitted 16:56 Date of Service: Jan 11, 2025 Billing Provider: MARION BALL MD Common Visit Codes: [id number] INP/OBS CARE(HIGH) MARION BALL MD Jan 11, 2025 18:31
[2025-01-12] VITALS (28 sets, daily range): BP systolic 100–125; BP diastolic 45–59; PULSE 67–99; RESP 10–23; TEMP 97.6–100.2; O2SAT 90–100
[2025-01-12 10:32] LABS: Hematocrit 40.9 % (36.0-46.0); Hemoglobin 13.9 g/dL (12.2-16.2); Mean Corpuscular Hemoglobin 33.3 pg (28.0-32.0); Mean Corpuscular Volume 97.9 fL (80.0-100.0); Nucleated Red Blood Cells % 0.0 %
[2025-01-12 10:48] LABS: Albumin 4.2 g/dL (3.2-4.8); Alkaline Phosphatase 99 U/L (46-116); Anion Gap 8 (5-15); BUN/Creatinine Ratio 32.2 (10.0-20.0); Calcium 9.2 mg/dL (8.7-10.4); Sodium 138 mmol/L (136-145); Total Protein 7.3 g/dL (5.7-8.2)
[2025-01-12 10:49] LABS: Alanine Aminotransferase 46 U/L (7-40); Bilirubin, Total 0.9 mg/dL (0.2-1.0); Blood Urea Nitrogen 28 mg/dL (9-23); Carbon Dioxide 34 mmol/L (20-31); Chloride 96 mmol/L (98-107); Glucose 161 mg/dL (74-106); Potassium 3.0 mmol/L (3.5-5.1)
--- NOTE | 2025-01-12 11:02 | DVHPN2 ---
Subjective 69-year-old female with a known history of chronic respiratory failure, COPD, hypothyroidism who initially presented to the hospital with increasing shortness of breaths eventually was admitted for acute hypoxic respiratory failure secondary to pneumonia and COPD exacerbation. Patient's hospital course was eventful for developing respiratory distress requiring intubation status post mechanical ventilation, status post extubation on01/10. Changes from previous H/P or p: No Changes Eyes: No Pain, No Vision change, No Conjunctivae inflammation, No Eyelid inflammation, No Other, No Redness ENT: No Ear pain, No Ear discharge, No Nose pain, No Nose discharge, No Nose congestion, No Mouth pain, No Mouth swelling, No Throat pain, No Throat swelling, No Other Cardiovascular: No Chest Pain, No Palpitations, No Orthopnea, No Paroxysmal Noc. Dyspnea, No Edema; Lt Headedness; No Other Respiratory: Cough, Dry, Shortness of breath, SOB with excertion; No Wheezing, No Hemoptysis, No Pleuritic Pain, No Sputum, No Other Gastrointestinal: No Nausea, No Vomiting, No Abdominal Pain, No Diarrhea, No Constipation, No Melena, No Hematochezia, No Other Genitourinary: No Dysuria, No Frequency, No Incontinence, No Hematuria, No Retention, No Other Musculoskeletal: No other, No neck pain, No shoulder pain, No arm pain, No back pain, No hand pain, No leg pain, No foot pain Skin: No Rash, No Lesions, No Jaundice, No Bruising, No Other Objective Vitals Vital Signs Date Time Temp Pulse Resp B/P (MAP) Pulse Ox O2 Delivery O2 Flow Rate FiO2 01/12/25 10:06 86 14 100 01/12/25 09:59 Nasal Cannula* 2 28 01/12/25 08:00 98.7 113/55 (74) 98.7 Intake/Output Intake and Output 01/12/25 07:00 Intake Total 801 ml Output Total 2700 ml Balance -1899 ml Intake Oral 550 ml IV Total 251 ml Output Urine Total 2700 ml Exam HEENT pupils are reactive Neck is supple CV is S1-S2 regular rate and rhythm Respiratory diminished breath sounds bilateral bases with a expiratory wheezes GI positive bowel sound 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 Medications Current Medications Medications Dose Ordered Sig/Serenity Route Start Time Stop Time Status Last Admin Dose Admin Pantoprazole Sodium 40 mg DAILY IV 01/02/25 10:00 01/12/25 10:11 40 MG Vancomycin HCl 0 ml @ 0 mls/hr UD IV 01/02/25 11:45 Dextrose 50 ml UD PRN IV 01/04/25 08:30 Vancomycin HCl 100 ml @ 100 mls/hr Q16H IV 01/05/25 10:00 01/12/25 02:25 100 MLS/HR Meropenem 50 ml @ 17 mls/hr Q8H IV 01/05/25 11:00 01/12/25 03:32 17 MLS/HR Acetaminophen 650 mg Q6HP PRN PO 01/05/25 10:15 01/11/25 08:38 650 MG Levalbuterol HCl 0.625 mg Q4HR NEB 01/06/25 06:00 01/12/25 09:59 0.625 MG Ipratropium [place] 0.5 mg Q4HR NEB 01/06/25 06:00 01/12/25 09:59 0.5 MG Diagnostic Test (Pha) 1 strip Q6HR 01/06/25 12:00 01/12/25 05:38 1 STRIP Insulin Human Regular Q6HR SC 01/06/25 12:00 01/12/25 05:41 2 UNITS Budesonide 0.5 mg BID NEB 01/06/25 22:00 01/12/25 06:10 0.5 MG Methylprednisolone Sodium Succinate 40 mg BID IV 01/06/25 22:00 01/12/25 10:11 40 MG Furosemide 40 mg BIDD IV 01/07/25 18:00 01/12/25 06:22 40 MG Enoxaparin Sodium 40 mg DAILY SC 01/10/25 10:00 01/12/25 10:11 40 MG Lactulose 30 ml DAILY PO 01/11/25 10:00 01/12/25 10:11 30 ML Ondansetron HCl 4 mg Q4HPRN PRN IV 01/11/25 00:00 01/11/25 08:15 4 MG Laboratory Results Laboratory Tests 01/12/25 10:00 Chemistry Test 01/12/25 10:00 Albumin 4.2 g/dL (3.2-4.8) Calcium Level 9.2 mg/dL (8.7-10.4) Total Protein 7.3 g/dL (5.7-8.2) LFT Test 01/12/25 10:00 Alanine Aminotransferase (ALT) 46 U/L (7-40) H Alkaline Phosphatase 99 U/L (46-116) Aspartate Amino Transferase (AST) 27 U/L (13-40) Total Bilirubin 0.9 mg/dL (0.2-1.0) Urinalysis Test 01/01/25 23:07 Urine Color Light-orange (Yellow) Urine Clarity Clear (Clear) Urine pH 5.5 (5.0-9.0) Urine Specific [place] 1.020 (1.001-1.035) Urine Protein Trace (Negative) H Urine Ketones 1+ (Negative) H Urine Blood 1+ /uL (Negative) H Urine Nitrite Negative (Negative) Urine Bilirubin Negative (Negative) Urine Urobilinogen Normal mg/dL (Negative) Urine Leukocyte Esterase Negative /uL (Negative) Urine RBC 4 /hpf (0 - 4) Urine Microscopic WBC 1 /HPF (0-5) Urine Squamous Epithelial Cells Few /hpf (<5) Urine Bacteria None seen /hpf (None Seen) Urine Glucose Normal mg/dL (Normal) Microbiology Microbiology Date/Time Source Procedure Growth Status 01/03/25 21:50 Nose MRSA Screen - Final Complete 01/03/25 16:32 Bronchial Washings Gram Stain - Final Complete 01/03/25 16:32 Bronchial Washings Respiratory Culture - Final Complete 01/01/25 19:23 Blood Blood Culture - Final NO GROWTH AFTER 5 DAYS OF INCUBATION. Complete Assessment/Plan Assessment/Plan 69-year-old female with a known history of chronic respiratory failure, COPD, hypothyroidism who initially presented to the hospital with increasing shortness of breaths eventually was admitted for acute hypoxic respiratory failure secondary to pneumonia has been as COPD exacerbation. Patient hospitalist post called eventful for going into respiratory distress requiring intubation status post mechanical ventilation, status post extubation. 1. Acute hypoxic respiratory failure secondary to acute COPD exacerbation and pneumonia, status post intubation, status post extubation on 01/11/2025. 2. Acute COPD exacerbation 3. Gram-positive/Gram-negative pneumonia 4. Hypothyroidism 5. Chronic nicotine dependency, quit seven years ago. -continue med nebs, IV Solu-Medrol, PT evaluation and treatment, - diet as tolerated. -physical therapy evaluation and treatment, -downgraded to telemetry.. Plan discussed with: Patient My Orders Orders - MARION BALL MD Procedure Category Date Status Time Transfer Orders XFER 01/11/25 Transmitted 16:56 Consistent DIET 01/11/25 [facility]Di[facility] Dinner Discontinue Ng ORDERS 01/11/25 Transmitted 16:56 Date of Service: Jan 12, 2025 Billing Provider: MARION BALL MD Common Visit Codes: [id number] INP/OBS CARE(HIGH) MARION BALL MD Jan 12, 2025 11:02
[2025-01-12] MEDS: POTASSIUM CHL 20MEQ/100ML 100 ML IV ONE (12:31)
[2025-01-12] MEDS: AZITHROMYCIN 500MG/ 250ML 250 ML IV ONE (13:42)
[2025-01-12] MEDS ORDERED: POTASSIUM CHL 20MEQ/100ML 100 ML IV SCH (13:45)
[2025-01-12] MEDS: DOCUSATE SOD 100 MG CAP PO ONE (14:45)
--- NOTE | 2025-01-12 15:30 | DVHPN2 ---
Progress Note - Dictate Date Seen: Jan 12, 2025 Medical Necessity Reason Pt with a Central, PICC or Fol: Yes The following are medically ne: Ruth Catheter Reason for ruth catheter: Strict I&O vital signs Vital Sign Date Time Temp Pulse Resp B/P (MAP) Pulse Ox O2 Delivery O2 Flow Rate FiO2 01/12/25 14:16 82 18 100 01/12/25 14:10 Nasal Cannula* 2 28 01/12/25 12:00 97.6 107/51 (69) 97.6 Total Intake and Output 01/11/25 01/11/25 01/12/25 15:00 23:00 07:00 Intake Total 100 ml 250 ml 451 ml Output Total 1700 ml 1000 ml Balance 100 ml -1450 ml -549 ml medications Current Medications Medications Dose Ordered Sig/Serenity Route Start Time Stop Time Status Last Admin Dose Admin Pantoprazole Sodium 40 mg DAILY IV 01/02/25 10:00 01/12/25 10:11 40 MG Vancomycin HCl 0 ml @ 0 mls/hr UD IV 01/02/25 11:45 Dextrose 50 ml UD PRN IV 01/04/25 08:30 Vancomycin HCl 100 ml @ 100 mls/hr Q16H IV 01/05/25 10:00 01/12/25 02:25 100 MLS/HR Meropenem 50 ml @ 17 mls/hr Q8H IV 01/05/25 11:00 01/12/25 12:31 17 MLS/HR Acetaminophen 650 mg Q6HP PRN PO 01/05/25 10:15 01/11/25 08:38 650 MG Levalbuterol HCl 0.625 mg Q4HR NEB 01/06/25 06:00 01/12/25 14:10 0.625 MG Ipratropium [place] 0.5 mg Q4HR NEB 01/06/25 06:00 01/12/25 14:10 0.5 MG Diagnostic Test (Pha) 1 strip Q6HR 01/06/25 12:00 01/12/25 12:00 1 STRIP Insulin Human Regular Q6HR SC 01/06/25 12:00 01/12/25 12:39 3 UNITS Budesonide 0.5 mg BID NEB 01/06/25 22:00 01/12/25 06:10 0.5 MG Enoxaparin Sodium 40 mg DAILY SC 01/10/25 10:00 01/12/25 10:11 40 MG Lactulose 30 ml DAILY PO 01/11/25 10:00 01/12/25 10:11 30 ML Ondansetron HCl 4 mg Q4HPRN PRN IV 01/11/25 00:00 01/11/25 08:15 4 MG Furosemide 40 mg DAILY IV 01/13/25 10:00 Methylprednisolone Sodium Succinate 40 mg DAILY IV 01/13/25 10:00 Azithromycin 250 ml @ 125 mls/hr DAILY IV 01/13/25 10:00 Docusate Sodium 100 mg BID PO 01/12/25 22:00 Sennosides 17.2 mg HS PO 01/12/25 22:00 laboratory and microbiology Laboratory Tests 01/12/25 10:00 Test 01/12/25 10:00 Range/Units Serum Glucose 161 H 74-106 mg/dL Assessment/Plan Impression Acute hypoxic respiratory failure Pneumonia Atelectasis Alveolar hemorrhage Rheumatoid arthritis Hx of nicotine dependence COPD Events: S/p extubation Transitioned to 2 liters nasal cannula Able to follow commands Labs and imaging reviewed ABG reviewed Plan: Supplemental oxygen Titrate to maintain sats 90% ora lorenzo Incentive spirometry Aspiration precautions Swallow evaluation Continue antibiotics. Continue steroids Monitor renal function Monitor electrolytes. Supplement as necessary. Monitor ins and outs. GI prophylaxis. DVT prophylaxis. Okay to downgrade from pulmonary standpoint crit care time 35 min Dietary Evaluation Review Comments: 1) Initiate MVI @ 1 tb qd 2) Initiate Pro-Stat @ 30 mL qd. Flush 30 mL free H2O AC/PC 3) If patient remains NPO > 7 days, consider EN/TPN to meet at least 75% of estimated daily needs 4) If GI is preferred, consider Glucerna 1.2 @ 50 mL/hr goal rate as tolerated. Flush 150 mL free H2O Q6. TF regimen (including Pro-Stat) will provide 1540 kcals, 87g Pro, and 1626 mL free H2O (including TF flushes) per 24 hrs. Goal rate will meet ~ 91% estimated energy needs and ~ 80% estimated protein needs. 5) Advance to 60g CCHO diet when medically feasible, pending ST approval 6) Follow-up with pulmonology 7) Continue to monitor I&O, labs, and skin integrity Expected Outcomes/Goals: 1) patient to receive nutrition support within 7 days of NPO status 2) labs and wound to improve 3) diet to advance 4) f/u in 2-3 days Plan discussed with: Patient DALIA GOTTI MD Jan 12, 2025 15:30
--- NOTE | 2025-01-12 17:48 | DVHPNRES ---
Progress Note Date Seen: Jan 12, 2025 Resident Creating Document: BHAVESH JON RESIDENT Medical Necessity Reason Pt with a Central, PICC or Fol: Yes The following are medically ne: Ruth Catheter Reason for ruth catheter: Strict I&O Subjective Review of Systems Patient is a 69-year-old female who is a poor historian, with prior medical history of asthma, COPD?, intracranial aneurysm s/p repair(coiling?), hypothyroidism, rheumatoid arthritis, lupus? and recurrent pneumonias requiring intubation x 3 in the past, who presented to the ED with chief complaint of fatigue and shortness of breath. Patient states symptoms initiated 1 week prior to presentation. She refers fatigue associated with progressively worsened shortness of breath, dry cough, and febrile sensation. She states she used her oxygen at home with little relief however pt is unclear about whether it is home oxygen or a nebulizer, inability to achieve relief despite that prompted her family to call EMS. On evaluation in the field, she was saturating 60% and was placed on 10 L O2. Per pt she is on no medication neither sees a primary care doctor as she prefers holistic alternatives routinely. Per pt, she attends a clinic in [facility] where she receives infusions? On evaluation in the ED, she was found to be tachycardic, tachypneic, and requiring 15 L O2 via face mask. Initial labs significant for 15.4, with chemical panel within normal range, lactic acid 1.8, troponins negative, BNP 30.14, ABG showing 7.405, pCO2 27.1, pO2 103.3, and HCO3 16.6. Chest Xray shows extensive bilateral airspace disease, greatest in perihilar regions. Sepsis protocol was initiated, cultures were taken, and patient was admitted and started on IV antibiotics. Surgical: Aneurysm repair, Hernia repair, appendectomy Social: Denies drug and alcohol use, refers she smoked 1-2 cigarettes daily for 30 years with cessation in 2019 Patient seen at bedside. She is alert and oriented in person, place, and time. She states that feels well, and shortness of breath has improved with use of simple face mask, at the time 10 L O2. She currently denies chest pain, cough, nausea, vomiting and other symptoms. Over night, patient febrile spike of 102.2 F, she has remained tachypneic, and blood pressure remain on the lower limit of normality. CT angio was ordered, ruling out PE, and showed extensive multifocal consolidative bilateral pulmonary infiltrate. Cefepime was added for broader coverage. Patient is currently JACLYN status. 01/03/2025: Overnight pt was able to be brought down to 6L O2 however, in the morning after minimal exertion, patient continued to have respiratory distress with desaturation on minimal movement. On re-evaluation an hour later, patient was noted to have continued tachypnea and use of accessory muscles, patient was AAO x4 and agreed to intubation verbally as well as a full code status aware of risks and benefits. Patient's son was informed, he wanted to wait on intubation until he arrived from [place] in order for the patient to sign on some financial documents, however, ultimately intubation became medically necessary and waiting further would have proven detrimental to patient's health and well- being. Patient was subsequently intubated, a central line was placed, patient was upgraded to ICU status, patient's son was called and informed, detailed meeting was held with patient's son Mr. Alonso lasting 45 minutes where details of patient's with the plan of care was explained in great detail, all questions were answered concerns were addressed, imaging details outlined showing widespread multifocal pneumonia was also shared with patient's son, he demonstrated understanding and was agreeable with the plan of care. plan of care was also discussed with patients daughter in law, Ms. Carvajal for >40mins. Pt underwent bronchoscopy with bloody drainage. IV steroids were started and antibiotic coverage was broadened to include meropenem. vasopressors were initiated to support hemodynamics. 01/04/2025: Patient seen and examined at bedside, overnight patient required 4 pressors and increasing ventilator settings, however, this morning blood pressure is stable, patient currently only on Levophed 26 mcg, decrease respiratory rate to 26 and PEEP to 10 with a tidal volume of 400 and FiO2 30%. Added IV Lasix 20 mg 1 time only. Echocardiogram shows possible heart failure with diastolic dysfunction. Detailed discussion held with patient and patient's at bedside were all questions were answered and concerns were addressed. 01/06/2025: Patient seen and examined at bedside, off of pressors as of 2:00 p.m.. Continues to be on FiO2 40% with a PEEP of 8. IV Lasix 40 mg once. KUB shows nonspecific bowel gas pattern with moderate stool, started lactulose 30 mL b.i.d.. 01/07/2025: Patient seen and examined at bedside, decreased respiratory rate to 16, decreased FiO2 40%. Started patient on free water 250 mL Q 8 hours due to up trending hypernatremia. Added IV Lasix 40 mg b.i.d.. Nonspecific T-wave changes in the EKG noted. Chest x-ray with worsening bilateral infiltrates. 01/08/25: Patient had 2 bowel movements today. Decreased tidal volume to 360. Detailed discussion held with [id number] at bedside for more than 30 minutes, all questions answered concerns addressed. Family now agreeable to dvt ppx however still had some slight blood tinged respiratory secretions yesterday, will start dvt ppx tomorrow if no further blood tinged secretions noted. 01/09/25: Pt seen and examined at bedside, FiO2 at 30%, another BM today. cxr no interval change. 01/10/2025: Patient underwent CPAP trial today with RSBI 46. S/p extubation, tolerated well. Continues to have pulmonary edema, IV Lasix 40 mg b.i.d.. 01/12/2025: Patient seen and examined at bedside, reports improvement in nausea and vomiting, is able to tolerate oral intake. Decreased steroids to IV methylprednisolone 40 mg once daily, decrease Lasix to IV Lasix 40 mg once daily. Added azithromycin to cover atypicals. Currently on day 8 of meropenem and day 11 of vancomycin. Objective vital signs Vital Sign Date Time Temp Pulse Resp B/P (MAP) Pulse Ox O2 Delivery O2 Flow Rate FiO2 01/12/25 16:00 20 94 Nasal Cannula* 2 28 01/12/25 16:00 91 01/12/25 12:00 97.6 107/51 (69) 97.6 Total Intake and Output 01/11/25 01/11/25 01/12/25 15:00 23:00 07:00 Intake Total 100 ml 250 ml 451 ml Output Total 1700 ml 1000 ml Balance 100 ml -1450 ml -549 ml medications Current Medications Medications Dose Ordered Sig/Serenity Route Start Time Stop Time Status Last Admin Dose Admin Pantoprazole Sodium 40 mg DAILY IV 01/02/25 10:00 01/12/25 10:11 40 MG Vancomycin HCl 0 ml @ 0 mls/hr UD IV 01/02/25 11:45 Dextrose 50 ml UD PRN IV 01/04/25 08:30 Vancomycin HCl 100 ml @ 100 mls/hr Q16H IV 01/05/25 10:00 01/12/25 02:25 100 MLS/HR Meropenem 50 ml @ 17 mls/hr Q8H IV 01/05/25 11:00 01/12/25 12:31 17 MLS/HR Acetaminophen 650 mg Q6HP PRN PO 01/05/25 10:15 01/11/25 08:38 650 MG Levalbuterol HCl 0.625 mg Q4HR NEB 01/06/25 06:00 01/12/25 14:10 0.625 MG Ipratropium [place] 0.5 mg Q4HR NEB 01/06/25 06:00 01/12/25 14:10 0.5 MG Diagnostic Test (Pha) 1 strip Q6HR 01/06/25 12:00 01/12/25 12:00 1 STRIP Insulin Human Regular Q6HR SC 01/06/25 12:00 01/12/25 12:39 3 UNITS Budesonide 0.5 mg BID NEB 01/06/25 22:00 01/12/25 06:10 0.5 MG Enoxaparin Sodium 40 mg DAILY SC 01/10/25 10:00 01/12/25 10:11 40 MG Lactulose 30 ml DAILY PO 01/11/25 10:00 01/12/25 10:11 30 ML Ondansetron HCl 4 mg Q4HPRN PRN IV 01/11/25 00:00 01/11/25 08:15 4 MG Furosemide 40 mg DAILY IV 01/13/25 10:00 Methylprednisolone Sodium Succinate 40 mg DAILY IV 01/13/25 10:00 Azithromycin 250 ml @ 125 mls/hr DAILY IV 01/13/25 10:00 Docusate Sodium 100 mg BID PO 01/12/25 22:00 Sennosides 17.2 mg HS PO 01/12/25 22:00 Examination General Appearance: In no distress, weak appearing, awake and alert Head Exam: Normal inspection Neck Exam: left pupil is larger than the right however prior to being intubated pt had stated this is since her basline since aneurysm repair? Pulmonary/Respiratory: Coarse bilateral breath sounds, decreased on left more than right Cardiovascular/Chest: Tachycardic. Regular rhythm. No murmurs. No JVD. Peripheral Pulses: 2+ Radial (R). 2+ Radial (L). 2+ Pedal (R). 2+ Pedal (L) Abdominal Exam: Distended but soft abdomen with decreased bowel sounds., no visible veins, Nontender. No hepatospenomegaly. No masses Ankle Exam: Negative ankle edema Lower extremities: Negative lower extremity edema Skin Exam: Normal inspection. Normal color. Warm. Dry laboratory and microbiology Laboratory Tests 01/12/25 10:00 Test 01/12/25 10:00 Range/Units Serum Glucose 161 H 74-106 mg/dL Microbiology Date/Time Source Procedure Growth Status 01/03/25 21:50 Nose MRSA Screen - Final Complete 01/03/25 16:32 Bronchial Washings Gram Stain - Final Complete 01/03/25 16:32 Bronchial Washings Respiratory Culture - Final Complete 01/01/25 19:23 Blood Blood Culture - Final NO GROWTH AFTER 5 DAYS OF INCUBATION. 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 # history of ICA aneurysm/SAH? # acute metabolic versus toxic versus hypoxic encephalopathy - Versed - fentanyl - head CT: Streak artifact from left cavernous sinus region call material limits evaluation of the adjacent structures. Otherwise no evidence of acute intracranial abnormality. - neurology on board Cardiovascular # septic shock # heart failure with preserved ejection fraction - on norepinephrine - on vasopressin - decreased IV hydrocortisone 100 mg q.8hrs - echocardiogram: LV EF IS 65% AND IS NORMAL. MILD LVH AND MILD LV DIASTOLIC DYSFUNCTION. NORMAL VALVES. NORMAL RV FUNCTION AND SIZE. NORMAL RVSP AND IS 20 MM OF HG. NO EFFUSION Respiratory # Ventilator; respiratory rate 16, FiO2 40%, peep 8, tidal volume 360 -intubated 01/03/2025 - bronchoscopy 01/03/2025 - extubated 01/10/25 # Acute hypoxic respiratory failure # possible alveolar hemorrhage # COPD exacerbation # ruled out pulmonary embolism # multifocal community-acquired pneumonia, Gram-positive versus Gram-negative # possible pulmonary edema, severe - IV vancomycin, IV meropenem - pulmonology on board - decrease steroids to IV methylprednisolone 40 mg daily - ipratropium albuterol med nebs - CT angiography: No pulmonary embolism. Extensive multifocal consolidative bilateral pulmonary infiltrate, most notably within the bilateral posterior lower lobes. - CXR from 01/03/2025: Interstitial and alveolar type opacities of bilateral lungs, relatively unchanged from prior imaging which may represent multifocal pneumonia/ARDS/severe pulmonary edema - CXR from 01/06/2025: Worsening of bilateral interstitial opacities. Suspected development of small left pleural effusion and basilar atelectasis. - decreased IV Lasix to 40 mg once daily - added budesonide med nebs 0.5 mg b.i.d. GI # transaminitis, now improving # constipation likely slow transit - Colace 100 mg b.i.d., MiraLax daily - KUB: Nonobstructive bowel gas pattern. Large stool burden. Ruth catheter overlying the bladder. - decreased lactulose to 30 mg p.o. daily - Colace 100 mg p.o. b.i.d. # Peptic ulcer prophylaxis -Pantoprazole 40 mg IV daily # Ruth catheter placed on 01/02/2025 Infectious disease # community-acquired pneumonia, Gram-positive versus Gram-negative # sepsis due to above # septic shock due to above - IV vancomycin per pharmacy - IV meropenem - norepinephrine drip - vasopressin drip - IV methylprednisolone 125 mg once - IV hydrocortisone 50 mg q.8 hours - awaiting respiratory cultures from bronchoscopy Hem/onc # macrocytosis without anemia -monitor Endocrine # history of type 2 diabetes # history of rheumatoid arthritis, not on any treatment # ?Lupus # hypokalemia - ordered A1c 6% - repleted - monitor DVT prophylaxis Lovenox Lines - right CVC placed on 01/03/2025 - L 22g placed on 01/03/25 - ruth 01/03/25 Downgraded to JACLYN on 01/12/2025 Critical care time 83 minutes excluding procedure. Plan discussed with patient's son, at bedside in great detail, all questions were answered and concerns were addressed. Code status discussed greater than 20 minutes: Full CODE STATUS. Plan discussed with Dr. Flores Plan discussed with: Patient, Son, Other (RN) My Orders My Orders Orders - BHAVESH JON Procedure Category Date Status Time Furosemide Injection PHA 01/13/25 In Process (Lasix Injection) 10:00 Methylprednisolone PHA 01/13/25 In Process Sod Succ (Solu Medrol 10:00 Azithromycin 500mg/ PHA 01/13/25 In Process 250ml (Zithromax 50 10:00 Dietary Evaluation Review Comments: 1) Initiate MVI @ 1 tb qd 2) Initiate Pro-Stat @ 30 mL qd. Flush 30 mL free H2O AC/PC 3) If patient remains NPO > 7 days, consider EN/TPN to meet at least 75% of estimated daily needs 4) If GI is preferred, consider Glucerna 1.2 @ 50 mL/hr goal rate as tolerated. Flush 150 mL free H2O Q6. TF regimen (including Pro-Stat) will provide 1540 kcals, 87g Pro, and 1626 mL free H2O (including TF flushes) per 24 hrs. Goal rate will meet ~ 91% estimated energy needs and ~ 80% estimated protein needs. 5) Advance to 60g CCHO diet when medically feasible, pending ST approval 6) Follow-up with pulmonology 7) Continue to monitor I&O, labs, and skin integrity Expected Outcomes/Goals: 1) patient to receive nutrition support within 7 days of NPO status 2) labs and wound to improve 3) diet to advance 4) f/u in 2-3 days Date of Service: Jan 12, 2025 Billing Provider: FAISAL FLORES MD Common Visit Codes: [id number] CARE 30-74 MIN BHAVESH JON Jan 12, 2025 17:48 FAISAL FLORES MD Jan 12, 2025 18:18
[2025-01-12] MEDS: DOCUSATE SOD 100 MG CAP PO SCH (21:30)
[2025-01-12] MEDS: SENNA 8.6 MG TAB PO SCH (21:30)
[2025-01-13] VITALS (25 sets, daily range): BP systolic 51–116; BP diastolic 40–76; PULSE 75–101; RESP 10–22; TEMP 97.9–98.8; O2SAT 90–100
[2025-01-13 04:15] LABS: Hematocrit 37.3 % (36.0-46.0); Hemoglobin 12.6 g/dL (12.2-16.2); Mean Corpuscular Hemoglobin 33.0 pg (28.0-32.0); Mean Corpuscular Volume 97.6 fL (80.0-100.0); Nucleated Red Blood Cells % 0.1 %
[2025-01-13 04:25] LABS: Sodium 138 mmol/L (136-145)
[2025-01-13 04:26] LABS: Anion Gap 11 (5-15); Calcium 8.8 mg/dL (8.7-10.4); Carbon Dioxide 30 mmol/L (20-31)
[2025-01-13 04:31] LABS: BUN/Creatinine Ratio 37.3 (10.0-20.0)
[2025-01-13 04:33] LABS: Blood Urea Nitrogen 25 mg/dL (9-23); Chloride 97 mmol/L (98-107); Glucose 114 mg/dL (74-106); Potassium 3.0 mmol/L (3.5-5.1)
[2025-01-13] MEDS: POTASSIUM EFFERVESENT TAB 25 MEQ PO ONE (07:51)
--- NOTE | 2025-01-13 08:30 | DVH ---
INDICATION: pna TECHNIQUE: Frontal view of the chest. COMPARISON: XY CHEST PORTABLE on DOS: 01/10/25, XY CHEST PORTABLE on DOS: 01/10/25, XY CHEST PORTABLE on DOS: 01/09/25, XY CHEST PORTABLE on DOS: 01/08/25, XY CHEST PORTABLE on DOS: 01/07/25, XY CHEST PORTABLE on DOS: 01/10/25 FINDINGS: Lines and tubes: Right central venous catheter tip in the cavoatrial junction Cardiomediastinal silhouette: normal Pulmonary vasculature: normal Lung expansion: low Lung airspace: Patchy perihilar and basilar airspace opacities. Lung interstitium: normal Pleura: normal Pneumothorax: no Bones: Unremarkable Other: no IMPRESSION: Patchy perihilar and basilar airspace opacities. Interval removal of ET, stable NG and CVC.
[2025-01-13] MEDS: methylPREDNISolone SOD SUCC 40 MG/ML VL IV SCH (09:49)
[2025-01-13] MEDS: FUROSEMIDE 40 MG/4 ML VIAL IV SCH (10:00)
--- NOTE | 2025-01-13 11:06 | DVHPN2 ---
Progress Note - Dictate Date Seen: Jan 13, 2025 Medical Necessity Reason Pt with a Central, PICC or Fol: Yes The following are medically ne: Ruth Catheter Reason for ruth catheter: Strict I&O vital signs Vital Sign Date Time Temp Pulse Resp B/P (MAP) Pulse Ox O2 Delivery O2 Flow Rate FiO2 01/13/25 10:16 98 Nasal Cannula 2.0 01/13/25 10:16 28 01/13/25 10:16 96 20 01/13/25 08:00 98.8 114/50 (71) 98.8 Total Intake and Output 01/12/25 01/12/25 01/13/25 15:00 23:00 07:00 Intake Total 100 ml 1041 ml 551 ml Output Total 1525 ml 675 ml Balance 100 ml -484 ml -124 ml medications Current Medications Medications Dose Ordered Sig/Serenity Route Start Time Stop Time Status Last Admin Dose Admin Pantoprazole Sodium 40 mg DAILY IV 01/02/25 10:00 01/13/25 09:49 40 MG Vancomycin HCl 0 ml @ 0 mls/hr UD IV 01/02/25 11:45 Dextrose 50 ml UD PRN IV 01/04/25 08:30 Vancomycin HCl 100 ml @ 100 mls/hr Q16H IV 01/05/25 10:00 01/13/25 09:50 100 MLS/HR Acetaminophen 650 mg Q6HP PRN PO 01/05/25 10:15 01/11/25 08:38 650 MG Levalbuterol HCl 0.625 mg Q4HR NEB 01/06/25 06:00 01/13/25 10:16 0.625 MG Ipratropium [place] 0.5 mg Q4HR NEB 01/06/25 06:00 01/13/25 10:16 0.5 MG Diagnostic Test (Pha) 1 strip Q6HR 01/06/25 12:00 01/13/25 06:04 1 STRIP Insulin Human Regular Q6HR SC 01/06/25 12:00 01/12/25 12:39 3 UNITS Budesonide 0.5 mg BID NEB 01/06/25 22:00 01/13/25 07:16 0.5 MG Enoxaparin Sodium 40 mg DAILY SC 01/10/25 10:00 01/13/25 09:50 40 MG Lactulose 30 ml DAILY PO 01/11/25 10:00 01/13/25 09:50 30 ML Ondansetron HCl 4 mg Q4HPRN PRN IV 01/11/25 00:00 01/11/25 08:15 4 MG Furosemide 40 mg DAILY IV 01/13/25 10:00 Methylprednisolone Sodium Succinate 40 mg DAILY IV 01/13/25 10:00 01/13/25 09:49 40 MG Azithromycin 250 ml @ 125 mls/hr DAILY IV 01/13/25 10:00 Docusate Sodium 100 mg BID PO 01/12/25 22:00 01/13/25 09:50 100 MG Sennosides 17.2 mg HS PO 01/12/25 22:00 01/12/25 21:30 17.2 MG Meropenem 50 ml @ 17 mls/hr Q12H IV 01/13/25 15:00 laboratory and microbiology Laboratory Tests 01/13/25 03:27 Test 01/13/25 03:27 Range/Units Serum Glucose 114 H 74-106 mg/dL Assessment/Plan Impression Acute hypoxic respiratory failure Pneumonia Atelectasis Alveolar hemorrhage Rheumatoid arthritis Hx of nicotine dependence COPD Events: S/p extubation Transitioned to 2 liters nasal cannula Able to follow commands able to tx to chair with some assistance no new complaints Labs and imaging reviewed ABG reviewed Plan: Supplemental oxygen Titrate to maintain sats 90% ora lorenzo Incentive spirometry Aspiration precautions Swallow evaluation Continue antibiotics. Continue steroids Monitor renal function Monitor electrolytes. Supplement as necessary. Monitor ins and outs. GI prophylaxis. DVT prophylaxis. Okay to downgrade from pulmonary standpoint crit care time 35 min Dietary Evaluation Review Comments: 1) Initiate MVI @ 1 tb qd 2) Initiate Pro-Stat @ 30 mL qd. Flush 30 mL free H2O AC/PC 3) If patient remains NPO > 7 days, consider EN/TPN to meet at least 75% of estimated daily needs 4) If GI is preferred, consider Glucerna 1.2 @ 50 mL/hr goal rate as tolerated. Flush 150 mL free H2O Q6. TF regimen (including Pro-Stat) will provide 1540 kcals, 87g Pro, and 1626 mL free H2O (including TF flushes) per 24 hrs. Goal rate will meet ~ 91% estimated energy needs and ~ 80% estimated protein needs. 5) Advance to 60g CCHO diet when medically feasible, pending ST approval 6) Follow-up with pulmonology 7) Continue to monitor I&O, labs, and skin integrity Expected Outcomes/Goals: 1) patient to receive nutrition support within 7 days of NPO status 2) labs and wound to improve 3) diet to advance 4) f/u in 2-3 days Plan discussed with: Patient DALIA GOTTI MD Jan 13, 2025 11:06
[2025-01-13] MEDS: POTASSIUM EFFERVESENT TAB 25 MEQ GT ONE (12:53)
[2025-01-13] MEDS: AZITHROMYCIN 500MG/ 250ML 250 ML IV SCH (12:54)
--- NOTE | 2025-01-13 14:32 | DVHPNRES ---
Progress Note Date Seen: Jan 13, 2025 Resident Creating Document: BHAVESH JON RESIDENT Medical Necessity Reason Pt with a Central, PICC or Fol: Yes The following are medically ne: Ruth Catheter Reason for ruth catheter: Strict I&O Subjective Review of Systems Patient is a 69-year-old female who is a poor historian, with prior medical history of asthma, COPD?, intracranial aneurysm s/p repair(coiling?), hypothyroidism, rheumatoid arthritis, lupus? and recurrent pneumonias requiring intubation x 3 in the past, who presented to the ED with chief complaint of fatigue and shortness of breath. Patient states symptoms initiated 1 week prior to presentation. She refers fatigue associated with progressively worsened shortness of breath, dry cough, and febrile sensation. She states she used her oxygen at home with little relief however pt is unclear about whether it is home oxygen or a nebulizer, inability to achieve relief despite that prompted her family to call EMS. On evaluation in the field, she was saturating 60% and was placed on 10 L O2. Per pt she is on no medication neither sees a primary care doctor as she prefers holistic alternatives routinely. Per pt, she attends a clinic in [facility] where she receives infusions? On evaluation in the ED, she was found to be tachycardic, tachypneic, and requiring 15 L O2 via face mask. Initial labs significant for 15.4, with chemical panel within normal range, lactic acid 1.8, troponins negative, BNP 30.14, ABG showing 7.405, pCO2 27.1, pO2 103.3, and HCO3 16.6. Chest Xray shows extensive bilateral airspace disease, greatest in perihilar regions. Sepsis protocol was initiated, cultures were taken, and patient was admitted and started on IV antibiotics. Surgical: Aneurysm repair, Hernia repair, appendectomy Social: Denies drug and alcohol use, refers she smoked 1-2 cigarettes daily for 30 years with cessation in 2019 Patient seen at bedside. She is alert and oriented in person, place, and time. She states that feels well, and shortness of breath has improved with use of simple face mask, at the time 10 L O2. She currently denies chest pain, cough, nausea, vomiting and other symptoms. Over night, patient febrile spike of 102.2 F, she has remained tachypneic, and blood pressure remain on the lower limit of normality. CT angio was ordered, ruling out PE, and showed extensive multifocal consolidative bilateral pulmonary infiltrate. Cefepime was added for broader coverage. Patient is currently JACLYN status. 01/03/2025: Overnight pt was able to be brought down to 6L O2 however, in the morning after minimal exertion, patient continued to have respiratory distress with desaturation on minimal movement. On re-evaluation an hour later, patient was noted to have continued tachypnea and use of accessory muscles, patient was AAO x4 and agreed to intubation verbally as well as a full code status aware of risks and benefits. Patient's son was informed, he wanted to wait on intubation until he arrived from [place] in order for the patient to sign on some financial documents, however, ultimately intubation became medically necessary and waiting further would have proven detrimental to patient's health and well- being. Patient was subsequently intubated, a central line was placed, patient was upgraded to ICU status, patient's son was called and informed, detailed meeting was held with patient's son Mr. Alonso lasting 45 minutes where details of patient's with the plan of care was explained in great detail, all questions were answered concerns were addressed, imaging details outlined showing widespread multifocal pneumonia was also shared with patient's son, he demonstrated understanding and was agreeable with the plan of care. plan of care was also discussed with patients daughter in law, Ms. Carvajal for >40mins. Pt underwent bronchoscopy with bloody drainage. IV steroids were started and antibiotic coverage was broadened to include meropenem. vasopressors were initiated to support hemodynamics. 01/04/2025: Patient seen and examined at bedside, overnight patient required 4 pressors and increasing ventilator settings, however, this morning blood pressure is stable, patient currently only on Levophed 26 mcg, decrease respiratory rate to 26 and PEEP to 10 with a tidal volume of 400 and FiO2 30%. Added IV Lasix 20 mg 1 time only. Echocardiogram shows possible heart failure with diastolic dysfunction. Detailed discussion held with patient and patient's at bedside were all questions were answered and concerns were addressed. 01/06/2025: Patient seen and examined at bedside, off of pressors as of 2:00 p.m.. Continues to be on FiO2 40% with a PEEP of 8. IV Lasix 40 mg once. KUB shows nonspecific bowel gas pattern with moderate stool, started lactulose 30 mL b.i.d.. 01/07/2025: Patient seen and examined at bedside, decreased respiratory rate to 16, decreased FiO2 40%. Started patient on free water 250 mL Q 8 hours due to up trending hypernatremia. Added IV Lasix 40 mg b.i.d.. Nonspecific T-wave changes in the EKG noted. Chest x-ray with worsening bilateral infiltrates. 01/08/25: Patient had 2 bowel movements today. Decreased tidal volume to 360. Detailed discussion held with [id number] at bedside for more than 30 minutes, all questions answered concerns addressed. Family now agreeable to dvt ppx however still had some slight blood tinged respiratory secretions yesterday, will start dvt ppx tomorrow if no further blood tinged secretions noted. 01/09/25: Pt seen and examined at bedside, FiO2 at 30%, another BM today. cxr no interval change. 01/10/2025: Patient underwent CPAP trial today with RSBI 46. S/p extubation, tolerated well. Continues to have pulmonary edema, IV Lasix 40 mg b.i.d.. 01/12/2025: Patient seen and examined at bedside, reports improvement in nausea and vomiting, is able to tolerate oral intake. Decreased steroids to IV methylprednisolone 40 mg once daily, decrease Lasix to IV Lasix 40 mg once daily. Added azithromycin to cover atypicals. Currently on day 8 of meropenem and day 11 of vancomycin. 01/13/2025: Patient seen and examined at bedside, downgraded to tele, ordered physical therapy evaluation. Objective vital signs Vital Sign Date Time Temp Pulse Resp B/P (MAP) Pulse Ox O2 Delivery O2 Flow Rate FiO2 01/13/25 13:44 95 16 100 01/13/25 13:38 Nasal Cannula 2.0 01/13/25 13:38 28 01/13/25 08:00 98.8 114/50 (71) 98.8 Total Intake and Output 01/12/25 01/12/25 01/13/25 15:00 23:00 07:00 Intake Total 100 ml 1041 ml 551 ml Output Total 1525 ml 675 ml Balance 100 ml -484 ml -124 ml medications Current Medications Medications Dose Ordered Sig/Serenity Route Start Time Stop Time Status Last Admin Dose Admin Pantoprazole Sodium 40 mg DAILY IV 01/02/25 10:00 01/13/25 09:49 40 MG Vancomycin HCl 0 ml @ 0 mls/hr UD IV 01/02/25 11:45 Dextrose 50 ml UD PRN IV 01/04/25 08:30 Vancomycin HCl 100 ml @ 100 mls/hr Q16H IV 01/05/25 10:00 01/13/25 09:50 100 MLS/HR Acetaminophen 650 mg Q6HP PRN PO 01/05/25 10:15 01/11/25 08:38 650 MG Levalbuterol HCl 0.625 mg Q4HR NEB 01/06/25 06:00 01/13/25 13:37 0.625 MG Ipratropium [place] 0.5 mg Q4HR NEB 01/06/25 06:00 01/13/25 13:38 0.5 MG Diagnostic Test (Pha) 1 strip Q6HR 01/06/25 12:00 01/13/25 12:53 1 STRIP Insulin Human Regular Q6HR SC 01/06/25 12:00 01/13/25 13:15 2 UNITS Budesonide 0.5 mg BID NEB 01/06/25 22:00 01/13/25 07:16 0.5 MG Enoxaparin Sodium 40 mg DAILY SC 01/10/25 10:00 01/13/25 09:50 40 MG Lactulose 30 ml DAILY PO 01/11/25 10:00 01/13/25 09:50 30 ML Ondansetron HCl 4 mg Q4HPRN PRN IV 01/11/25 00:00 01/11/25 08:15 4 MG Furosemide 40 mg DAILY IV 01/13/25 10:00 Methylprednisolone Sodium Succinate 40 mg DAILY IV 01/13/25 10:00 01/13/25 09:49 40 MG Azithromycin 250 ml @ 125 mls/hr DAILY IV 01/13/25 10:00 01/13/25 12:54 125 MLS/HR Docusate Sodium 100 mg BID PO 01/12/25 22:00 01/13/25 09:50 100 MG Sennosides 17.2 mg HS PO 01/12/25 22:00 01/12/25 21:30 17.2 MG Meropenem 50 ml @ 17 mls/hr Q12H IV 01/13/25 15:00 Examination General Appearance: In no distress, weak appearing, awake and alert Head Exam: Normal inspection Neck Exam: left pupil is larger than the right however prior to being intubated pt had stated this is since her basline since aneurysm repair? Pulmonary/Respiratory: Coarse bilateral breath sounds, decreased on left more than right Cardiovascular/Chest: Tachycardic. Regular rhythm. No murmurs. No JVD. Peripheral Pulses: 2+ Radial (R). 2+ Radial (L). 2+ Pedal (R). 2+ Pedal (L) Abdominal Exam: Distended but soft abdomen with decreased bowel sounds., no visible veins, Nontender. No hepatospenomegaly. No masses Ankle Exam: Negative ankle edema Lower extremities: Negative lower extremity edema Skin Exam: Normal inspection. Normal color. Warm. Dry laboratory and microbiology Laboratory Tests 01/13/25 03:27 Test 01/13/25 03:27 Range/Units Serum Glucose 114 H 74-106 mg/dL Microbiology Date/Time Source Procedure Growth Status 01/03/25 21:50 Nose MRSA Screen - Final Complete 01/03/25 16:32 Bronchial Washings Gram Stain - Final Complete 01/03/25 16:32 Bronchial Washings Respiratory Culture - Final Complete 01/01/25 19:23 Blood Blood Culture - Final NO GROWTH AFTER 5 DAYS OF INCUBATION. 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 # history of ICA aneurysm/SAH? # acute metabolic versus toxic versus hypoxic encephalopathy - Versed - fentanyl - head CT: Streak artifact from left cavernous sinus region call material limits evaluation of the adjacent structures. Otherwise no evidence of acute intracranial abnormality. - neurology on board Cardiovascular # septic shock # heart failure with preserved ejection fraction - on norepinephrine - on vasopressin - decreased IV hydrocortisone 100 mg q.8hrs - echocardiogram: LV EF IS 65% AND IS NORMAL. MILD LVH AND MILD LV DIASTOLIC DYSFUNCTION. NORMAL VALVES. NORMAL RV FUNCTION AND SIZE. NORMAL RVSP AND IS 20 MM OF HG. NO EFFUSION Respiratory # Ventilator; respiratory rate 16, FiO2 40%, peep 8, tidal volume 360 -intubated 01/03/2025 - bronchoscopy 01/03/2025 - extubated 01/10/25 # Acute hypoxic respiratory failure # possible alveolar hemorrhage # COPD exacerbation # ruled out pulmonary embolism # multifocal community-acquired pneumonia, Gram-positive versus Gram-negative # possible pulmonary edema, severe - IV vancomycin, IV meropenem - pulmonology on board - decrease steroids to IV methylprednisolone 40 mg daily - ipratropium albuterol med nebs - CT angiography: No pulmonary embolism. Extensive multifocal consolidative bilateral pulmonary infiltrate, most notably within the bilateral posterior lower lobes. - CXR from 01/03/2025: Interstitial and alveolar type opacities of bilateral lungs, relatively unchanged from prior imaging which may represent multifocal pneumonia/ARDS/severe pulmonary edema - CXR from 01/06/2025: Worsening of bilateral interstitial opacities. Suspected development of small left pleural effusion and basilar atelectasis. - decreased IV Lasix to 40 mg once daily - added budesonide med nebs 0.5 mg b.i.d. GI # transaminitis, now improving # constipation likely slow transit - Colace 100 mg b.i.d., MiraLax daily - KUB: Nonobstructive bowel gas pattern. Large stool burden. Ruth catheter overlying the bladder. - decreased lactulose to 30 mg p.o. daily - Colace 100 mg p.o. b.i.d. # Peptic ulcer prophylaxis -Pantoprazole 40 mg IV daily # Ruth catheter placed on 01/02/2025 Infectious disease # community-acquired pneumonia, Gram-positive versus Gram-negative # sepsis due to above # septic shock due to above - IV vancomycin per pharmacy - IV meropenem - norepinephrine drip - vasopressin drip - IV methylprednisolone 125 mg once - IV hydrocortisone 50 mg q.8 hours - awaiting respiratory cultures from bronchoscopy Hem/onc # macrocytosis without anemia -monitor Endocrine # history of type 2 diabetes # history of rheumatoid arthritis, not on any treatment # ?Lupus # hypokalemia - ordered A1c 6% - repleted - monitor DVT prophylaxis Lovenox Lines - right CVC placed on 01/03/2025 - L 22g placed on 01/03/25 - ruth 01/03/25 Downgraded to JACLYN on 01/12/2025 Critical care time 83 minutes excluding procedure. Plan discussed with patient's son, at bedside in great detail, all questions were answered and concerns were addressed. Code status discussed greater than 20 minutes: Full CODE STATUS. Plan discussed with Dr. Ulloa Plan discussed with: Patient, Son, Other (RN) My Orders My Orders Orders - BHAVESH JON RESIDENT Procedure Category Date Status Time Chest Portable XY 01/13/25 Resulted 06:38 Transfer Orders XFER 01/13/25 Transmitted 07:12 Meropenem 1gm Ivpb PHA 01/13/25 In Process (Merrem 1gm/ Ns) 15:00 Vancomycin,Trough LAB 01/14/25 Verified 01:00 Vancomycin Per [facility] 01/14/25 In Process Pharmacy Protoc 02:00 Creatinine LAB 01/14/25 Verified 04:00 Pt Request For Service PT 01/13/25 Logged 14:01 Dietary Evaluation Review Comments: 1) Initiate MVI @ 1 tb qd 2) Initiate Pro-Stat @ 30 mL qd. Flush 30 mL free H2O AC/PC 3) If patient remains NPO > 7 days, consider EN/TPN to meet at least 75% of estimated daily needs 4) If GI is preferred, consider Glucerna 1.2 @ 50 mL/hr goal rate as tolerated. Flush 150 mL free H2O Q6. TF regimen (including Pro-Stat) will provide 1540 kcals, 87g Pro, and 1626 mL free H2O (including TF flushes) per 24 hrs. Goal rate will meet ~ 91% estimated energy needs and ~ 80% estimated protein needs. 5) Advance to 60g CCHO diet when medically feasible, pending ST approval 6) Follow-up with pulmonology 7) Continue to monitor I&O, labs, and skin integrity Expected Outcomes/Goals: 1) patient to receive nutrition support within 7 days of NPO status 2) labs and wound to improve 3) diet to advance 4) f/u in 2-3 days Date of Service: Jan 13, 2025 Billing Provider: MEL ULLOA MD Common Visit Codes: [id number] INP/OBS CARE(HIGH) BHAVESH JON RESIDENT Jan 13, 2025 14:32 MEL ULLOA MD Jan 16, 2025 20:18
[2025-01-13] MEDS: MEROPENEM 1GM IVPB 50 ML IV SCH (15:18)
[2025-01-14] VITALS (20 sets, daily range): BP systolic 87–105; BP diastolic 40–63; PULSE 80–107; RESP 14–19; TEMP 97–98; O2SAT 92–100
--- NOTE | 2025-01-14 00:47 | DVHPN2 ---
Progress Note - Dictate Date Seen: Jan 13, 2025 Medical Necessity Reason Pt with a Central, PICC or Fol: Yes The following are medically ne: Ruth Catheter Reason for ruth catheter: Strict I&O Subjective Ms. Anton Engel is 69 years old right-handed female with a history of gastric ulcer, versus brain aneurysm status post coiling, the patient came to the hospital on 01/01/2025 with acute shortness of breath x 1 day. I saw on 08/28/18 for history of cerebral aneurysm I have seen and examined the patient, I have talked to her nurse, she is extubated, he is oriented to person, place, he knows the year and the month, he had follows verbal commands, he moves the arms and legs, but not a good historian Urinalysis, 01/01/2025: Hormone UDS, 01/01/2025: Negative WBC/HB/PLT/activity, 01/06/2025: 1743/11/331/98.9 Na, 01/03/2025: 137, 01/05/2025: 149, 150, 01/06/2025: 149, 01/07/25: 151, 01/08/2025: 148 TBI/AST/ALT/AP, 01/05/2025: 1.3/51/8 9/83 Chest x-ray, 01/01/2025: Extensive bilateral airspace disease, greatest in the perihilar regions. This may be secondary to severe pulmonary edema. ARDS and diffuse pneumonia are also considerations Chest three, 01/03/2025: Endotracheal tube and right central venous catheter in satisfactory position. Chest x-ray, 01/06/2025: Worsening of bilateral interstitial opacities. Suspected development of small left pleural effusion and basilar atelectasis. Stable support devices (Unchanged endotracheal tube, enteric tube, and right IJ catheter) CT head, 08/19/18: Slightly limited examination due to patient motion. Status post aneurysm embolization along the left side of the sella turcica. Artifact from the embolization material limits evaluation of the in-plane brain parenchyma. No acute intracranial pathology is identified, however if there is concern for a subtle intracranial abnormality, a repeat CT scan should be obtained when the patient can lie still. CTA chest, 01/01/2025: 1. No pulmonary embolism. 2. Extensive multifocal consolidative bilateral pulmonary infiltrate, most notably within the bilateral posterior lower lobes vital signs Vital Sign Date Time Temp Pulse Resp B/P (MAP) Pulse Ox O2 Delivery O2 Flow Rate FiO2 01/13/25 22:33 88 18 100 01/13/25 22:25 Nasal Cannula 2.0 01/13/25 22:25 28 01/13/25 21:00 97.9 51/ 97.9 Total Intake and Output 01/13/25 01/13/25 01/14/25 15:00 23:00 07:00 Intake Total 390 ml 350 ml Output Total 425 ml 600 ml Balance -35 ml -250 ml medications Current Medications Medications Dose Ordered Sig/Serenity Route Start Time Stop Time Status Last Admin Dose Admin Pantoprazole Sodium 40 mg DAILY IV 01/02/25 10:00 01/13/25 09:49 40 MG Dextrose 50 ml UD PRN IV 01/04/25 08:30 Vancomycin HCl 100 ml @ 100 mls/hr Q16H IV 01/05/25 10:00 01/13/25 09:50 100 MLS/HR Acetaminophen 650 mg Q6HP PRN PO 01/05/25 10:15 01/11/25 08:38 650 MG Levalbuterol HCl 0.625 mg Q4HR NEB 01/06/25 06:00 01/13/25 22:25 0.625 MG Ipratropium [place] 0.5 mg Q4HR NEB 01/06/25 06:00 01/13/25 22:25 0.5 MG Diagnostic Test (Pha) 1 strip Q6HR 01/06/25 12:00 01/14/25 00:26 1 STRIP Insulin Human Regular Q6HR SC 01/06/25 12:00 01/13/25 13:15 2 UNITS Budesonide 0.5 mg BID NEB 01/06/25 22:00 01/13/25 22:25 0.5 MG Enoxaparin Sodium 40 mg DAILY SC 01/10/25 10:00 01/13/25 09:50 40 MG Lactulose 30 ml DAILY PO 01/11/25 10:00 01/13/25 09:50 30 ML Ondansetron HCl 4 mg Q4HPRN PRN IV 01/11/25 00:00 01/11/25 08:15 4 MG Furosemide 40 mg DAILY IV 01/13/25 10:00 Methylprednisolone Sodium Succinate 40 mg DAILY IV 01/13/25 10:00 01/13/25 09:49 40 MG Azithromycin 250 ml @ 125 mls/hr DAILY IV 01/13/25 10:00 01/13/25 12:54 125 MLS/HR Docusate Sodium 100 mg BID PO 01/12/25 22:00 01/13/25 22:36 100 MG Sennosides 17.2 mg HS PO 01/12/25 22:00 01/13/25 22:37 17.2 MG Meropenem 50 ml @ 17 mls/hr Q12H IV 01/13/25 15:00 01/13/25 15:18 17 MLS/HR objective The patient is well-nourished and well-developed with no distress. MENTAL STATUS: Subjective CRANIAL NERVES: Pupils are round and sluggishly reactive, right: 2 mm, left: 4 mm.There are conjugated eye movement. No signs of facial weakness. There are gagging or coughing reflexes. No obese ptosis, abnormal vascular dilatation or skin secretion SENSATION: Okay to pinprick and light touch MOTOR: Normal tone in the upper and lower extremity. Normal muscle bulk. No fasciculations. He moves the arms and legs REFLEXES: Deep tendon reflexes are symmetrical. No pathological reflexes. CEREBELLAR/COORDINATION: Deferred GAIT/STATION: deferred. laboratory and microbiology Laboratory Tests 01/13/25 03:27 Test 01/13/25 03:27 Range/Units Serum Glucose 114 H 74-106 mg/dL Problem List Anisocoria, with left-sided bigger, ? related to the left ICA aneurysm and coiling Coma/altered mental status Metabolic encephalopathy Hypoxic encephalopathy Toxic encephalopathy Acute on chronic respiratory failure Pneumonia Sepsis Hypernatremia Left ICA brain aneurysm/SAH status post correlating Assessment/Plan Monitoring Supportive treatment Telemetry Oxygen Antibiotics More history from her More recommendation per clinical course This medical document was created using an electronic medical record system with [employer] dictation system. Although this document has been carefully reviewed, there may still be some phonetic and typographical errors. These areas are purely typographical due to imperfections of the software programs, and do not reflect any compromise in the patient's medical care Prognosis poor Dietary Evaluation Review Comments: 1) Initiate MVI @ 1 tb qd 2) Initiate Pro-Stat @ 30 mL qd. Flush 30 mL free H2O AC/PC 3) If patient remains NPO > 7 days, consider EN/TPN to meet at least 75% of estimated daily needs 4) If GI is preferred, consider Glucerna 1.2 @ 50 mL/hr goal rate as tolerated. Flush 150 mL free H2O Q6. TF regimen (including Pro-Stat) will provide 1540 kcals, 87g Pro, and 1626 mL free H2O (including TF flushes) per 24 hrs. Goal rate will meet ~ 91% estimated energy needs and ~ 80% estimated protein needs. 5) Advance to 60g CCHO diet when medically feasible, pending ST approval 6) Follow-up with pulmonology 7) Continue to monitor I&O, labs, and skin integrity Expected Outcomes/Goals: 1) patient to receive nutrition support within 7 days of NPO status 2) labs and wound to improve 3) diet to advance 4) f/u in 2-3 days Plan discussed with: RYAN Chand MD Jan 14, 2025 00:47
[2025-01-14 06:25] LABS: Hematocrit 38.3 % (36.0-46.0); Hemoglobin 12.7 g/dL (12.2-16.2); Mean Corpuscular Hemoglobin 32.9 pg (28.0-32.0); Mean Corpuscular Volume 99.2 fL (80.0-100.0); Nucleated Red Blood Cells % 0.1 %
[2025-01-14 06:41] LABS: Anion Gap 10 (5-15); Carbon Dioxide 25 mmol/L (20-31); Chloride 102 mmol/L (98-107); Sodium 137 mmol/L (136-145)
[2025-01-14 06:47] LABS: BUN/Creatinine Ratio 27.7 (10.0-20.0); Blood Urea Nitrogen 18 mg/dL (9-23); Glucose 101 mg/dL (74-106)
[2025-01-14 06:49] LABS: Calcium 8.6 mg/dL (8.7-10.4); Potassium 3.4 mmol/L (3.5-5.1)
[2025-01-14] MEDS: POTASSIUM EFFERVESENT TAB 25 MEQ PO ONE (10:05)
--- NOTE | 2025-01-14 15:20 | DVHPNRES ---
Progress Note Date Seen: Jan 14, 2025 Resident Creating Document: BHAVESH JON RESIDENT Medical Necessity Reason Pt with a Central, PICC or Fol: Yes The following are medically ne: Ruth Catheter Reason for ruth catheter: Strict I&O Subjective Review of Systems Patient is a 69-year-old female who is a poor historian, with prior medical history of asthma, COPD?, intracranial aneurysm s/p repair(coiling?), hypothyroidism, rheumatoid arthritis, lupus? and recurrent pneumonias requiring intubation x 3 in the past, who presented to the ED with chief complaint of fatigue and shortness of breath. Patient states symptoms initiated 1 week prior to presentation. She refers fatigue associated with progressively worsened shortness of breath, dry cough, and febrile sensation. She states she used her oxygen at home with little relief however pt is unclear about whether it is home oxygen or a nebulizer, inability to achieve relief despite that prompted her family to call EMS. On evaluation in the field, she was saturating 60% and was placed on 10 L O2. Per pt she is on no medication neither sees a primary care doctor as she prefers holistic alternatives routinely. Per pt, she attends a clinic in [facility] where she receives infusions? On evaluation in the ED, she was found to be tachycardic, tachypneic, and requiring 15 L O2 via face mask. Initial labs significant for 15.4, with chemical panel within normal range, lactic acid 1.8, troponins negative, BNP 30.14, ABG showing 7.405, pCO2 27.1, pO2 103.3, and HCO3 16.6. Chest Xray shows extensive bilateral airspace disease, greatest in perihilar regions. Sepsis protocol was initiated, cultures were taken, and patient was admitted and started on IV antibiotics. Surgical: Aneurysm repair, Hernia repair, appendectomy Social: Denies drug and alcohol use, refers she smoked 1-2 cigarettes daily for 30 years with cessation in 2019 Patient seen at bedside. She is alert and oriented in person, place, and time. She states that feels well, and shortness of breath has improved with use of simple face mask, at the time 10 L O2. She currently denies chest pain, cough, nausea, vomiting and other symptoms. Over night, patient febrile spike of 102.2 F, she has remained tachypneic, and blood pressure remain on the lower limit of normality. CT angio was ordered, ruling out PE, and showed extensive multifocal consolidative bilateral pulmonary infiltrate. Cefepime was added for broader coverage. Patient is currently JACLYN status. 01/03/2025: Overnight pt was able to be brought down to 6L O2 however, in the morning after minimal exertion, patient continued to have respiratory distress with desaturation on minimal movement. On re-evaluation an hour later, patient was noted to have continued tachypnea and use of accessory muscles, patient was AAO x4 and agreed to intubation verbally as well as a full code status aware of risks and benefits. Patient's son was informed, he wanted to wait on intubation until he arrived from [place] in order for the patient to sign on some financial documents, however, ultimately intubation became medically necessary and waiting further would have proven detrimental to patient's health and well- being. Patient was subsequently intubated, a central line was placed, patient was upgraded to ICU status, patient's son was called and informed, detailed meeting was held with patient's son Mr. Alonso lasting 45 minutes where details of patient's with the plan of care was explained in great detail, all questions were answered concerns were addressed, imaging details outlined showing widespread multifocal pneumonia was also shared with patient's son, he demonstrated understanding and was agreeable with the plan of care. plan of care was also discussed with patients daughter in law, Ms. Carvajal for >40mins. Pt underwent bronchoscopy with bloody drainage. IV steroids were started and antibiotic coverage was broadened to include meropenem. vasopressors were initiated to support hemodynamics. 01/04/2025: Patient seen and examined at bedside, overnight patient required 4 pressors and increasing ventilator settings, however, this morning blood pressure is stable, patient currently only on Levophed 26 mcg, decrease respiratory rate to 26 and PEEP to 10 with a tidal volume of 400 and FiO2 30%. Added IV Lasix 20 mg 1 time only. Echocardiogram shows possible heart failure with diastolic dysfunction. Detailed discussion held with patient and patient's at bedside were all questions were answered and concerns were addressed. 01/06/2025: Patient seen and examined at bedside, off of pressors as of 2:00 p.m.. Continues to be on FiO2 40% with a PEEP of 8. IV Lasix 40 mg once. KUB shows nonspecific bowel gas pattern with moderate stool, started lactulose 30 mL b.i.d.. 01/07/2025: Patient seen and examined at bedside, decreased respiratory rate to 16, decreased FiO2 40%. Started patient on free water 250 mL Q 8 hours due to up trending hypernatremia. Added IV Lasix 40 mg b.i.d.. Nonspecific T-wave changes in the EKG noted. Chest x-ray with worsening bilateral infiltrates. 01/08/25: Patient had 2 bowel movements today. Decreased tidal volume to 360. Detailed discussion held with [id number] at bedside for more than 30 minutes, all questions answered concerns addressed. Family now agreeable to dvt ppx however still had some slight blood tinged respiratory secretions yesterday, will start dvt ppx tomorrow if no further blood tinged secretions noted. 01/09/25: Pt seen and examined at bedside, FiO2 at 30%, another BM today. cxr no interval change. 01/10/2025: Patient underwent CPAP trial today with RSBI 46. S/p extubation, tolerated well. Continues to have pulmonary edema, IV Lasix 40 mg b.i.d.. 01/12/2025: Patient seen and examined at bedside, reports improvement in nausea and vomiting, is able to tolerate oral intake. Decreased steroids to IV methylprednisolone 40 mg once daily, decrease Lasix to IV Lasix 40 mg once daily. Added azithromycin to cover atypicals. Currently on day 8 of meropenem and day 11 of vancomycin. 01/13/2025: Patient seen and examined at bedside, downgraded to [facility], ordered physical therapy evaluation. 01/14/2025: Patient progressing with physical therapy, titrated to room air with saturations greater than 90%. Detailed discussion held with patient and son at bedside, questions answered all concerns addressed, patient and son were instructed to follow up with PCP upon discharge and with a referral to the building surveyor, both demonstrated understanding. Possible discharge in the a.m.. Discontinued TLC Objective vital signs Vital Sign Date Time Temp Pulse Resp B/P (MAP) Pulse Ox O2 Delivery O2 Flow Rate FiO2 01/14/25 14:28 100 16 100 01/14/25 14:22 Room Air 0.0 01/14/25 14:22 21 01/14/25 13:00 98.0 87/40 (56) 98.0 Total Intake and Output 8/11/25 8/11/25 8/12/25 15:00 23:00 07:00 Intake Total 390 ml 350 ml 350 ml Output Total 425 ml 600 ml 1200 ml Balance -35 ml -250 ml -850 ml medications Current Medications Medications Dose Ordered Sig/Serenity Route Start Time Stop Time Status Last Admin Dose Admin Dextrose 50 ml UD PRN IV 01/04/25 08:30 Acetaminophen 650 mg Q6HP PRN PO 01/05/25 10:15 01/11/25 08:38 650 MG Levalbuterol HCl 0.625 mg Q4HR NEB 01/06/25 06:00 01/14/25 14:22 0.625 MG Ipratropium [place] 0.5 mg Q4HR NEB 01/06/25 06:00 01/14/25 14:22 0.5 MG Diagnostic Test (Pha) 1 strip Q6HR 01/06/25 12:00 01/14/25 11:32 1 STRIP Budesonide 0.5 mg BID NEB 01/06/25 22:00 01/14/25 06:34 0.5 MG Enoxaparin Sodium 40 mg DAILY SC 01/10/25 10:00 01/14/25 10:00 40 MG Lactulose 30 ml DAILY PO 01/11/25 10:00 01/13/25 09:50 30 ML Ondansetron HCl 4 mg Q4HPRN PRN IV 01/11/25 00:00 01/11/25 08:15 4 MG Docusate Sodium 100 mg BID PO 01/12/25 22:00 01/13/25 22:36 100 MG Sennosides 17.2 mg HS PO 01/12/25 22:00 01/13/25 22:37 17.2 MG Azithromycin 500 mg DAILY PO 01/15/25 10:00 Furosemide 40 mg DAILY PO 01/15/25 10:00 Prednisone 5 mg DAILY PO 01/15/25 10:00 Pantoprazole Sodium 40 mg DAILY@0600 PO 01/15/25 06:00 Examination General Appearance: In no distress, weak appearing, awake and alert Head Exam: Normal inspection Neck Exam: left pupil is larger than the right however prior to being intubated pt had stated this is since her basline since aneurysm repair? Pulmonary/Respiratory: Coarse bilateral breath sounds, decreased on left more than right Cardiovascular/Chest: Tachycardic. Regular rhythm. No murmurs. No JVD. Peripheral Pulses: 2+ Radial (R). 2+ Radial (L). 2+ Pedal (R). 2+ Pedal (L) Abdominal Exam: Distended but soft abdomen with decreased bowel sounds., no visible veins, Nontender. No hepatospenomegaly. No masses Ankle Exam: Negative ankle edema Lower extremities: Negative lower extremity edema Skin Exam: Normal inspection. Normal color. Warm. Dry laboratory and microbiology Laboratory Tests 01/14/25 05:41 Test 01/14/25 05:41 Range/Units Serum Glucose 101 74-106 mg/dL Microbiology Date/Time Source Procedure Growth Status 01/03/25 21:50 Nose MRSA Screen - Final Complete 01/03/25 16:32 Bronchial Washings Gram Stain - Final Complete 01/03/25 16:32 Bronchial Washings Respiratory Culture - Final Complete 01/01/25 19:23 Blood Blood Culture - Final NO GROWTH AFTER 5 DAYS OF INCUBATION. 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 # history of ICA aneurysm/SAH? # acute metabolic versus toxic versus hypoxic encephalopathy - Versed - fentanyl - head CT: Streak artifact from left cavernous sinus region call material limits evaluation of the adjacent structures. Otherwise no evidence of acute intracranial abnormality. - neurology on board Cardiovascular # septic shock # heart failure with preserved ejection fraction - on norepinephrine - on vasopressin - decreased IV hydrocortisone 100 mg q.8hrs - echocardiogram: LV EF IS 65% AND IS NORMAL. MILD LVH AND MILD LV DIASTOLIC DYSFUNCTION. NORMAL VALVES. NORMAL RV FUNCTION AND SIZE. NORMAL RVSP AND IS 20 MM OF HG. NO EFFUSION Respiratory # Ventilator; respiratory rate 16, FiO2 40%, peep 8, tidal volume 360 -intubated 01/03/2025 - bronchoscopy 01/03/2025 - extubated 01/10/25 # Acute hypoxic respiratory failure # possible alveolar hemorrhage # COPD exacerbation # ruled out pulmonary embolism # multifocal community-acquired pneumonia, Gram-positive versus Gram-negative # possible pulmonary edema, severe - IV vancomycin, IV meropenem - pulmonology on board - decrease steroids to IV methylprednisolone 40 mg daily - ipratropium albuterol med nebs - CT angiography: No pulmonary embolism. Extensive multifocal consolidative bilateral pulmonary infiltrate, most notably within the bilateral posterior lower lobes. - CXR from 01/03/2025: Interstitial and alveolar type opacities of bilateral lungs, relatively unchanged from prior imaging which may represent multifocal pneumonia/ARDS/severe pulmonary edema - CXR from 01/06/2025: Worsening of bilateral interstitial opacities. Suspected development of small left pleural effusion and basilar atelectasis. - decreased IV Lasix to 40 mg once daily - added budesonide med nebs 0.5 mg b.i.d. GI # transaminitis, now improving # constipation likely slow transit - Colace 100 mg b.i.d., MiraLax daily - KUB: Nonobstructive bowel gas pattern. Large stool burden. Ruth catheter overlying the bladder. - decreased lactulose to 30 mg p.o. daily - Colace 100 mg p.o. b.i.d. # Peptic ulcer prophylaxis -Pantoprazole 40 mg IV daily # Ruth catheter placed on 01/02/2025 Infectious disease # community-acquired pneumonia, Gram-positive versus Gram-negative # sepsis due to above # septic shock due to above - IV vancomycin per pharmacy - IV meropenem - norepinephrine drip - vasopressin drip - IV methylprednisolone 125 mg once - IV hydrocortisone 50 mg q.8 hours - awaiting respiratory cultures from bronchoscopy Hem/onc # macrocytosis without anemia -monitor Endocrine # history of type 2 diabetes # history of rheumatoid arthritis, not on any treatment # ?Lupus # hypokalemia - ordered A1c 6% - repleted - monitor DVT prophylaxis Lovenox Lines - right CVC placed on 01/03/2025, discontinued 01/14/2025 - ruth 01/03/25 Downgraded to JACLYN on 01/12/2025 Downgraded to telemetry on 01/13/2025 Care time 33 minutes excluding procedure. Plan discussed with patient's son, at bedside in great detail, all questions were answered and concerns were addressed. Code status discussed greater than 20 minutes: Full CODE STATUS. Plan discussed with Dr. Ulloa Plan discussed with: Patient, Son, Other (RN) My Orders My Orders Orders - BHAVESH JON RESIDENT Procedure Category Date Status Time * Supervisor Slitting And Shipping CONS 01/14/25 Transmitted Consult Azithromycin Tablet PHA 01/15/25 In Process (Zithromax Tablet) 10:00 Furosemide Tablet PHA 01/15/25 In Process (Lasix Tablet) 10:00 Prednisone Tablet PHA 01/15/25 In Process 10:00 Pantoprazole Tablet PHA 01/15/25 In Process (Protonix Tablet) 06:00 Dietary Evaluation Review Comments: 1) Initiate MVI @ 1 tb qd 2) Initiate Pro-Stat @ 30 mL qd. Flush 30 mL free H2O AC/PC 3) If patient remains NPO > 7 days, consider EN/TPN to meet at least 75% of estimated daily needs 4) If GI is preferred, consider Glucerna 1.2 @ 50 mL/hr goal rate as tolerated. Flush 150 mL free H2O Q6. TF regimen (including Pro-Stat) will provide 1540 kcals, 87g Pro, and 1626 mL free H2O (including TF flushes) per 24 hrs. Goal rate will meet ~ 91% estimated energy needs and ~ 80% estimated protein needs. 5) Advance to 60g CCHO diet when medically feasible, pending ST approval 6) Follow-up with pulmonology 7) Continue to monitor I&O, labs, and skin integrity Expected Outcomes/Goals: 1) patient to receive nutrition support within 7 days of NPO status 2) labs and wound to improve 3) diet to advance 4) f/u in 2-3 days Date of Service: Jan 14, 2025 Billing Provider: MEL ULLOA MD Common Visit Codes: [id number] INP/OBS CARE(HIGH) BHAVESH JON RESIDENT Jan 14, 2025 15:20 MEL ULLOA MD Jan 16, 2025 20:19
--- NOTE | 2025-01-14 16:27 | MEDREC ---
[facility] Intervention Section I [facility] Intervention: Review courses of therapy (Please consider D/C azithromycin. 01/14 should be the last day of the regimen if the patient is on azithromycin 500mg daily (3 day for atypical pneumonia)) REFUGIO CORCORAN [facility] RESIDENT Jan 14, 2025 16:27
--- NOTE | 2025-01-14 18:10 | DVHPN2 ---
Progress Note - Dictate Date Seen: Jan 14, 2025 Medical Necessity Reason Pt with a Central, PICC or Fol: Yes The following are medically ne: Ruth Catheter Reason for ruth catheter: Strict I&O vital signs Vital Sign Date Time Temp Pulse Resp B/P (MAP) Pulse Ox O2 Delivery O2 Flow Rate FiO2 01/14/25 16:59 98.0 99 19 103/56 (72) 94 98.0 01/14/25 14:22 Room Air 0.0 01/14/25 14:22 21 Total Intake and Output 01/13/25 01/13/25 01/14/25 15:00 23:00 07:00 Intake Total 390 ml 350 ml 350 ml Output Total 425 ml 600 ml 1200 ml Balance -35 ml -250 ml -850 ml medications Current Medications Medications Dose Ordered Sig/Serenity Route Start Time Stop Time Status Last Admin Dose Admin Dextrose 50 ml UD PRN IV 01/04/25 08:30 Acetaminophen 650 mg Q6HP PRN PO 01/05/25 10:15 01/11/25 08:38 650 MG Levalbuterol HCl 0.625 mg Q4HR NEB 01/06/25 06:00 01/14/25 14:22 0.625 MG Ipratropium [place] 0.5 mg Q4HR NEB 01/06/25 06:00 01/14/25 14:22 0.5 MG Diagnostic Test (Pha) 1 strip Q6HR 01/06/25 12:00 01/14/25 17:23 1 STRIP Budesonide 0.5 mg BID NEB 01/06/25 22:00 01/14/25 06:34 0.5 MG Enoxaparin Sodium 40 mg DAILY SC 01/10/25 10:00 01/14/25 10:00 40 MG Lactulose 30 ml DAILY PO 01/11/25 10:00 01/13/25 09:50 30 ML Ondansetron HCl 4 mg Q4HPRN PRN IV 01/11/25 00:00 01/11/25 08:15 4 MG Docusate Sodium 100 mg BID PO 01/12/25 22:00 01/13/25 22:36 100 MG Sennosides 17.2 mg HS PO 01/12/25 22:00 01/13/25 22:37 17.2 MG Azithromycin 500 mg DAILY PO 01/15/25 10:00 Furosemide 40 mg DAILY PO 01/15/25 10:00 Prednisone 5 mg DAILY PO 01/15/25 10:00 Pantoprazole Sodium 40 mg DAILY@0600 PO 01/15/25 06:00 laboratory and microbiology Laboratory Tests 01/14/25 05:41 Test 01/14/25 05:41 Range/Units Serum Glucose 101 74-106 mg/dL Assessment/Plan Impression Acute hypoxic respiratory failure Pneumonia Atelectasis Alveolar hemorrhage Rheumatoid arthritis Hx of nicotine dependence COPD Events: S/p extubation d/graded Labs and imaging reviewed ABG reviewed Plan: Supplemental oxygen Titrate to maintain sats 90% ora lorenzo Incentive spirometry Aspiration precautions diet as tolerated Continue antibiotics. Continue steroids Monitor renal function Monitor electrolytes. Supplement as necessary. Monitor ins and outs. GI prophylaxis. DVT prophylaxis. Dietary Evaluation Review Comments: 1) Initiate MVI @ 1 tb qd 2) Initiate Pro-Stat @ 30 mL qd. Flush 30 mL free H2O AC/PC 3) If patient remains NPO > 7 days, consider EN/TPN to meet at least 75% of estimated daily needs 4) If GI is preferred, consider Glucerna 1.2 @ 50 mL/hr goal rate as tolerated. Flush 150 mL free H2O Q6. TF regimen (including Pro-Stat) will provide 1540 kcals, 87g Pro, and 1626 mL free H2O (including TF flushes) per 24 hrs. Goal rate will meet ~ 91% estimated energy needs and ~ 80% estimated protein needs. 5) Advance to 60g CCHO diet when medically feasible, pending ST approval 6) Follow-up with pulmonology 7) Continue to monitor I&O, labs, and skin integrity Expected Outcomes/Goals: 1) patient to receive nutrition support within 7 days of NPO status 2) labs and wound to improve 3) diet to advance 4) f/u in 2-3 days Plan discussed with: Patient DALIA GOTTI MD Jan 14, 2025 18:10
[2025-01-14] MEDS: SODIUM CHLORIDE 0.9% 500 ML IV ONE (21:30)
--- NOTE | 2025-01-14 22:09 | DVHPN2 ---
Progress Note - Dictate Date Seen: Jan 14, 2025 Medical Necessity Reason Pt with a Central, PICC or Fol: Yes The following are medically ne: Ruth Catheter Reason for ruth catheter: Strict I&O Subjective Ms. Anton Engel is 69 years old right-handed female with a history of gastric ulcer, versus brain aneurysm status post coiling, the patient came to the hospital on 01/01/2025 with acute shortness of breath x 1 day. I saw on 08/28/18 for history of cerebral aneurysm I have seen and examined the patient, I have talked to her nurse, she is awake, oriented x3, she can maintain good conversation, the following information is obtained from her with our bilingual staff's help She reports, coincidentally after he recovered from the bursts brain aneurysm in 2017, she has unequal pupil size with left side bigger. Urinalysis, 01/01/2025: Hormone UDS, 01/01/2025: Negative WBC/HB/PLT/activity, 01/06/2025: 1743/11/331/98.9 Na, 01/03/2025: 137, 01/05/2025: 149, 150, 01/06/2025: 149, 01/07/25: 151, 01/08/2025: 148 TBI/AST/ALT/AP, 01/05/2025: 1.3/51/8 9/83 Chest x-ray, 01/01/2025: Extensive bilateral airspace disease, greatest in the perihilar regions. This may be secondary to severe pulmonary edema. ARDS and diffuse pneumonia are also considerations Chest three, 01/03/2025: Endotracheal tube and right central venous catheter in satisfactory position. Chest x-ray, 01/06/2025: Worsening of bilateral interstitial opacities. Suspected development of small left pleural effusion and basilar atelectasis. Stable support devices (Unchanged endotracheal tube, enteric tube, and right IJ catheter) CT head, 08/19/18: Slightly limited examination due to patient motion. Status post aneurysm embolization along the left side of the sella turcica. Artifact from the embolization material limits evaluation of the in-plane brain parenchyma. No acute intracranial pathology is identified, however if there is concern for a subtle intracranial abnormality, a repeat CT scan should be obtained when the patient can lie still. CTA chest, 01/01/2025: 1. No pulmonary embolism. 2. Extensive multifocal consolidative bilateral pulmonary infiltrate, most notably within the bilateral posterior lower lobes vital signs Vital Sign Date Time Temp Pulse Resp B/P (MAP) Pulse Ox O2 Delivery O2 Flow Rate FiO2 01/14/25 21:00 97.7 107 14 96/63 (74) 92 97.7 01/14/25 19:25 Room Air 01/14/25 19:25 0 21 Total Intake and Output 01/13/25 01/13/25 01/14/25 15:00 23:00 07:00 Intake Total 390 ml 350 ml 350 ml Output Total 425 ml 600 ml 1200 ml Balance -35 ml -250 ml -850 ml medications Current Medications Medications Dose Ordered Sig/Serenity Route Start Time Stop Time Status Last Admin Dose Admin Dextrose 50 ml UD PRN IV 01/04/25 08:30 Acetaminophen 650 mg Q6HP PRN PO 01/05/25 10:15 01/11/25 08:38 650 MG Levalbuterol HCl 0.625 mg Q4HR NEB 01/06/25 06:00 01/14/25 19:25 0.625 MG Ipratropium [place] 0.5 mg Q4HR NEB 01/06/25 06:00 01/14/25 19:25 0.5 MG Diagnostic Test (Pha) 1 strip Q6HR 01/06/25 12:00 01/14/25 17:23 1 STRIP Budesonide 0.5 mg BID NEB 01/06/25 22:00 01/14/25 19:25 0.5 MG Enoxaparin Sodium 40 mg DAILY SC 01/10/25 10:00 01/14/25 10:00 40 MG Lactulose 30 ml DAILY PO 01/11/25 10:00 01/13/25 09:50 30 ML Ondansetron HCl 4 mg Q4HPRN PRN IV 01/11/25 00:00 01/11/25 08:15 4 MG Docusate Sodium 100 mg BID PO 01/12/25 22:00 01/13/25 22:36 100 MG Sennosides 17.2 mg HS PO 01/12/25 22:00 01/13/25 22:37 17.2 MG Azithromycin 500 mg DAILY PO 01/15/25 10:00 Furosemide 40 mg DAILY PO 01/15/25 10:00 Prednisone 5 mg DAILY PO 01/15/25 10:00 Pantoprazole Sodium 40 mg DAILY@0600 PO 01/15/25 06:00 objective The patient is well-nourished and well-developed with no distress. MENTAL STATUS: Subjective CRANIAL NERVES: Pupils are round and sluggishly reactive, right: 2-3 mm, left: 4 mm.There are conjugated eye movement. No signs of facial weakness. Sensorimotor examined is normal in bilateral trigeminal distribution, no facial weakness, tongue in the midline SENSATION: Normal to pinprick and light touch MOTOR: Normal tone in the upper and lower extremity. Normal muscle bulk. No fasciculations. He moves the arms and legs REFLEXES: Deep tendon reflexes are symmetrical. No pathological reflexes. CEREBELLAR/COORDINATION: Deferred GAIT/STATION: deferred. laboratory and microbiology Laboratory Tests 01/14/25 05:41 Test 01/14/25 05:41 Range/Units Serum Glucose 101 74-106 mg/dL Problem List Anisocoria, with left-sided bigger, maybe related to the left ICA aneurysm and coiling Coma/altered mental status, resolved Metabolic encephalopathy Hypoxic encephalopathy Toxic encephalopathy Acute on chronic respiratory failure, improved Pneumonia Sepsis Hypernatremia Left ICA brain aneurysm/SAH status post correlating Assessment/Plan Monitoring Supportive treatment Telemetry Oxygen Antibiotics More history from her More recommendation per clinical course Neurology has no more offer, and was sign off, thank you very much for giving me an opportunity to take care of the pleasant lady This medical document was created using an electronic medical record system with [employer] dictation system. Although this document has been carefully reviewed, there may still be some phonetic and typographical errors. These areas are purely typographical due to imperfections of the software programs, and do not reflect any compromise in the patient's medical care Prognosis poor Dietary Evaluation Review Comments: 1) Initiate MVI @ 1 tb qd 2) Initiate Pro-Stat @ 30 mL qd. Flush 30 mL free H2O AC/PC 3) If patient remains NPO > 7 days, consider EN/TPN to meet at least 75% of estimated daily needs 4) If GI is preferred, consider Glucerna 1.2 @ 50 mL/hr goal rate as tolerated. Flush 150 mL free H2O Q6. TF regimen (including Pro-Stat) will provide 1540 kcals, 87g Pro, and 1626 mL free H2O (including TF flushes) per 24 hrs. Goal rate will meet ~ 91% estimated energy needs and ~ 80% estimated protein needs. 5) Advance to 60g CCHO diet when medically feasible, pending ST approval 6) Follow-up with pulmonology 7) Continue to monitor I&O, labs, and skin integrity Expected Outcomes/Goals: 1) patient to receive nutrition support within 7 days of NPO status 2) labs and wound to improve 3) diet to advance 4) f/u in 2-3 days Plan discussed with: Patient, Other RYAN HINKLE MD Jan 14, 2025 22:09
[2025-01-15] VITALS (9 sets, daily range): BP systolic 88–105; BP diastolic 51–69; PULSE 81–95; RESP 14–20; TEMP 97.9–98.1; O2SAT 93–100
[2025-01-15] MEDS: PANTOPRAZOLE 40 MG TAB PO SCH (05:08)
[2025-01-15 06:06] LABS: Hematocrit 34.6 % (36.0-46.0); Hemoglobin 11.8 g/dL (12.2-16.2); Mean Corpuscular Hemoglobin 33.2 pg (28.0-32.0); Mean Corpuscular Volume 97.7 fL (80.0-100.0); Nucleated Red Blood Cells % 0.1 %
[2025-01-15 06:22] LABS: Anion Gap 10 (5-15); Carbon Dioxide 24 mmol/L (20-31); Chloride 103 mmol/L (98-107); Sodium 137 mmol/L (136-145)
[2025-01-15 06:24] LABS: Calcium 8.4 mg/dL (8.7-10.4); Potassium 3.4 mmol/L (3.5-5.1)
[2025-01-15 06:28] LABS: BUN/Creatinine Ratio 25.8 (10.0-20.0); Blood Urea Nitrogen 17 mg/dL (9-23); Glucose 103 mg/dL (74-106)
--- NOTE | 2025-01-15 08:36 | DVH ---
CHEST RADIOGRAPH Indication: pna Technique: Single frontal view of the chest was obtained COMPARISON: XY CHEST PORTABLE on DOS: 01/13/25, XY CHEST PORTABLE on DOS: 01/10/25, XY CHEST PORTABLE on DOS: 01/10/25, XY CHEST PORTABLE on DOS: 01/09/25, XY CHEST PORTABLE on DOS: 01/08/25 FINDINGS: Lines and Tubes: None Lungs: Clear Pleura: No effusion. No pneumothorax. Cardiomediastinal contours: Unremarkable Bones: Unremarkable IMPRESSION: No acute disease.
[2025-01-15] MEDS: POTASSIUM EFFERVESENT TAB 25 MEQ PO ONE (08:44)
[2025-01-15] MEDS: AZITHROMYCIN 250 MG TAB PO SCH (10:23)
[2025-01-15] MEDS: FUROSEMIDE 40 MG TAB PO SCH (10:24)
[2025-01-15 13:18] LABS: COVID19 ANTIGEN SOFIA FIA NEGATIVE (NEGATIVE)
[2025-01-15] MEDS ORDERED: NEBU1KIT XX (15:38)
[2025-01-15] MEDS ORDERED: UMEC1AER IN (15:38)
[2025-01-15] MEDS ORDERED: LEVA1.2518 NEB (15:38)
[2025-01-15] MEDS ORDERED: IPR002IS NEB (15:38)
--- NOTE | 2025-01-15 15:53 | DVHDSRES ---
Discharge Summary Date of Admission Resident Creating Document: BHAVESH JON RESIDENT Jan 01, 2025 at 22:33 Date of Discharge: Jan 15, 2025 Admitting Diagnosis Acute hypoxic respiratory failure Labs/Diagnostic Data: Laboratory Results Test 01/15/25 11:44 01/15/25 04:51 01/14/25 17:23 01/14/25 00:40 Influenza Type A Antigen Negative (Negative) Influenza Type B Antigen Negative (Negative) SARS-CoV-2 Antigen (Rapid) Negative (NEGATIVE) White Blood Count 9.6 10^3/uL (4.4-10.8) Red Blood Count 3.54 10^6/uL (4.0-5.20) Hemoglobin 11.8 g/dL (12.2-16.2) Hematocrit 34.6 % (36.0-46.0) Mean Corpuscular Volume 97.7 fL (80.0-100.0) Mean Corpuscular Hemoglobin 33.2 pg (28.0-32.0) Mean Corpuscular Hemoglobin Concent 34.0 g/dL (32.0-36.0) Red Cell Distribution Width 13.5 % (11.8-14.3) Platelet Count 364 10^3/uL (140-450) Mean Platelet Volume 9.4 fL (6.9-10.8) Neutrophils (%) (Auto) 57.3 % (37.0-80.0) Lymphocytes (%) (Auto) 32.1 % (10.0-50.0) Monocytes (%) (Auto) 9.0 % (0.0-12.0) Eosinophils (%) (Auto) 1.3 % (0.0-7.0) Basophils (%) (Auto) 0.3 % (0.0-2.0) Neutrophils # (Auto) 5.5 10 ^3/uL (1.6-8.6) Lymphocytes # (Auto) 3.1 10 ^3/uL (0.4-5.4) Monocytes # (Auto) 0.9 10 ^3/uL (0-1.3) Eosinophils # (Auto) 0.1 10 ^3/uL (0-0.8) Basophils # (Auto) 0 10 ^3/uL (0-0.2) Nucleated Red Blood Cells 0.1 % Sodium Level 137 mmol/L (136-145) Potassium Level 3.4 mmol/L (3.5-5.1) Chloride Level 103 mmol/L (98-107) Carbon Dioxide Level 24 mmol/L (20-31) Anion Gap 10 (5-15) Blood Urea Nitrogen 17 mg/dL (9-23) Creatinine 0.66 mg/dL (0.550-1.02) Glomerular Filtration Rate Calc 95 mL/min (>90) BUN/Creatinine Ratio 25.8 (10.0-20.0) Serum Glucose 103 mg/dL (74-106) Calcium Level 8.4 mg/dL (8.7-10.4) POC Glucose 142 mg/dl (70-106) Vancomycin Level Trough 16.3 ug/mL (5-10) Test 01/12/25 10:00 01/10/25 14:04 01/10/25 06:49 01/04/25 20:17 Magnesium Level 2.4 mg/dL (1.6-2.6) Total Bilirubin 0.9 mg/dL (0.2-1.0) Aspartate Amino Transferase (AST) 27 U/L (13-40) Alanine Aminotransferase (ALT) 46 U/L (7-40) Alkaline Phosphatase 99 U/L (46-116) Total Protein 7.3 g/dL (5.7-8.2) Albumin 4.2 g/dL (3.2-4.8) Blood Gas Specimen Type Arterial Blood Gas Sample Site Left radial Blood Gas Patient Temperature 37.0 Arterial Blood Date Drawn [id number] Arterial Blood pH 7.501 (7.350-7.450) Arterial Blood Partial Pressure CO2 37.9 mmHg (32.0-45.0) Arterial Blood Partial Pressure O2 87.2 mmHg (83.0-108.0) Arterial Blood HCO3 29.0 mmol/L (21.0-28.0) Arterial Blood Oxygen Saturation 96.5 % (94.0-98.0) Arterial Blood Base Excess 5.6 mmol/L (-2.0-3.0) Arterial Blood Oxyhemoglobin 95.4 % (94.0-98.0) Arterial Blood Carboxyhemoglobin 0.9 % (0.5-1.5) Arterial Blood Methemoglobin 0.2 % (0.0-1.5) Temo Test Modified Blood Gas Total Hemoglobin 13.70 g/dL (12.0-16.0) Blood Gas Modality Vent - cpap FiO2 % 30.0 Blood Gas Pressure Support 8 Blood Gas PEEP or CPAP 8.0 Blood Gas Set Respiration Rate 16.0 Blood Gas Tidal Volume 380.0 Blood Gas Spontaneous Rate 26 Test 01/04/25 03:47 01/03/25 23:24 01/03/25 21:15 01/03/25 04:03 Phosphorus Level 5.4 mg/dL (2.4-5.1) Blood Gas Critical Value Read Back Yes Blood Gas Notified Whom Dr. jaida masters Blood Gas Notified Time [id number] Blood Gas Notified By Riki castillo rcp Specimen Drawn By Riki castillo rcp Hemoglobin A1c 6.0 % A1C (<5.7) Test 01/02/25 12:02 01/02/25 07:01 01/02/25 00:17 01/01/25 23:07 Prothrombin Time 10.3 sec (9.3-11.8) Prothrombin Time INR 0.97 (0.9-1.15) Activated Partial Thromboplast Time 28.2 SEC (24.5-34.5) Thyroid Stimulating Hormone (TSH) 1.85 uIU/mL (0.55-4.78) Blood Gas Liter Flow 15.00 Urine Color Light-orange (Yellow) Urine Clarity Clear (Clear) Urine pH 5.5 (5.0-9.0) Urine Specific [place] 1.020 (1.001-1.035) Urine Protein Trace (Negative) Urine Ketones 1+ (Negative) Urine Blood 1+ /uL (Negative) Urine Nitrite Negative (Negative) Urine Bilirubin Negative (Negative) Urine Urobilinogen Normal mg/dL (Negative) Urine Leukocyte Esterase Negative /uL (Negative) Urine RBC 4 /hpf (0 - 4) Urine Microscopic WBC 1 /HPF (0-5) Urine Squamous Epithelial Cells Few /hpf (<5) Urine Bacteria None seen /hpf (None Seen) Urine Glucose Normal mg/dL (Normal) Urine Opiates Screen Neg (NEGATIVE) Urine Fentanyl Screen Neg (NEGATIVE) Urine Barbiturates Screen Neg (NEGATIVE) Urine Phencyclidine Screen Neg (NEGATIVE) Urine Amphetamines Screen Neg (NEGATIVE) Urine Benzodiazepines Screen Neg (NEGATIVE) Urine Cocaine Screen Neg (NEGATIVE) Urine Cannabinoids Screen Neg (NEGATIVE) Test 01/01/25 20:20 01/01/25 19:23 01/01/25 19:20 Troponin I High Sensitivity 13 ng/L (</=34) Lactic Acid Level 1.8 mmol/L (0.4-2.0) B-Type Natriuretic Peptide 30.14 pg/mL (0-100) Venous Blood pH 7.371 (7.320-7.430) Venous Blood pCO2 at Patient Temp 38.0 mmHg (38.0-54.0) Venous Blood pO2 at Patient Temp < 36.5 mmHg (23.0-48.0) Venous Blood HCO3 21.5 mmol/L (22.0-29.0) Venous Blood Base Excess -3.3 mmol/L (-2.0-3.0) Other Laboratory Tests 01/15/25 04:51 Brief Hx & Hospital Course: The patient is a 69-year-old female with a complex medical history including asthma, possible COPD, hypothyroidism, rheumatoid arthritis, lupus, and recurrent pneumonias requiring intubation on three prior occasions. She also has a history of intracranial aneurysm status post coiling, hernia repair, and appendectomy. She presented to the emergency department with one week of progressive fatigue, shortness of breath, dry cough, and subjective fever. She is a poor historian and does not take any prescribed medications or follow with a primary care provider, preferring holistic treatments received in [facility]. On EMS arrival, she was found to be hypoxic with an oxygen saturation of 60%, requiring supplemental oxygen. In the ED, she was tachycardic, tachypneic, and required high-flow oxygen via face mask. Initial labs revealed leukocytosis and extensive bilateral airspace disease on chest imaging. Sepsis protocol was initiated, and she was admitted for IV antibiotics. Despite initial management, her respiratory status worsened, and she was intubated due to increasing respiratory distress and hypoxia. She was transferred to the ICU, started on vasopressors for septic shock, and underwent bronchoscopy which revealed bloody secretions. Antibiotic coverage was broadened, and IV steroids were initiated. Over the following days, she required multiple vasopressors and ventilator adjustments. Echocardiogram suggested diastolic dysfunction, and she was treated with diuretics for pulmonary edema. Imaging showed worsening bilateral infiltrates, and DVT prophylaxis was initiated once bloody bronchial secretions resolved. She gradually improved, was weaned off vasopressors, and successfully completed a CPAP trial followed by extubation. She continued to receive diuretics and was started on azithromycin for atypical coverage. Her condition stabilized, and she was downgraded to telemetry. Physical therapy was initiated, and she progressed well, eventually titrating to room air with stable oxygen saturation. She tolerated oral intake, and her nausea and vomiting resolved. Discharge planning was discussed with the patient and family, with recommendations for outpatient follow-up with primary care and pulmonology. The patient and family demonstrated understanding and agreement with the plan of care. DME walker, 3 in 1 commode was requested for the patient, patient was evaluated for home oxygen which she did not qualify for. On the day of discharge, patient appeared well and had stable vital signs, patient was walked 20-40 feet without oxygen and no desaturation was noted. Patient was discharged home with levalbuterol inhaler, ipratropium med nebs, nebulizer machine and given instructions to follow up in the discharge clinic and with pulmonology, plan of care was also discussed with patient's son Mr. Alonso and [id number] Ms. Carvajal, all questions were answered and concerns were addressed General Appearance: In no distress, weak appearing, awake and alert Head Exam: Normal inspection Neck Exam: left pupil is larger than the right pt states this is since her basline since aneurysm repair? Pulmonary/Respiratory: Equal bilateral breath sounds improved from prior Cardiovascular/Chest: Regular rate Regular rhythm. No murmurs. No JVD. Peripheral Pulses: 2+ Radial (R). 2+ Radial (L). 2+ Pedal (R). 2+ Pedal (L) Abdominal Exam: Soft abdomen. Nontender., no visible veins, Nontender. No hepatospenomegaly. No masses Ankle Exam: Negative ankle edema Lower extremities: Negative lower extremity edema Skin Exam: Normal inspection. Normal color. Warm. Dry Consults/Reason for consult Pulmonology: For extensive multifocal pneumonia Condition at Discharge: Fair Final Diagnosis/Problems List # Sedated # unequal pupils at baseline per patient prior to intubation, right pupil bigger than the left since aneurysm repair? # history of ICA aneurysm/SAH? # acute metabolic versus toxic versus hypoxic encephalopathy # septic shock # heart failure with preserved ejection fraction # Ventilator; respiratory rate 16, FiO2 40%, peep 8, tidal volume 360 -intubated 01/03/2025 - bronchoscopy 01/03/2025 - extubated 01/10/25 # Acute hypoxic respiratory failure # possible alveolar hemorrhage # COPD exacerbation # ruled out pulmonary embolism # multifocal community-acquired pneumonia, Gram-positive versus Gram-negative # possible pulmonary edema, severe # transaminitis, now improving # constipation likely slow transit # Peptic ulcer prophylaxis # Monzon catheter placed on 01/02/2025 # community-acquired pneumonia, Gram-positive versus Gram-negative # sepsis due to above # septic shock due to above # macrocytosis without anemia # history of type 2 diabetes # history of rheumatoid arthritis, not on any treatment # ?Lupus # hypokalemia Discharge Disposition: Home Discharge Instruct/Medications Diet: Cardiac 2g Na,low cholest Activity: No Restrictions, As Tolerated Follow Up/Referral: pls follow up with PCP in 1-2 weeks Please follow up in the discharge clinic Please 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 with 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 in 1-2 weeks Scheduled Ipratropium [place] (Ipratropium [place]), 0.5 MG NEB Q4HR Levalbuterol HCl (Levalbuterol HCl), 0.625 MG NEB Q4HR Prednisone (Prednisone), 40 MG PO DAILY Scheduled PRN Umeclidinium-Vilanterol (Anoro Ellipta 62.5-25 Mcg/INH), 1 AER IN DAILYP PRN Discontinued Medications Levothyroxine Sodium (Levothyroxine Sodium), 50 MCG PO QAM, (Reported) Durable Medical Equipment Nebulizers (Nebulizer System All-in-O), KIT XX DAILYP PRN, (DME) Discharge Statement: "Patient was advised to return to the ER or call 911 if any headaches, dizziness, shortness of breath, chest pain, abdominal pain, bleeding, fevers, or worsening of medical condition. Patient was counseled about treatment plan, medications, possible side effects, patientverbalized understanding. All questions were answered to the best of my ability. This discharge took greater then 30 minutes in planning, reviewing documentation, counseling the patient, and discussing with other team members." DME: Diagnosis: 3-in-one commode, critical illness related deconditioning ASSESSMENT ASSESSMENT Assessment # Sedated # unequal pupils at baseline per patient prior to intubation, right pupil bigger than the left since aneurysm repair? # history of ICA aneurysm/SAH? # acute metabolic versus toxic versus hypoxic encephalopathy # septic shock # heart failure with preserved ejection fraction # Ventilator; respiratory rate 16, FiO2 40%, peep 8, tidal volume 360 -intubated 01/03/2025 - bronchoscopy 01/03/2025 - extubated 01/10/25 # Acute hypoxic respiratory failure # possible alveolar hemorrhage # COPD exacerbation # ruled out pulmonary embolism # multifocal community-acquired pneumonia, Gram-positive versus Gram-negative # possible pulmonary edema, severe # transaminitis, now improving # constipation likely slow transit # Peptic ulcer prophylaxis # Monzon catheter placed on 01/02/2025 # community-acquired pneumonia, Gram-positive versus Gram-negative # sepsis due to above # septic shock due to above # macrocytosis without anemia # history of type 2 diabetes # history of rheumatoid arthritis, not on any treatment # ?Lupus # hypokalemia Date of Service: Jan 15, 2025 Billing Provider: MEL SALINAS MD Common Visit Codes: 92590-TOK/OBS DISCH DAY >30min BHAVESH JON RESIDENT Jan 15, 2025 15:53 MEL SALINAS MD Jan 16, 2025 20:20
[2025-01-15] MEDS ORDERED: PRED20TA2 PO (16:18)
--- NOTE | 2025-01-15 16:46 | DVHPN2 ---
Progress Note - Dictate Date Seen: Jan 15, 2025 Medical Necessity Reason Pt with a Central, PICC or Fol: Yes The following are medically ne: Ruth Catheter Reason for ruth catheter: Strict I&O vital signs Vital Sign Date Time Temp Pulse Resp B/P (MAP) Pulse Ox O2 Delivery O2 Flow Rate FiO2 01/15/25 13:00 98.0 91 17 89/53 (65) 93 98.0 01/15/25 08:00 Room Air* 0 21 Total Intake and Output 01/14/25 01/14/25 01/15/25 15:00 23:00 07:00 Intake Total 250 ml 1420 ml 100 ml Output Total 1350 ml Balance 250 ml 70 ml 100 ml medications Current Medications Medications Dose Ordered Sig/Serenity Route Start Time Stop Time Status Last Admin Dose Admin Dextrose 50 ml UD PRN IV 01/04/25 08:30 Acetaminophen 650 mg Q6HP PRN PO 01/05/25 10:15 01/11/25 08:38 650 MG Levalbuterol HCl 0.625 mg Q4HR NEB 01/06/25 06:00 01/15/25 06:42 0.625 MG Ipratropium [place] 0.5 mg Q4HR NEB 01/06/25 06:00 01/15/25 06:42 0.5 MG Diagnostic Test (Pha) 1 strip Q6HR 01/06/25 12:00 01/14/25 17:23 1 STRIP Budesonide 0.5 mg BID NEB 01/06/25 22:00 01/15/25 06:42 0.5 MG Enoxaparin Sodium 40 mg DAILY SC 01/10/25 10:00 01/15/25 10:23 40 MG Lactulose 30 ml DAILY PO 01/11/25 10:00 01/15/25 10:21 30 ML Ondansetron HCl 4 mg Q4HPRN PRN IV 01/11/25 00:00 01/11/25 08:15 4 MG Docusate Sodium 100 mg BID PO 01/12/25 22:00 01/15/25 10:22 100 MG Sennosides 17.2 mg HS PO 01/12/25 22:00 01/13/25 22:37 17.2 MG Azithromycin 500 mg DAILY PO 01/15/25 10:00 01/15/25 10:23 500 MG Pantoprazole Sodium 40 mg DAILY@0600 PO 01/15/25 06:00 01/15/25 05:08 40 MG Prednisone 40 mg DAILY PO 01/16/25 10:00 laboratory and microbiology Laboratory Tests 01/15/25 04:51 Test 01/15/25 04:51 Range/Units Serum Glucose 103 74-106 mg/dL Assessment/Plan Impression Acute hypoxic respiratory failure Pneumonia Atelectasis Alveolar hemorrhage Rheumatoid arthritis Hx of nicotine dependence COPD Events: S/p extubation no acute events Labs and imaging reviewed ABG reviewed Plan: Supplemental oxygen Titrate to maintain sats 90% ora lorenzo Incentive spirometry Aspiration precautions diet as tolerated Continue antibiotics. Continue steroids Monitor renal function Monitor electrolytes. Supplement as necessary. Monitor ins and outs. GI prophylaxis. DVT prophylaxis. Dietary Evaluation Review Comments: 1) Initiate MVI @ 1 tb qd 2) Initiate Pro-Stat @ 30 mL qd. Flush 30 mL free H2O AC/PC 3) If patient remains NPO > 7 days, consider EN/TPN to meet at least 75% of estimated daily needs 4) If GI is preferred, consider Glucerna 1.2 @ 50 mL/hr goal rate as tolerated. Flush 150 mL free H2O Q6. TF regimen (including Pro-Stat) will provide 1540 kcals, 87g Pro, and 1626 mL free H2O (including TF flushes) per 24 hrs. Goal rate will meet ~ 91% estimated energy needs and ~ 80% estimated protein needs. 5) Advance to 60g CCHO diet when medically feasible, pending ST approval 6) Follow-up with pulmonology 7) Continue to monitor I&O, labs, and skin integrity Expected Outcomes/Goals: 1) patient to receive nutrition support within 7 days of NPO status 2) labs and wound to improve 3) diet to advance 4) f/u in 2-3 days Plan discussed with: Patient DALIA GOTTI MD Jan 15, 2025 16:46
[2025-01-16] MEDS ORDERED: predniSONE 20 MG TAB PO SCH (10:00)
== END 2025-01-15 20:15 | disposition home or self-care (01) | DRG 870 ==
LOC: EDBD 18:56 → ER 18:56 → OVERFLOW 22:33 → ICU WEST 22:44 → TELE-EAST 01-13 10:47
PROVIDERS: ADMIT Internal Medicine Geriatric Medicine; ATTEND Internal Medicine
PROC: 5A1955Z Respiratory Ventilation, Greater than 96 Consecutive Hours (ICD-10-PCS; principal; 2025-01-03)
PROC: 0B9F8ZX Drainage of Right Lower Lung Lobe, Via Natural or Artificial Opening Endoscopic, Diagnostic (ICD-10-PCS; 2025-01-03)
PROC: 0BH17EZ Insertion of Endotracheal Airway into Trachea, Via Natural or Artificial Opening (ICD-10-PCS; 2025-01-03)
PROC: 0B9D8ZX Drainage of Right Middle Lung Lobe, Via Natural or Artificial Opening Endoscopic, Diagnostic (ICD-10-PCS; 2025-01-03)
PROC: 02HV33Z Insertion of Infusion Device into Superior Vena Cava, Percutaneous Approach (ICD-10-PCS; 2025-01-03)
PROC: B548ZZA Ultrasonography of Superior Vena Cava, Guidance (ICD-10-PCS; 2025-01-03)
DX: A41.59 Other Gram-negative sepsis (principal); J80 Acute respiratory distress syndrome; G92.8 Other toxic encephalopathy; J15.69 Pneumonia due to other Gram-negative bacteria; R65.21 Severe sepsis with septic shock; J15.9 Unspecified bacterial pneumonia; G93.1 Anoxic brain damage, not elsewhere classified; E87.0 Hyperosmolality and hypernatremia; E87.3 Alkalosis; I50.30 Unspecified diastolic (congestive) heart failure; J44.1 Chronic obstructive pulmonary disease with (acute) exacerbation; J98.11 Atelectasis; E87.1 Hypo-osmolality and hyponatremia; J44.0 Chronic obstructive pulmonary disease with (acute) lower respiratory infection; E11.65 Type 2 diabetes mellitus with hyperglycemia; Z20.822 Contact with and (suspected) exposure to COVID-19; I11.0 Hypertensive heart disease with heart failure; R58 Hemorrhage, not elsewhere classified; M06.8A Other specified rheumatoid arthritis, other specified site; E03.9 Hypothyroidism, unspecified; T38.0X5A Adverse effect of glucocorticoids and synthetic analogues, initial encounter; H57.02 Anisocoria; F17.200 Nicotine dependence, unspecified, uncomplicated; D75.89 Other specified diseases of blood and blood-forming organs; E87.6 Hypokalemia; K59.01 Slow transit constipation; Z90.710 Acquired absence of both cervix and uterus; Z87.11 Personal history of peptic ulcer disease; Z86.73 Personal history of transient ischemic attack (TIA), and cerebral infarction without residual deficits; Z82.49 Family history of ischemic heart disease and other diseases of the circulatory system; Y92.89 Other specified places as the place of occurrence of the external cause
CPT/HCPCS: 36415; 36600; 70450; 71045; 71275; 74018; 80048; 80053; 80202; 80307; 81001; 82805; 82962; 83036; 83605; 83735; 83880; 84100; 84443; 84484; 85025; 85610; 85730; 87040; 87070; 87081; 87205; 87426; 87804; 92610; 93005; 93306; 94002; 94003; 94640; 96365; 97110; 97116; 97163; 99291; G0378; J0169; J0692; J1815; J2185; J2405; J2470; J3480